=== PATIENT | male | born 1965 | race Caucasian/White ===

== ENCOUNTER 2021-02-20 13:55 | Emergency (ER) | payer BC ==
--- OUTSIDE RECORDS SUMMARY | 2021-02-20 13:58 | XMS REPORT | Continuity of Care Document ---
:1965 Author Organization [facility] t Address [address] [place] [address] Care Team Providers Name Role Phone Matt Pritchett Attending Clinician DR GAURAV Attending Clinician Unavailable DR GAURAV Admitting Clinician Unavailable Problems Condition Condition Condition Status Onset Resolution Last Treating Co mments Source Name Details Category Date Date Treatment Clinician Date Cervical Problem Active 2021-02-04 Mem oria radiculopa 00:51:45 l thy Cervical Alexandro n (disorder) radiculopa thy (disorder) Active Problem 02/04/2021 [facility] Finding of Problem Active 2021-02-04 M emoria neck 00:51:45 l region Finding [place] (finding) of neck region (finding) Active Problem 02/04/2021 [facility] Hereditary Problem Active 2021-02-04 M emoria motor and 00:51:45 l sensory [place] neuropathy 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) Active Problem 02/04/2021 [facility] Hyperlipid Problem Active 2021-02-04 M emoria emia 00:51:45 l (disorder) Alexandro n Hyperlipid emia (disorder) Active Problem 02/04/2021 [facility] Hypertensi Problem Active 2021-02-04 M emoria ve 00:51:45 l disorder, [place] systemic Hypertensi arterial ve (disorder) disorder, systemic arterial (disorder) Active Problem 02/04/2021 [facility] Lumbar Problem Active 2021-02-04 Memor ia radiculopa 00:51:45 l thy Lumbar Manas (disorder) radiculopa thy (disorder) Active Problem 02/04/2021 [facility] Morbid Problem Active 2021-02-04 Memor ia obesity 00:51:45 l (disorder) Morbid Herm margaret obesity (disorder) Active Problem 02/04/2021 [facility] Tremor Problem Active 2021-02-04 Memor ia (finding) 00:51:45 l Tremor Manas (finding) Active Problem 02/04/2021 [facility] Carpal Problem Active 2021-02-04 Memor ia tunnel 00:51:45 l syndrome Carpal Alexandro n (disorder) tunnel syndrome (disorder) Active Problem 02/04/2021 [facility] Liver Problem Active 2021-02-04 Memor ia function 00:51:45 l tests Liver [place] abnormal function (finding) tests abnormal (finding) Active Problem 02/04/2021 [facility] Allergies, Adverse Reactions, Alerts Allergy Allergy Status Severity Reaction(s) Onset Inactive Treating Comm ents Source Name Type Date Date Clinician sulfa sulfa Active Memoria drugs drugs l [facility] Social History Social Habit Start Date Stop Date Quantity Comments Source Social History 2021-01-01 2021-01-01 [facility] ermann 16:04:48 16:04:48 Medications Ordered Filled Start Stop Current Ordering Indication Dosage Frequency Signature Comments Components Source Medication Medication Date Date Medication? Clinician (SIG) Name Name primidone Yes 50 mg = 1 Mem oria 50 mg oral 4-22 tab, PO, l tablet 18:38: Bedtime, # Candice nn 00 30 tab, 3 Refill(s), Pharmacy: [facility][id number], 172.72, cm, 01/01/21 11:13:00 CDT, Height, 119.091, kg, 02/01/21 13:14:00 CDT, Weight gabapentin Yes 600 mg = 1 M emoria 600 MG Oral 3-22 tab, PO, l Tablet 16:48: TID, # 90 Alexandro n 00 tab, 3 Refill(s), Pharmacy: [facility] #[id number], 172.72, cm, 01/01/21 11:13:00 CDT, Height, 120.455, kg, 01/01/21 11:13:00 CDT, Weight Levetiracet Yes 250 mg = 1 Memoria am 250 MG 3-22 tab, PO, l Oral Tablet 16:48: BID, # 60 H ermann 00 tab, 3 Refill(s), Pharmacy: [facility] #[id number], 172.72, cm, 01/01/21 11:13:00 CDT, Height, 120.455, kg, 01/01/21 11:13:00 CDT, Weight Levetiracet No 250 mg = 1 Memoria am 250 MG 3-22 tab, PO, l Oral Tablet 16:22: BID, # 60 H ermann 00 tab, 2 Refill(s) Atenolol Yes 100 mg = 1 Mem oria 100 MG Oral 3-22 tab, PO, l Tablet 16:22: Daily, # Manas 00 30 tab, 0 Refill(s) atorvastati Yes 20 mg = 1 M emoria n 20 mg 3-22 tab, PO, l oral tablet 16:22: Bedtime, # [place] 00 30 tab, 0 Refill(s) amLODIPine Yes 10 mg = 1 Me moria 10 mg oral 3-22 tab, PO, l tablet 16:21: Daily, # [place] 00 90 tab, 1 Refill(s) clonazePAM Yes 0.5 mg = 1 M emoria 0.5 mg oral 3-22 tab, PO, l tablet 16:20: BID, # 30 Alexandro n 00 tab, 0 Refill(s) omeprazole Yes 40 mg = 1 Me moria 40 mg oral 3-22 cap, PO, l delayed 16:20: Daily, # Alexandro n release 00 30 cap, 0 capsule Refill(s) gabapentin No 600 mg = 1 M emoria 600 MG Oral 3-22 tab, PO, l Tablet 16:19: BID, # 270 Candice nn 00 tab, 0 Refill(s) Vital Signs Vital Name Observation Time Observation Value Comments Source Systolic (mm Hg) 2021-02-01 18:14:00 Juan A Malagon Diastolic (mm Hg) 2021-02-01 18:14:00 Mary Jo fultonal [place] Heart Rate 2021-02-01 18:14:00 [facility] [place] Respitory Rate 2021-02-01 18:14:00 Mary Joori al [address] Weight 2021-02-01 18:14:00 [facility] [place] Systolic (mm Hg) 2021-01-01 16:03:00 Juan Acameron Malagon Diastolic (mm Hg) 2021-01-01 16:03:00 Mem donaldobridget Mal[place] Heart Rate 2021-01-01 16:03:00 Sharon Malagon Respitory Rate 2021-01-01 16:03:00 Mary Jodonaldo Rose Height 2021-01-01 16:03:00 172.72 cm Sharon Malagon Weight 2021-01-01 16:03:00 Sharon Malagon BMI Calculated 2021-01-01 16:03:00 Ifeoma Rose Procedures Procedure Date / Time Performed Performing Clinician Sour e Right Foot SX Sharon Oliverann Cholecystectomy<sup>1</maurer Memdonaldo gill Manas p> Encounters Start End Encounter Admission Attending Care Care Encounter Source Date/Time Date/Time Type Type Clinicians Facility Department ID 2021-02-01 2021-02-01 Outpatient FRED PritchettMISCHER [facility] [id number] 13:00:00 23:59:59 Leonardo 01 Matt 2021-01-15 2021-01-15 Outpatient Sri NOLASCO [facility] [id number] [place] 08:32:00 10:43:00 [facility] [place] 2021-01-05 2021-01-06 Outpatient MHMISCHER MHMISCHER [id number] 09:02:45 23:59:59 00 2021-01-01 2021-01-01 Outpatient FRED PritchettMISCHER [facility] [id number] 10:45:00 23:59:59 Leonardo 00 Matt 2020-12-22 2020-12-22 Outpatient Sri NOLASCO [facility] [id number] [place] 08:57:00 12:00:00 [facility] [place] 2020-11-10 2020-11-10 Outpatient Sri NOLASCO [facility] [id number] [place] 09:15:00 11:18:00 [facility] [place] 2019-10-08 2019-10-08 Outpatient Sri NOLASCO [facility] [id number] [place] 08:34:00 10:10:00 [facility] [place] 2019-09-24 2019-09-24 Outpatient Sri NOLASCO [facility] [id number] [place] 08:45:00 10:36:00 [facility] Results This patient has no known results.
[2021-02-20] MEDS ORDERED: MORPHINE 4 MG/ML SYR ONE (15:22)
--- NOTE | 2021-02-20 15:56 | RAD REPORT ---
EXAM DESCRIPTION: RAD - Tib Fib Left - 02/20/2021 3:06 pm CLINICAL HISTORY: Fall, leg pain COMPARISON: Left ankle same day FINDINGS: Left ankle findings are separately detailed. Proximal to the ankle joint there is no acute fracture. Patient has patella [place] configuration. There is calcification of the proximal aspect medial collateral ligament. This can be associated with exhibit designer vlad knee pain but is not related to the acute event. There is no dislocation or periosteal reaction n oted. No acute or suspicious bony finding. No foreign body or other soft tissue abnormality. IMPRESSION: Exclusive of the left ankle joint, left tib-fib shows no acute or suspicious finding.
--- NOTE | 2021-02-20 15:58 | RAD REPORT ---
EXAM DESCRIPTION: RAD - Ankle Left 3 View - 02/20/2021 3:05 pm CLINICAL HISTORY: Pain;Deformity, fall, ankle pain COMPARISON: Tib Fib Left dated 02/20/2021 FINDINGS: Oblique fracture is present through the distal fibula proximal to the tibial plafond. Ther e is 1 full shaft width lateral displacement and 20 degree angulation deformity. There is near comple te dislocation of the dome of the talus from the ankle joint. Patient may have a minimal fracture def ormity at the posterior margin of the tibial plafond. Medial malleolus is intact. No fracture of the talus or calcaneus seen. Prominent soft tissue swelling is present around the ankl e joint. No foreign body seen. IMPRESSION: Left ankle fracture dislocation as detailed.
--- NOTE | 2021-02-20 16:26 | RAD REPORT ---
EXAM DESCRIPTION: RAD - Ankle Left 3 View - 02/20/2021 4:12 pm CLINICAL HISTORY: post reduction COMPARISON: Ankle Left 3 View dated 02/20/2021 FINDINGS: Following post reduction maneuvers and placement of cast material, the lateral dislocation has been partially reduced. There remains approximately 8 millimeter gap between the medial margin o f the talar dome and the medial malleolus. The fibula fracture fragment lateral dislocation has been reduced to near anatomic position. IMPRESSION: Near complete reduction of the left ankle fracture dislocation detailed previously.
--- NOTE | 2021-02-20 16:53 | ER ---
Nurse's Notes [facility] Name: Juan José Escobar Jr Age: 55 yrs Sex: Male : 1965 Arrival Date: 02/20/2021 Time: 13:56 Bed 15 Private MD: Diagnosis: Fracture of lower leg, including ankle Presentation: 02/20 14:08 Chief complaint: Patient states: about 2 am, he fell, the LEFT foot went backwards, my tw2 wrapped it with kristopher wrap and but a boot on so i could get it striaght. Chief complaint: Spouse and/or significant other states: Charcot foot and neuropathy. Coronavirus screen: At this time, the client does not indicate any symptoms associated with coronavirus-19. Ebola Screen: Patient denies travel to an Ebola-affected area in the 21 days before illness onset. Initial Sepsis Screen: Does the patient meet any 2 criteria? No. Patient's initial sepsis screen is negative. Does the patient have a suspected source of infection? No. Patient's initial sepsis screen is negative. Risk Assessment: Do you want to hurt yourself or someone else? Patient reports no desire to harm self or others. Onset of symptoms was February 20, 2021. 14:08 Method Of Arrival: Wheelchair tw2 14:08 Acuity: BUSHRA 3 tw2 Triage Assessment: 14:13 General: Appears in no apparent distress. obese, well groomed, Behavior is calm, tw2 cooperative, appropriate for age. Pain: Complains of pain in left foot. Historical: - Allergies: 14:12 Sulfa (Sulfonamide Antibiotics); tw2 - Home Meds: 14:12 levetiracetam 250 mg Oral tab 2 tabs 2 times per day [Active]; gabapentin 300 mg Oral tw2 cap 2 caps 3 times per day [Active]; atenolol 100 mg Oral tab 1 tab once daily [Active]; aspirin 81 mg Oral chew 1 tab once daily [Active]; amlodipine 10 mg tab 1 tab once daily [Active]; clonazepam 0.5 mg oral tab [Active]; omeprazole 40 mg Oral cpDR 1 cap once daily [Active]; atorvastatin 20 mg oral tab 1 tab once daily [Active]; - PMHx: 14:12 CMT; Hypertension; tw2 - PSHx: 14:12 Right foot; Cholecystectomy; tw2 - Immunization history:: Adult Immunizations. - Social history:: Smoking status: . Screenin:31 Abuse screen: Denies threats or abuse. Nutritional screening: No deficits noted. tw2 Tuberculosis screening: No symptoms or risk factors identified. Fall Risk Secondary diagnosis (15 points) impaired mobility. Assessment: 14:50 General: Appears in no apparent distress. Behavior is calm, cooperative, appropriate kg for age, quiet. Pain: Complains of pain in left lateral ankle, lateral aspect of left foot, left Achilles, left heel, left medial ankle, medial aspect of left foot, anterior aspect of left ankle and dorsum of left foot Pain radiates to left leg Pain currently is 8 out of 10 on a pain scale. at worst was 10 out of 10 on a pain scale. level that patient reports is acceptable is 5 out of 10 on a pain scale. Quality of pain is described as aching, throbbing. Neuro: No deficits noted. Level of Consciousness is awake, alert, obeys commands, Oriented to person, place, time, situation. Cardiovascular: No deficits noted. Respiratory: No deficits noted. GI: No deficits noted. : No deficits noted. EENT: No deficits noted. Derm: No deficits noted. Musculoskeletal: Bony deformity noted of left lateral ankle, left Achilles, left medial ankle and anterior aspect of left ankle Swelling present in left leg Reports pain in left leg. Vital Signs: 14:08 BP 93 / 61; Pulse 67; Resp 17; Temp 97.9(TE); Pulse Ox 95% ; Weight 114.76 kg (R); tw2 Height 5 ft. 10 in. (177.80 cm); 15:13 BP 94 / 66; Pulse 65; Resp 20; Pulse Ox 93% ; kg 16:58 BP 82 / 62; Pulse 68; Resp 19 S; Pulse Ox 92% on R/A; Pain 5/10; kg 17:26 BP 109 / 72; Pulse 68; Resp 20; Pulse Ox 94% on R/A; kg 14:08 Body Mass Index 36.30 (114.76 kg, 177.80 cm) tw2 ED Course: 13:56 Patient arrived in ED. ds1 14:10 Triage completed. tw2 14:13 Arm band placed on. tw2 14:36 Roberto Carlos Handley PA is PHCP. rhiannon 14:36 Linus Weston MD is Attending Physician. jmm 15:00 Juliet Baum is Primary Nurse. kg 15:06 XRAY Ankle LEFT 3 view In Process Unspecified. EDMS 15:06 Tib Fib Left XRAY In Process Unspecified. EDMS 15:12 Inserted saline lock: 20 gauge in right antecubital area, using aseptic technique. kg 15:45 Orthoglass splint: Posterior short lleg splint applied on left leg. Orthoglass splint: dh4 stirrup splint applied on left leg. 16:12 Ankle Left 3 View XRAY In Process Unspecified. EDMS 16:52 Ismael King DPM is Referral Physician. jmm 17:02 Patient has correct armband on for positive identification. Fall risk band placed. Bed kg in low position. Call light in reach. Side rails up X2. Adult w/ patient. 17:03 Assist provider with fracture care of left lateral ankle Fracture is closed. Obvious kg deformity is noted. Circulation, motor and sensation is intact. Set up for procedure. Performed by Ruben Magana Reduced with physical manipulation. Immobilized with preformed splint, Post immobilization, circulation, motor and sensation remain intact. Patient tolerated well. Patient did not have IV access during this emergency room visit. Administered Medications: 15:12 Drug: morphine 4 mg Route: IVP; Site: right antecubital; kg 17:00 Follow up: Response: No adverse reaction; Pain is decreased kg Outcome: 16:52 Discharge ordered by . [facility] 17:05 Discharged to home via wheelchair. kg 17:05 Condition: improved 17:05 Discharge instructions given to patient, family, Instructed on discharge instructions, follow up and referral plans. Demonstrated understanding of 17:27 Demonstrated understanding of instructions, follow-up care, medications, Prescriptions kg given X 2. 17:28 Patient left the ED. kg Signatures: Dispatcher [employer] EDMS Roberto Carlos Handley PA PA Lucia Stein ds1 Amber Khan RN RN tw2 Ruben Magana Kristen kg
--- NOTE | 2021-02-20 16:53 | EDPHYS ---
Physician Documentation [facility] Name: Juan José Escobar Jr Age: 55 yrs Sex: Male : 1965 Arrival Date: 02/20/2021 Time: 13:56 Bed 15 Private MD: ED Physician Linus Weston HPI: 02/20 14:52 This 55 yrs old Male presents to ER via Wheelchair with complaints of Fall jmm Injury. 14:52 Details of fall: The patient fell from an upright position. Onset: The symptoms/episode jmm began/occurred acutely, just prior to arrival. Associated injuries: The patient sustained ankle. This is a 55 year old male with a history of CMT, htn that presents ot the ED with deformity to the left ankle. Patient states he rolled his ankle and it was boot in a walking boot at 0200. . Historical: - Allergies: 14:12 Sulfa (Sulfonamide Antibiotics); tw2 - Home Meds: 14:12 levetiracetam 250 mg Oral tab 2 tabs 2 times per day [Active]; gabapentin 300 mg Oral tw2 cap 2 caps 3 times per day [Active]; atenolol 100 mg Oral tab 1 tab once daily [Active]; aspirin 81 mg Oral chew 1 tab once daily [Active]; amlodipine 10 mg tab 1 tab once daily [Active]; clonazepam 0.5 mg oral tab [Active]; omeprazole 40 mg Oral cpDR 1 cap once daily [Active]; atorvastatin 20 mg oral tab 1 tab once daily [Active]; - PMHx: 14:12 CMT; Hypertension; tw2 - PSHx: 14:12 Right foot; Cholecystectomy; tw2 - Immunization history:: Adult Immunizations. - Social history:: Smoking status: . ROS: 14:52 Constitutional: Negative for fever, chills, and weight loss, Cardiovascular: Negative jmm for chest pain, palpitations, and edema, Respiratory: Negative for shortness of breath, cough, wheezing, and pleuritic chest pain. 14:52 MS/extremity: Positive for injury or acute deformity. 14:52 All other systems are negative. Exam: 14:52 Constitutional: This is a well developed, well nourished patient who is awake, alert, jmm and in no acute distress. Head/Face: atraumatic. Eyes: EOMI, no conjunctival erythema appreciated ENT: Moist Mucus Membranes Neck: Trachea midline, Supple Chest/axilla: Normal chest wall appearance and motion. Cardiovascular: Regular rate and rhythm. No edema appreciated Respiratory: Normal respirations, no respiratory distress appreciated Abdomen/GI: Non distended, soft Back: Normal ROM Skin: General appearance color normal 14:52 Musculoskeletal/extremity: deformity noted to the left ankle, dorsalis pulse intact. 14:52 Skin: Appearance: Color: normal in color. 14:52 Neuro: Motor: is normal. 14:52 Psych: Behavior/mood is pleasant, cooperative. Vital Signs: 14:08 BP 93 / 61; Pulse 67; Resp 17; Temp 97.9(TE); Pulse Ox 95% ; Weight 114.76 kg (R); tw2 Height 5 ft. 10 in. (177.80 cm); 15:13 BP 94 / 66; Pulse 65; Resp 20; Pulse Ox 93% ; kg 16:58 BP 82 / 62; Pulse 68; Resp 19 S; Pulse Ox 92% on R/A; Pain 5/10; kg 17:26 BP 109 / 72; Pulse 68; Resp 20; Pulse Ox 94% on R/A; kg 14:08 Body Mass Index 36.30 (114.76 kg, 177.80 cm) tw2 Procedures: 16:50 Reduction: of the left ankle, using traction, manipulation, Immobilized with posterior, rhiannon stirrup. Patient tolerated well. Post reduction film - reveals improved alignment. MDM: 14:43 Patient medically screened. [facility] 16:51 Data reviewed: vital signs, nurses notes. Counseling: I had a detailed discussion with rhiannon the patient and/or guardian regarding: the historical points, exam findings, and any diagnostic results supporting the discharge/admit diagnosis, radiology results, the need for outpatient follow up, to return to the emergency department if symptoms worsen or persist or if there are any questions or concerns that arise at home. ED course: I discussed the patient with Dr. iKng whom will follow up with the patient tomorrow. . 02/20 14:20 Order name: XRAY Ankle LEFT 3 view; Complete Time: 16:08 rn 02/20 14:43 Order name: Tib Fib Left XRAY; Complete Time: 16:08 [facility] 02/20 14:43 Order name: Saline Lock [facility] 02/20 15:38 Order name: Ankle Left 3 View XRAY; Complete Time: 16:30 [facility] Administered Medications: 15:12 Drug: morphine 4 mg Route: IVP; Site: right antecubital; kg 17:00 Follow up: Response: No adverse reaction; Pain is decreased kg Disposition: 17:52 Co-signature as Attending Physician, Linus Weston MD. rn Disposition: 02/20/21 16:52 Discharged to Home. Impression: Fracture of lower leg, including ankle. - Condition is Stable. - Discharge Instructions: Ankle Fracture. - Prescriptions for Tylenol- Codeine #3 300-30 mg Oral Tablet - take 1 tablet by ORAL route every 4-6 hours As needed; 20 tablet. wheelchair - take 1 unit by MISCELLANEOUS route as directed; 1 unit. - Medication Reconciliation Form, Thank You Letter, Antibiotic Education, Prescription Opioid Use form. - Follow up: Ismael King DPM; When: Tomorrow; Reason: Recheck today's complaints, Continuance of care, Re-evaluation by your physician. Signatures: Dispatcher [employer] [facility] Roberto Carlos Handley PA PA [facility] Linus Weston MD MD rn Amber Khan RN RN 2 Juliet Baum Corrections: (The following items were deleted from the chart) 15:05 14:20 Foot Left 3 View+RAD.RAD.BRZ ordered. [facility] 17:28 16:52 02/20/2021 16:52 Discharged to Home. Impression: Fracture of lower leg, including kg ankle. Condition is Stable. Forms are Medication Reconciliation Form, Thank You Letter, Antibiotic Education, Prescription Opioid Use. Follow up: Dr. Ismael King; When: Tomorrow; Reason: Recheck today's complaints, Continuance of care, Re-evaluation by your physician. [facility]
[2021-02-20 17:34] VITALS: TEMP 97.9
[2021-02-20 17:38] VITALS: BP 109/72; O2SAT 94
== END 2021-02-20 17:28 | disposition home or self-care (01) ==
LOC: ER 13:55
PROC: 0QSKXZZ Reposition Left Fibula, External Approach (ICD-10-PCS; principal; 2021-02-20)
PROC: 0QSHXZZ Reposition Left Tibia, External Approach (ICD-10-PCS; 2021-02-20)
DX: S82.892A Other fracture of left lower leg, initial encounter for closed fracture (principal); W19.XXXA Unspecified fall, initial encounter; Y93.89 Activity, other specified; I10 Essential (primary) hypertension; Z88.2 Allergy status to sulfonamides; Z79.82 Long term (current) use of aspirin
CPT/HCPCS: 96374; 99284

== ENCOUNTER 2022-05-15 06:11 | Day surgery (SDC) | payer BC ==
[2022-05-15 06:52] LABS: Hematocrit 41.8 % (39.6-49.0); MCV 91.2 fL (80-100); MPV 7.5 fL (7.6-11.3); RBC Red Blood Cell Count 4.58 M/uL (4.33-5.43)
[2022-05-15 07:01] LABS: SARS-CoV-2 Antigen Rapid Res Negative (Negative)
[2022-05-15 07:02] LABS: Potassium 4.2 mmol/L (3.5-5.1)
[2022-05-15] MEDS ORDERED: ROCURONIUM 50 MG/5 ML VIAL IV ONE (07:15)
[2022-05-15] MEDS ORDERED: LIDOCAINE 2% MPF 5 ML VIAL ONE (07:15)
[2022-05-15] MEDS ORDERED: ONDANSETRON 4 MG/2 ML VIAL ONE (07:15)
[2022-05-15] MEDS ORDERED: MIDAZOLAM HCL 2 MG/2 ML INJ ONE (07:15)
[2022-05-15] MEDS ORDERED: dexAMETHasone 10 MG/ML VIAL ONE (07:15)
[2022-05-15] MEDS ORDERED: FENTANYL CITR 100 MCG/2 ML ONE (07:15)
[2022-05-15] MEDS ORDERED: propofoL 200 MG/20 ML VIAL IV ONE (07:15)
[2022-05-15] MEDS ORDERED: Ringers Lactate 1,000 ML IV ONE ×2 (07:35→09:30)
--- NOTE | 2022-05-15 07:41 | RAD REPORT ---
EXAM DESCRIPTION: Faisal Burton (2 Views)05/15/2022 6:57 am CLINICAL HISTORY: Preop COMPARISON: 2017 FINDINGS: An area of scarring or subsegmental atelectasis within the left lung base. The remainder of the lungs appear clear of acute infiltrate. The heart is normal size
[2022-05-15] MEDS ORDERED: CEFAZOLIN SODIUM 1 GM/VIAL ONE (08:58)
[2022-05-15] MEDS ORDERED: EPHEDRINE SULF 50 MG/ML VIAL ONE (09:09)
[2022-05-15] MEDS ORDERED: KETOROLAC 30 MG/ML INJ ONE (09:29)
[2022-05-15] MEDS ORDERED: NEOSTIGMINE 1 MG/ML -10 ML VIAL ONE (09:29)
[2022-05-15] MEDS ORDERED: GLYCOPYRROLATE 0.2 MG/ML SYR ONE (09:29)
[2022-05-15] MEDS: HYDROMORPHONE HCL 1 MG/ML INJ ONE ×2 (09:46→09:53)
--- NOTE | 2022-05-15 09:52 | P.BOP ---
Preoperative diagnosis: incarcerated tender supraumbilical ventral hernia Postoperative diagnosis: same Primary procedure: Laparoscopic repair incarcerated supraumbilical ventral hernia with mesh Estimated blood loss: <10cc Specimen: sac Findings: as above Anesthesia: General Complications: None Implants: large ventralex mesh Transferred to: Recovery Room Condition: Good
[2022-05-15] MEDS ORDERED: HYDROMORPHONE HCL 1 MG/ML INJ ONE (10:15)
[2022-05-15] MEDS ORDERED: CODEINE 30MG/APAP 300MG TAB ONE (10:48)
[2022-05-15] MEDS ORDERED: CODEINE 30MG/APAP 300MG TAB PO ONE (11:00)
[2022-05-15 12:04] VITALS: BP 125/72; TEMP 97.8; O2SAT 98
--- NOTE | 2022-05-15 12:57 | EKG ---
Test Date: 2022-05-15 Test Time: 07:16:25 Child Caregiver: IRINA MEASUREMENT RESULTS: Intervals: Rate: 68 ID: [id number] QRSD: 80 QT: 422 QTc: 448 [place]: P: 55 ID: [id number] QRS: 23 T: 67 INTERPRETIVE STATEMENTS: Normal sinus rhythm Normal ECG Compared to ECG 02/06/2017 21:33:18 No significant changes Electronically Signed On 05-15-22 12:56:28 CDT by Bairon Clement
--- NOTE | 2022-05-15 21:54 | OP ---
Date of Procedure: 05/15/2022 Surgeon: John Morelos MD Preoperative Diagnosis: Incarcerated tender supraumbilical ventral hernia. Postoperative Diagnosis: Incarcerated tender supraumbilical ventral hernia. Procedure: Laparoscopic repair of incarcerated supraumbilical ventral hernia with mesh. Estimated Blood Loss: Less than 10 mL. Specimen: Hernia sac. Anesthesia: General plus local. Implant: A large Ventralex mesh. Complications: None. Indication: This is the case of a 56-year-old patient, who comes to us with above hernia. He unders tands the benefits, alternatives, and risks of repair of laparoscopic possible open repair of incarce rated supraumbilical ventral hernia with possible mesh with benefits, alternatives, and risks includi ng, but not limited to infection, bleeding, damage to adjacent structures, anesthesia complication, r ecurrence, DE, and even . He also understands this may not relieve any symptoms. He might need more than one surgical intervention. He understood. He also understands we may use a mesh in that area. Pros and cons of mesh placement were discussed with the patient and all the questions were ans wered to his satisfaction. He signed a consent. He also understands he has also diastasis recti com ponent in the upper epigastric area that although might be hernia at this moment and may be developin g hernia in the future. He should help himself by trying to lose some weight and avoid heavy lifting . He understands. Procedure In Detail: The patient was brought to the operating room, placed in supine position. Anes thesia was done without complication. Abdominal area was prepped and draped in the usual sterile fas hion. Local anesthesia was applied followed by sharp incision of the skin in the supraumbilical fiorella on ventral area. The incision was carried down. We noticed the hernia sac to be present. Carefully , the hernia sac was dissected free from the rest of the subcutaneous tissue, opened. We noticed the incarcerated omentum, but after removing scar tissue from that area, we were able to reduce the omen kiersten and salvage that. The hernia sac was removed where the fascial edges looked friable and I believ e he will benefit from a mesh in that region to diminish the chance of recurrence since holding this with stitches is ripping through the fascia itself. At that moment, I proceeded to place Vicryl insi de of the fascia. Jesús trocar was carefully introduced and pneumoperitoneum was obtained. I place d 2 more trocars, 5 mm each one of them in the left and right side of the abdomen. This allowed me t o put a 5 mm camera and evaluate in the middle. We have to use a LigaSure to be able to remove adhes ions through the anterior abdominal wall and also mobilize partially the falciform ligament. This al lowed me no space, so we are going to put the mesh in that region. It will be nice and flat against the abdominal wall. We selected a large Ventralex mesh to be placed to cover the area defect of abou t 3-5 cm. The mesh was placed through the Jesús trocar. Jesús trocar was carefully removed and Vi cryl #1 placed inside the fascia to close approximately the fascial edges over the hernia defect. We then tied that yet and we proceeded to pull the strap of the Ventralex mesh, secured in place from b elow with the help of SorbaFix fixation device. The strap of this mesh was removed and then we appro ximated the fascial edges with #1 Vicryl obtaining a seal to water and also air. The mesh was furthe r secured circumferentially with SorbaFix fixation device to diminish any chance of intestines coming in between. At that moment, I proceeded once again to check the area. The omentum looks intact, so we deflated pneumoperitoneum and removed the trocars under direct visualization and then after that, closed the subcutaneous tissue with 3-0 chromic and the skin with lorena. Sponge count, instrument counts correct. The patient tolerated the procedure well. The patient was sent to recovery in stable condition. LUCIO/LEFTY Voice ID: [id number] Report ID: [id number]
--- NOTE | 2022-05-16 05:36 | DS ---
Date of Discharge: 05/15/2022 Diagnosis: Incarcerated tender supraumbilical ventral hernia. Procedure: Laparoscopic repair of incarcerated supraumbilical ventral hernia with mesh. Disposition: Home. Activity: As tolerated. No heavy lifting. Plan: Follow up in my office in 1 week. Call for appointment at [phone]. Keep area dry if possibl e until he sees us back in the clinic, but if he has to remove it, then not to remove until 48 hours from now. Use the abdominal binder while out of bed. LUCIO/LEFTY Voice ID: [id number] Report ID: [id number]
== END 2022-05-15 11:20 | disposition home or self-care (01) ==
LOC: OR 06:11
PROVIDERS: ATTEND Surgery
PROC: 0WUF4JZ Supplement Abdominal Wall with Synthetic Substitute, Percutaneous Endoscopic Approach (ICD-10-PCS; principal; 2022-05-15 08:30)
DX: K43.6 Other and unspecified ventral hernia with obstruction, without gangrene (principal); Z20.822 Contact with and (suspected) exposure to COVID-19
CPT/HCPCS: 93005; 85025; 80048; 36415; 88302; 71046; 87811; 49653; J2704; J2710; J2250; J3010; J1100; J1170 ×2; J7120 ×2; J2405; J0690

== ENCOUNTER 2022-12-10 14:04 | Inpatient (IN) | payer SELFPAY ==
--- OUTSIDE RECORDS SUMMARY | 2022-12-10 14:59 | XMS REPORT | Continuity of Care Document ---
:1965 Author Organization [facility] t Address [address] [place] [address] Care Team Providers Name Role Phone BARTLETT, TRINA Attending Clinician Unavailable Leonardo Pritchett Attending Clinician Sol Kincaid Attending Clinician Unavailable DR SHERICE NOLASCO Attending Clinician Unavailable Sol Kincaid Admitting Clinician Unavailable DR SHERICE NOLASCO Admitting Clinician Unavailable Payers Payer Name Policy Type Policy Number Effective Date Expiration Date S betty BCBSTX PPO AND [id number] 2022 00:00:00 OUT OF STATE Problems Condition Condition Condition Status Onset Resolution Last Treating Co mments Source Name Details Category Date Date Treatment Clinician Date Cervical Cervical Problem Active 2021-10-26 Memoria radiculopa radiculopa 23:23:25 l thy thy [place] (disorder) (disorder) Active Problem 10/26/2021 [facility] Finding of Finding Problem Active 2021-10-26 Memoria neck of neck 23:23:25 l region region [place] (finding) (finding) Active Problem 10/26/2021 [facility] 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) Active Problem 10/26/2021 [facility] Hyperlipid Hyperlipi Problem Active 2021-10-26 Memoria emia demia 23:23:25 l (disorder) (disorder) He rmann Active Problem 10/26/2021 [facility] Hypertensi Hypertens Problem Active 2021-10-26 Memoria ve amrita 23:23:25 l disorder, disorder, Herm margaret systemic systemic arterial arterial (disorder) (disorder) Active Problem 10/26/2021 [facility] Lumbar Lumbar Problem Active 2021-10-26 Juan A jose radiculopa radiculopa 23:23:25 l thy thy [place] (disorder) (disorder) Active Problem 10/26/2021 [facility] Morbid Morbid Problem Active 2021-10-26 Juan A jose obesity obesity 23:23:25 l (disorder) (disorder) He rmann Active Problem 10/26/2021 [facility] Tremor Tremor Problem Active 2021-10-26 Juan A jose (finding) (finding) 23:23:25 l Active [place] Problem 10/26/2021 [facility] Carpal Carpal Problem Active 2021-10-26 Juan A jose tunnel tunnel 23:23:25 l syndrome syndrome Alexandro n (disorder) (disorder) Active Problem 10/26/2021 [facility] Hand pain Hand pain Problem Active 2021-10-26 Memoria (finding) (finding) 23:23:25 l Active [place] Problem 10/26/2021 [facility] Liver Liver Problem Active 2021-10-26 Memor ia function function 23:23:25 l tests tests [place] abnormal abnormal (finding) (finding) Active Problem 10/26/2021 [facility] Allergies, Adverse Reactions, Alerts Allergy Allergy Status Severity Reaction(s) Onset Inactive Treating Comm ents Source Name Type Date Date Clinician Sulfa DA Active SV [facility] (Sulfona 5-12 [facility] 00:00: [facility] Antibiot 00 are ics) [facility] Sulfa DA Active SV ANAPHYLAXIS [facility] (Sulfona 5-12 [facility] 00:00: Health Antibiot 00 are ics) [facility] sulfa sulfa Active Memoria drugs drugs l [place] Sulfa DA Active Unknown [facility] (Sulfona [facility]) Shiner Social History Social Habit Start Date Stop Date Quantity Comments Source Social History 2021-01-01 2021-01-01 [facility] Reji smith 16:04:48 16:04:48 Medications Ordered Filled Start Stop Current Ordering Indication Dosage Frequency Signature Comments Components Source Medication Medication Date Date Medication? Clinician (SIG) Name Name primidone 2020-10 Yes 250 mg = 1 Me moria 250 mg oral 0-12 tab, PO, l tablet 14:21: Daily, # [place] 00 30 tab, 3 Refill(s), Pharmacy: [id number], 172.72, cm, 04/24/21 15:47:00 CDT, Height, 120, kg, 04/24/21 15:47:00 CDT, Weight primidone Yes 50 mg = 1 Mem oria 50 mg oral 8-18 tab, PO, l tablet 21:40: TID, # 90 Alexandro n 00 tab, 3 Refill(s), Pharmacy: [facility] #[id number], 172.72, cm, 04/24/21 15:47:00 CDT, Height, 120, kg, 04/24/21 15:47:00 CDT, Weight Flexeril 10 Yes 10 mg = 1 M emoria mg oral 7-12 tab, PO, l tablet 19:35: BID, 0 [place] 00 Refill(s) primidone Yes 50 mg = 1 Mem oria 50 mg oral 4-22 tab, PO, l tablet 18:38: Bedtime, # Candice nn 00 30 tab, 3 Refill(s), Pharmacy: [facility] [place] #[id number], 172.72, cm, 01/01/21 11:13:00 CDT, Height, 119.091, kg, 02/01/21 13:14:00 CDT, Weight gabapentin Yes 600 mg = 1 M emoria 600 MG Oral 3-22 tab, PO, l Tablet 16:48: TID, # 90 Alexandro n 00 tab, 3 Refill(s), [id number], 172.72, cm, 01/01/21 11:13:00 CDT, Height, 120.455, kg, 01/01/21 11:13:00 CDT, Weight Levetiracet Yes 250 mg = 1 Memoria am 250 MG 3-22 tab, PO, l Oral Tablet 16:48: BID, # 60 H ermann 00 tab, 3 Refill(s), Pharmacy: [id number], 172.72, cm, 01/01/21 11:13:00 CDT, Height, 120.455, [...] PO, l oral tablet 16:22: Bedtime, # [place] 00 30 tab, 0 Refill(s) amLODIPine Yes 10 mg = 1 Me moria 10 mg oral 3-22 tab, PO, l tablet 16:21: Daily, # [place] 00 90 tab, 1 Refill(s) clonazePAM Yes [...] Name Observation Time Observation Value Comments Source Height 2021-01-15 08:57:00 175.26 CM Weight 2021-01-15 08:57:00 119.83 KG Height 2020-12-22 10:35:00 175.26 CM Weight 2020-12-22 10:35:00 119.74 KG Height 2020-11-10 10:17:00 177.8 CM Weight 2020-11-10 10:17:00 122.46 KG Height 2019-10-08 09:10:00 177.8 CM Weight 2019-10-08 09:10:00 131.99 KG Systolic (mm Hg) 2021-07-24 14:02:00 Juan A rial [place] Diastolic (mm Hg) 2021-07-24 14:02:00 Mem orial [place] Heart Rate 2021-07-24 14:02:00 [facility] [place] Respitory Rate 2021-07-24 14:02:00 Memori al Amnas Systolic (mm Hg) 2021-05-30 20:54:00 Juan A rial [place] Diastolic (mm Hg) 2021-05-30 20:54:00 Mem orial [place] Heart Rate 2021-05-30 20:54:00 [facility] [place] Respitory Rate 2021-05-30 20:54:00 Memori al [place] Systolic (mm Hg) 2021-04-24 20:47:00 Juan A rial [place] Diastolic (mm Hg) 2021-04-24 20:47:00 Mem orial [place] Heart Rate 2021-04-24 20:47:00 [facility] [place] Respitory Rate 2021-04-24 20:47:00 Memori al [place] Height 2021-04-24 20:47:00 172.72 cm [facility] [place] Weight 2021-04-24 20:47:00 [facility] [place] BMI Calculated 2021-04-24 20:47:00 Memori al [place] Systolic (mm Hg) 2021-04-23 18:55:00 Juan A rial [place] Diastolic (mm Hg) 2021-04-23 18:55:00 Mem orial [place] Heart Rate 2021-04-23 18:55:00 [facility] [place] Respitory Rate 2021-04-23 18:55:00 Memori al [place] Systolic (mm Hg) 2021-02-01 18:14:00 Juan A rial [place] Diastolic (mm Hg) 2021-02-01 18:14:00 Mem orial [place] Heart Rate 2021-02-01 18:14:00 [facility] [place] Respitory Rate 2021-02-01 18:14:00 Memori al [place] Weight 2021-02-01 18:14:00 [facility] [place] Systolic (mm Hg) 2021-01-01 16:03:00 Juan A rial [place] Diastolic (mm Hg) 2021-01-01 16:03:00 Mem orial [place] Heart Rate 2021-01-01 16:03:00 [facility] [place] Respitory Rate 2021-01-01 16:03:00 Memori al [place] Height 2021-01-01 16:03:00 172.72 cm Sharon [place] Weight 2021-01-01 16:03:00 [facility] [place] BMI Calculated 2021-01-01 16:03:00 Ifeoma al [place] Procedures Procedure Date / Time Performed Performing Clinician Sour e [id number] 2021-03-09 00:00:00 SELBR [facility] [id number] 2021-02-21 00:00:00 STEKE.04 [facility] [id number] 2021-02-21 00:00:00 STEKE.04 [facility] INS NEURSTIM LEAD 2021-01-15 00:00:00 [facility] SPINAL CANAL PERQ INTRO ANEST AGENT 2020-12-22 00:00:00 [facility] SPINAL CANAL PERQ INTRO AIF SP CANAL 2020-12-22 00:00:00 [facility] PERQ APPROACH INTRO ANEST AGENT 2020-11-10 00:00:00 [facility] SPINAL CANAL PERQ INTRO AIF SP CANAL 2020-11-10 00:00:00 [facility] PERQ APPROACH INTRO AIF SP CANAL 2019-10-08 00:00:00 [facility] PERQ APPROACH INTRO ANEST AGENT 2019-10-08 00:00:00 [facility] SPINAL CANAL PERQ Right Foot SX [facility] Man[place] Cholecystectomy<sup>1 [facility] H ermann </sup> Encounters Start End Encounter Admission Attending Care Care Encounter Source Date/Time Date/Time Type Type Clinicians Facility Department ID 2022-05-07 Outpatient [facility] [id number] [place] 11:26:33 [id number] [facility] 2021-02-24 Inpatient HCANW HCANW [id number] [facility] 09:06:02 09 [facility] 2022-08-30 2022-08-30 Outpatient MHIE MHIE [id number] Memoria 15:15:00 15:15:00 13 l [place] 2022-07-09 2022-07-09 Outpatient SHEIKH [facility] [id number] [place] 08:00:00 08:00:00 [facility] 2022-05-10 2022-05-10 Outpatient MHIE MHIE [id number] Memoria 11:45:00 11:45:00 12 sam OliverManas 2022-04-05 2022-04-05 Outpatient MHIE MHIE [id number] Memoria 15:45:00 15:45:00 11 sam Malagon 2021-10-24 2021-10-24 Ambulatory nullFlavo MNA [id number] Memoria 20:30:00 20:30:00 Pre-Reg r Neurology 10 sam [place] 2021-10-24 2021-10-24 Outpatient MHIE MHIE [id number] Memoria 14:30:00 14:30:00 10 sam [place] 2021-10-24 2021-10-24 Outpatient YASMIN PritchettMISCHER [id number] 14:30:00 14:30:00 Leonardo 10 Matt 2021-07-24 2021-07-25 Outpatient nullFlavo MNA [id number] Memoria 14:00:00 04:59:59 r Neurology 09 sam Malagon 2021-07-24 2021-07-24 Outpatient YASMIN PritchettMISCHER [id number] 09:00:00 23:59:59 Leonardo 09 Matt 2021-07-24 2021-07-24 Outpatient MHIE MHIE [id number] Memoria 09:00:00 09:00:00 09 sam [place] 2021-07-11 2021-07-11 Ambulatory nullFlavo MNA [id number] Memoria 20:15:00 20:15:00 Pre-Reg r Neurology 08 sam [place] 2021-07-11 2021-07-11 Outpatient MHIE MHIE [id number] Memoria 15:15:00 15:15:00 08 sam [place] 2021-07-11 2021-07-11 Outpatient SABINE PritchettSCHER MHMISCHER [id number] 15:15:00 15:15:00 Leonardo 08 Matt 2021-06-06 2021-06-06 Ambulatory nullFlavo MNA [id number] Memoria 16:00:00 16:00:00 Pre-Reg r Neurology 05 sam Oliverann 2021-06-06 2021-06-06 Outpatient MHIE MHIE [id number] Memoria 11:00:00 11:00:00 05 sam [place] 2021-06-06 2021-06-06 Outpatient YASMIN Pritchtet CHARYSCHANTHONY [id number] 11:00:00 11:00:00 Leonardo 05 Matt 2021-05-30 2021-05-31 Outpatient nullFlavo MNA [id number] Memoria 20:45:00 04:59:59 r Neurology 07 sam [place] 2021-05-30 2021-05-30 Outpatient YASMIN PritchettSCHER [id number] 15:45:00 23:59:59 Leonardo 07 Matt 2021-05-30 2021-05-30 Outpatient MHIE MHIE [id number] Memoria 15:45:00 15:45:00 07 sam [place] 2021-04-24 2021-04-25 Outpatient nullFlavo MNA [id number] Memoria 20:30:00 04:59:59 r Neurology 06 sam [place] 2021-04-24 2021-04-24 Outpatient YASMIN PrtichettSCHER [id number] 15:30:00 23:59:59 Leonardo 06 Matt 2021-04-24 2021-04-24 Outpatient MHIE MHIE [id number] Memoria 15:30:00 15:30:00 06 sam [place] 2021-04-23 2021-04-24 Outpatient nullFlavo MNA [id number] Memoria 18:45:00 04:59:59 r Neurology 04 sam [place] 2021-04-23 2021-04-23 Outpatient SABINE PritchettSCHANTHONY CHARYSCHER [id number] 13:45:00 23:59:59 Leonardo 04 Matt 2021-04-23 2021-04-23 Outpatient MHIE MHIE [id number] Memoria 13:45:00 13:45:00 04 sam [place]agon 2021-04-12 2021-04-12 Ambulatory nullFlavo MNA [id number] Memoria 18:15:00 18:15:00 Pre-Reg r Neurology 03 l [place] 2021-04-12 2021-04-12 Outpatient MHIE MHIE [id number] Memoria 13:15:00 13:15:00 03 sam [place] 2021-04-12 2021-04-12 Outpatient SABINE PritchettSCHER MHMISCHER [id number] 13:15:00 13:15:00 Leonardo 03 Matt 2021-03-09 2021-03-14 Inpatient Sol Ocampo [facility] [id number] [facility] 13:24:00 16:31:00 12 [facility] 2021-02-26 2021-02-26 Ambulatory nullFlavo MNA [id number] Memoria 20:00:00 20:00:00 Pre-Reg r Neurology 02 l Mk Malagon 2021-02-26 2021-02-26 Outpatient MHIE MHIE [id number] Memoria 15:00:00 15:00:00 02 sam [place] 2021-02-26 2021-02-26 Outpatient SABINE PritchettSCHANTHONY MHMISCHER [id number] 15:00:00 15:00:00 Leonardo 02 Matt 2021-02-01 2021-02-02 Outpatient nullFlavo MNA [id number] Memoria 18:00:00 04:59:59 r Neurology 01 l Mk Malagon 2021-02-01 2021-02-01 Outpatient SABINE PritchettSCHER MHMISCHER [id number] 13:00:00 23:59:59 Leonardo Matt 2021-02-01 2021-02-01 Outpatient MHIE MHIE [id number] Memoria 13:00:00 13:00:00 01 sam [place]agon 2021-01-15 2021-01-15 Outpatient Sri NOLASCO [id number] [facility] 08:32:00 10:43:00 SHERICE [facility] 2021-01-05 2021-01-07 Outside nullFlavo MNA [id number] Memoria 14:02:45 04:59:59 Medical r Neurology 00 l Records Mk [place] 2021-01-05 2021-01-06 Outpatient MHMISCHER MHMISCHER [id number] 09:02:45 23:59:59 00 2021-01-01 2021-01-02 Outpatient nullFlavo MNA [id number] Memoria 15:45:00 04:59:59 r Neurology 00 l Mk Oliverann 2021-01-01 2021-01-01 [id number] 10:45:00 23:59:59 Leonardo 00 Matt 2021-01-01 2021-01-01 Out[facility] MHIE [facility] [id number] 10:45[facility] 10:45:00 00 l [place] 2020-12-22 2020-12-22 Outpatient Sri NOLASCO [id number] [facility] 08:57[facility]00 [facility] 2020-11-10 2020-11-10 Outpatient Sri NOLASCO [facility] [id number] [facility] 09:15:00 11:18:00 [facility] 2019-10-08 2019-10-08 Outpatient Sri NOLASCO [id number] [facility] 08:34:00 10:10[facility] 2019-09-24 2019-09-24 Outpatient Sri NOLASCO [id number] [facility] 08:45:00 10:36:00 [facility] Results Test Description Test Time Test Comments Results Result Comments Source CREATININE 2021-03-14 05:06:00 Test Item Value Reference Range Interpretation Comme nts CREATININE (test code = CREAT) 0.75 mg/dL 0.64-1.27 N BASIC METABOLIC [id number] 08:36:00 Test Item Value Reference Range Interpretation Comments SODIUM (test code 139 mmol/L 135-145 N = NA) POTASSIUM (test 4.1 mmol/L 3.6-5.0 N code = K) CHLORIDE (test 100 mmol/L 101-111 L code = CL) CARBON DIOXIDE 27 mmol/L 21-31 N (test code = CO2) GLUCOSE (test code 101 mg/dl 70-100 H = GLU) BLOOD UREA 8 mg/dl 6-20 N NITROGEN (test code = BUN) GLOMERULAR >=60 max >60 The estimated FILTRATION RATE estimate glomerular (test code = GFR) filtration rate is computed usingpatient ra ce, age (>18), sex, and serum creatinin e. If anyof the neede d data elements a re missing the Laboratory juan antonio ot compute an estimation of t he glomerular filtration rate . CREATININE (test 0.72 mg/dL 0.64-1.27 N code = CREAT) CALCIUM (test code 9.6 mg/dL 8.5-10.5 N = CA) VANCOMYCIN [id number] 08:31:00 Test Item Value Reference Range Interpretation Comments VANCOMYCIN TROUGH 15.6 ug/ml 10.0-20.0 N Please ref er to (test code = VANCT) Medicati on Administration Record (MAR) forlast d ose date and time. - XR ANKLE 3 + V [id number] 20:35:00 [facility] 1965 Sex: MPatient Name: MADDISON PAEZ Unit No: [id number] EXAMS: CPT: [id number] XR ANKLE 3 + V RT [id number] COMPARISON: February 22, 2021 CLINICAL HISTORY: post op RADIOGRAPHS: 4 views of left ankle. FINDINGS: There is a plate and screw fixation of the distal fibular fracture. The ankle mortise shows better alignment than on previous study. The hardware is intact. A overlying cast is present. Please see separate foot x-ray report. There is no radiopaque foreign body or soft tissue gas. There is no osseous erosion. IMPRESSION: 1. Images appear to be of the LEFT ankle. Postsurgical changes are noted. at 2034 Reported and signed by: Flor Nicole MD CC: Yariel Kincaid DO; No Primary Care Physician; Meagan Crawford DPM Technologist: Kp Rice Fluoro Time: DAP (Gy m2): Air Kerma (mGy): Trscr Dt/Tm: 03/12/2021 (2034) by:[email or web address] Orig Print D/T: S: 03/12/2021 (2037) BATCH NO: N/A Name: MADDISON PAEZ [facility] Phys: Meagan Thakkar DPM [address] [facility] : 1965 Age: 55 Sex: M [place], [place] [address] Loc: N.[id number] 1 Exam Date: 03/12/2021 Status: ADM IN PH: FAX: PAGE 1 Signed Report- XR FOOT 3 + V LT 2021-03-12 20:33:00 [facility] 1965 Sex: MPatient Name: MADDISON PAEZ Unit No: [id number] EXAMS: CPT: [id number] XR FOOT 3 + V LT [id number] COMPARISON:February 22, 2021 CLINICAL HISTORY: post op RADIOGRAPHS: 5 views of left foot FINDINGS: The external fixator has been removed. There is a fracture at the base of the 5th metatarsal. There is a lucency in the bone in this area. A overlying cast is present. A fracture of the calcaneus extending from the subta lar joint to the posterior calcaneus is now noted. There is a gap at the fracture site in this areaof 7 mm. A overlying cast is present. IMPRESSION: Hardware removal as above. Fractures of the calcaneus and the 5th metatarsal base are now visible. Electronically Signed by Flor Nicole MD on 02/12 at 2032 Reported and signed by: Flor Nicole MD CC: Sol Kincaid DO; No Primary Care Physician; Meagan Crawford DPM Technologist: Kp Diego Time: DAP (Gy m2): Air Kerma (mGy): Trscr Dt/Tm: 03/12/2021 (2032) by:[email or web address] Orig Print D/T: S: 03/12/2021 (2035) BATCH NO: N/A Name: MADDISON PAEZ [facility] Phys: STEKE.Meagan Nuñez DPM [address] [facility] : 1965 Age: 55 Sex: M [place] [address] Loc: N.0685 1 Exam Date: 03/12/2021 Status: ADM IN PH: FAX: PAGE 1 Signed ReportUA RFLX MICR CULT IF [id number] 13:01:00 Test Item Value Reference Range Interpretation Comments UA COLOR (test code = YELLOW YELLOW COLU) UA APPEARANCE (test Clear CLEAR code = APPU) UA GLUCOSE DIPSTICK NEGATIVE NEGATIVE (test code = DGLUU) UA BILIRUBIN DIPSTICK NEGATIVE NEGATIVE (test code = BILU) UA KETONE DIPSTICK NEGATIVE NEGATIVE (test code = KETU) UA SPECIFIC GRAVITY 1.006 1.001-1.030 (test code = SGU) UA BLOOD DIPSTICK (test NEGATIVE NEGATIVE code = MARY ALICE) UA PH DIPSTICK (test 7.0 5.0-9.0 code = CONNOR) UA PROTEIN DIPSTICK NEGATIVE NEGATIVE (test code = PROU) UA UROBILINOGEN NEGATIVE See_Comment [Automated message] DIPSTICK (test code = The sy stem which URO) generated this result transmitted ref erence range: <=1.0. T he reference range was not used to int erpret this result as normal/abnormal . UA NITRITE DIPSTICK NEGATIVE NEGATIVE (test code = MIKAEL) UA ASCORBIC ACID NEGATIVE DIPSTICK (test code = AAU) UA LEUKOCYTE ESTERASE NEGATIVE NEGATIVE DIPSTICK (test code = LEUU) UA WBC (test code = 0-5 /HPF 0-5 WBCUR) UA RBC (test code = 0-5 /HPF 0-5 RBCU) UA EPITHELIAL CELLS None /LPF NONE-FEW (test code = EPIU) UA BACTERIA (test code None /HPF NONE SEEN = BACU) UA MUCUS (test code = 1+ /LPF NONE SEEN MUCU) Indication for culture: Dysuria/FrequencySpecimen Description: CLEAN CATCHCBC W/AUTO [id number] 12:20:00 Test Item Value Reference Range Interpretation Comments WHITE BLOOD CELL (test code = 5.1 x10 3/uL 3.2-11.5 N WBC) RED BLOOD CELL (test code = 3.05 x10(6)/m 4.20-5.70 L RBC) HEMOGLOBIN (test code = HGB) 10.6 g/dL 12.9-17.3 L HEMATOCRIT (test code = HCT) 34.5 % 38.7-51.0 L MEAN CELL VOLUME (test code = 113 fL 80-100 H MCV) MEAN CELL HGB (test code = MCH) 34.8 pg 26.7-33.3 H MEAN CELL HGB CONCENTRATION 30.7 g/dL 30.0-34.0 N (test code = MCHC) RED CELL DISTRIBUTION WIDTH 13.2 % 11.3-14.5 N (test code = RDW) PLATELET COUNT (test code = 276 x10 3/uL 130-408 N PLT) MEAN PLATELET VOLUME (test code 9.5 fL 8.6-12.6 N = MPV) NEUTROPHIL % (test code = NT%) 62.2 % 40.0-70.0 N IMMATURE GRANULOCYTE % (test 1.8 % 0.0-2.0 N code = IG%) LYMPHOCYTE % (test code = LY%) 26.1 % 20-40 N MONOCYTE % (test code = MO%) 8.7 % 1-10 N EOSINOPHIL % (test code = EO%) 0.8 % 0.0-5.0 N BASOPHIL % (test code = BA%) 0.4 % 0.0-1.0 N NUCLEATED RBC % (test code = 0.0 % 0.0-0.9 N NRBC%) NEUTROPHIL # (test code = NT#) 3.1 x10 3/uL 1.6-7.2 N LYMPHOCYTE # (test code = LY#) 1.32 x10 3/uL 1.1-2.7 N MONOCYTE # (test code = MO#) 0.4 x10 3/uL 0.3-0.8 N EOSINOPHIL # (test code = EO#) 0.0 x10 3/uL 0.0-0.5 N BASOPHIL # (test code = BA#) 0.0 x10 3/uL 0.0-0.1 N DIFFERENTIAL [id number] 12:20:00 Test Item Value Reference Range Interpretation Comments MACROCYTOSIS (test code = MACR) 1+ NONE SEEN A PLATELET MORPHOLOGY (test code = NORMAL NORMAL PLTMORPH) BASIC METABOLIC [id number] 08:08:00 Test Item Value Reference Range Interpretation Comments SODIUM (test code 140 mmol/L 135-145 N = NA) POTASSIUM (test 3.4 mmol/L 3.6-5.0 L code = K) CHLORIDE (test 105 mmol/L 101-111 N code = CL) CARBON DIOXIDE 26 mmol/L 21-31 N (test code = CO2) GLUCOSE (test code 97 mg/dl 70-100 N = GLU) BLOOD UREA 11 mg/dl 6-20 N NITROGEN (test code = BUN) GLOMERULAR >=60 max >60 The estimated FILTRATION RATE estimate glomerular (test code = GFR) filtration rate is computed usingpatient ra ce, age (>18), sex, and serum creatinin e. If anyof the neede d data elements a re missing the Laboratory juan antonio ot compute an estimation of t he glomerular filtration rate . CREATININE (test 0.74 mg/dL 0.64-1.27 N code = CREAT) CALCIUM (test code 8.7 mg/dL 8.5-10.5 N = CA) CBC W/AUTO [id number] 07:56:00 Test Item Value Reference Range Interpretation Comments WHITE BLOOD CELL (test code = 5.1 x10 3/uL 3.2-11.5 N WBC) RED BLOOD CELL (test code = 3.05 x10(6)/m 4.20-5.70 L RBC) HEMOGLOBIN (test code = HGB) 10.6 g/dL 12.9-17.3 L HEMATOCRIT (test code = HCT) 34.5 % 38.7-51.0 L MEAN CELL VOLUME (test code = 113 fL 80-100 H MCV) MEAN CELL HGB (test code = MCH) 34.8 pg 26.7-33.3 H MEAN CELL HGB CONCENTRATION 30.7 g/dL 30.0-34.0 N (test code = MCHC) RED CELL DISTRIBUTION WIDTH 13.2 % 11.3-14.5 N (test code = RDW) PLATELET COUNT (test code = 276 x10 3/uL 130-408 N PLT) MEAN PLATELET VOLUME (test code 9.5 fL 8.6-12.6 N = MPV) NEUTROPHIL % (test code = NT%) 62.2 % 40.0-70.0 N IMMATURE GRANULOCYTE % (test 1.8 % 0.0-2.0 N code = IG%) LYMPHOCYTE % (test code = LY%) 26.1 % 20-40 N MONOCYTE % (test code = MO%) 8.7 % 1-10 N EOSINOPHIL % (test code = EO%) 0.8 % 0.0-5.0 N BASOPHIL % (test code = BA%) 0.4 % 0.0-1.0 N NUCLEATED RBC % (test code = 0.0 % 0.0-0.9 N NRBC%) NEUTROPHIL # (test code = NT#) 3.1 x10 3/uL 1.6-7.2 N LYMPHOCYTE # (test code = LY#) 1.32 x10 3/uL 1.1-2.7 N MONOCYTE # (test code = MO#) 0.4 x10 3/uL 0.3-0.8 N EOSINOPHIL # (test code = EO#) 0.0 x10 3/uL 0.0-0.5 N BASOPHIL # (test code = BA#) 0.0 x10 3/uL 0.0-0.1 N DIFFERENTIAL [id number] 07:56:00 Test Item Value Reference Range Interpretation Comments PLATELET MORPHOLOGY (test code = NORMAL PLTMORPH) CBC W/AUTO [id number] 07:56:00 Test Item Value Reference Range Interpretation Comments WHITE BLOOD CELL (test code = 5.1 x10 3/uL 3.2-11.5 N WBC) RED BLOOD CELL (test code = 3.05 x10(6)/m 4.20-5.70 L RBC) HEMOGLOBIN (test code = HGB) 10.6 g/dL 12.9-17.3 L HEMATOCRIT (test code = HCT) 34.5 % 38.7-51.0 L MEAN CELL VOLUME (test code = 113 fL 80-100 H MCV) MEAN CELL HGB (test code = MCH) 34.8 pg 26.7-33.3 H MEAN CELL HGB CONCENTRATION 30.7 g/dL 30.0-34.0 N (test code = MCHC) RED CELL DISTRIBUTION WIDTH 13.2 % 11.3-14.5 N (test code = RDW) PLATELET COUNT (test code = 276 x10 3/uL 130-408 N PLT) MEAN PLATELET VOLUME (test code 9.5 fL 8.6-12.6 N = MPV) NEUTROPHIL % (test code = NT%) 62.2 % 40.0-70.0 N IMMATURE GRANULOCYTE % (test 1.8 % 0.0-2.0 N code = IG%) LYMPHOCYTE % (test code = LY%) 26.1 % 20-40 N MONOCYTE % (test code = MO%) 8.7 % 1-10 N EOSINOPHIL % (test code = EO%) 0.8 % 0.0-5.0 N BASOPHIL % (test code = BA%) 0.4 % 0.0-1.0 N NUCLEATED RBC % (test code = 0.0 % 0.0-0.9 N NRBC%) NEUTROPHIL # (test code = NT#) 3.1 x10 3/uL 1.6-7.2 N LYMPHOCYTE # (test code = LY#) 1.32 x10 3/uL 1.1-2.7 N MONOCYTE # (test code = MO#) 0.4 x10 3/uL 0.3-0.8 N EOSINOPHIL # (test code = EO#) 0.0 x10 3/uL 0.0-0.5 N BASOPHIL # (test code = BA#) 0.0 x10 3/uL 0.0-0.1 N DIFFERENTIAL [id number] 07:56:00 Test Item Value Reference Range Interpretation Comments PLATELET MORPHOLOGY (test code = NORMAL PLTMORPH) CBC W/AUTO [id number] 07:53:00 Test Item Value Reference Range Interpretation Comments WHITE BLOOD CELL (test code = 5.1 x10 3/uL 3.2-11.5 N WBC) RED BLOOD CELL (test code = 3.05 x10(6)/m 4.20-5.70 L RBC) HEMOGLOBIN (test code = HGB) 10.6 g/dL 12.9-17.3 L HEMATOCRIT (test code = HCT) 34.5 % 38.7-51.0 L MEAN CELL VOLUME (test code = 113 fL 80-100 H MCV) MEAN CELL HGB (test code = MCH) 34.8 pg 26.7-33.3 H MEAN CELL HGB CONCENTRATION 30.7 g/dL 30.0-34.0 N (test code = MCHC) RED CELL DISTRIBUTION WIDTH % 11.3-14.5 (test code = RDW) PLATELET COUNT (test code = x10 3/uL 130-408 PLT) MEAN PLATELET VOLUME (test code 9.5 fL 8.6-12.6 N = MPV) NEUTROPHIL % (test code = NT%) % 40.0-70.0 LYMPHOCYTE % (test code = LY%) % 20-40 MONOCYTE % (test code = MO%) % 1-10 EOSINOPHIL % (test code = EO%) % 0.0-5.0 BASOPHIL % (test code = BA%) % 0.0-1.0 NUCLEATED RBC % (test code = % 0.0-0.9 NRBC%) NEUTROPHIL # (test code = NT#) x10 3/uL 1.6-7.2 LYMPHOCYTE # (test code = LY#) x10 3/uL 1.1-2.7 MONOCYTE # (test code = MO#) x10 3/uL 0.3-0.8 EOSINOPHIL # (test code = EO#) x10 3/uL 0.0-0.5 BASIC METABOLIC [id number] 07:52:00 Test Item Value Reference Range Interpretation Comments SODIUM (test code 141 mmol/L 135-145 N = NA) POTASSIUM (test 3.2 mmol/L 3.6-5.0 L code = K) CHLORIDE (test 104 mmol/L 101-111 N code = CL) CARBON DIOXIDE 26 mmol/L 21-31 N (test code = CO2) GLUCOSE (test code 97 mg/dl 70-100 N = GLU) BLOOD UREA 11 mg/dl 6-20 N NITROGEN (test code = BUN) GLOMERULAR >=60 max >60 The estimated FILTRATION RATE estimate glomerular (test code = GFR) filtration rate is computed usingpatient ra ce, age (>18), sex, and serum creatinin e. If anyof the neede d data elements a re missing the Laboratory juan antonio ot compute an estimation of t he glomerular filtration rate . CREATININE (test 0.72 mg/dL 0.64-1.27 N code = CREAT) CALCIUM (test code 8.9 mg/dL 8.5-10.5 N = CA) [id number] 07:52:00 Test Item Value Reference Range Interpretation Comments VANCOMYCIN (test 13.9 ug/mL Not estab. ~~~~~~~~~~~ ~~~~~~~~~~~~~ code = VANCO) ~~~~~~~~~~~~~~ ~~~~~THERA PEUTIC REFERENC E RANGE NOT ESTABLISHED WHEN NOT DRAWN PEAK O R TROUGH LEVEL.~~~~~~~~~ ~~~~~~~~~ ~~~~~~~~~~~~~~~ ~~~~~~~~~ ~Please refer t o Medication Administration Record (MAR) forlast d ose date and time. CBC W/AUTO [id number] 07:41:00 Test Item Value Reference Range Interpretation Comments WHITE BLOOD CELL (test code = 6.2 x10 3/uL 3.2-11.5 N WBC) RED BLOOD CELL (test code = 3.12 x10(6)/m 4.20-5.70 L RBC) HEMOGLOBIN (test code = HGB) 11.1 g/dL 12.9-17.3 L HEMATOCRIT (test code = HCT) 36.2 % 38.7-51.0 L MEAN CELL VOLUME (test code = 116 fL 80-100 H MCV) MEAN CELL HGB (test code = MCH) 35.6 pg 26.7-33.3 H MEAN CELL HGB CONCENTRATION 30.7 g/dL 30.0-34.0 N (test code = MCHC) RED CELL DISTRIBUTION WIDTH 13.3 % 11.3-14.5 N (test code = RDW) PLATELET COUNT (test code = 314 x10 3/uL 130-408 N PLT) MEAN PLATELET VOLUME (test code 9.4 fL 8.6-12.6 N = MPV) NEUTROPHIL % (test code = NT%) 69.1 % 40.0-70.0 N IMMATURE GRANULOCYTE % (test 1.1 % 0.0-2.0 N code = IG%) LYMPHOCYTE % (test code = LY%) 22.3 % 20-40 MONOCYTE % (test code = MO%) 7.2 % 1-10 N EOSINOPHIL % (test code = EO%) 0.0 % 0.0-5.0 N BASOPHIL % (test code = BA%) 0.3 % 0.0-1.0 N NUCLEATED RBC % (test code = 0.0 % 0.0-0.9 N NRBC%) NEUTROPHIL # (test code = NT#) 4.3 x10 3/uL 1.6-7.2 N LYMPHOCYTE # (test code = LY#) 1.39 x10 3/uL 1.1-2.7 N MONOCYTE # (test code = MO#) 0.5 x10 3/uL 0.3-0.8 N EOSINOPHIL # (test code = EO#) 0.0 x10 3/uL 0.0-0.5 N BASOPHIL # (test code = BA#) 0.0 x10 3/uL 0.0-0.1 N CBC W/AUTO [id number] 18:13:00 Test Item Value Reference Range Interpretation Comments WHITE BLOOD CELL (test code = 8.5 x10 3/uL 3.2-11.5 N WBC) RED BLOOD CELL (test code = 3.21 x10(6)/m 4.20-5.70 L RBC) HEMOGLOBIN (test code = HGB) 11.3 g/dL 12.9-17.3 L HEMATOCRIT (test code = HCT) 36.1 % 38.7-51.0 L MEAN CELL VOLUME (test code = 113 fL 80-100 H MCV) MEAN CELL HGB (test code = MCH) 35.2 pg 26.7-33.3 H MEAN CELL HGB CONCENTRATION 31.3 g/dL 30.0-34.0 N (test code = MCHC) RED CELL DISTRIBUTION WIDTH 13.2 % 11.3-14.5 N (test code = RDW) PLATELET COUNT (test code = 353 x10 3/uL 130-408 N PLT) MEAN PLATELET VOLUME (test code 9.5 fL 8.6-12.6 N = MPV) NEUTROPHIL % (test code = NT%) 77.2 % 40.0-70.0 H IMMATURE GRANULOCYTE % (test 0.9 % 0.0-2.0 N code = IG%) LYMPHOCYTE % (test code = LY%) 14.1 % 20-40 L MONOCYTE % (test code = MO%) 7.7 % 1-10 N EOSINOPHIL % (test code = EO%) 0.0 % 0.0-5.0 N BASOPHIL % (test code = BA%) 0.1 % 0.0-1.0 N NUCLEATED RBC % (test code = 0.0 % 0.0-0.9 N NRBC%) NEUTROPHIL # (test code = NT#) 6.6 x10 3/uL 1.6-7.2 N LYMPHOCYTE # (test code = LY#) 1.20 x10 3/uL 1.1-2.7 N MONOCYTE # (test code = MO#) 0.7 x10 3/uL 0.3-0.8 N EOSINOPHIL # (test code = EO#) 0.0 x10 3/uL 0.0-0.5 N BASOPHIL # (test code = BA#) 0.0 x10 3/uL 0.0-0.1 N DIFFERENTIAL [id number] 18:13:00 Test Item Value Reference Range Interpretation Comments MACROCYTOSIS (test code = MACR) 1+ NONE SEEN A PLATELET MORPHOLOGY (test code = NORMAL NORMAL PLTMORPH) CBC W/AUTO [id number] 18:12:00 Test Item Value Reference Range Interpretation Comments WHITE BLOOD CELL (test code = 8.5 x10 3/uL 3.2-11.5 N WBC) RED BLOOD CELL (test code = 3.21 x10(6)/m 4.20-5.70 L RBC) HEMOGLOBIN (test code = HGB) 11.3 g/dL 12.9-17.3 L HEMATOCRIT (test code = HCT) 36.1 % 38.7-51.0 L MEAN CELL VOLUME (test code = 113 fL 80-100 H MCV) MEAN CELL HGB (test code = MCH) 35.2 pg 26.7-33.3 H MEAN CELL HGB CONCENTRATION 31.3 g/dL 30.0-34.0 N (test code = MCHC) RED CELL DISTRIBUTION WIDTH 13.2 % 11.3-14.5 N (test code = RDW) PLATELET COUNT (test code = 353 x10 3/uL 130-408 N PLT) MEAN PLATELET VOLUME (test code 9.5 fL 8.6-12.6 N = MPV) NEUTROPHIL % (test code = NT%) 77.2 % 40.0-70.0 H IMMATURE GRANULOCYTE % (test 0.9 % 0.0-2.0 N code = IG%) LYMPHOCYTE % (test code = LY%) 14.1 % 20-40 L MONOCYTE % (test code = MO%) 7.7 % 1-10 N EOSINOPHIL % (test code = EO%) 0.0 % 0.0-5.0 N BASOPHIL % (test code = BA%) 0.1 % 0.0-1.0 N NUCLEATED RBC % (test code = 0.0 % 0.0-0.9 N NRBC%) NEUTROPHIL # (test code = NT#) 6.6 x10 3/uL 1.6-7.2 N LYMPHOCYTE # (test code = LY#) 1.20 x10 3/uL 1.1-2.7 N MONOCYTE # (test code = MO#) 0.7 x10 3/uL 0.3-0.8 N EOSINOPHIL # (test code = EO#) 0.0 x10 3/uL 0.0-0.5 N BASOPHIL # (test code = BA#) 0.0 x10 3/uL 0.0-0.1 N DIFFERENTIAL [id number] 18:12:00 Test Item Value Reference Range Interpretation Comments PLATELET MORPHOLOGY (test code = NORMAL PLTMORPH) CBC W/AUTO [id number] 18:12:00 Test Item Value Reference Range Interpretation Comments WHITE BLOOD CELL (test code = 8.5 x10 3/uL 3.2-11.5 N WBC) RED BLOOD CELL (test code = 3.21 x10(6)/m 4.20-5.70 L RBC) HEMOGLOBIN (test code = HGB) 11.3 g/dL 12.9-17.3 L HEMATOCRIT (test code = HCT) 36.1 % 38.7-51.0 L MEAN CELL VOLUME (test code = 113 fL 80-100 H MCV) MEAN CELL HGB (test code = MCH) 35.2 pg 26.7-33.3 H MEAN CELL HGB CONCENTRATION 31.3 g/dL 30.0-34.0 N (test code = MCHC) RED CELL DISTRIBUTION WIDTH 13.2 % 11.3-14.5 N (test code = RDW) PLATELET COUNT (test code = 353 x10 3/uL 130-408 N PLT) MEAN PLATELET VOLUME (test code 9.5 fL 8.6-12.6 N = MPV) NEUTROPHIL % (test code = NT%) 77.2 % 40.0-70.0 H IMMATURE GRANULOCYTE % (test 0.9 % 0.0-2.0 N code = IG%) LYMPHOCYTE % (test code = LY%) 14.1 % 20-40 L MONOCYTE % (test code = MO%) 7.7 % 1-10 N EOSINOPHIL % (test code = EO%) 0.0 % 0.0-5.0 N BASOPHIL % (test code = BA%) 0.1 % 0.0-1.0 N NUCLEATED RBC % (test code = 0.0 % 0.0-0.9 N NRBC%) NEUTROPHIL # (test code = NT#) 6.6 x10 3/uL 1.6-7.2 N LYMPHOCYTE # (test code = LY#) 1.20 x10 3/uL 1.1-2.7 N MONOCYTE # (test code = MO#) 0.7 x10 3/uL 0.3-0.8 N EOSINOPHIL # (test code = EO#) 0.0 x10 3/uL 0.0-0.5 N BASOPHIL # (test code = BA#) 0.0 x10 3/uL 0.0-0.1 N DIFFERENTIAL [id number] 18:12:00 Test Item Value Reference Range Interpretation Comments PLATELET MORPHOLOGY (test code = NORMAL PLTMORPH) BASIC METABOLIC [id number] 18:11:00 Test Item Value Reference Range Interpretation Comments SODIUM (test code 140 mmol/L 135-145 N = NA) POTASSIUM (test 3.7 mmol/L 3.6-5.0 N code = K) CHLORIDE (test 102 mmol/L 101-111 N code = CL) CARBON DIOXIDE 23 mmol/L 21-31 N (test code = CO2) GLUCOSE (test code 121 mg/dl 70-100 H = GLU) BLOOD UREA 11 mg/dl 6-20 N NITROGEN (test code = BUN) GLOMERULAR >=60 max >60 The estimated FILTRATION RATE estimate glomerular (test code = GFR) filtration rate is computed usingpatient ra ce, age (>18), sex, and serum creatinin e. If anyof the neede d data elements a re missing the Laboratory juan antonio ot compute an estimation of t he glomerular filtration rate . CREATININE (test 1.01 mg/dL 0.64-1.27 N code = CREAT) CALCIUM (test code 9.0 mg/dL 8.5-10.5 N = CA) CBC W/AUTO [id number] 18:09:00 Test Item Value Reference Range Interpretation Comments WHITE BLOOD CELL (test code = 8.5 x10 3/uL 3.2-11.5 N WBC) RED BLOOD CELL (test code = 3.21 x10(6)/m 4.20-5.70 L RBC) HEMOGLOBIN (test code = HGB) 11.3 g/dL 12.9-17.3 L HEMATOCRIT (test code = HCT) 36.1 % 38.7-51.0 L MEAN CELL VOLUME (test code = 113 fL 80-100 H MCV) MEAN CELL HGB (test code = MCH) 35.2 pg 26.7-33.3 H MEAN CELL HGB CONCENTRATION 31.3 g/dL 30.0-34.0 N (test code = MCHC) RED CELL DISTRIBUTION WIDTH % 11.3-14.5 (test code = RDW) PLATELET COUNT (test code = x10 3/uL 130-408 PLT) MEAN PLATELET VOLUME (test code 9.5 fL 8.6-12.6 N = MPV) NEUTROPHIL % (test code = NT%) % 40.0-70.0 LYMPHOCYTE % (test code = LY%) % 20-40 MONOCYTE % (test code = MO%) % 1-10 EOSINOPHIL % (test code = EO%) % 0.0-5.0 BASOPHIL % (test code = BA%) % 0.0-1.0 NUCLEATED RBC % (test code = % 0.0-0.9 NRBC%) NEUTROPHIL # (test code = NT#) x10 3/uL 1.6-7.2 LYMPHOCYTE # (test code = LY#) x10 3/uL 1.1-2.7 MONOCYTE # (test code = MO#) x10 3/uL 0.3-0.8 EOSINOPHIL # (test code = EO#) x10 3/uL 0.0-0.5 [id number] 11:42:00 Test Item Value Reference Range Interpretation Comments GLUBED (test code = GLUBED) 128 MG/DL 70-105 H [id number] 07:55:00 Test Item Value Reference Range Interpretation Comments CREATININE (test code = CREAT) 0.78 mg/dL 0.64-1.27 N VANCOMYCIN [id number] 07:20:00 Test Item Value Reference Range Interpretation Comments VANCOMYCIN TROUGH 14.4 ug/ml 10.0-20.0 N Please ref er to (test code = VANCT) Medicati on Administration Record (MAR) forlast d ose date and time. COVID 19 Asymptomatic IH [id number] 06:13:00 Test Item Value Reference Range Interpretation Comments COVID 19 Asymptomatic Negative Negative Negati ve results should IH AG (test code = be treate d as COVNONPUIAG) presumptive andconfirmed wi th a molecular assay , if necessary for patientmanageme nt. Negative result s do not rule out COVID- 19 andshould not b e used as the sole bas is for treatment orpat ient management deci sions, including infec tion controldecision s. Negative result s should be considered i n thecontext of a patient's recen t exposures, hist ory and thepresence of clnical signs and sympt oms consistent withCOVID-19.Sp ecimen Source: Nasopha ryngeal ([employer]) Swab BASIC METABOLIC [id number] 05:32:00 Test Item Value Reference Range Interpretation Comments SODIUM (test code 139 mmol/L 135-145 N = NA) POTASSIUM (test 3.0 mmol/L 3.6-5.0 L code = K) CHLORIDE (test 103 mmol/L 101-111 N code = CL) CARBON DIOXIDE 26 mmol/L 21-31 N (test code = CO2) GLUCOSE (test code 97 mg/dl 70-100 N = GLU) BLOOD UREA < 5 mg/dl 6-20 L NITROGEN (test code = BUN) GLOMERULAR >=60 max >60 The estimated FILTRATION RATE estimate glomerular (test code = GFR) filtration rate is computed usingpatient ra ce, age (>18), sex, and serum creatinin e. If anyof the neede d data elements a re missing the Laboratory juan antonio ot compute an estimation of t he glomerular filtration rate . CREATININE (test 0.69 mg/dL 0.64-1.27 N code = CREAT) CALCIUM (test code 7.8 mg/dL 8.5-10.5 L = CA) CBC W/AUTO [id number] 05:15:00 Test Item Value Reference Range Interpretation Comments WHITE BLOOD CELL (test code = 7.5 x10 3/uL 3.2-11.5 N WBC) RED BLOOD CELL (test code = 2.83 x10(6)/m 4.20-5.70 L RBC) HEMOGLOBIN (test code = HGB) 10.3 g/dL 12.9-17.3 L HEMATOCRIT (test code = HCT) 32.4 % 38.7-51.0 L MEAN CELL VOLUME (test code = 115 fL 80-100 H MCV) MEAN CELL HGB (test code = MCH) 36.4 pg 26.7-33.3 H MEAN CELL HGB CONCENTRATION 31.8 g/dL 30.0-34.0 N (test code = MCHC) RED CELL DISTRIBUTION WIDTH 13.8 % 11.3-14.5 N (test code = RDW) PLATELET COUNT (test code = 154 x10 3/uL 130-408 N PLT) MEAN PLATELET VOLUME (test code 9.6 fL 8.6-12.6 N = MPV) NEUTROPHIL % (test code = NT%) 64.5 % 40.0-70.0 N IMMATURE GRANULOCYTE % (test 0.8 % 0.0-2.0 N code = IG%) LYMPHOCYTE % (test code = LY%) 22.2 % 20-40 N MONOCYTE % (test code = MO%) 10.9 % 1-10 H EOSINOPHIL % (test code = EO%) 1.2 % 0.0-5.0 N BASOPHIL % (test code = BA%) 0.4 % 0.0-1.0 N NUCLEATED RBC % (test code = 0.0 % 0.0-0.9 N NRBC%) NEUTROPHIL # (test code = NT#) 4.8 x10 3/uL 1.6-7.2 N LYMPHOCYTE # (test code = LY#) 1.66 x10 3/uL 1.1-2.7 N MONOCYTE # (test code = MO#) 0.8 x10 3/uL 0.3-0.8 N EOSINOPHIL # (test code = EO#) 0.1 x10 3/uL 0.0-0.5 N BASOPHIL # (test code = BA#) 0.0 x10 3/uL 0.0-0.1 N CBC W/AUTO [id number] 05:12:00 Test Item Value Reference Range Interpretation Comments WHITE BLOOD CELL (test code = 7.5 x10 3/uL 3.2-11.5 N WBC) RED BLOOD CELL (test code = 2.83 x10(6)/m 4.20-5.70 L RBC) HEMOGLOBIN (test code = HGB) 10.3 g/dL 12.9-17.3 L HEMATOCRIT (test code = HCT) 32.4 % 38.7-51.0 L MEAN CELL VOLUME (test code = 115 fL 80-100 H MCV) MEAN CELL HGB (test code = MCH) 36.4 pg 26.7-33.3 H MEAN CELL HGB CONCENTRATION 31.8 g/dL 30.0-34.0 N (test code = MCHC) RED CELL DISTRIBUTION WIDTH % 11.3-14.5 (test code = RDW) PLATELET COUNT (test code = x10 3/uL 130-408 PLT) MEAN PLATELET VOLUME (test code 9.6 fL 8.6-12.6 N = MPV) NEUTROPHIL % (test code = NT%) % 40.0-70.0 LYMPHOCYTE % (test code = LY%) % 20-40 MONOCYTE % (test code = MO%) % 1-10 EOSINOPHIL % (test code = EO%) % 0.0-5.0 BASOPHIL % (test code = BA%) % 0.0-1.0 NUCLEATED RBC % (test code = % 0.0-0.9 NRBC%) NEUTROPHIL # (test code = NT#) x10 3/uL 1.6-7.2 LYMPHOCYTE # (test code = LY#) x10 3/uL 1.1-2.7 MONOCYTE # (test code = MO#) x10 3/uL 0.3-0.8 EOSINOPHIL # (test code = EO#) x10 3/uL 0.0-0.5 CBC W/AUTO [id number] 06:25:00 Test Item Value Reference Range Interpretation Comments WHITE BLOOD CELL (test code = 7.3 x10 3/uL 3.2-11.5 N WBC) RED BLOOD CELL (test code = 3.12 x10(6)/m 4.20-5.70 L RBC) HEMOGLOBIN (test code = HGB) 11.2 g/dL 12.9-17.3 L HEMATOCRIT (test code = HCT) 35.4 % 38.7-51.0 L MEAN CELL VOLUME (test code = 114 fL 80-100 H MCV) MEAN CELL HGB (test code = MCH) 35.9 pg 26.7-33.3 H MEAN CELL HGB CONCENTRATION 31.6 g/dL 30.0-34.0 N (test code = MCHC) RED CELL DISTRIBUTION WIDTH 14.3 % 11.3-14.5 N (test code = RDW) PLATELET COUNT (test code = 150 x10 3/uL 130-408 N PLT) MEAN PLATELET VOLUME (test code 9.9 fL 8.6-12.6 N = MPV) NEUTROPHIL % (test code = NT%) 67.0 % 40.0-70.0 N IMMATURE GRANULOCYTE % (test 0.4 % 0.0-2.0 N code = IG%) LYMPHOCYTE % (test code = LY%) 20.8 % 20-40 N MONOCYTE % (test code = MO%) 10.5 % 1-10 H EOSINOPHIL % (test code = EO%) 1.0 % 0.0-5.0 N BASOPHIL % (test code = BA%) 0.3 % 0.0-1.0 N NUCLEATED RBC % (test code = 0.0 % 0.0-0.9 N NRBC%) NEUTROPHIL # (test code = NT#) 4.9 x10 3/uL 1.6-7.2 N LYMPHOCYTE # (test code = LY#) 1.52 x10 3/uL 1.1-2.7 N MONOCYTE # (test code = MO#) 0.8 x10 3/uL 0.3-0.8 N EOSINOPHIL # (test code = EO#) 0.1 x10 3/uL 0.0-0.5 N BASOPHIL # (test code = BA#) 0.0 x10 3/uL 0.0-0.1 N DIFFERENTIAL [id number] 06:25:00 Test Item Value Reference Range Interpretation Comments MACROCYTOSIS (test code = MACR) 1+ NONE SEEN A PLATELET MORPHOLOGY (test code = NORMAL NORMAL PLTMORPH) BASIC METABOLIC [id number] 06:17:00 Test Item Value Reference Range Interpretation Comments SODIUM (test code 141 mmol/L 135-145 N = NA) POTASSIUM (test 3.4 mmol/L 3.6-5.0 L code = K) CHLORIDE (test 105 mmol/L 101-111 N code = CL) CARBON DIOXIDE 28 mmol/L 21-31 N (test code = CO2) GLUCOSE (test code 113 mg/dl 70-100 H = GLU) BLOOD UREA < 5 mg/dl 6-20 L NITROGEN (test code = BUN) GLOMERULAR >=60 max >60 The estimated FILTRATION RATE estimate glomerular (test code = GFR) filtration rate is computed usingpatient ra ce, age (>18), sex, and serum creatinin e. If anyof the neede d data elements a re missing the Laboratory juan antonio ot compute an estimation of t he glomerular filtration rate . CREATININE (test 0.70 mg/dL 0.64-1.27 N code = CREAT) CALCIUM (test code 8.3 mg/dL 8.5-10.5 L = CA) CBC W/AUTO [id number] 05:45:00 Test Item Value Reference Range Interpretation Comments WHITE BLOOD CELL (test code = 7.3 x10 3/uL 3.2-11.5 N WBC) RED BLOOD CELL (test code = 3.12 x10(6)/m 4.20-5.70 L RBC) HEMOGLOBIN (test code = HGB) 11.2 g/dL 12.9-17.3 L HEMATOCRIT (test code = HCT) 35.4 % 38.7-51.0 L MEAN CELL VOLUME (test code = 114 fL 80-100 H MCV) MEAN CELL HGB (test code = MCH) 35.9 pg 26.7-33.3 H MEAN CELL HGB CONCENTRATION 31.6 g/dL 30.0-34.0 N (test code = MCHC) RED CELL DISTRIBUTION WIDTH 14.3 % 11.3-14.5 N (test code = RDW) PLATELET COUNT (test code = 150 x10 3/uL 130-408 N PLT) MEAN PLATELET VOLUME (test code 9.9 fL 8.6-12.6 N = MPV) NEUTROPHIL % (test code = NT%) 67.0 % 40.0-70.0 N IMMATURE GRANULOCYTE % (test 0.4 % 0.0-2.0 N code = IG%) LYMPHOCYTE % (test code = LY%) 20.8 % 20-40 N MONOCYTE % (test code = MO%) 10.5 % 1-10 H EOSINOPHIL % (test code = EO%) 1.0 % 0.0-5.0 N BASOPHIL % (test code = BA%) 0.3 % 0.0-1.0 N NUCLEATED RBC % (test code = 0.0 % 0.0-0.9 N NRBC%) NEUTROPHIL # (test code = NT#) 4.9 x10 3/uL 1.6-7.2 N LYMPHOCYTE # (test code = LY#) 1.52 x10 3/uL 1.1-2.7 N MONOCYTE # (test code = MO#) 0.8 x10 3/uL 0.3-0.8 N EOSINOPHIL # (test code = EO#) 0.1 x10 3/uL 0.0-0.5 N BASOPHIL # (test code = BA#) 0.0 x10 3/uL 0.0-0.1 N DIFFERENTIAL [id number] 05:45:00 Test Item Value Reference Range Interpretation Comments PLATELET MORPHOLOGY (test code = NORMAL PLTMORPH) CBC W/AUTO [id number] 05:45:00 Test Item Value Reference Range Interpretation Comments WHITE BLOOD CELL (test code = 7.3 x10 3/uL 3.2-11.5 N WBC) RED BLOOD CELL (test code = 3.12 x10(6)/m 4.20-5.70 L RBC) HEMOGLOBIN (test code = HGB) 11.2 g/dL 12.9-17.3 L HEMATOCRIT (test code = HCT) 35.4 % 38.7-51.0 L MEAN CELL VOLUME (test code = 114 fL 80-100 H MCV) MEAN CELL HGB (test code = MCH) 35.9 pg 26.7-33.3 H MEAN CELL HGB CONCENTRATION 31.6 g/dL 30.0-34.0 N (test code = MCHC) RED CELL DISTRIBUTION WIDTH 14.3 % 11.3-14.5 N (test code = RDW) PLATELET COUNT (test code = 150 x10 3/uL 130-408 N PLT) MEAN PLATELET VOLUME (test code 9.9 fL 8.6-12.6 N = MPV) NEUTROPHIL % (test code = NT%) 67.0 % 40.0-70.0 N IMMATURE GRANULOCYTE % (test 0.4 % 0.0-2.0 N code = IG%) LYMPHOCYTE % (test code = LY%) 20.8 % 20-40 N MONOCYTE % (test code = MO%) 10.5 % 1-10 H EOSINOPHIL % (test code = EO%) 1.0 % 0.0-5.0 N BASOPHIL % (test code = BA%) 0.3 % 0.0-1.0 N NUCLEATED RBC % (test code = 0.0 % 0.0-0.9 N NRBC%) NEUTROPHIL # (test code = NT#) 4.9 x10 3/uL 1.6-7.2 N LYMPHOCYTE # (test code = LY#) 1.52 x10 3/uL 1.1-2.7 N MONOCYTE # (test code = MO#) 0.8 x10 3/uL 0.3-0.8 N EOSINOPHIL # (test code = EO#) 0.1 x10 3/uL 0.0-0.5 N BASOPHIL # (test code = BA#) 0.0 x10 3/uL 0.0-0.1 N DIFFERENTIAL [id number] 05:45:00 Test Item Value Reference Range Interpretation Comments PLATELET MORPHOLOGY (test code = NORMAL PLTMORPH) - XR FOOT 3 + V [id number] 20:27:00 [facility] : 1965 Sex: MPatient Name: MADDISON PAEZ Unit No: [id number] EXAMS: CPT: [id number] XR FOOT 3 + [place] [address] RADIOGRAPHS:Left ankle radiograph 3+ views. Left foot radiograph, 3+ views. COMPARISON: None available CLINICAL HISTORY: POST OP FINDINGS: External fixator device transfixing the acute fractures of the distal tibia and fibula. Lateral fixation hardware and screw transfixes the distal fibula. Hardware is intact wit hout fracture or loosening. The ankle mortise is congruent, improved from prior study. Expected postoperative soft tissue swelling and subcutaneous emphysema. IMPRESSION: External fixator device transfixing the acute ankle fracture dislocation, now in anatomic alignment. at 2026 Reported and signed by: Nicole Edwards MD CC: Tai Sloan DO; No Primary Care Physician; WAYLON ECHOLS DPM Technologist: Wilmar Diego Fluoro Time: DAP (Gy m2): Air Kerma (mGy): Trscr Dt/Tm: 02/22/2021 (2026) by:[email or web address] Orig Print D/T:S: 02/22/2021 (2029) BATCH NO: N/A Name: MADDISON PAEZ [facility] Phys: WAY[facility]EL[facility]QUEZ D[facility] [address] [facility] 1965 Age: 55 Sex: M [place], [place] [address] Loc: [id number] 1 Exam Date: 02/22/2021 Status: ADM IN PH: FAX: PAGE 1 Signed Report- XR ANKLE 3 + V [id number] 20:27:00 [facility] : 1965 Sex: MPatient Name: MADDISON PAEZ Unit No: [id number] EXAMS: CPT: [id number] XR ANKLE 3 + V LT [address]84 RADIOGRAPHS: Left ankle radiograph 3+ views. Left foot radiograph, 3+ views. COMPARISON: None available CLINICAL HISTORY: POST OP FINDINGS: External fixator device transfixing the acute fractures of the distal tibia and fibula. Lateral fixation hardware and screw transfixes the distal fibula. Hardware is intact w ithout fracture or loosening. The ankle mortise is congruent, improved from prior study. Expected postoperative soft tissue swelling and subcutaneous emphysema. IMPRESSION: External fixator device transfixing the acute ankle fracture dislocation, now in anatomic alignment. at 2026 Reported and signed by: Nicole Edwards MD CC: Tai Sloan DO; No Primary Care Physician; WAYLON ECHOLS DPM Technologist: Wilmar Diego Fluoro Time: DAP (Gy m2): Air Kerma (mGy): Trscr Dt/Tm: 02/22/2021 (2026) by:[email or web address] Orig Print D/T: S: 02/22/2021 (2029) BATCH NO: N/A Name: MADDISON PAEZ [facility] Phys: WAYLON VELASQUEZ DPM [address] : 1965 Age: 55 Sex: M [place], [place] [address] Loc: [id number] 1 Exam Date: 02/22/2021 Status: ADM IN PH: FAX: PAGE 1 Signed [id number] - GLYCOSYLATED [id number] 10:13:00 Test Item Value Reference Range Interpretation Comments GLYCOSYLATED HEMOGLOBIN 5.3 % 4.0-6.0 N Inte rpretive Data: (HA1C) (test code = Caution should be GLYHGB) exercised when interpreting th e HgbA1c in patients wit h hemolytic anemi a, iron deficiency and when the total hemoglobi n is < 9g/dL, due to a decrease in average age of red blood cells BASIC METABOLIC [id number] 04:20:00 Test Item Value Reference Range Interpretation Comments SODIUM (test code 140 mmol/L 135-145 N = NA) POTASSIUM (test 3.3 mmol/L 3.6-5.0 L code = K) CHLORIDE (test 104 mmol/L 101-111 N code = CL) CARBON DIOXIDE 23 mmol/L 21-31 N (test code = CO2) GLUCOSE (test code 98 mg/dl 70-100 N = GLU) BLOOD UREA 7 mg/dl 6-20 N NITROGEN (test code = BUN) GLOMERULAR >=60 max >60 The estimated FILTRATION RATE estimate glomerular (test code = GFR) filtration rate is computed usingpatient ra ce, age (>18), sex, and serum creatinin e. If anyof the neede d data elements a re missing the Laboratory juan antonio ot compute an estimation of t he glomerular filtration rate . CREATININE (test 0.59 mg/dL 0.64-1.27 L code = CREAT) CALCIUM (test code 8.6 mg/dL 8.5-10.5 N = CA) CBC W/AUTO [id number] 04:07:00 Test Item Value Reference Range Interpretation Comments WHITE BLOOD CELL (test code = 5.2 x10 3/uL 3.2-11.5 N WBC) RED BLOOD CELL (test code = 3.32 x10(6)/m 4.20-5.70 L RBC) HEMOGLOBIN (test code = HGB) 12.2 g/dL 12.9-17.3 L HEMATOCRIT (test code = HCT) 36.2 % 38.7-51.0 L MEAN CELL VOLUME (test code = 109 fL 80-100 H MCV) MEAN CELL HGB (test code = MCH) 36.7 pg 26.7-33.3 H MEAN CELL HGB CONCENTRATION 33.7 g/dL 30.0-34.0 N (test code = MCHC) RED CELL DISTRIBUTION WIDTH 13.2 % 11.3-14.5 N (test code = RDW) PLATELET COUNT (test code = 140 x10 3/uL 130-408 N PLT) MEAN PLATELET VOLUME (test code 9.5 fL 8.6-12.6 N = MPV) NEUTROPHIL % (test code = NT%) 65.1 % 40.0-70.0 N IMMATURE GRANULOCYTE % (test 0.4 % 0.0-2.0 N code = IG%) LYMPHOCYTE % (test code = LY%) 23.0 % 20-40 N MONOCYTE % (test code = MO%) 9.9 % 1-10 N EOSINOPHIL % (test code = EO%) 1.2 % 0.0-5.0 N BASOPHIL % (test code = BA%) 0.4 % 0.0-1.0 N NUCLEATED RBC % (test code = 0.0 % 0.0-0.9 N NRBC%) NEUTROPHIL # (test code = NT#) 3.4 x10 3/uL 1.6-7.2 N LYMPHOCYTE # (test code = LY#) 1.19 x10 3/uL 1.1-2.7 N MONOCYTE # (test code = MO#) 0.5 x10 3/uL 0.3-0.8 N EOSINOPHIL # (test code = EO#) 0.1 x10 3/uL 0.0-0.5 N BASOPHIL # (test code = BA#) 0.0 x10 3/uL 0.0-0.1 N - CT LOWER EXTRM W/O C [id number] 01:39:00 [facility] 1965 Sex: MPatient Name: MADDISON PAEZ Unit No: [id number] EXAMS: CPT: [id number] [place] L[place]TRM W/[place] [address] [place] left ankle without contrast, 02/22/2021. Clinical: Fracture dislocation. Comment: Noncontrast transaxialplus sagittal/coronal reformatted images were obtained. There is soft tissue swelling. The mortise is disrupted. The distal tibia is displaced medially in relation to the talar dome. There is an acute a vulsion type fracture involving the lateral aspect of the distal tibia. The fracture extends into the mortise. There is an acute comminuted distracted fracture involving the distal fibula/lateral malleolus. There are cystic and/or radiolucent lesions involving the talus, calcaneus and head of the 1st m etatarsal. There is a bunion-type deformity involving the head of the 1st metatarsal. All CT scans at this facility are performed using dose optimization techniques including the following: Automated exposure control. IMPRESSION: Acute fracture dislocation at the level of the mortise. at 0139 Reported and signed by: Solomon Aquino MD CC: Tai Sloan ; No Primary Care Physician; Akbar James MD Technologist: Nancy DuranCTDI: 4.98 DLP: 171.28 Trscr Dt/Tm: 02/22/2021 (0139) by:[email or web address] Orig Print D/T: S: 02/22/2021 (0142) BATCH NO: N/A Name: MADDISON PAEZ [facility] Phys: Akbar Vick MD [address] [facility] : 1965 Age: 55 Sex: M [place], [place] [address] [facility] Ex[facility] Date: 02/22/2021 Status: ADM IN PH: FAX: PAGE 1 Signed ReportCOVID 19 Asymptomatic IH [id number] 23:35:00 Test Item Value Reference Range Interpretation Comments COVID 19 Asymptomatic Negative Negative Negati ve results should IH AG (test code = be treate d as COVNONPUIAG) presumptive andconfirmed wi th a molecular assay , if necessary for patientmanageme nt. Negative result s do not rule out COVID- 19 andshould not b e used as the sole bas is for treatment orpat ient management deci sions, including infec tion controldecision s. Negative result s should be considered i n thecontext of a patient's recen t exposures, hist ory and thepresence of clnical signs and sympt oms consistent withCOVID-19.Sp ecimen Source: Nasopha ryngeal (NAVAL ENGINEER) Swab [id number] 23:28:00 Test Item Value Reference Range Interpretation Comments TROPONIN-I (test code = TROPI) <0.020 ng/mL 0.000-0.034 N CBC W/AUTO [id number] 23:27:00 Test Item Value Reference Range Interpretation Comments WHITE BLOOD CELL (test code = 5.7 x10 3/uL 3.2-11.5 N WBC) RED BLOOD CELL (test code = 3.65 x10(6)/m 4.20-5.70 L RBC) HEMOGLOBIN (test code = HGB) 13.4 g/dL 12.9-17.3 N HEMATOCRIT (test code = HCT) 40.4 % 38.7-51.0 N MEAN CELL VOLUME (test code = 111 fL 80-100 H MCV) MEAN CELL HGB (test code = MCH) 36.7 pg 26.7-33.3 H MEAN CELL HGB CONCENTRATION 33.2 g/dL 30.0-34.0 N (test code = MCHC) RED CELL DISTRIBUTION WIDTH 13.4 % 11.3-14.5 N (test code = RDW) PLATELET COUNT (test code = 144 x10 3/uL 130-408 N PLT) MEAN PLATELET VOLUME (test code 9.4 fL 8.6-12.6 N = MPV) NEUTROPHIL % (test code = NT%) 65.5 % 40.0-70.0 N IMMATURE GRANULOCYTE % (test 0.2 % 0.0-2.0 N code = IG%) LYMPHOCYTE % (test code = LY%) 24.7 % 20-40 N MONOCYTE % (test code = MO%) 8.5 % 1-10 N EOSINOPHIL % (test code = EO%) 0.7 % 0.0-5.0 N BASOPHIL % (test code = BA%) 0.4 % 0.0-1.0 N NUCLEATED RBC % (test code = 0.0 % 0.0-0.9 N NRBC%) NEUTROPHIL # (test code = NT#) 3.7 x10 3/uL 1.6-7.2 N LYMPHOCYTE # (test code = LY#) 1.40 x10 3/uL 1.1-2.7 N MONOCYTE # (test code = MO#) 0.5 x10 3/uL 0.3-0.8 N EOSINOPHIL # (test code = EO#) 0.0 x10 3/uL 0.0-0.5 N BASOPHIL # (test code = BA#) 0.0 x10 3/uL 0.0-0.1 N DIFFERENTIAL [id number] 23:27:00 Test Item Value Reference Range Interpretation Comments MACROCYTOSIS (test code = MACR) 2+ NONE SEEN A PLATELET MORPHOLOGY (test code = NORMAL NORMAL PLTMORPH) BASIC METABOLIC [id number] 23:21:00 Test Item Value Reference Range Interpretation Comments SODIUM (test code 139 mmol/L 135-145 N = NA) POTASSIUM (test 3.3 mmol/L 3.6-5.0 L code = K) CHLORIDE (test 102 mmol/L 101-111 N code = CL) CARBON DIOXIDE 20 mmol/L 21-31 L (test code = CO2) GLUCOSE (test code 99 mg/dl 70-100 N = GLU) BLOOD UREA 8 mg/dl 6-20 N NITROGEN (test code = BUN) GLOMERULAR >=60 max >60 The estimated FILTRATION RATE estimate glomerular (test code = GFR) filtration rate is computed usingpatient ra ce, age (>18), sex, and serum creatinin e. If anyof the neede d data elements a re missing the Laboratory juan antonio ot compute an estimation of t he glomerular filtration rate . CREATININE (test 0.58 mg/dL 0.64-1.27 L code = CREAT) CALCIUM (test code 8.7 mg/dL 8.5-10.5 N = CA) PROTHROMBIN [id number] 23:18:00 Test Item Value Reference Range Interpretation Comments PROTHROMBIN TIME 13.3 SECONDS 11.2-13.6 N PATIENT (test code = PTP) INTERNATIONAL NORMAL 1.1 The INR is to be RATIO (test code = used only for INR) monitoring oral anticoagulantth erap y. INDICATION I NR VALUE ---- ---- ---- --------1. Prophylaxis, de ep venous thrombos is, 2.0 - 2.5 inclu ding high-risk surgery.2. Prophylaxis, de ep venous thrombos is, 2.0 - 3.0 hip surgery, treatm ent for deep venous thrombosis or pulmonary prevention of systemic emboli sm in patients wit h valvular heart disease, atrial fibrillation, tissue heart va lve, or acute myocar dial infarction.3. Mechanical prosthesis hear t valves, 3.0 - 4 .5 recurrent syste vivien embolism. THROMBOPLASTIN TIME [id number] 23:18:00 Test Item Value Reference Range Interpretation Comments THROMBOPLASTIN TIME PARTIAL (test 30 SECONDS 25-38 N code = PTT) CBC W/AUTO [id number] 23:12:00 Test Item Value Reference Range Interpretation Comments WHITE BLOOD CELL (test code = 5.7 x10 3/uL 3.2-11.5 N WBC) RED BLOOD CELL (test code = 3.65 x10(6)/m 4.20-5.70 L RBC) HEMOGLOBIN (test code = HGB) 13.4 g/dL 12.9-17.3 N HEMATOCRIT (test code = HCT) 40.4 % 38.7-51.0 N MEAN CELL VOLUME (test code = 111 fL 80-100 H MCV) MEAN CELL HGB (test code = MCH) 36.7 pg 26.7-33.3 H MEAN CELL HGB CONCENTRATION 33.2 g/dL 30.0-34.0 N (test code = MCHC) RED CELL DISTRIBUTION WIDTH 13.4 % 11.3-14.5 N (test code = RDW) PLATELET COUNT (test code = 144 x10 3/uL 130-408 N PLT) MEAN PLATELET VOLUME (test code 9.4 fL 8.6-12.6 N = MPV) NEUTROPHIL % (test code = NT%) 65.5 % 40.0-70.0 N IMMATURE GRANULOCYTE % (test 0.2 % 0.0-2.0 N code = IG%) LYMPHOCYTE % (test code = LY%) 24.7 % 20-40 N MONOCYTE % (test code = MO%) 8.5 % 1-10 N EOSINOPHIL % (test code = EO%) 0.7 % 0.0-5.0 N BASOPHIL % (test code = BA%) 0.4 % 0.0-1.0 N NUCLEATED RBC % (test code = 0.0 % 0.0-0.9 N NRBC%) NEUTROPHIL # (test code = NT#) 3.7 x10 3/uL 1.6-7.2 N LYMPHOCYTE # (test code = LY#) 1.40 x10 3/uL 1.1-2.7 N MONOCYTE # (test code = MO#) 0.5 x10 3/uL 0.3-0.8 N EOSINOPHIL # (test code = EO#) 0.0 x10 3/uL 0.0-0.5 N BASOPHIL # (test code = BA#) 0.0 x10 3/uL 0.0-0.1 N DIFFERENTIAL [id number] 23:12:00 Test Item Value Reference Range Interpretation Comments PLATELET MORPHOLOGY (test code = NORMAL PLTMORPH) CBC W/AUTO [id number] 23:12:00 Test Item Value Reference Range Interpretation Comments WHITE BLOOD CELL (test code = 5.7 x10 3/uL 3.2-11.5 N WBC) RED BLOOD CELL (test code = 3.65 x10(6)/m 4.20-5.70 L RBC) HEMOGLOBIN (test code = HGB) 13.4 g/dL 12.9-17.3 N HEMATOCRIT (test code = HCT) 40.4 % 38.7-51.0 N MEAN CELL VOLUME (test code = 111 fL 80-100 H MCV) MEAN CELL HGB (test code = MCH) 36.7 pg 26.7-33.3 H MEAN CELL HGB CONCENTRATION 33.2 g/dL 30.0-34.0 N (test code = MCHC) RED CELL DISTRIBUTION WIDTH 13.4 % 11.3-14.5 N (test code = RDW) PLATELET COUNT (test code = 144 x10 3/uL 130-408 N PLT) MEAN PLATELET VOLUME (test code 9.4 fL 8.6-12.6 N = MPV) NEUTROPHIL % (test code = NT%) 65.5 % 40.0-70.0 N IMMATURE GRANULOCYTE % (test 0.2 % 0.0-2.0 N code = IG%) LYMPHOCYTE % (test code = LY%) 24.7 % 20-40 N MONOCYTE % (test code = MO%) 8.5 % 1-10 N EOSINOPHIL % (test code = EO%) 0.7 % 0.0-5.0 N BASOPHIL % (test code = BA%) 0.4 % 0.0-1.0 N NUCLEATED RBC % (test code = 0.0 % 0.0-0.9 N NRBC%) NEUTROPHIL # (test code = NT#) 3.7 x10 3/uL 1.6-7.2 N LYMPHOCYTE # (test code = LY#) 1.40 x10 3/uL 1.1-2.7 N MONOCYTE # (test code = MO#) 0.5 x10 3/uL 0.3-0.8 N EOSINOPHIL # (test code = EO#) 0.0 x10 3/uL 0.0-0.5 N BASOPHIL # (test code = BA#) 0.0 x10 3/uL 0.0-0.1 N DIFFERENTIAL [id number] 23:12:00 Test Item Value Reference Range Interpretation Comments PLATELET MORPHOLOGY (test code = NORMAL PLTMORPH) CBC W/AUTO [id number] 23:05:00 Test Item Value Reference Range Interpretation Comments WHITE BLOOD CELL (test code = 5.7 x10 3/uL 3.2-11.5 N WBC) RED BLOOD CELL (test code = 3.65 x10(6)/m 4.20-5.70 L RBC) HEMOGLOBIN (test code = HGB) 13.4 g/dL 12.9-17.3 N HEMATOCRIT (test code = HCT) 40.4 % 38.7-51.0 N MEAN CELL VOLUME (test code = 111 fL 80-100 H MCV) MEAN CELL HGB (test code = MCH) 36.7 pg 26.7-33.3 H MEAN CELL HGB CONCENTRATION 33.2 g/dL 30.0-34.0 N (test code = MCHC) RED CELL DISTRIBUTION WIDTH % 11.3-14.5 (test code = RDW) PLATELET COUNT (test code = x10 3/uL 130-408 PLT) MEAN PLATELET VOLUME (test code 9.4 fL 8.6-12.6 N = MPV) NEUTROPHIL % (test code = NT%) % 40.0-70.0 LYMPHOCYTE % (test code = LY%) % 20-40 MONOCYTE % (test code = MO%) % 1-10 EOSINOPHIL % (test code = EO%) % 0.0-5.0 BASOPHIL % (test code = BA%) % 0.0-1.0 NUCLEATED RBC % (test code = % 0.0-0.9 NRBC%) NEUTROPHIL # (test code = NT#) x10 3/uL 1.6-7.2 LYMPHOCYTE # (test code = LY#) x10 3/uL 1.1-2.7 MONOCYTE # (test code = MO#) x10 3/uL 0.3-0.8 EOSINOPHIL # (test code = EO#) x10 3/uL 0.0-0.5 - XR ANKLE 3 + V [id number] 22:46:00 [facility] : 1965 Sex: MPatient Name: MADDISON PAEZ Unit No: [id number] EXAMS: CPT: [id number] XR ANKLE 3 + [place] [id number] Left ankle, 4 views, 02/21/2021. Clinical: Trauma. Comment: The cast compromises visualization. Soft tissue swelling is present. The mortise is disrupted. The tibia is displaced medially in relation to the talar dome. There is an acute comminuted fracture involving the distal fibula. IMPRESSION: Acute fracture d islocation as described above. at 2246 Reported and signed by: Solomon Aquino MD CC: Akbar James MD Technologist: Sendy Magallon Fluoro Time: DAP (Gy m2): Air Kerma (mGy): Trscr Dt/Tm: 02/21/2021 (002) by:[email or web address] Orig Print D/T: S: 02/21/2021 (2243) BATCH NO: N/A Name: MADDISON PAEZ [facility] Phys: Akbar Vick MD [address] [facility] : 1965 Age: 55 Sex: [place] [address] : N.ERS Exam Date: 02/21/2021 Status: PRE ER PH: FAX: PAGE 1 Signed Report
[2022-12-10] MEDS ORDERED: MORPHINE 4 MG/ML SYR ONE (15:04)
[2022-12-10] MEDS ORDERED: PIPERACIL/TAZO 3.375 GM VIAL IV ONE (15:05)
[2022-12-10] MEDS ORDERED: NA CHLORIDE 0.9% 100 ML ONE (15:05)
--- NOTE | 2022-12-10 15:35 | RAD REPORT ---
EXAM DESCRIPTION: RAD - Foot Right 3 View - 12/10/2022 3:14 pm CLINICAL HISTORY: PAIN COMPARISON: Foot Right 3 View dated 02/06/2017 FINDINGS/IMPRESSION: No acute fracture. No radiographic evidence of osteomyelitis. Surgical changes of partial hindfoot fusion. Hardware alignment is similar. No complications identified. Plantar aspec t wound at the level of the midfoot.
[2022-12-10 16:02] LABS: Lymphocytes % 13.4 % (15.3-44.8); MCV 100.5 fL (80-100); MPV 7.7 fL (7.6-11.3); RBC Red Blood Cell Count 3.38 M/uL (4.33-5.43)
[2022-12-10 16:15] LABS: Potassium 4.4 mmol/L (3.5-5.1)
--- NOTE | 2022-12-10 16:23 | ER ---
Nurse's Notes [facility] Name: Juan José Escobar Jr Age: 57 yrs Sex: Male : 1965 Arrival Date: 12/10/2022 Time: 14:06 Bed 8 Private MD: Diagnosis: Diabetic foot ulcer;Foot cellulitis;Anemia, unspecified Presentation: 12/10 14:29 Chief complaint: Patient states: Here to have wound to R foot evaluated. Pt states, ss "there is a hole in it that started 6-8 weeks ago that is getting bigger.". Coronavirus screen: Client denies travel out of the [place] in the last 14 days. Ebola Screen: Patient denies exposure to infectious person. Patient denies travel to an Ebola-affected area in the 21 days before illness onset. Initial Sepsis Screen: Does the patient meet any 2 criteria? No. Patient's initial sepsis screen is negative. Does the patient have a suspected source of infection? Yes: Skin breakdown/wound. Risk Assessment: Do you want to hurt yourself or someone else? Patient reports no desire to harm self or others. 14:29 Method Of Arrival: Ambulatory ss 14:29 Acuity: BUSHRA 3 ss 14:30 Onset of symptoms is unknown. ss Historical: - Allergies: 14:30 Sulfa (Sulfonamide Antibiotics); ss - Home Meds: 14:41 omeprazole 40 mg Oral cpDR 1 cap once daily [Active]; levetiracetam 250 mg Oral tab 2 ss tabs 2 times per day [Active]; clonazepam 0.5 mg Oral tab [Active]; gabapentin 300 mg Oral cap 2 caps 3 times per day [Active]; atorvastatin 20 mg Oral tab 1 tab once daily [Active]; atenolol 100 mg Oral tab 1 tab once daily [Active]; primidone 250 mg Oral tab 1 tab 3 times per day [Active]; - PMHx: 14:30 CMT; Hypertension; ss - PSHx: 14:41 R foot x 3; ss - Social history:: Smoking status: Patient reports use of chewing tobacco. Screenin:41 [facility] ED Fall Risk Assessment (Adult) History of falling in the last 3 months, ss including since admission No falls in past 3 months (0 pts). Abuse screen: Denies threats or abuse. Denies injuries from another. Nutritional screening: No deficits noted. Tuberculosis screening: Never had TB. Assessment: 14:46 General: Appears in no apparent distress. comfortable, Behavior is calm, cooperative, kc6 appropriate for age. Pain: Complains of pain in right foot Pain does not radiate. Pain currently is 8 out of 10 on a pain scale. Quality of pain is described as sharp, shooting, tingling, Pain began 6-8 weeks ago Is continuous, Alleviated by rest, Aggravated by weight bearing, Also complains of no other associated symptoms. Neuro: Fong Agitation-Sedation Scale (RASS): 0 - Alert and Calm Level of Consciousness is awake, alert, obeys commands, Oriented to person, place, time, situation, Appropriate for age. Cardiovascular: Capillary refill < 3 seconds Rhythm is sinus rhythm. Respiratory: Airway is patent Trachea midline Respiratory effort is even, unlabored, Respiratory pattern is regular, symmetrical. GI: No signs and/or symptoms were reported involving the gastrointestinal system. : No signs and/or symptoms were reported regarding the genitourinary system. EENT: No signs and/or symptoms were reported regarding the EENT system. Derm: Skin is dry, Skin is pink, warm \\T\\ dry. Skin temperature is warm Wound noted ball of right foot and arch of right foot. Musculoskeletal: No signs and/or symptoms reported regarding the musculoskeletal system. Circulation, motion, and sensation intact. Capillary refill < 3 seconds, Range of motion: intact in all extremities. 15:46 Reassessment: Patient appears in no apparent distress at this time. No changes from kc6 previously documented assessment. Patient and/or family updated on plan of care and expected duration. Pain level reassessed. Patient is alert, oriented x 3, equal unlabored respirations, skin warm/dry/pink. 16:20 Reassessment: Dr. Suarez at bedside speaking with patient. kc6 Vital Signs: 14:31 BP 110 / 76; Pulse 74; Resp 17; Temp 98.1; Pulse Ox 99% on R/A; Pain 8/10; ss 16:20 BP 109 / 70; Pulse 68; Resp 12 S; Pulse Ox 100% on R/A; kc6 16:30 Weight 101.6 kg (R); Height 5 ft. 9 in. (175.26 cm) (R); kc6 16:30 Body Mass Index 33.08 (101.60 kg, 175.26 cm) kc6 ED Course: 14:06 Patient arrived in ED. rg4 14:08 Brandt Torres DO is Attending Physician. ms3 14:30 Triage completed. ss 14:30 Arm band placed on right wrist. ss 14:37 Sara Ramírez, MARI is Primary Nurse. kc6 14:41 Patient has correct armband on for positive identification. Bed in low position. ss 15:16 Foot Right 3 View XRAY In Process Unspecified. EDMS 15:25 BMP Sent. kc6 15:25 CBC with Diff Sent. kc6 15:25 Missed attempt(s): 20 gauge in right forearm. kc6 15:25 Missed attempt(s): 20 gauge in left antecubital area. kc6 15:35 Inserted saline lock: 22 gauge in right antecubital area, using aseptic technique. ll1 Blood collected. 15:47 Blood Culture Adult (2) Sent. kc6 16:21 Edilberto Weston MD is Hospitalizing Provider. ms3 Administered Medications: 15:39 Drug: morphine 4 mg Route: IVP; Infused Over: 4 mins; Site: right antecubital; ll1 16:30 Follow up: Response: No adverse reaction; Pain is decreased; RASS: Alert and Calm (0) kc6 15:47 Drug: Zosyn (piperacillin-tazobactam) 3.375 grams Route: IVPB; Infused Over: 60 mins; kc6 Site: right antecubital; 16:30 Follow up: Response: No adverse reaction; IV Status: Completed infusion kc6 Medication: 14:41 VIS not applicable for this client. ss Outcome: 16:22 Decision to Hospitalize by Provider. ms3 03/ 02:15 Patient left the ED. kd3 Signatures: Dispatcher [employer] EDMS Vikki Lee RN RN ss Carmen Ruiz rg4 Herb Cortez RN RN ll1 Brandt Torres DO DO ms3 Leona Nash RN RN kd3 Sara Ramírez, RN RN kc6 Corrections: (The following items were deleted from the chart) 12/10 14:31 14:29 Chief complaint: Patient states: Here to have wound to R foot evaluated ss ss
--- NOTE | 2022-12-10 16:23 | EDPHYS ---
Physician Documentation [facility] Name: Juan José Escobar Jr Age: 57 yrs Sex: Male : 1965 Arrival Date: 12/10/2022 Time: 14:06 Bed 8 Private MD: ED Physician Brandt Torres HPI: 12/10 14:54 This 57 yrs old Male presents to ER via Ambulatory with complaints of Wound Infection. ms3 14:54 57-year-old male with past medical history of CMT, hypertension presents for right foot ms3 ulceration that has been ongoing for 6 to 8 weeks. Patient states the ulcer is progressively getting larger. Patient states pain is an 8/10 described as shooting. Patient denies alleviating or inciting factors. Patient states his temperature yesterday was between 101 and 102. Historical: - Allergies: 14:30 Sulfa (Sulfonamide Antibiotics); ss - Home Meds: 14:41 omeprazole 40 mg Oral cpDR 1 cap once daily [Active]; levetiracetam 250 mg Oral tab 2 ss tabs 2 times per day [Active]; clonazepam 0.5 mg Oral tab [Active]; gabapentin 300 mg Oral cap 2 caps 3 times per day [Active]; atorvastatin 20 mg Oral tab 1 tab once daily [Active]; atenolol 100 mg Oral tab 1 tab once daily [Active]; primidone 250 mg Oral tab 1 tab 3 times per day [Active]; - PMHx: 14:30 CMT; Hypertension; ss - PSHx: 14:41 R foot x 3; ss - Social history:: Smoking status: Patient reports use of chewing tobacco. ROS: 14:54 Constitutional: Negative for fever, and chills. Cardiovascular: Negative for chest ms3 pain, and palpitations. Respiratory: Negative for shortness of breath, cough, wheezing, and pleuritic chest pain, Abdomen/GI: Negative for abdominal pain, nausea, vomiting, diarrhea, and constipation. 14:54 Skin: Positive for ulceration, of the ball of right foot. 14:54 All other systems are negative. Exam: 14:54 Constitutional: This is a well developed, well nourished patient who is awake, alert, ms3 and in no acute distress. Head/Face: Normocephalic, atraumatic. Neck: Trachea midline, no cervical lymphadenopathy. Supple, full range of motion without nuchal rigidity, or vertebral point tenderness. No Meningismus. Chest/axilla: Normal chest wall appearance and motion. Nontender with no deformity. Cardiovascular: Regular rate and rhythm with a normal S1 and S2. No gallops, murmurs, or rubs. Normal PMI, no JVD. No pulse deficits. Respiratory: Lungs have equal breath sounds bilaterally, clear to auscultation and percussion. No rales, rhonchi or wheezes noted. No increased work of breathing, no retractions or nasal flaring. Abdomen/GI: Soft, non-tender, with normal bowel sounds. No distension or tympany. No guarding or rebound. No evidence of tenderness throughout. 14:54 Musculoskeletal/extremity: Right plantar surface of foot with ulceration, purulent discharge, foul smell. Dorsum of foot with erythema.. Vital Signs: 14:31 BP 110 / 76; Pulse 74; Resp 17; Temp 98.1; Pulse Ox 99% on R/A; Pain 8/10; ss 16:20 BP 109 / 70; Pulse 68; Resp 12 S; Pulse Ox 100% on R/A; [facility] 16:30 Weight 101.6 kg (R); Height 5 ft. 9 in. (175.26 cm) (R); [facility] 16:30 Body Mass Index 33.08 (101.60 kg, 175.26 cm) [facility] MDM: 14:54 Differential diagnosis: Diabetic foot ulcer vs cellulitis vs osteomyelitis. ms3 15:11 Patient medically screened. ms3 16:29 Data reviewed: vital signs, nurses notes, lab test result(s), radiologic studies, plain ms3 films, and as a result, I will admit patient. Consideration of Admission/Observation Patient was admitted/placed on observation. Management of patient was discussed with the following: Hospitalist: Dr Ordonez. Fire Extinguisher Sprinkler Inspector: Dr Suarez. I considered the following discharge prescriptions or medication management in the emergency department Medications were administered in the Emergency Department. See MAR. Independent interpretation of the following test(s) in the Emergency Department X-Ray: My interpretation is Right foot x-ray: negative for fx. Counseling: I had a detailed discussion with the patient and/or guardian regarding: the historical points, exam findings, and any diagnostic results supporting the discharge/admit diagnosis, lab results, radiology results, the need for further work-up and treatment in the hospital. ED course: Discussed necessity for admission with patient and his and they understand and agree with plan. Discussed case with Dr. Suarez of he will take patient to the operating room for debridement tomorrow. Discussed case with Dr. Ordonez and he accepts patient.. 12/10 14:54 Order name: CBC with Diff; Complete Time: 16:13 ms3 12/10 14:54 Order name: BMP; Complete Time: 16:22 ms3 12/10 14:54 Order name: Foot Right 3 View XRAY; Complete Time: 16:13 ms3 12/10 14:54 Order name: Blood Culture Adult (2) ms3 12/10 15:35 Order name: Labs - recollect needed: recollect lavender and green top; Complete Time: bd 15:47 12/10 16:26 Order name: SARS RAPID; Complete Time: 19:48 [facility] 12/10 18:10 Order name: Lipid Profile; Complete Time: 19:48 EDMS 12/10 18:26 Order name: Hemoglobin A1c; Complete Time: 19:48 EDMS 12/10 21:22 Order name: Phosphorus EDMS 12/10 21:22 Order name: Troponin High Sensitivity EDMS 12/10 21:22 Order name: Magnesium EDMS Administered Medications: 15:39 Drug: morphine 4 mg Route: IVP; Infused Over: 4 mins; Site: right antecubital; ll1 16:30 Follow up: Response: No adverse reaction; Pain is decreased; RASS: Alert and Calm (0) kc6 15:47 Drug: Zosyn (piperacillin-tazobactam) 3.375 grams Route: IVPB; Infused Over: 60 mins; kc6 Site: right antecubital; 16:30 Follow up: Response: No adverse reaction; IV Status: Completed infusion kc6 Disposition Summary: 12/10/22 16:22 Hospitalization Ordered Hospitalization Status: Inpatient Admission ms3 Provider: Edilberto Weston ms3 Location: Telemetry/MedSurg (Inpatient) ms3 Condition: Stable ms3 Problem: new ms3 Symptoms: are unchanged ms3 Bed/Room Type: Standard ms3 Room Assignment: 218(12/11/22 01:07) cg Diagnosis - Diabetic foot ulcer ms3 - Foot cellulitis ms3 - Anemia, unspecified ms3 Forms: - Medication Reconciliation Form ms3 - SBAR form ms3 Signatures: Dispatcher [employer] EDBan Brewer Shelby, RN RN ss Garcia, Cindy, RN RN cg Lewis, Lynsay, RN RN ll1 Brandt Torres, DO LIMON ms3 Sara Ramírez RN RN kc6 Shaun Dumont MD MD rt Corrections: (The following items were deleted from the chart) 12/11 01:07 12/10 16:22 ms3 cg
[2022-12-10 16:51] LABS: SARS-CoV-2 Antigen Rapid Res Negative (Negative)
[2022-12-10] MEDS ORDERED: ACETAMINOPHEN 325 MG TABLET PO PRN (17:45)
[2022-12-10] MEDS ORDERED: ONDANSETRON 4 MG/2 ML VIAL IV PRN (17:49)
[2022-12-10] MEDS ORDERED: HYDRALAZINE HCL 20 MG/ML VIAL IV PRN (17:55)
--- NOTE | 2022-12-10 17:56 | P.HP ---
Certification for Inpatient Patient admitted to: Inpatient With expected LOS: >2 Midnights Patient will require the following post-hospital care: None Practitioner: I am a practitioner with admitting privileges, knowledge of patient current condition, hospital course, and medical plan of care. Services: Services provided to patient in accordance with Admission requirements found in Title 42 Section 412.3 of the Code of Federal Regulations Patient History Date of Service: 12/10/22 Reason for admission: Right foot wound\cellulitis History of Present Illness: Patient is a 57-year-old male with a past medical history significant for CMT, hypertension, GERD, HLD, peripheral neuropathy who presents with complaint of right foot wound ulcer\infection. Patient reported that he noticed 2 bumps under his right foot 4 weeks ago which later turned into wounds. Patient now reports wound drainage. Patient explained that chest pain is shooting pain from the right groin to his right foot. Patient rated pain as 10/10 in severity and described pain as sharp in quality. Patient reports associated signs and symptoms of right swelling\redness\pain and fever. Patient denies any other signs and symptoms. Symptoms are aggravated or relieved by nothing. Patient said to present to the hospital due to worsening symptoms. Allergies sulfamethoxazole [From Bactrim] Allergy (Verified 05/15/22 06:33) Unknown trimethoprim [From Bactrim] Allergy (Verified 05/15/22 06:33) Unknown Sulfa (Sulfonamide An Allergy (Uncoded 02/06/17 23:57) Unknown Home Medications: Amlodipine [Norvasc] 10 mg PO DAILY 05/15/22 Atorvastatin Calcium 20 mg PO DAILY 05/15/22 Cetirizine HCl [All Day Allergy Relief] 10 mg PO DAILY 05/15/22 Codeine/APAP [Tylenol W/Codeine #3 tab] 1 tab PO Q4HP PRN #1 tab 05/15/22 Diclofenac Sodium [Voltaren] 75 mg PO BID 05/15/22 Famotidine 40 mg PO PRN 05/15/22 Gabapentin [Neurontin] 600 mg PO TID 05/15/22 Levetiracetam [Keppra Xr] 500 mg PO DAILY 05/15/22 Omeprazole [Prilosec] 40 mg PO DAILY 05/15/22 Phentermine HCl 37.5 mg PO DAILY 05/15/22 Primidone 250 mg PO DAILY 05/15/22 Topiramate [Trokendi Xr] 25 mg PO BID 05/15/22 clonazePAM [Clonazepam] 0.5 mg PO BID 05/15/22 - Past Medical/Surgical History -: CMT -: HTN -: GERD -: HLD -: Foot surgery - Family History Family History: Reviewed- Non-Contributory - Social History Smoking Status: Never smoker Alcohol use: Yes CD- Drugs: No Caffeine use: Yes Place of Residence: Home Review of Systems General: Fever Eyes: Unremarkable ENT: Unremarkable Respiratory: Unremarkable Cardiovascular: Unremarkable Gastrointestinal: Unremarkable Genitourinary: Unremarkable Musculoskeletal: Other (right foot swelling) Integumentary: Other (Right foot wound\ulcer\redness) Neurological: Unremarkable Lymphatics: Unremarkable Physical Examination - Physical Exam General: Alert, In no apparent distress, Oriented x3, Cooperative HEENT: Atraumatic, PERRLA, Mucous membr. moist/pink, EOMI, Sclerae nonicteric Neck: Supple, 2+ carotid pulse no bruit, No LAD, Without JVD or thyroid abnormality Respiratory: Clear to auscultation bilaterally, Normal air movement Cardiovascular: Regular rate/rhythm, Normal S1 S2, Edema Capillary refill: <2 Seconds Gastrointestinal: Normal bowel sounds, Soft and benign, No tenderness Musculoskeletal: Swelling, Erythema, Tenderness Integumentary: No rashes, Skin breakdown, Tenderness/swelling, Erythema Neurological: Normal speech, Normal tone, Normal affect Lymphatics: No axilla or inguinal lymphadenopathy - Studies Laboratory Data (last 24 hrs) 12/10/22 15:52: Sodium 134 L, Potassium 4.4, BUN 13, Creatinine 0.82, Glucose 128 H 12/10/22 15:52: WBC 7.50, Hgb 11.6 L, Hct 34.0 L, Plt Count 275 Assessment and Plan - Plan -- Right foot wound\cellulitis. Surgeon consulted. Blood cultures pending. Patient placed on antibiotics. Wound care consult initiated. Surgeon plans to do incision and debridement in a.m. We will await further recommendation. --Radicular pain. We will manage pain with current pain medication regimen. Continue gabapentin for his neuropathy. --Hypertension. Stable. Continue home medication. --GERD. Continue home medication. --HLD. Continue statin. -- Anemia of chronic disease. H&H stable. We will continue to monitor hemoglobin and transfuse if less than 7.0. --DVT prophylaxis with SCDs. Discharge Plan: Home Plan to discharge in: Greater than 2 days - Advance Directives Does patient have a Living Will: No Does patient have a Durable POA for Healthcare: No - Code Status/Comfort Care Code Status Assessed: Yes Physician Review: Patient Assessed, Agree with Above Assessment and Plan Critical Care: No
[2022-12-10 18:54] VITALS: BMI 32.9
[2022-12-10] MEDS ORDERED: HYDROCODONE/APAP 10/325 TAB ONE (20:20)
[2022-12-10] MEDS: HYDROCODONE/APAP 10/325 TAB PO PRN (20:28)
[2022-12-10 21:22] LABS: Magnesium 2.2 mg/dL (1.6-2.4); Phosphorus 2.9 mg/dL (2.5-4.9); Troponin High Sensitivity 3.2 pg/mL (<58.9)
[2022-12-11] MEDS ORDERED: ACETAMINOPHEN 325 MG TABLET ONE (00:17)
[2022-12-11] MEDS ORDERED: VANCOMYCIN 2 GM in NA CHLORIDE 0.9% 500 ML IVPB SCH (01:00)
[2022-12-11] MEDS ORDERED: VANCOMYCIN 1 GM in NA CHLORIDE 0.9% 250 ML IVPB SCH (01:00)
[2022-12-11] MEDS: CEFEPIME 1 GM in NA CHLORIDE 0.9% 100 ML IV SCH ×3 (02:46→20:59)
[2022-12-11] MEDS: MORPHINE 2 MG/ML SYR IV PRN ×3 (03:30→19:58)
[2022-12-11] MEDS ORDERED: VANCOMYCIN 1 GM/VIAL ONE (03:39)
[2022-12-11] MEDS ORDERED: NA CHLORIDE 0.9% 500 ML ONE (03:39)
[2022-12-11 03:44] LABS: Absolute Lymphocytes (CBC) 1.4 K/uL (0.7-4.9); Hematocrit 32.6 % (39.6-49.0); Lymphocytes % 17.2 % (15.3-44.8); MCV 101.2 fL (80-100); RBC Red Blood Cell Count 3.22 M/uL (4.33-5.43)
--- NOTE | 2022-12-11 07:40 | P.PN ---
Date of Service: 12/11/22 Subjective: pain tolerable with medication awaiting surgery upset with delay in antibiotics and being NPO ROS: 10 point ROS as noted above, otherwise negative Physical Exam GEN: Alert, oriented, NAD HEENT: Normal conjunctiva, sclera anicteric CV: Regular rate and rhythm, trace RLE edema Pulm: Nonlabored respirations on room air ABD: Soft, nontender, nondistended Integumentary: RLE: dressing c/d/i, edema of RLE, warmth, slight erythema Neuro: Normal speech, normal affect Problem List Right foot wound\cellulitis h/o [place] Susan Tooth Radicular pain Hypertension GERD HLD Anemia of chronic disease h/o seizures surgeon consulted cultures pending continue antibiotics' planned for I&D today Continue gabapentin for his neuropathy Continue statin Monitor hemoglobin and transfuse if less than 7.0 restart seizure medications / CMT meds once taking PO Dispo: home, ~2 days, pending surgery
[2022-12-11] MEDS ORDERED: NA CHLORIDE 0.9% 100 ML ONE (07:52)
[2022-12-11] MEDS ORDERED: CEFEPIME 1 GM/VIAL ONE (07:52)
[2022-12-11 09:57] LABS: Specific Gravity 1.013 (1.005-1.030); Urine Bilirubin NEGATIVE (Negative); Urine Blood Negative (Negative); Urine Clarity Clear (Clear); Urine Color Light-Yellow (Yellow); Urine Glucose NEGATIVE (Negative); Urine Protein NEGATIVE (Negative); Urine Urobilinogen Normal (Normal)
[2022-12-11] MEDS ORDERED: BUPIVACAINE 0.25% PF 10 ML VIAL ONE (11:24)
[2022-12-11] MEDS ORDERED: Ringers Lactate 1,000 ML IV ONE (11:41)
[2022-12-11] MEDS ORDERED: SUCCINYLCHOLINE 20 MG/ML (10 ML) IV ONE (12:13)
[2022-12-11] MEDS ORDERED: FENTANYL CITR 100 MCG/2 ML ONE (12:23)
[2022-12-11] MEDS ORDERED: MIDAZOLAM HCL 2 MG/2 ML INJ ONE (12:24)
[2022-12-11] MEDS ORDERED: propofoL 200 MG/20 ML VIAL IV ONE (12:24)
[2022-12-11] MEDS ORDERED: LIDOCAINE 1% W/EPI 1:100,000 30 ML VIAL ONE (12:48)
--- NOTE | 2022-12-11 12:58 | P.OP ---
Preoperative diagnosis: RIGHT foot infected diabetic wound Postoperative diagnosis: RIGHT foot infected diabetic wound Primary procedure: Debridement of RIGHT foot infected diabetic wound Secondary procedure: pulse lavage of foot Anesthesia: GETA + Local Estimated blood loss: <10cc Specimen: debridement tissue Findings: Infected necrotic tissue ~ 4cm x 7cm to tendons Complications: None Transferred to: Recovery Room Condition: Good
[2022-12-11] MEDS: HYDROCODONE/APAP 10/325 TAB PO PRN (14:54)
[2022-12-11] MEDS: VANCOMYCIN 2 GM in NA CHLORIDE 0.9% 500 ML IVPB SCH (15:27)
[2022-12-11] MEDS: PRIMIDONE 250 MG TAB PO SCH (20:59)
[2022-12-11] MEDS: GABAPENTIN 300 MG CAP PO SCH (20:59)
[2022-12-11] MEDS ORDERED: HOME MED 1 EA UNK (Levetiracetam [Keppra Xr] 500 MG Tab.Er.24h) PO SCH (21:00)
[2022-12-11] MEDS ORDERED: HOME MED 1 EA UNK (Gabapentin [Neurontin] 600 MG Tablet) PO SCH (21:00)
[2022-12-11] MEDS: clonazePAM 0.5 MG TAB PO SCH (21:00)
[2022-12-11] MEDS: levETIRAcetam 500 MG TAB PO SCH (21:00)
[2022-12-12] MEDS: HYDROCODONE/APAP 10/325 TAB PO PRN ×3 (00:20→17:41)
[2022-12-12] MEDS: MORPHINE 2 MG/ML SYR IV PRN ×3 (03:12→23:46)
[2022-12-12] MEDS: VANCOMYCIN 2 GM in NA CHLORIDE 0.9% 500 ML IVPB SCH (03:16)
[2022-12-12 03:30] LABS: Absolute Lymphocytes (CBC) 1.3 K/uL (0.7-4.9); Lymphocytes % 18.9 % (15.3-44.8); MCV 101.1 fL (80-100); MPV 7.5 fL (7.6-11.3); RBC Red Blood Cell Count 3.07 M/uL (4.33-5.43)
[2022-12-12 03:39] LABS: Magnesium 2.1 mg/dL (1.6-2.4); Potassium 3.9 mmol/L (3.5-5.1)
[2022-12-12] MEDS ORDERED: CEFEPIME 1 GM/VIAL ONE (08:00)
[2022-12-12] MEDS ORDERED: NA CHLORIDE 0.9% 100 ML ONE (08:01)
[2022-12-12] MEDS ORDERED: HOME MED 1 EA UNK (Omeprazole [Prilosec] 40 MG Capsule.Dr) PO SCH (09:00)
[2022-12-12] MEDS ORDERED: POTASSIUM CL SA 10 MEQ TAB PO ONE (09:00)
[2022-12-12 09:20] VITALS: O2SAT 99
[2022-12-12] MEDS: ATORVASTATIN 20 MG TAB PO SCH (09:35)
[2022-12-12] MEDS: PANTOPRAZOLE 40MG TABLET PO SCH (09:35)
[2022-12-12] MEDS: levETIRAcetam 500 MG TAB PO SCH ×2 (09:35→20:54)
[2022-12-12] MEDS: GABAPENTIN 300 MG CAP PO SCH ×3 (09:35→20:55)
[2022-12-12] MEDS: PRIMIDONE 250 MG TAB PO SCH ×3 (09:36→20:54)
[2022-12-12] MEDS: CEFEPIME 1 GM in NA CHLORIDE 0.9% 100 ML IV SCH ×2 (09:38→20:55)
[2022-12-12] MEDS: clonazePAM 0.5 MG TAB PO SCH ×2 (09:40→20:54)
--- NOTE | 2022-12-12 11:49 | P.PN ---
Date of Service: 12/12/22 Subjective: pain tolerable with medication; has significant neuropathy Feels better after surgery Swelling has gone down otherwise no new/worsening symptoms ROS: 10 point ROS as noted above, otherwise negative Physical Exam GEN: Alert, oriented, NAD HEENT: Normal conjunctiva, sclera anicteric CV: Regular rate and rhythm, trace RLE edema Pulm: Nonlabored respirations on room air ABD: Soft, nontender, nondistended Integumentary: RLE: edema of RLE, warmth, slight erythema; wound with packing in place Neuro: Normal speech, normal affect Problem List Right foot wound\cellulitis h/o [place] Susan Tooth Radicular pain Hypertension GERD HLD Anemia of chronic disease h/o seizures Dr. Suarez consulted Recovering from Surgery - Debridement of RIGHT foot infected diabetic wound & pulse lavage of foot Infected necrotic tissue ~ 4cm x 7cm to tendon Clean and pack wound tight daily Continue gabapentin and chronic home meds for neuropathy Continue statin Monitor hemoglobin and transfuse if less than 7.0 minimal sensation / pain of foot, dc [place]imbola continue home seizure medications / CMT meds Dispo: home, ~24 hours
[2022-12-12] MEDS ORDERED: VANCOMYCIN 1.5 GM in NA CHLORIDE 0.9% 500 ML IVPB SCH (16:00)
[2022-12-12] MEDS: VANCOMYCIN 1.75 GM in NA CHLORIDE 0.9% 500 ML IVPB SCH (17:33)
[2022-12-13] MEDS ORDERED: HYDROCODONE/APAP 5/325 MG TAB PO ONE (04:12)
[2022-12-13] MEDS: VANCOMYCIN 1.75 GM in NA CHLORIDE 0.9% 500 ML IVPB SCH (06:20)
[2022-12-13] MEDS ORDERED: HYDROCODONE/APAP 5/325 MG TAB PO PRN (08:16)
[2022-12-13] MEDS ORDERED: NA CHLORIDE 0.9% 100 ML ONE (08:32)
[2022-12-13] MEDS ORDERED: HOME MED 1 EA UNK (Atenolol [Tenormin] 100 MG Tablet) PO SCH (09:00)
[2022-12-13] MEDS ORDERED: atenoloL 50 MG TAB PO SCH (09:00)
[2022-12-13] MEDS: levETIRAcetam 500 MG TAB PO SCH ×2 (09:27→09:29)
[2022-12-13] MEDS: GABAPENTIN 300 MG CAP PO SCH ×2 (09:27→14:35)
[2022-12-13] MEDS: ATORVASTATIN 20 MG TAB PO SCH (09:27)
[2022-12-13] MEDS: clonazePAM 0.5 MG TAB PO SCH (09:28)
[2022-12-13] MEDS: CEFEPIME 1 GM in NA CHLORIDE 0.9% 100 ML IV SCH (09:28)
[2022-12-13] MEDS: PANTOPRAZOLE 40MG TABLET PO SCH (09:28)
[2022-12-13] MEDS: PRIMIDONE 250 MG TAB PO SCH ×2 (09:30→14:00)
--- NOTE | 2022-12-13 12:24 | P.DS ---
Admission Date: 12/10/22 Discharge Date: 12/14/22 Disposition: ROUTINE DISCHARGE Reason for Admission: Right foot wound\cellulitis Consultations: Surgical - Dr. Suarez Brief History of Present Illness: Patient is a 57-year-old male with a past medical history significant for CMT, hypertension, GERD, HLD, peripheral neuropathy who presents with complaint of right foot wound ulcer\infection. Patient reported that he noticed 2 bumps under his right foot 4 weeks ago which later turned into wounds. Patient now reports wound drainage. Patient explained that chest pain is shooting pain from the right groin to his right foot. Patient rated pain as 10/10 in severity and described pain as sharp in quality. Patient reports associated signs and symptoms of right swelling\redness\pain and fever. Patient denies any other signs and symptoms. Symptoms are aggravated or relieved by nothing. Patient said to present to the hospital due to worsening symptoms. Hospital Course: Problem List: Right foot wound\cellulitis h/o [place] Susan Tooth Radicular pain Hypertension GERD HLD Anemia of chronic disease h/o seizures Patient presented with right foot wound /infection. General surgery was consulted, patient underwent incision and debridement by Dr. Suarez on 12/11. Noted to have a component of abscess and tracking. This was irrigated and wet-to-dry dressing was placed. Patient's symptoms improved, remained afebrile, and was deemed stable for discharge home. Blood cultures remain negative at time of discharge, wound cultures were obtained in the OR, preliminary Gram stain's were negative. Dr. Suarez will follow up on culture results. Recommended discharge home with clindamycin + Doxycycline. Continue daily wet-to-dry dressing changes. Vital Signs/Physical Exam: Temp Pulse Resp BP Pulse Ox 98.0 F 61 17 150/90 H 96 12/13/22 08:00 12/13/22 09:28 12/13/22 09:28 12/13/22 09:28 12/13/22 09:28 Physical Exam GEN: Alert, oriented, NAD HEENT: Normal conjunctiva, sclera anicteric CV: Regular rate and rhythm, trace RLE edema Pulm: Nonlabored respirations on room air ABD: Soft, nontender, nondistended Integumentary: RLE: edema of RLE, warmth, slight erythema; wound with packing in place Neuro: Normal speech, normal affect Laboratory Data at Discharge: WBC 6.90 K/uL (4.3-10.9) 12/12/22 02:57 Hgb 10.6 g/dL (13.6-17.9) L 12/12/22 02:57 Hct 31.0 % (39.6-49.0) L 12/12/22 02:57 Plt Count 305 K/uL (152-406) 12/12/22 02:57 Sodium 138 mmol/L (136-145) 12/13/22 03:00 Potassium 4.0 mmol/L (3.5-5.1) 12/13/22 03:00 BUN 11 mg/dL (7-18) 12/13/22 03:00 Creatinine 0.77 mg/dL (0.70-1.30) 12/13/22 03:00 Glucose 107 mg/dL (74-106) H 12/13/22 03:00 Phosphorus 2.9 mg/dL (2.5-4.9) 12/10/22 20:46 Magnesium 2.1 mg/dL (1.6-2.4) 12/12/22 02:57 Triglycerides 69 mg/dL (<150) 12/10/22 15:52 Cholesterol 94 mg/dL (<200) 12/10/22 15:52 HDL Cholesterol 46 mg/dL (40-60) 12/10/22 15:52 Cholesterol/HDL Ratio 2.04 12/10/22 15:52 Home Medications: Atorvastatin Calcium 20 mg PO DAILY 05/15/22 Gabapentin [Neurontin] 600 mg PO TID 05/15/22 Omeprazole [Prilosec] 40 mg PO DAILY 05/15/22 Primidone 250 mg PO TID 05/15/22 clonazePAM [Clonazepam] 0.5 mg PO BID 05/15/22 Atenolol [Tenormin] 100 mg PO BID 12/11/22 Levetiracetam [Keppra] 250 mg PO BID 12/11/22 Doxycycline Hyclate 100 mg PO BID 12 Days #24 tab 12/13/22 Hydrocodone 5/APAP 325 [[place] 5/325*] 1 tab PO Q8H PRN #15 tab 12/13/22 clindamycin HCL [Clindamycin HCl] 300 mg PO QID 12 Days #48 cap 12/13/22 New Medications: clindamycin HCL [Clindamycin HCl] 300 mg PO QID 12 Days #48 cap Doxycycline Hyclate 100 mg PO BID 12 Days #24 tab Hydrocodone 5/APAP 325 [[place] 5/325*] 1 tab PO Q8H PRN #15 tab PRN Reason: Pain Scale 5-7 (Moderate) Physician Discharge Instructions: Patient presented with right foot wound /infection. General surgery was consulted, patient underwent incision and debridement by Dr. Suarez on 12/11. Noted to have a component of abscess and tracking. This was irrigated and wet-to-dry dressing was placed. Patient's symptoms improved, remained afebrile, and was deemed stable for discharge home. Blood cultures remain negative at time of discharge, wound cultures were obtained in the OR, preliminary Gram stain's were negative. Dr. Suarez will follow up on culture results. Recommended discharge home with clindamycin + Doxycycline. Continue daily wet-to-dry dressing changes. Follow up: Dr. Suarez next week PCP within 3-5 days Continue home medications as previously prescribed. Diet: ADA Activity: Non-weight bearing Followup: Momo Suarez MD [ACTIVE - CAN ADMIT] - 1 Week NONE,NONE [Primary Care Provider] - 2-3 Days Time spent managing pt's care (in minutes): 45
[2022-12-13 13:06] VITALS: BP 147/60; TEMP 98.1
== END 2022-12-13 16:00 | disposition home or self-care (01) | DRG 982 ==
LOC: ER 14:04 → ERHOLD 17:44 → 2ND 12-11 01:15
PROVIDERS: ADMIT Hospitalist; ATTEND Hospitalist
PROC: 0JDQ0ZZ Extraction of Right Foot Subcutaneous Tissue and Fascia, Open Approach (ICD-10-PCS; principal; 2022-12-11 14:30)
DX: E11.621 Type 2 diabetes mellitus with foot ulcer (principal); L03.115 Cellulitis of right lower limb; L97.519 Non-pressure chronic ulcer of other part of right foot with unspecified severity; E11.42 Type 2 diabetes mellitus with diabetic polyneuropathy; I10 Essential (primary) hypertension; D63.8 Anemia in other chronic diseases classified elsewhere; K21.9 Gastro-esophageal reflux disease without esophagitis; M54.10 Radiculopathy, site unspecified; E78.5 Hyperlipidemia, unspecified; F17.220 Nicotine dependence, chewing tobacco, uncomplicated; Z88.1 Allergy status to other antibiotic agents; Z79.899 Other long term (current) drug therapy; Z20.822 Contact with and (suspected) exposure to COVID-19
CPT/HCPCS: 36415; 80048; 80061; 80202; 81003; 83036; 83735; 84100; 84484; 85025; 87040; 87070; 87075; 87077; 87186; 87205; 87811; 88304; 96365; 96375; 99284; J0330; J0692; J2250; J2270; J2543; J2704; J3010; J3370; J7040; J7120

== ENCOUNTER 2023-07-21 13:27 | Inpatient (IN) | payer OTHER, SELFPAY ==
--- OUTSIDE RECORDS SUMMARY | 2023-07-21 13:32 | XMS REPORT | Continuity of Care Document ---
:1965 Author Organization [facility] t Address [address] [place] [address] Care Team Providers Name Role Phone KATERIN HUNT Primary Care Physician Unavailable TRINA BARTLETT Attending Clinician Unavailable Leonardo Pritchett Attending Clinician Sol Kincaid Attending Clinician Unavailable DR SHERICE NOLASCO Attending Clinician Unavailable MARCELA GRAY Attending Clinician Unavailable Sol Kincaid Admitting Clinician Unavailable DR SHERICE NOLASCO Admitting Clinician Unavailable Payers Payer Name Policy Type Policy Number Effective Date Expiration Date S betty [id number] PPO AND [id number] 2022 00:00:00 OUT OF STATE Problems Condition Condition Condition Status Onset Resolution Last Treating Co mments Source Name Details Category Date Date Treatment Clinician Date Cervical Cervical Problem Active 2021-10-26 Memoria radiculopa radiculopa 23:23:25 l thy thy [place] (disorder) (disorder) Active Problem 10/26/2021 [facility] Finding of Finding Problem Active 2021-10-26 Memoria neck of neck 23:23:25 l region region [place] (finding) (finding) Active Problem 10/26/2021 [facility] 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:23:25 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 (disorder) Active Problem 10/26/2021 [facility] Hyperlipid Problem Active 2021-10-26 M emoria emia Hyperlipid 23:23:25 l (disorder) emia Alexandro n (disorder) Active Problem 10/26/2021 [facility] Hypertensi Hypertens Problem Active 2021-10-26 Memoria ve amrita 23:23:25 l disorder, disorder, Herm margaret systemic systemic arterial arterial (disorder) (disorder) Active Problem 10/26/2021 [facility] Lumbar Lumbar Problem Active 2021-10-26 Juan A jose radiculopa radiculopa 23:23:25 l thy thy [place] (disorder) (disorder) Active Problem 10/26/2021 [facility] Morbid Morbid Problem Active 2021-10-26 Juan A jose obesity obesity 23:23:25 l (disorder) (disorder) He rmann Active Problem 10/26/2021 [facility] Tremor Tremor Problem Active 2021-10-26 Juan A jose (finding) (finding) 23:23:25 l Active [place] Problem 10/26/2021 [facility] Carpal Carpal Problem Active 2021-10-26 Juan A jose tunnel tunnel 23:23:25 l syndrome syndrome Alexandro n (disorder) (disorder) Active Problem 10/26/2021 [facility] Hand pain Hand pain Problem Active 2021-10-26 Memoria (finding) (finding) 23:23:25 l Active [place] Problem 10/26/2021 [facility] Liver Liver Problem Active 2021-10-26 Juan A jose function function 23:23:25 l tests tests [place] abnormal abnormal (finding) (finding) Active Problem 10/26/2021 [facility] Allergies, Adverse Reactions, Alerts Allergy Allergy Status Severity Reaction(s) Onset Inactive Treating Comm ents Source Name Type Date Date Clinician Sulfa DA Active SV [facility] ([facility] 5[facility]12 [facility] 00:00: [facility] Antibiot 00 are ics) [facility] Sulfa DA Active SV ANAPHYLAXIS [facility] ([facility] 5[facility]12 [facility] 00:00: [facility] Antibiot 00 are ics) [facility] Sulfa DA Active Unknown [place] ([facility] sulfa sulfa Active Memoria drugs drugs l [place] Social History Social Habit Start Date Stop Date Quantity Comments Source Social History 2021-01-01 2021-01-01 Sharon smith 16:04:48 16:04:48 Medications Ordered Filled Start Stop Current Ordering Indication Dosage Frequency Signature Comments Components Source Medication Medication Date Date Medication? Clinician (SIG) Name Name primidone 2020-10 Yes 250 mg = 1 Me moria 250 mg oral 0-12 tab, PO, l tablet 14:21: Daily, # [place] 00 30 tab, 3 Refill(s), Pharmacy: [facility] #[id number], 172.72, cm, 04/24/21 15:47:00 CDT, Height, 120, kg, 04/24/21 15:47:00 CDT, Weight primidone Yes 50 mg = 1 Mem oria 50 mg oral 8-18 tab, PO, l tablet 21:40: TID, # 90 Alexandro n 00 tab, 3 Refill(s), [id number], 172.72, cm, 04/24/21 15:47:00 CDT, Height, 120, kg, 04/24/21 15:47:00 CDT, Weight Flexeril 10 Yes 10 mg = 1 M emoria mg oral 7-12 tab, PO, l tablet 19:35: BID, 0 [place] 00 Refill(s) primidone Yes 50 mg = 1 Mem oria 50 mg oral 4-22 tab, PO, l tablet 18:38: Bedtime, # Candice nn 00 30 tab, 3 Refill(s), [id number], 172.72, cm, 01/01/21 11:13:00 CDT, Height, 119.091, kg, 02/01/21 13:14:00 CDT, Weight gabapentin Yes 600 mg = 1 M emoria 600 MG Oral 3-22 tab, PO, l Tablet 16:48: TID, # 90 Alexandro n 00 tab, 3 Refill(s), [id number], 172.72, cm, 01/01/21 11:13:00 CDT, Height, 120.455, kg, 01/01/21 11:13:00 CDT, Weight Levetiracet Yes 250 mg = 1 Memoria am 250 MG 3-22 tab, PO, l Oral Tablet 16:48: BID, # 60 H ermann 00 tab, 3 Refill(s), Pharmacy: [facility] #[id number], 172.72, cm, 01/01/21 11:13:00 CDT, Height, 120.455, [...] (mm Hg) 2021-07-24 14:02:00 Juan A rial [place] Diastolic (mm Hg) 2021-07-24 14:02:00 Mem orial [place] Heart Rate 2021-07-24 14:02:00 [facility] [place] Respitory Rate 2021-07-24 14:02:00 Memori al [place] Systolic (mm Hg) 2021-05-30 20:54:00 Juan A rial [place] Diastolic (mm Hg) 2021-05-30 20:54:00 Mem orial [place] Heart Rate 2021-05-30 20:54:00 [facility] [place] Respitory Rate 2021-05-30 20:54:00 Memori al [place] Systolic (mm Hg) 2021-04-24 20:47:00 Juan A rial [place] Diastolic (mm Hg) 2021-04-24 20:47:00 Mem orial [place] Heart Rate 2021-04-24 20:47:00 [facility] [place] Respitory Rate 2021-04-24 20:47:00 Memori al [place] Height 2021-04-24 20:47:00 172.72 cm [facility] [place] Weight 2021-04-24 20:47:00 [facility] [place] BMI Calculated 2021-04-24 20:47:00 Memori al [place] Systolic (mm Hg) 2021-04-23 18:55:00 Juan A rial [place] Diastolic (mm Hg) 2021-04-23 18:55:00 Mem orial [place] Heart Rate 2021-04-23 18:55:00 [facility] [place] Respitory Rate 2021-04-23 18:55:00 Memori al [place] Systolic (mm Hg) 2021-02-01 18:14:00 Juan A rial [place] Diastolic (mm Hg) 2021-02-01 18:14:00 Mem orial [place] Heart Rate 2021-02-01 18:14:00 [facility] [place] Respitory Rate 2021-02-01 18:14:00 Memori al [place] Weight 2021-02-01 18:14:00 [facility] [place] Systolic (mm Hg) 2021-01-01 16:03:00 Juan A lazaro [place] Diastolic (mm Hg) 2021-01-01 16:03:00 Mem orial [place] Heart Rate 2021-01-01 16:03:00 [facility] [place] Respitory Rate 2021-01-01 16:03:00 Ifeoma gill [place] Height 2021-01-01 16:03:00 172.72 cm Sharon [place] Weight 2021-01-01 16:03:00 [facility] [place] BMI Calculated 2021-01-01 16:03:00 Ifeoma al [place] Procedures Procedure Date / Time Performed Performing Clinician Sourc e [id number] 2021-03-09 00:00:00 SELBR [facility] [id number] 2021-02-21 00:00:00 STEKE.04 [facility] [id number] 2021-02-21 00:00:00 STEKE.04 [facility] INS NEURSTIM LEAD 2021-01-15 00:00:00 [facility] SPINAL CANAL PERQ INTRO ANEST AGENT 2020-12-22 00:00:00 [facility] SPINAL CANAL PERQ INTRO AIF SP CANAL 2020-12-22 00:00:00 [facility] PERQ APPROACH INTRO ANEST AGENT 2020-11-10 00:00:00 [facility] SPINAL CANAL PERQ INTRO AIF SP CANAL 2020-11-10 00:00:00 [facility] PERQ APPROACH INTRO AIF SP CANAL 2019-10-08 00:00:00 [facility] PERQ APPROACH INTRO ANEST AGENT 2019-10-08 00:00:00 [facility] SPINAL CANAL PERQ Right Foot SX [facility] Cholecystectomy<sup>1 [facility] ermann </sup> Encounters Start End Encounter Admission Attending Care Care Encounter Source Date/Time Date/Time Type Type Clinicians Facility Department ID 2023-01-08 Outpatient [facility] [id number] [place] 06:46:08 [id number] [facility] 2022-05-07 Outpatient [facility] [id number] [place] 11:26:33 [id number] [facility] 2021-02-24 Inpatient HCANW HCANW [id number] [facility] 09:06:02 09 [facility] 2022-08-30 2022-08-30 Outpatient MHIE MHIE [id number] Memoria 15:15:00 15:15:00 13 sam [place] 2022-07-09 2022-07-09 Outpatient SHEIKH [facility] [id number] [place] 08:00:00 08:00:00 [facility] 2022-05-10 2022-05-10 Outpatient MHIE MHIE [id number] Memoria 11:45:00 11:45:00 12 sam OliverManas 2022-04-05 2022-04-05 Outpatient MHIE MHIE [id number] Memoria 15:45:00 15:45:00 11 sam [place] 2021-10-24 2021-10-24 Ambulatory nullFlavo MNA [id number] Memoria 20:30:00 20:30:00 Pre-Reg r Neurology 10 l Mk Malagon 2021-10-24 2021-10-24 Outpatient MHIE MHIE [id number] Memoria 14:30:00 14:30:00 10 sam [place] 2021-10-24 2021-10-24 Outpatient FRED PritchettMISCHER MHMISCHER [id number] 14:30:00 14:30:00 Leonardo 10 Matt 2021-07-24 2021-07-25 Outpatient nullFlavo MNA [id number] Memoria 14:00:00 04:59:59 r Neurology 09 sam Mk Malagon 2021-07-24 2021-07-24 Outpatient FRED PritchettMISCHER MHMISCHER [id number] 09:00:00 23:59:59 Leonardo 09 Matt 2021-07-24 2021-07-24 Outpatient MHIE MHIE [id number] Memoria 09:00:00 09:00:00 09 sam Man[place] 2021-07-11 2021-07-11 Ambulatory nullFlavo MNA [id number] Memoria 20:15:00 20:15:00 Pre-Reg r Neurology 08 l Mk [place] 2021-07-11 2021-07-11 Outpatient MHIE MHIE [id number] Memoria 15:15:00 15:15:00 08 sam [place] 2021-07-11 2021-07-11 Outpatient SABINE PritchettSCHER MHMISCHER [id number] 15:15:00 15:15:00 Leonardo 08 Matt 2021-06-06 2021-06-06 Ambulatory nullFlavo MNA [id number] Memoria 16:00:00 16:00:00 Pre-Reg r Neurology 05 l Mk Malagon 2021-06-06 2021-06-06 Outpatient MHIE MHIE [id number] Memoria 11:00:00 11:00:00 05 sam Mal[place] 2021-06-06 2021-06-06 Outpatient SABINE PritchettSCHER MHMISCHER [id number] 11:00:00 11:00:00 Leonardo 05 Matt 2021-05-30 2021-05-31 Outpatient nullFlavo MNA [id number] Memoria 20:45:00 04:59:59 r Neurology 07 l Rabun [place] 2021-05-30 2021-05-30 Outpatient SABINE PritchettSCHER MHMISCHER [id number] 15:45:00 23:59:59 Leonardo 07 Matt 2021-05-30 2021-05-30 Outpatient MHIE MHIE [id number] Memoria 15:45:00 15:45:00 07 sam [place] 2021-04-24 2021-04-25 Outpatient nullFlavo MNA [id number] [facility] 20:30:00 04:59:59 r Neurology 06 l Rabun [place] 2021-04-24 2021-04-24 Outpatient SABINE PritchettSCHER MHMISCHER [id number] 15:30:00 23:59:59 Leonardo 06 Matt 2021-04-24 2021-04-24 Outpatient MHIE MHIE [id number] Memoria 15:30:00 15:30:00 06 sam [place] 2021-04-23 2021-04-24 Outpatient nullFlavo MNA [id number] Memoria 18:45:00 04:59:59 r Neurology 04 l Rabun [place] 2021-04-23 2021-04-23 Outpatient SABINE PritchettSCHER MHMISCHER [id number] 13:45:00 23:59:59 Leonardo 04 Matt 2021-04-23 2021-04-23 Outpatient MHIE MHIE [id number] Memoria 13:45:00 13:45:00 04 sam [place] 2021-04-12 2021-04-12 Ambulatory nullFlavo MNA [id number] Memoria 18:15:00 18:15:00 Pre-Reg r Neurology 03 l Mk [place] 2021-04-12 2021-04-12 Outpatient MHIE MHIE [id number] Memoria 13:15:00 13:15:00 03 sam [place] 2021-04-12 2021-04-12 Outpatient FRED PritchettMISCHER MHMISCHER [id number] 13:15:00 13:15:00 Leonardo 03 Matt 2021-03-09 2021-03-14 Inpatient Sol Ocampo [facility] [id number] [facility] 13:24:00 16:31:00 12 [facility] 2021-02-26 2021-02-26 Ambulatory nullFlavo MNA [id number] Memoria 20:00:00 20:00:00 Pre-Reg r Neurology 02 l Mk [place] 2021-02-26 2021-02-26 Outpatient MHIE MHIE [id number] Memoria 15:00:00 15:00:00 02 sam [place] 2021-02-26 2021-02-26 Outpatient FRED PritchettMISCHER MHMISCHER [id number] 15:00:00 15:00:00 Leonardo 02 Matt 2021-02-01 2021-02-02 Outpatient nullFlavo MNA [id number] Memoria 18:00:00 04:59:59 r Neurology 01 l Mk [place] 2021-02-01 2021-02-01 Outpatient FRED PritchettMISCHER MHMISCHER [id number] 13:00:00 23:59:59 Leonardo Matt 2021-02-01 2021-02-01 Outpatient MHIE MHIE [id number] Memoria 13:00:00 13:00:00 01 sam [place] 2021-01-15 2021-01-15 Outpatient Sri NOLASCO [id number] [facility] 08:32:00 10:43:00 [facility] [place] 2021-01-05 2021-01-07 Outside nullFlavo MNA [id number] Memoria 14:02:45 04:59:59 Medical r Neurology 00 l Records Mk Oliverann 2021-01-05 2021-01-06 Outpatient MHMISCHER MHMISCHER [id number] 09:02:45 23:59:59 00 2021-01-01 2021-01-02 Outpatient nullFlavo MNA [id number] [facility] 15:45:00 04:59:59 r Neurology 00 l Mk [place] 2021-01-01 2021-01-01 Outpatient YASMIN Pritchett MISCHER [id number] 10:45:00 23:59:59 Leonardo 00 Matt 2021-01-01 2021-01-01 Outpatient MHIE FREDIE [id number] Memoria 10:45:00 10:45:00 00 sam [place] 2020-12-22 2020-12-22 Outpatient Sri NOLASCO [facility] [id number] [facility] 08:57:00 12:00:00 [facility]ICE [facility] [place] 2020-11-10 2020-11-10 Outpatient Sri NOLASCO [facility] [id number] [facility] 09:15:00 11:18:00 [facility]ICE [facility] [place] 2019-10-08 2019-10-08 Outpatient Sri NOLASCO [facility] [id number] [facility] 08:34:00 10:10:00 SHERICE [facility] [place] 2019-09-24 2019-09-24 Outpatient Sri NOLASCO [facility] [id number] [facility] 08:45:00 10:36:00 SHERICE [facility] [place] 2004-04-08 2004-04-08 Emergency ER MARINA [facility] [id number] [place] 00:40:00 03:00:00 MARCELA [id number] [facility] Results Test Description Test Time Test Comments Results Result Comments Source CREATININE 2021-03-14 05:06:00 Test Item Value Reference Range Interpretation Comme nts CREATININE (test code = CREAT) 0.75 mg/dL 0.64-1.27 N BASIC METABOLIC [id number] 08:36:00 Test Item Value Reference Range Interpretation [...] 9.6 mg/dL 8.5-10.5 N = CA) VANCOMYCIN [id number] 08:31:00 Test Item Value Reference Range Interpretation Comments VANCOMYCIN TROUGH 15.6 ug/ml 10.0-20.0 N Please ref er to (test code = VANCT) Medicati on Administration Record (MAR) forlast d ose date and time. - XR ANKLE 3 + V [id number] 20:35:00 [facility] 1965 Sex: MPatient Name: MADDISON PAEZ Unit No: [id number] EXAMS: CPT: [id number] XR ANKLE 3 + V RT [id number] COMPARISON: February 22, 2021 CLINICAL HISTORY: post [...] (2037) BATCH NO: N/A Name: MADDISON PAEZ [facility] Phys: STEKE.Meagan Nuñez DPM [address] [facility] : 1965 Age: 55 Sex: M [place], [place] [address] Loc: N.[id number] 1 Exam D ate: 03/12/2021 Status: ADM IN PH: FAX: PAGE 1 Signed Report- XR FOOT 3 + V LT 2021-03-12 20:33:00 [facility] : 1965 Sex: MPatient Name: MADDISON PAEZ Unit No: [id number] EXAMS: CPT: [id number] XR FOOT 3 + V [place] [id number] COMPARISON:February 22, 2021 CLINICAL HISTORY: post op [...] gap at the fracture site in this area of 7 mm. A overlying cast is present. [...] (2035) BATCH NO: N/A Name: MADDISON PAEZ [facility] Phys: HERBERT.Meagan Nuñez DPM [address] [facility] : 1965 Age: 55 Sex: M [place], [place] [address] Loc: [id number] 1 Exam Date: 03/12/2021 Status: ADM IN PH: FAX: PAGE 1 Signed ReportUA RFLX MICR CULT IF [id number] 13:01:00 Test Item Value Reference Range Interpretation [...] for culture: Dysuria/FrequencySpecimen Description: CLEAN CATCHCBC W/AUTO [id number] 12:20:00 Test Item Value Reference Range Interpretation [...] BA#) 0.0 x10 3/uL 0.0-0.1 N DIFFERENTIAL [id number] 12:20:00 Test Item Value Reference Range Interpretation Comments MACROCYTOSIS (test code = MACR) 1+ NONE SEEN A PLATELET MORPHOLOGY (test code = NORMAL NORMAL PLTMORPH) BASIC METABOLIC [id number] 08:08:00 Test Item Value Reference Range Interpretation [...] mg/dL 8.5-10.5 N = CA) CBC W/AUTO [id number] 07:56:00 Test Item Value Reference Range Interpretation [...] BA#) 0.0 x10 3/uL 0.0-0.1 N DIFFERENTIAL [id number] 07:56:00 Test Item Value Reference Range Interpretation Comments PLATELET MORPHOLOGY (test code = NORMAL PLTMORPH) CBC W/AUTO [id number] 07:56:00 Test Item Value Reference Range Interpretation [...] BA#) 0.0 x10 3/uL 0.0-0.1 N DIFFERENTIAL [id number] 07:56:00 Test Item Value Reference Range Interpretation Comments PLATELET MORPHOLOGY (test code = NORMAL PLTMORPH) CBC W/AUTO [id number] 07:53:00 Test Item Value Reference Range Interpretation [...] = EO#) x10 3/uL 0.0-0.5 BASIC METABOLIC [id number] 07:52:00 Test Item Value Reference Range Interpretation [...] code 8.9 mg/dL 8.5-10.5 N = CA) [id number] 07:52:00 Test Item Value Reference Range Interpretation Comments VANCOMYCIN (test 13.9 ug/mL Not estab. ~~~~~~~~~~~ ~~~~~~~~~~~~~ code = VANCO) ~~~~~~~~~~~~~~ ~~~~~THERA PEUTIC REFERENC E RANGE NOT ESTABLISHED WHEN NOT DRAWN PEAK O R TROUGH LEVEL.~~~~~~~~~ ~~~~~~~~~ ~~~~~~~~~~~~~~~ ~~~~~~~~~ ~Please refer t o Medication Administration Record (MAR) forlast d ose date and time. CBC W/AUTO [id number] 07:41:00 Test Item Value Reference Range Interpretation [...] 0.0 x10 3/uL 0.0-0.1 N CBC W/AUTO [id number] 18:13:00 Test Item Value Reference Range Interpretation [...] BA#) 0.0 x10 3/uL 0.0-0.1 N DIFFERENTIAL [id number] 18:13:00 Test Item Value Reference Range Interpretation Comments MACROCYTOSIS (test code = MACR) 1+ NONE SEEN A PLATELET MORPHOLOGY (test code = NORMAL NORMAL PLTMORPH) CBC W/AUTO [id number] 18:12:00 Test Item Value Reference Range Interpretation [...] BA#) 0.0 x10 3/uL 0.0-0.1 N DIFFERENTIAL [id number] 18:12:00 Test Item Value Reference Range Interpretation Comments PLATELET MORPHOLOGY (test code = NORMAL PLTMORPH) CBC W/AUTO [id number] 18:12:00 Test Item Value Reference Range Interpretation [...] BA#) 0.0 x10 3/uL 0.0-0.1 N DIFFERENTIAL [id number] 18:12:00 Test Item Value Reference Range Interpretation Comments PLATELET MORPHOLOGY (test code = NORMAL PLTMORPH) BASIC METABOLIC [id number] 18:11:00 Test Item Value Reference Range Interpretation [...] mg/dL 8.5-10.5 N = CA) CBC W/AUTO [id number] 18:09:00 Test Item Value Reference Range Interpretation [...] (test code = EO#) x10 3/uL 0.0-0.5 [id number] 11:42:00 Test Item Value Reference Range Interpretation Comments GLUBED (test code = GLUBED) 128 MG/DL 70-105 H [id number] 07:55:00 Test Item Value Reference Range Interpretation Comments CREATININE (test code = CREAT) 0.78 mg/dL 0.64-1.27 N VANCOMYCIN [id number] 07:20:00 Test Item Value Reference Range Interpretation Comments VANCOMYCIN TROUGH 14.4 ug/ml 10.0-20.0 N Please ref er to (test code = VANCT) Medicati on Administration Record (MAR) forlast d ose date and time. COVID 19 Asymptomatic IH [id number] 06:13:00 Test Item Value Reference Range Interpretation [...] oms consistent withCOVID-19.Sp ecimen Source: Nasopha ryngeal (PATIENT NAVIGATOR) Swab BASIC METABOLIC [id number] 05:32:00 Test Item Value Reference Range Interpretation [...] mg/dL 8.5-10.5 L = CA) CBC W/AUTO [id number] 05:15:00 Test Item Value Reference Range Interpretation [...] 0.0 x10 3/uL 0.0-0.1 N CBC W/AUTO [id number] 05:12:00 Test Item Value Reference Range Interpretation [...] = EO#) x10 3/uL 0.0-0.5 CBC W/AUTO [id number] 06:25:00 Test Item Value Reference Range Interpretation [...] BA#) 0.0 x10 3/uL 0.0-0.1 N DIFFERENTIAL [id number] 06:25:00 Test Item Value Reference Range Interpretation Comments MACROCYTOSIS (test code = MACR) 1+ NONE SEEN A PLATELET MORPHOLOGY (test code = NORMAL NORMAL PLTMORPH) BASIC METABOLIC [id number] 06:17:00 Test Item Value Reference Range Interpretation [...] mg/dL 8.5-10.5 L = CA) CBC W/AUTO [id number] 05:45:00 Test Item Value Reference Range Interpretation [...] BA#) 0.0 x10 3/uL 0.0-0.1 N DIFFERENTIAL [id number] 05:45:00 Test Item Value Reference Range Interpretation Comments PLATELET MORPHOLOGY (test code = NORMAL PLTMORPH) CBC W/AUTO [id number] 05:45:00 Test Item Value Reference Range Interpretation [...] BA#) 0.0 x10 3/uL 0.0-0.1 N DIFFERENTIAL [id number] 05:45:00 Test Item Value Reference Range Interpretation Comments PLATELET MORPHOLOGY (test code = NORMAL PLTMORPH) - XR FOOT 3 + V [id number] 20:27:00 [facility] : 1965 Sex: MPatient Name: MADDISON PAEZ Unit No: [id number] EXAMS: CPT: [id number] XR FOOT 3 + [place] [id number] RADIOGRAPHS: Left ankle radiograph 3+ views. Left foot radiograph, 3+ views. COMPARISON: None available CLINICALHISTORY: POST OP FINDINGS: External fixator device transfixing [...] DO; No Primary Care Physician; WAYLON ECHOLS DPVinod Technologist: Wilmar Diego Fluoro Time: DAP (Gy m2): Air Kerma (mGy): Trscr Dt/Tm: 02/22/2021 (2026) by:[email or web address] Orig Print D/T: S: 02/22/2021 (2029) BATCH NO: N/A Name: MADDISON PAEZ [facility] Phys: HORACIO VELASQUEZ DPM [address] : 1965 Age: 55 Sex: M [place], [place] [address] Loc: [id number] 1 Exam Date: 02/22/2021 Status: ADM IN PH: FAX: PAGE 1 Signed Report- XR ANKLE 3 + V [id number] 20:27:00 [facility] 1965 Sex: MPatient Name: MADDISON PAEZ Unit No: [id number] EXAMS: CPT: [id number] XR ANKLE 3 + V [place] [id number] RADIOGRAPHS: Left ankle radiograph 3+ views. Left foot radiograph, 3+ views. COMPARISON: None available CLINICAL HISTORY: POST OP FINDINGS: External fixator device transfixing the acute fractures of the distal tibia and fibula. Lateral fixation hardware and screw transfixes the distal fibula. Hardware is intact without fracture or loosening. The ankle mortise is [...] (2029) BATCH NO: N/A Name: MADDISON PAEZ [facility] Phys: SELHUNTER - WAYLON ECHOLS DPM [address] : 1965 Age: 55 Sex: M [place], [place] [address] Loc: [id number] 1 Exam Date: 02/22/2021 Status: ADM IN PH: FAX: PAGE 1 Signed [id number] - GLYCOSYLATED [id number] 10:13:00 Test Item Value Reference Range Interpretation Comments GLYCOSYLATED HEMOGLOBIN 5.3 % 4.0-6.0 N Inte rpretive Data: (HA1C) (test code = Caution should be GLYHGB) exercised when interpreting th e HgbA1c in patients wit h hemolytic anemi a, iron deficiency and when the total hemoglobi n is < 9g/dL, due to a decrease in average age of red blood cells BASIC METABOLIC [id number] 04:20:00 Test Item Value Reference Range Interpretation [...] mg/dL 8.5-10.5 N = CA) CBC W/AUTO [id number] 04:07:00 Test Item Value Reference Range Interpretation [...] N - CT LOWER EXTRM W/O C [id number] 01:39:00 [facility] : 1965 Sex: MPatient Name: MADDISON PAEZ Unit No: [id number] EXAMS: CPT: [id number] [place] LOWER EXTRM W/[place] [id number] [place] left ankle without contrast, 02/22/2021. Clinical: Fracture dislocation. Comment: Noncontrast transaxial plus sagittal/coronal reformatted images were obtained. There is soft tissue swelling. The mortise is disrupted. The distal tibia is displaced medially in relation to the talar dome. There is an acuteavulsion type fracture involving the lateral aspect of the distal tibia. The fracture extends into the mortise. There is an acute comminuted distracted fracture involving the distal fibula/lateral malleolus. There are cystic and/or radiolucent lesions involving the talus, calcaneus and head of the 1st metatarsal. There is a bunion-type deformity involving the head of the 1st metatarsal. All CT scans at this facility are performed using dose optimization techniques including the following: Automated exposure control. IMPRESSION: Acute fracture dislocation at the level of the mortise. at 0139 Reported and signed by: Solomon Aquino MD CC: Tai Sloan DO; No Primary Care Physician; Akbar James MD Technologist: Nancy Duran CTDI: 4.98 DLP: 171.28 Trs Dt/Tm: 02/22/2021 (0139) by:[email or web address] Orig Print D/T: S: 02/22/2021 (0142) BATCH NO: N/A Name: MADDISON PAEZ [facility] Phys: Akbar Vick MD [address] : 1965 Age: 55 Sex: M [place], [place] [address] Loc: [facility] ExamDate: 02/22/2021 Status: ADM IN PH: FAX: PAGE 1 Signed ReportCOVID 19 Asymptomatic IH [id number] 23:35:00 Test Item Value Reference Range Interpretation [...] oms consistent withCOVID-19.Sp ecimen Source: Nasopha ryngeal (PATIENT NAVIGATOR) Swab [id number] 23:28:00 Test Item Value Reference Range Interpretation Comments TROPONIN-I (test code = TROPI) <0.020 ng/mL 0.000-0.034 N CBC W/AUTO [id number] 23:27:00 Test Item Value Reference Range Interpretation [...] BA#) 0.0 x10 3/uL 0.0-0.1 N DIFFERENTIAL [id number] 23:27:00 Test Item Value Reference Range Interpretation Comments MACROCYTOSIS (test code = MACR) 2+ NONE SEEN A PLATELET MORPHOLOGY (test code = NORMAL NORMAL PLTMORPH) BASIC METABOLIC [id number] 23:21:00 Test Item Value Reference Range Interpretation [...] 8.7 mg/dL 8.5-10.5 N = CA) PROTHROMBIN [id number] 23:18:00 Test Item Value Reference Range Interpretation [...] .5 recurrent syste vivien embolism. THROMBOPLASTIN TIME [id number] 23:18:00 Test Item Value Reference Range Interpretation Comments THROMBOPLASTIN TIME PARTIAL (test 30 SECONDS 25-38 N code = PTT) CBC W/AUTO [id number] 23:12:00 Test Item Value Reference Range Interpretation [...] BA#) 0.0 x10 3/uL 0.0-0.1 N DIFFERENTIAL [id number] 23:12:00 Test Item Value Reference Range Interpretation Comments PLATELET MORPHOLOGY (test code = NORMAL PLTMORPH) CBC W/AUTO [id number] 23:12:00 Test Item Value Reference Range Interpretation [...] BA#) 0.0 x10 3/uL 0.0-0.1 N DIFFERENTIAL [id number] 23:12:00 Test Item Value Reference Range Interpretation Comments PLATELET MORPHOLOGY (test code = NORMAL PLTMORPH) CBC W/AUTO [id number] 23:05:00 Test Item Value Reference Range Interpretation [...] 0.0-0.5 - XR ANKLE 3 + V [id number] 22:46:00 [facility] 1965 Sex: MPatient Name: MADDISON PAEZ Unit No: [id number] EXAMS: CPT: [id number] XR ANKLE 3 + [place] [id number] Left ankle,4 views, 02/21/2021. Clinical: Trauma. Comment: The cast compromises visualization. Soft tissue swelling is present. The mortise is disrupted. The tibia is displaced medially in relation to the talar dome. There is an acute comminuted fracture involving the distal fibula. IMPRESSION: Acute fracture dis location as described above. at 2246 Reported and signed by: Solomon Aquino MD CC: Akbar James MD Technologist: Sendy Diego Time: DAP (Gy m2): Air Kerma (mGy): Trscr Dt/Tm: 02/21/2021 (224) by:[email or web address] Orig Print D/T: S: 02/21/2021 (2249) BATCH NO: N/A Name: MADDISON PAEZ [facility] Phys: Akbar Vick MD [address] [facility] : 1965 Age: 55 Sex: [place] [id number] Loc: N.ERS Exam Date: 02/21/2021 Status: PRE ER PH: FAX: PAGE 1 Signed Report
[2023-07-21 14:20] LABS: Absolute Lymphocytes (CBC) 0.6 K/uL (0.7-4.9); Hematocrit 35.3 % (39.6-49.0); MCV 98.6 fL (80-100); MPV 7.5 fL (7.6-11.3); Platelets 234 thou/uL (152-406); RBC Red Blood Cell Count 3.58 M/uL (4.33-5.43)
[2023-07-21] MEDS ORDERED: CEFEPIME 2 GM VIAL ONE (14:25)
[2023-07-21] MEDS ORDERED: NA CHLORIDE 0.9% 0 ML ONE (14:25)
[2023-07-21] MEDS ORDERED: NA CHLORIDE 0.9% 1,000 ML ONE ×2 (14:25→15:49)
[2023-07-21] MEDS ORDERED: NA CHLORIDE 0.9% 100 ML ONE (14:25)
[2023-07-21] MEDS ORDERED: VANCOMYCIN 1 GM/VIAL ONE ×3 (14:25→22:28)
[2023-07-21 14:26] LABS: Protime INR 1.08
[2023-07-21 14:35] LABS: Albumin 3.3 g/dL (3.4-5.0); Bilirubin Total 0.3 mg/dL (0.2-1.0); Protein, Total 7.8 g/dL (6.4-8.2)
[2023-07-21] MEDS ORDERED: MORPHINE 4 MG/ML SYR ONE (15:01)
[2023-07-21] MEDS ORDERED: ONDANSETRON 4 MG/2 ML VIAL ONE (15:01)
[2023-07-21] MEDS ORDERED: NA CHLORIDE 0.9% 250 ML ONE (15:25)
[2023-07-21] MEDS ORDERED: KETOROLAC 30 MG/ML INJ ONE (15:49)
[2023-07-21] MEDS ORDERED: FENTANYL CITR 100 MCG/2 ML ONE (15:49)
--- NOTE | 2023-07-21 15:57 | RAD REPORT ---
EXAM DESCRIPTION: RADChest Single View07/21/2023 2:15 pm CLINICAL HISTORY: FEVER COMPARISON: Chest Pa And Lat (2 Views) dated 05/15/2022; Chest Single View dated 02/06/2017 TECHNIQUE: Portable AP view of the chest. FINDINGS: The lungs are clear. No pneumothorax or effusion. The cardiomediastinal contours are unre markable. IMPRESSION: No acute cardiopulmonary process.
[2023-07-21 16:09] LABS: Specific Gravity 1.019 (1.005-1.030); Urine Bilirubin NEGATIVE (Negative); Urine Blood Negative (Negative); Urine Clarity Clear (Clear); Urine Color Light-Yellow (Yellow); Urine Glucose NEGATIVE (Negative); Urine Protein NEGATIVE (Negative); Urine Urobilinogen Normal (Normal); Urine pH 5.5 (5.0-7.0)
--- NOTE | 2023-07-21 16:32 | RAD REPORT ---
EXAM DESCRIPTION: US - Extremity Venous Uni Ltd - 07/21/2023 2:41 pm CLINICAL HISTORY: Swelling COMPARISON: None. TECHNIQUE: Real-time sonographic evaluation of the right lower extremity deep venous system was perf ormed. FINDINGS: Normal compressibility, flow augmentation, phasic flow and spontaneous flow is identified in the l right eft lower extremity deep venous system. No intraluminal filling defects seen. Promine nt lymph node with thickened cortex seen in the right groin. IMPRESSION: No DVT in the right lower extremity. Nonspecific prominent right groin lymph node, could be reactive.
--- NOTE | 2023-07-21 17:03 | ER ---
Nurse's Notes [facility] Name: Juan José Escobar Jr Age: 57 yrs Sex: Male : 1965 Arrival Date: 07/21/2023 Time: 13:27 Bed 5 Private MD: Diagnosis: Right lower extremity cellulitis;Sepsis, unspecified organism Presentation: 07/21 13:39 Chief complaint: Patient states: "I woke up with a fever of 103.8 today and BP 225 mb9 systolic. I was release 1 month ago from ICU for cellulitis of my right leg. It's gotten worse now and is traveling up my right leg/groin area." Pt denies SOB/CP. Pt states he took Tylenol at 1230 for fever.". Coronavirus screen: Vaccine status: Patient reports receiving the 2nd dose of the covid vaccine. Ebola Screen: No symptoms or risks identified at this time. Initial Sepsis Screen: Does the patient meet any 2 criteria? RR > 20 per min. HR > 90 bpm. Yes Does the patient have a suspected source of infection? Yes: Skin breakdown/wound. Risk Assessment: Do you want to hurt yourself or someone else? Patient reports no desire to harm self or others. Onset of symptoms was July 21, 2023. 13:39 Method Of Arrival: Wheelchair mb9 13:39 Acuity: BUSHRA 3 mb9 Triage Assessment: 13:41 General: Appears uncomfortable, Behavior is calm, cooperative. Pain: Denies pain. EENT: mb9 No signs and/or symptoms were reported regarding the EENT system. Neuro: Fong Agitation-Sedation Scale (RASS): 0 - Alert and Calm Level of Consciousness is awake, alert, obeys commands, Oriented to person, place, time, situation, Appropriate for age. Cardiovascular: Patient's skin is warm and dry. Respiratory: Airway is patent. GI: Abdomen is round. : No signs and/or symptoms were reported regarding the genitourinary system. Derm: erythema noted to right lower extremity. Musculoskeletal: Range of motion: intact in all extremities. Historical: - Allergies: 13:38 Sulfa (Sulfonamide Antibiotics); mb9 - Home Meds: 13:42 omeprazole 40 mg Oral cpDR 1 cap once daily [Active]; amlodipine 10 mg tab 1 tab once mb9 daily [Active]; aspirin 81 mg Oral chew 1 tab once daily [Active]; atenolol 100 mg Oral tab 1 tab once daily [Active]; clonazepam 0.5 mg Oral tab [Active]; atorvastatin 20 mg Oral tab 1 tab once daily [Active]; gabapentin 300 mg Oral cap 2 caps 3 times per day [Active]; levetiracetam 250 mg Oral tab 2 tabs 2 times per day [Active]; primidone 250 mg Oral tab 1 tab 3 times per day [Active]; amoxicillin-pot clavulanate 875-125 mg oral tablet [Active]; - PMHx: 13:38 CMT; Hypertension; Cellulitis; mb9 13:42 Seizure; mb9 - PSHx: 13:38 R foot x 3; mb9 - Immunization history:: Adult Immunizations up to date. - Social history:: Smoking status: Patient denies any tobacco usage or history of. Screenin:51 [facility] ED Fall Risk Assessment (Adult) History of falling in the last 3 months, kc6 including since admission No falls in past 3 months (0 pts) Confusion or Disorientation No (0 pts) Intoxicated or Sedated No (0 pts) Impaired Gait No (0 pts) Mobility Assist Device Used No (0 pt) Altered Elimination No (0 pt) Score/Fall Risk Level. Abuse screen: Denies threats or abuse. Denies injuries from another. Nutritional screening: No deficits noted. Tuberculosis screening: No symptoms or risk factors identified. Assessment: 13:45 General: Appears in no apparent distress. comfortable, Behavior is calm, cooperative, kc6 appropriate for age. Pain: Complains of pain in right foot and right leg. Neuro: Level of Consciousness is awake, alert, obeys commands, Oriented to person, place, time, situation, Appropriate for age. Cardiovascular: Denies chest pain, Heart tones S1 S2 present Capillary refill < 3 seconds Rhythm is sinus rhythm. Respiratory: Airway is patent Trachea midline Respiratory effort is even, unlabored, Respiratory pattern is regular, symmetrical, Denies shortness of breath. GI: No signs and/or symptoms were reported involving the gastrointestinal system. : No signs and/or symptoms were reported regarding the genitourinary system. EENT: No signs and/or symptoms were reported regarding the EENT system. Derm: No signs and/or symptoms reported regarding the dermatologic system. Skin is intact, is healthy with good turgor, Skin is clammy, Skin is pink, warm \\T\\ dry. Wound noted right foot Rash noted that is red, on right leg. Musculoskeletal: No signs and/or symptoms reported regarding the musculoskeletal system. Circulation, motion, and sensation intact. Capillary refill < 3 seconds, Range of motion: intact in all extremities. 14:45 Reassessment: Patient appears in no apparent distress at this time. No changes from kc6 previously documented assessment. Patient and/or family updated on plan of care and expected duration. Pain level reassessed. Patient is alert, oriented x 3, equal unlabored respirations, skin warm/dry/pink. 15:45 Reassessment: Patient appears in no apparent distress at this time. No changes from kc6 previously documented assessment. Patient and/or family updated on plan of care and expected duration. Pain level reassessed. Patient is alert, oriented x 3, equal unlabored respirations, skin warm/dry/pink. 16:45 Reassessment: Patient appears in no apparent distress at this time. No changes from kc6 previously documented assessment. Patient and/or family updated on plan of care and expected duration. Pain level reassessed. Patient is alert, oriented x 3, equal unlabored respirations, skin warm/dry/pink. 17:20 Reassessment: Patient appears in no apparent distress at this time. No changes from kc6 previously documented assessment. Patient and/or family updated on plan of care and expected duration. Pain level reassessed. Patient is alert, oriented x 3, equal unlabored respirations, skin warm/dry/pink. Vital Signs: 13:39 BP 142 / 93; Pulse 105; Resp 22; Temp 100(O); Pulse Ox 94% on R/A; Weight 99.79 kg; mb9 Height 5 ft. 9 in. ; Pain 0/10; 14:52 BP 135 / 93; Pulse 95; Resp 18 S; Temp 98.5(O); Pulse Ox 100% on R/A; kc6 16:11 Temp 99.5(O); cm10 16:37 BP 118 / 68; Pulse 116; Resp 17 S; Pulse Ox 95% on R/A; kc6 17:21 BP 111 / 67; Pulse 103; Resp 20 S; Pulse Ox 100% on R/A; kc6 18:32 BP 156 / 93; Pulse 113; Resp 16; Pulse Ox 97% ; ko1 20:45 BP 162 / 99; Pulse 117; Resp 16; Temp 101.5(O); Pulse Ox 99% on R/A; jb4 13:39 Body Mass Index 32.49 (99.79 kg, 175.26 cm) mb9 13:39 Pain Scale: Adult 9 ED Course: 13:28 Patient arrived in ED. im 13:28 Shaun Dumont MD is Attending Physician. rt 13:33 Sara Ramírez, MARI is Primary Nurse. kc6 13:38 Arm band placed on. mb9 13:41 Triage completed. mb9 13:51 Patient has correct armband on for positive identification. Bed in low position. Call kc6 light in reach. Side rails up X2. Adult w/ patient. Client placed on continuous cardiac and pulse oximetry monitoring. NIBP monitoring applied. supply technician on. 13:51 Inserted saline lock: 18 gauge in right forearm, using aseptic technique. Blood kc6 collected. Patient maintains SpO2 saturation greater than 95% on room air. 14:15 Chest Single View XRAY In Process Unspecified. EDMS 14:43 Extremity Venous Uni Ltd US In Process Unspecified. EDMS 17:01 Dandre Tapia is Hospitalizing Provider. rt 19:13 Lower Extremity W/ Cont In Process Unspecified. EDMS 20:50 No provider procedures requiring assistance completed. Patient admitted, IV remains in kl place. Administered Medications: 14:22 Drug: NS 0.9% IV 1000 ml IV at 1 bolus Per protocol; 1000 mL bolus Route: IV; Rate: 1 kc6 bolus; Site: right antecubital; 15:50 Follow up: Response: No adverse reaction; IV Status: Completed infusion; IV Intake: cm10 1000ml 14:23 Drug: Cefepime IVPB 2 grams IVPB at 200 ml/hr once over 30 mins; (mix in NS 100 mL) kc6 Route: IVPB; Rate: 200 ml/hr; Infused Over: 30 mins; Site: right antecubital; 15:09 Follow up: Response: No adverse reaction; IV Status: Completed infusion; IV Intake: cm10 100ml 14:52 Drug: morphine IVP or IV 4 mg IVP once over 4 mins Route: IVP; Infused Over: 4 mins; kc6 Site: right antecubital; 15:09 Follow up: Response: No adverse reaction cm10 14:52 Drug: Ondansetron IVP 4 mg IVP once; over 2 minutes Route: IVP; Site: right antecubital;kc6 15:09 Follow up: Response: No adverse reaction cm10 15:18 Drug: vancoMYCIN IVPB 1 grams IVPB once over 2 hrs Route: IVPB; Infused Over: 2 hrs; cm10 Site: right antecubital; 17:11 Follow up: Response: No adverse reaction; IV Status: Completed infusion; IV Intake: kc6 250ml 16:04 Drug: NS 0.9% IV 1000 ml IV at 1 bolus Per protocol; 1000 mL bolus Route: IV; Rate: 1 cm10 bolus; Site: right antecubital; 17:20 Follow up: Response: No adverse reaction; IV Status: Completed infusion; IV Intake: kc6 1000ml 16:04 Drug: fentaNYL (PF) IVP 100 mcg IVP once Route: IVP; Site: right antecubital; cm10 16:38 Follow up: Response: No adverse reaction; Pain is decreased kc6 16:05 Drug: Ketorolac IVP 15 mg IVP once Route: IVP; Site: right antecubital; cm10 16:38 Follow up: Response: No adverse reaction kc6 Medication: 20:50 VIS not applicable for this client. kl Intake: 15:09 IV: 100ml; Total: 100ml. cm10 15:50 IV: 1000ml; Total: 1100ml. cm10 17:11 IV: 250ml; Total: 1350ml. kc6 17:20 IV: 1000ml; Total: 2350ml. kc6 Outcome: 17:02 Decision to Hospitalize by Provider. rt 20:49 Admitted to Tele accompanied by megan, via stretcher, room 405, Report called to Rashad baker 20:49 Condition: stable 20:49 Discharge instructions given to patient, Instructed on discharge instructions, the need for admit, Demonstrated understanding of instructions, 21:03 Patient left the ED. bp Signatures: Dispatcher [employer] EDMS Mallory Cortez RN RN kl Bryson, James, RN RN [id number] Peltier, Brian, RN RN bp Campbell, Kaitlyn, RN RN [id number] Shirley Ybarra RN RN koIqra Mercer RN RN mb9 Shaun Dumont MD MD rt Yisel Ramirez Clarissa, RN RN cm10 Corrections: (The following items were deleted from the chart) 13:42 13:39 BP 142 / 93; Pulse 105bpm; Resp 22bpm; Pulse Ox 94% RA; Temp 100F Oral; Pain mb9 0/10, Adult; mb9
--- NOTE | 2023-07-21 17:03 | EDPHYS ---
Physician Documentation [facility] Name: Juan José Escobar Jr Age: 57 yrs Sex: Male : 1965 Arrival Date: 07/21/2023 Time: 13:27 Bed 5 Private MD: ED Physician Shaun Dumont HPI: 07/21 14:14 This 57 yrs old Male presents to ER via Wheelchair with complaints of Fever, High Blood rt Pressure. 14:14 Patient presents to the ED with fever, chills. This started acutely this morning. Of rt note, patient had a recent admission for septic shock to the ICU at [facility] in [place], he left the hospital about 1 month ago. The stated that the patient initially had significant improvement of the swelling and redness to the right lower extremity, but, it does seem to have worsened since yesterday evening. He reports having high blood pressure to 220s over 120s, no chest pain or shortness of breath. The blood pressure is improved without treatment. He did take Tylenol which did improve his chills. Denies other acute complaints at this time, symptoms are moderate severity, no other aggravating or alleviating factors.. Historical: - Allergies: 13:38 Sulfa (Sulfonamide Antibiotics); mb9 - Home Meds: 13:42 omeprazole 40 mg Oral cpDR 1 cap once daily [Active]; amlodipine 10 mg tab 1 tab once mb9 daily [Active]; aspirin 81 mg Oral chew 1 tab once daily [Active]; atenolol 100 mg Oral tab 1 tab once daily [Active]; clonazepam 0.5 mg Oral tab [Active]; atorvastatin 20 mg Oral tab 1 tab once daily [Active]; gabapentin 300 mg Oral cap 2 caps 3 times per day [Active]; levetiracetam 250 mg Oral tab 2 tabs 2 times per day [Active]; primidone 250 mg Oral tab 1 tab 3 times per day [Active]; amoxicillin-pot clavulanate 875-125 mg oral tablet [Active]; - PMHx: 13:38 CMT; Hypertension; Cellulitis; mb9 13:42 Seizure; mb9 - PSHx: 13:38 R foot x 3; mb9 - Immunization history:: Adult Immunizations up to date. - Social history:: Smoking status: Patient denies any tobacco usage or history of. ROS: 14:19 Cardiovascular: Negative for chest pain, palpitations, and edema, Respiratory: Negative rt for shortness of breath, cough, wheezing, and pleuritic chest pain, Abdomen/GI: Negative for abdominal pain, nausea, vomiting, diarrhea, and constipation, Neuro: Negative for headache, weakness, numbness, tingling, and seizure, Psych: Negative for depression, anxiety, suicide ideation, homicidal ideation, and hallucinations, 14:19 Constitutional: Positive for chills, fever, 14:19 MS/extremity: Positive for erythema, swelling, 14:19 Skin: Positive for erythema, Negative for laceration(s), Exam: 14:19 ECG was reviewed by the Attending Physician. rt 14:19 Musculoskeletal/extremity: Swelling to the right lower extremity. Chronic appearing erythema noted from about the mid calf distally, more acute appearing erythema noted more proximal. Pulses, motor, sensation intact.. 14:19 Skin: As per MSK exam. Vital Signs: 13:39 BP 142 / 93; Pulse 105; Resp 22; Temp 100(O); Pulse Ox 94% on R/A; Weight 99.79 kg; mb9 Height 5 ft. 9 in. ; Pain 0/10; 14:52 BP 135 / 93; Pulse 95; Resp 18 S; Temp 98.5(O); Pulse Ox 100% on R/A; kc6 16:11 Temp 99.5(O); cm10 16:37 BP 118 / 68; Pulse 116; Resp 17 S; Pulse Ox 95% on R/A; kc6 17:21 BP 111 / 67; Pulse 103; Resp 20 S; Pulse Ox 100% on R/A; kc6 18:32 BP 156 / 93; Pulse 113; Resp 16; Pulse Ox 97% ; ko1 20:45 BP 162 / 99; Pulse 117; Resp 16; Temp 101.5(O); Pulse Ox 99% on R/A; jb4 13:39 Body Mass Index 32.49 (99.79 kg, 175.26 cm) mb9 13:39 Pain Scale: Adult mb9 MDM: 13:38 Patient medically screened. rt 16:50 Differential diagnosis: Cellulitis, DVT, pneumonia, UTI, sepsis. rt 17:02 Data reviewed: vital signs, nurses notes, lab test result(s), EKG, radiologic studies. rt Consideration of Admission/Observation Patient was admitted/placed on observation. Management of patient was discussed with the following: Hospitalist: Agrees to admit. I considered the following discharge prescriptions or medication management in the emergency department Medications were administered in the Emergency Department. See MAR. Independent interpretation of the following test(s) in the Emergency Department X-Ray: My interpretation is No consolidation seen on interpretation of x-ray images. Care significantly affected by the following chronic conditions: Hypertension. Counseling: I had a detailed discussion with the patient and/or guardian regarding the historical points, exam findings, and any diagnostic results supporting the discharge/admit diagnosis, lab results, radiology results, the need for further work-up and treatment in the hospital. Response to treatment: the patient's symptoms have mildly improved after treatment. 07/21 13:56 Order name: Blood Culture Adult (2) rt 07/21 13:56 Order name: CBC with Diff; Complete Time: 17:38 rt 07/21 13:56 Order name: CMP; Complete Time: 16:23 rt 07/21 13:56 Order name: Lactate w/ 2H reflex if indic.; Complete Time: 16:23 rt 07/21 13:56 Order name: Protime (+inr); Complete Time: 16:23 rt 07/21 13:56 Order name: Ptt, Activated; Complete Time: 16:23 rt 07/21 13:56 Order name: Urinalysis w/ reflexes; Complete Time: 16:23 rt 07/21 13:58 Order name: Flu; Complete Time: 16:23 kc6 07/21 13:58 Order name: SARS-COV-2 RT PCR; Complete Time: 16:23 kc6 07/21 14:25 Order name: CBC Smear Scan; Complete Time: 17:38 EDMS 07/21 13:56 Order name: Chest Single View XRAY; Complete Time: 16:23 rt 07/21 13:56 Order name: Extremity Venous Uni Ltd US; Complete Time: 16:39 rt 07/21 18:27 Order name: Lower Extremity W/ Cont EDMS 07/21 13:56 Order name: EKG; Complete Time: 13:57 rt 07/21 13:56 Order name: Accucheck; Complete Time: 13:57 rt 07/21 13:56 Order name: Cardiac monitoring; Complete Time: 13:57 rt 07/21 13:56 Order name: EKG - Nurse/Tech; Complete Time: 13:57 rt 07/21 13:56 Order name: IV Saline Lock - Large Bore; Complete Time: 13:57 rt 07/21 13:56 Order name: Labs collected and sent; Complete Time: 13:57 rt 07/21 13:56 Order name: O2 Per Protocol; Complete Time: 13:57 rt 07/21 13:56 Order name: O2 Sat Monitoring; Complete Time: 13:57 rt 07/21 13:56 Order name: Vital Signs; Complete Time: 13:57 rt EC:19 Rate is 88 beats/min. Rhythm is regular, Normal Sinus Rhythm with No ectopy. QRS [place] rt is Normal. AR interval is normal. QRS interval is normal. QT interval is normal. No Q waves. Clinical impression: NSR w/ Non-specific ST/T Changes. Administered Medications: 14:22 Drug: NS 0.9% IV 1000 ml IV at 1 bolus Per protocol; 1000 mL bolus Route: IV; Rate: 1 kc6 bolus; Site: right antecubital; 15:50 Follow up: Response: No adverse reaction; IV Status: Completed infusion; IV Intake: cm10 1000ml 14:23 Drug: Cefepime IVPB 2 grams IVPB at 200 ml/hr once over 30 mins; (mix in NS 100 mL) kc6 Route: IVPB; Rate: 200 ml/hr; Infused Over: 30 mins; Site: right antecubital; 15:09 Follow up: Response: No adverse reaction; IV Status: Completed infusion; IV Intake: cm10 100ml 14:52 Drug: morphine IVP or IV 4 mg IVP once over 4 mins Route: IVP; Infused Over: 4 mins; kc6 Site: right antecubital; 15:09 Follow up: Response: No adverse reaction cm10 14:52 Drug: Ondansetron IVP 4 mg IVP once; over 2 minutes Route: IVP; Site: right antecubital;kc6 15:09 Follow up: Response: No adverse reaction cm10 15:18 Drug: vancoMYCIN IVPB 1 grams IVPB once over 2 hrs Route: IVPB; Infused Over: 2 hrs; cm10 Site: right antecubital; 17:11 Follow up: Response: No adverse reaction; IV Status: Completed infusion; IV Intake: kc6 250ml 16:04 Drug: NS 0.9% IV 1000 ml IV at 1 bolus Per protocol; 1000 mL bolus Route: IV; Rate: 1 cm10 bolus; Site: right antecubital; 17:20 Follow up: Response: No adverse reaction; IV Status: Completed infusion; IV Intake: kc6 1000ml 16:04 Drug: fentaNYL (PF) IVP 100 mcg IVP once Route: IVP; Site: right antecubital; cm10 16:38 Follow up: Response: No adverse reaction; Pain is decreased kc6 16:05 Drug: Ketorolac IVP 15 mg IVP once Route: IVP; Site: right antecubital; cm10 16:38 Follow up: Response: No adverse reaction kc6 Disposition: 17:39 Chart complete. rt Disposition Summary: 07/21/23 17:02 Hospitalization Ordered Notes: Hospitalization Status: Inpatient Admission rt Provider: Dandre Tapia [facility] rt Condition: Stable rt Problem: new rt Symptoms: have improved rt Bed/Room Type: Standard rt Room Assignment: 405(07/21/23 19:30) mw Diagnosis - Right lower extremity cellulitis rt - Sepsis, unspecified organism rt Forms: - Medication Reconciliation Form rt - SBAR form rt - Leadership Thank You Letter rt Critical care time excluding procedures: 17:39 Critical care time: Bedside Care: 30 minutes, Consultation: 5 minutes. Total time: 35 rt minutes Signatures: Dispatcher [employer] EDMS Obdulia Huang RN RN mw Campbell, Kaitlyn, RN RN kc6 Iqra White RN RN mb9 Shaun Dumont MD MD rt Annette Morelos RN RN cm10 Corrections: (The following items were deleted from the chart) 19:30 17:02 rt mw
[2023-07-21 17:33] LABS: Blood Morphology Comment NOT SEEN (NOT SEEN); Platelet Estimate ADEQ; White Blood Cell Scan OK (OK)
--- NOTE | 2023-07-21 18:11 | P.HP ---
Certification for Inpatient Patient admitted to: Inpatient With expected LOS: >2 Midnights Practitioner: I am a practitioner with admitting privileges, knowledge of patient current condition, hospital course, and medical plan of care. Services: Services provided to patient in accordance with Admission requirements found in Title 42 Section 412.3 of the Code of Federal Regulations Patient History Date of Service: 07/21/23 Reason for admission: Fever History of Present Illness: 57-year-old with a chronic nonhealing wound on the sole of the right foot presented to the emergency department due to fever of onset early this morning. Patient reported associated high blood pressure with systolic up to the 200. Symptoms associated with chills. No nausea or vomiting. Systolic blood pressure in the ED was 143. Blood work showed moderate leukocytosis, temperature of 100 recorded in the ED. Venous Doppler of lower extremity showed no DVT. No other imaging was done on the leg. Patient is hospitalized for further management. Allergies sulfamethoxazole [From Bactrim] Allergy (Verified 05/15/22 06:33) Unknown trimethoprim [From Bactrim] Allergy (Verified 05/15/22 06:33) Unknown Sulfa (Sulfonamide An Allergy (Uncoded 02/06/17 23:57) Unknown Home Medications: Atorvastatin Calcium 20 mg PO DAILY 05/15/22 Gabapentin [Neurontin] 600 mg PO TID 05/15/22 Omeprazole [Prilosec] 40 mg PO DAILY 05/15/22 Primidone 250 mg PO TID 05/15/22 clonazePAM [Clonazepam] 0.5 mg PO BID 05/15/22 Atenolol [Tenormin] 100 mg PO BID 12/11/22 Levetiracetam [Keppra] 250 mg PO BID 12/11/22 Doxycycline Hyclate 100 mg PO BID 12 Days #24 tab 12/13/22 Hydrocodone 5/APAP 325 [[place] 5/325*] 1 tab PO Q8H PRN #15 tab 12/13/22 clindamycin HCL [Clindamycin HCl] 300 mg PO QID 12 Days #48 cap 12/13/22 - Past Medical/Surgical History -: CMT -: HTN -: GERD -: HLD -: Foot surgery - Family History Father -: Heart disease - Social History Alcohol use: Yes CD- Drugs: No Caffeine use: Yes Review of Systems Other: Except as documented, all other systems reviewed and negative. Physical Examination - Physical Exam General: Alert, In no apparent distress, Oriented x3, Obese HEENT: PERRLA, Mucous membr. moist/pink, Sclerae nonicteric Neck: Supple, JVD not distended Respiratory: Clear to auscultation bilaterally, Normal air movement Cardiovascular: No edema, Regular rate/rhythm, Normal S1 S2 Capillary refill: <2 Seconds Gastrointestinal: Normal bowel sounds, Soft and benign, Non-distended, No tenderness Musculoskeletal: Swelling (Right leg and foot) Integumentary: Erythema (Right leg), Other (4 cm coin shaped ulcer at the sole of the right foot. Wound looks clean.) Neurological: Normal speech, Normal strength at 5/5 x4 extr, Cranial nerves 3-12 intact Lymphatics: No axilla or inguinal lymphadenopathy - Studies Laboratory Data (last 24 hrs) 07/21/23 07/21/23 07/21/23 14:06 14:06 14:06 WBC 12.50 H Hgb 12.1 L Hct 35.3 L Plt Count 234 PT 11.9 INR 1.08 APTT 31.6 Sodium 138 Potassium 4.0 BUN 12 Creatinine 0.91 Glucose 127 H Total Bilirubin 0.3 AST 167 H ALT 106 H Alkaline Phosphatase 137 H Microbiology Data (last 24 hrs): 07/21/23 14:06 Nasopharnyx Influenza Type A Antigen Screen - Final 07/21/23 14:06 Nasopharnyx Influenza Type B Antigen Screen - Final Assessment and Plan - Problems (Diagnosis) (1) Sepsis Current Visit: Yes Status: Acute (2) Cellulitis of right lower extremity Current Visit: Yes Status: Acute (3) Wound of right foot Current Visit: Yes Status: Acute (4) Hypertension Current Visit: Yes Status: Acute (5) History of seizure disorder Current Visit: Yes Status: Acute - Plan Admit patient to the medical floor. Check lactic per sepsis protocol Blood cultures obtained in the ED Start aggressive IV antibiotics-cefepime and vancomycin Obtain CT of the right lower extremity with IV contrast given history of charcot foot to rule out abscess or gas gangrene Consult to wound care Patient is refusing surgical or podiatry consult. He stated he will leave by tomorrow if not discharged. I explained to him we will need about 48 hours to know what infection is causing him to have fever. Patient was still insistent that he would only be admitted overnight. Analgesics as needed, antipyretics as needed. Patient blood pressure has improved and currently soft readings. Hold home antihypertensives Resume other medications including antiseizures. - Advance Directives Does patient have a Living Will: No Does patient have a Durable POA for Healthcare: No
[2023-07-21] MEDS ORDERED: ONDANSETRON 4 MG/2 ML VIAL IV PRN (20:51)
[2023-07-21] MEDS: ACETAMINOPHEN 325 MG TABLET PO PRN (20:54)
[2023-07-21] MEDS ORDERED: VANCOMYCIN 1.25 GM in NA CHLORIDE 0.9% 250 ML IVPB SCH (21:00)
--- NOTE | 2023-07-21 21:15 | RAD REPORT ---
EXAM DESCRIPTION: CT - Lower Extremity W/ Cont - 07/21/2023 8:19 pm CLINICAL HISTORY: Right leg wound with sepsis COMPARISON: Extremity Venous [facility] dated 07/21/2023 TECHNIQUE: Thin axial CT images of the right lower extremity, obtained following administration of a pproximately 100mL Isovue 370 IV contrast. Sagittal and coronal reconstructions were generated and re viewed. All CT scans are performed using dose optimization technique as appropriate and may include automated exposure control or mA/KV adjustment according to patient size. FINDINGS: Soft tissue defect along the plantar mid to hindfoot, with underlying focal swelling and t hickening, with adjacent fat stranding, covering approximately 5.0 x 4.7 cm in greatest AP and transv erse dimensions, and 2.5 cm in thickness, suggestive of phlegmon or early abscess formation. No osseous lucencies or destructive changes. Fusion hardware along the first a second metatarsals and midfoot bones, with other fixation screw tract. Likely degenerative mild collapse of the talar dome. Other areas of fat stranding and skin thickening along the medial lower leg with nonspecific mild fat stranding tracking along the medial thigh. Prominent lymph nodes seen in the right groin and right external iliac chain, largest measuring 2.3 c m in short axis with adjacent fat stranding. IMPRESSION: Soft tissues thickening/swelling underlying skin defect/ulcer on the plantar mid to hind foot, suggestive of or early abscess formation. Reactive right groin and external iliac chain lymph nodes.
[2023-07-21] MEDS ORDERED: VANCOMYCIN 1.5 GM in NA CHLORIDE 0.9% 500 ML IVPB ONE (22:00)
[2023-07-21] MEDS: CEFEPIME 2 GM in NA CHLORIDE 0.9% 100 ML IV SCH (22:02)
[2023-07-21] MEDS: NA CHLORIDE 0.9% 1,000 ML IV SCH (22:02)
[2023-07-21] MEDS: ALPRAZOLAM 0.5 MG TABLET PO PRN (22:03)
[2023-07-21] MEDS: GABAPENTIN 300 MG CAP PO SCH (22:03)
[2023-07-21] MEDS ORDERED: NA CHLORIDE 0.9% 1,000 ML IV ONE (22:12)
[2023-07-21] MEDS: MORPHINE 2 MG/ML SYR IV PRN (22:24)
[2023-07-21] MEDS ORDERED: NA CHLORIDE 0.9% 500 ML ONE (22:28)
[2023-07-21] MEDS ORDERED: VANCOMYCIN 500 MG/VIAL ONE (22:29)
[2023-07-22] MEDS: ACETAMINOPHEN 325 MG TABLET PO PRN ×5 (00:25→19:34)
[2023-07-22] MEDS ORDERED: IBUPROFEN 400 MG TAB PO ONE (01:09)
[2023-07-22] MEDS: MORPHINE 2 MG/ML SYR IV PRN ×2 (02:23→09:36)
[2023-07-22] MEDS ORDERED: VANCOMYCIN 1.75 GM in NA CHLORIDE 0.9% 500 ML IVPB SCH ×2 (03:30→10:00)
[2023-07-22] MEDS: NA CHLORIDE 0.9% 1,000 ML IV SCH ×4 (04:51→20:51)
[2023-07-22 06:19] LABS: Hematocrit 31.7 % (39.6-49.0); Lymphocytes % 11.8 % (15.3-44.8); MCV 100.1 fL (80-100); MPV 7.1 fL (7.6-11.3); Platelets 179 thou/uL (152-406); RBC Red Blood Cell Count 3.17 M/uL (4.33-5.43)
[2023-07-22 06:46] LABS: Albumin 2.7 g/dL (3.4-5.0); Bilirubin Total 0.6 mg/dL (0.2-1.0); Phosphorus 2.9 mg/dL (2.5-4.9); Potassium 3.6 mEq/L (3.5-5.1); Protein, Total 6.8 g/dL (6.4-8.2)
[2023-07-22 06:47] LABS: Magnesium 1.5 mg/dL (1.6-2.4)
--- NOTE | 2023-07-22 08:42 | P.CNS ---
Date of Consult: 07/22/23 Reason for Consult: right leg cellulitis Chief Complaint: Fever History of Present Illness: Patient is a 57-year-old male with past medical history of hypertension, GERD, hyperlipidemia, and chronic nonhealing wound on right foot who presented to the ED due increasing erythema/edema of right lower extremity and fever. Patient was admitted for cellulitis of his right lower extremity. Infectious disease was consulted. Allergies sulfamethoxazole [From Bactrim] Allergy (Verified 05/15/22 06:33) Unknown trimethoprim [From Bactrim] Allergy (Verified 05/15/22 06:33) Unknown Sulfa (Sulfonamide An Allergy (Uncoded 02/06/17 23:57) Unknown Home Medications: Atorvastatin Calcium 20 mg PO DAILY 05/15/22 Gabapentin [Neurontin] 300 mg PO SEECOM 05/15/22 Omeprazole [Prilosec] 40 mg PO DAILY 05/15/22 Primidone 250 mg PO TID 05/15/22 Atenolol [Tenormin] 50 mg PO BID 12/11/22 Levetiracetam [Keppra] 250 mg PO TID 12/11/22 ALPRAZolam [Xanax*] 0.5 mg PO TID PRN 07/21/23 Aspirin [Aspirin EC 81 MG] 81 mg PO DAILY 07/21/23 - Past Medical/Surgical History Diabetic: No -: CMT -: HTN -: GERD -: HLD -: Foot surgery - Family History Father Medical History: Heart disease - Social History Alcohol use: Yes CD- Drugs: No Caffeine use: Yes Place of Residence: Home Review of Systems 10-point ROS is otherwise unremarkable General: Fever, Chills Integumentary: As per HPI Physical Examination Temp Pulse Resp BP Pulse Ox 97.9 F 91 H 20 128/68 97 07/22/23 04:00 07/22/23 04:00 07/22/23 04:00 07/22/23 04:00 07/22/23 04:00 General: Alert, In no apparent distress, Oriented x3 HEENT: Atraumatic, Normocephalic, PERRLA Neck: Supple, JVD not distended Respiratory: Clear to auscultation bilaterally, Normal air movement (on room air) Cardiovascular: Normal pulses, Normal S1 S2 Gastrointestinal: Normal bowel sounds, No tenderness Integumentary: Erythema (RLE), Warmth (RLE), Other (chronic right plantar foot wound. Lesions x2 on posterior right leg) Neurological: Normal speech, Normal tone, Normal affect Laboratory Data - Reviewed Microbiology data - Reviewed Imagings Data: -Reviewed Conclusions/Impression: Problem list Cellulitis of RLE Chronic right foot wound Hypertension Hyperlipidemia Ugiuiqa-Fkfif-Paynn Disease (CMT) Cellulitis of Right Lower Extremity Chronic right foot wound -Venous Doppler: No DVT in the right lower extremity - CT right lower extremity 07/21: ": Soft tissues thickening/swelling underlying skin defect/ulcer on the plantar mid to hindfoot, suggestive of or early abscess formation. Reactive right groin and external iliac chain lymph nodes. " - Leukocytosis improving (WBC 12.5 -> 8.2) - 24 hour Tmax = 101.5 F - blood cultures 07/21: pending - On Cefepime and Vancomycin (started 07/21) Recommendations - Continue Cefepime and Vancomycin for now - Continue with local wound care. Keep leg elevated to help minimize swelling. - Monitor WBC and fever trends. PRN tylenol. - Follow up with blood culture results - Wound culture of right plantar foot wound 07/22 pending Case discussed with Sherita Nye
[2023-07-22] MEDS ORDERED: POTASSIUM CL SA 10 MEQ TAB PO ONE (09:00)
[2023-07-22] MEDS ORDERED: MAGNESIUM SULFATE 1 gm IVPB 1 GM/100 ML BAG IV ONE (09:00)
[2023-07-22] MEDS: PRIMIDONE 250 MG TAB PO SCH ×3 (09:31→20:43)
[2023-07-22] MEDS: PANTOPRAZOLE 40MG TABLET PO SCH (09:32)
[2023-07-22] MEDS: atenoloL 50 MG TAB PO SCH ×2 (09:32→20:44)
[2023-07-22] MEDS: ATORVASTATIN 20 MG TAB PO SCH (09:33)
[2023-07-22] MEDS: ENOXAPARIN 40 MG/0.4 ML SQ SCH (09:33)
[2023-07-22] MEDS: GABAPENTIN 300 MG CAP PO SCH ×3 (09:33→20:44)
[2023-07-22] MEDS: ASPIRIN EC 81 MG TAB PO SCH (09:33)
[2023-07-22] MEDS: levETIRAcetam 500 MG TAB PO SCH ×3 (09:33→20:43)
[2023-07-22] MEDS: CEFEPIME 2 GM in NA CHLORIDE 0.9% 100 ML IV SCH ×2 (09:34→20:43)
[2023-07-22] MEDS: VANCOMYCIN 1.75 GM in NA CHLORIDE 0.9% 500 ML IVPB SCH (09:36)
--- NOTE | 2023-07-22 11:42 | EKG ---
Test Date: 2023-07-21 Test Time: 14:03:26 [employer]: BRYAN MEASUREMENT RESULTS: Intervals: Rate: 88 IL: 140 QRSD: 80 QT: 330 QTc: 399 [place]: P: 49 IL: 140 QRS: 54 T: 29 INTERPRETIVE STATEMENTS: Normal sinus rhythm Nonspecific T wave abnormality Abnormal ECG Compared to ECG 05/15/2022 07:16:25 T-wave abnormality now present Electronically Signed On 07-22-23 11:40:17 CDT by Edinson Diaz
[2023-07-22] MEDS ORDERED: INFLUENZA VACCINE (for 6+ mo) 0.5 ML DOSE IMVAC ONE (12:00)
[2023-07-22] MEDS ORDERED: PNEUMOCOCCAL VACCINE 0.5 ML IMVAC ONE (12:00)
--- NOTE | 2023-07-22 14:01 | P.PN ---
Date of Service: 07/22/23 Subjective: feels ~same as yesterday 101.5 temp overnight; 100.4 today no acute events overnight +right foot pain ROS: 10 point ROS as noted above, otherwise negative Physical Exam: GEN: Alert, oriented, NAD HEENT: Normal conjunctiva, sclera anicteric CV: Regular rate and rhythm, no edema Pulm: Nonlabored respirations on room air ABD: Soft, nontender, nondistended Integumentary: chronic right plantar foot wound, +Erythema/Warmth RLE Neuro: Normal speech, normal affect vitals reviewed Problem List: Sepsis secondary to right lower extremity cellulitis Chronic right foot wound, h/o Charcot foot h/o MRSA Hypertension Hyperlipidemia GERD h/o seizure disorder Sepsis likely secondary to right lower extremity cellulitis Chronic right foot wound, h/o Charcot foot h/o MRSA CT lower extremity (07/22): Soft tissues thickening/swelling underlying skin defect/ulcer on the plantar mid to hindfoot, suggestive of or early abscess formation General surgery - Dr. Suarez consulted ID consulted continue empiric cefepime / vanc (07/22-) given h/o of MRSA and sepsis. recent hospitalization in [place] with what sounds like septic shock 2/2 RLE cellulitis ~5 weeks ago 101.5 temp overnight; 100.4 today; leukocytosis improving local wound care: cleansed wound with Vashe solution, cover with gauze, kerlix, medipore. Apply Silvadene cream to right leg Hypertension Hyperlipidemia GERD h/o seizure disorder confirm home medications, restart as appropriate VTE: Lovenox Code: Full Dispo: Home, ~2-3 days may need I&D, currently patient is adamant on avoiding surgical intervention
[2023-07-22] MEDS: SILVER SULFADIAZINE 1% 50 GM TOP SCH ×2 (14:38→20:45)
[2023-07-22] MEDS: ALPRAZOLAM 0.5 MG TABLET PO PRN (20:47)
--- NOTE | 2023-07-22 21:32 | CON ---
Date of Consultation: 07/22/2023 Brief History Of Present Illness: Patient is a 57-year-old male known to me from previous debridemen t of his foot, who presents to the hospital with complaints of cellulitis, which has been ongoing for some period of time according to his recollection. He states that the right sole of his foot has be en aquatic wound, he has been treating for some period of time. He was noncompliant with followup wi th my postoperative care and never followed up in my clinic he states due to financial issues. 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 He presents after scraping h is leg while working up in [place]. He states cellulitis was seen by a surgeon in that area, wh o recommended debridement of an open foot wound on the right foot as well as IV antibiotics. He init iated antibiotic treatment and refused any surgical intervention at that point. He now is back here in [facility] and now returned to our ER with cellulitis of the lower extremity, swelling and dr jade from his foot. Past Medical History: Significant for hypertension, hyperlipidemia, diabetes, neuropathy. Past Surgical History: Includes debridement of his right foot. Allergies: TO SULFA AND BACTRIM. Home Medications: Include atorvastatin, Neurontin, Prilosec, , clonazepam, Tenormin, Keppr a, doxycycline, Happy, clindamycin. Social History: He drinks alcohol recreationally. Has a positive tobacco history. Denies recreatio nal drug use. Review of Systems: Ten-point review of systems other than HPI, denies. Physical Examination: General: At time of my examination, he is awake, alert, and oriented. Psychiatric: Appropriate, conversive. HEENT: He is normocephalic. Sclerae anicteric. Mucous membranes moist. Oropharynx clear. Neck: Supple without JVD. Chest: Normal expansion and excursion. Cardiovascular: Regular rate and rhythm. Extremities: On focused examination of the right lower extremity, he has cellulitis extending from b elow the knee to the calf area. He has an open wound on the plantar aspect of his foot, which is umer roximately 5 cm in size with granulation tissue there. There is no obvious abscess at this point. T he foot appears swollen generally, as the entire right lower extremity. Left lower extremity has a l ymphedema concomitantly. Laboratory Data: He had a laboratory exam, which reveals a white blood cell count of 8.2 down from 1 2.5, hemoglobin 10.6, hematocrit 31.7, platelet count is 179. His neutrophils are 83%. His sodium 1 39, potassium 3.6, chloride 110, carbon dioxide is 25, BUN 9, creatinine 0.5, glucose is 90. Lactic acid is 1.3 down from 3.4 on admission. Phosphorus is 2.9. Magnesium 1.5. AST 105, ALT 99, alkalin e phosphatase 109. His UA was essentially negative. He had imaging performed, which included an ult rasound of lower extremities that showed no DVT in the right lower extremity, nonspecific prominent r ight groin lymph node, which could be reactive. In addition, he had a CT of the right lower extremit y, which officially read as soft tissue thickening/swelling, underlying skin defect/ulcer on the plan tar midfoot to hindfoot suggesting of early abscess formation, reactive right groin and external calderon c chain lymph nodes. Assessment And Plan: This is a 57-year-old male who comes in with cellulitis and signs of early infe ction, possible developing abscess in the right lower extremity/right foot. 1.IV fluid hydration. 2.Antibiotic coverage. 3.I have explained the risks, benefits, and alternatives of surgical versus nonsurgical management. I have recommended surgical debridement of the area as possible to achieve source control; however, patient states he refuses all surgical intervention at this time, as the last time he had surgery it required a significant recovery, which he is not prepared to undergo at this point. I have explained that he could have limb loss, further ongoing problems, ongoing infection, which can lead to sepsis and . The patient understands the above stated plan; however, he refused any surgical intervent ion at this time. He will consider later. I will revisit conversation with him again. We will cont inue antibiotics in the interim until a decision was finally made regarding surgical intervention. I f we are able to treat this nonoperatively, he has agreed to follow up with me as an outpatient to co noraue ongoing care for his current wound he has at the point. 4.I have recommended Silvadene topical to the area and Vashe packing into the plantar foot wound wit h dressing changes, wraps, and elevation. Patient agrees to proceed with that plan as well. GRACIA/LEFTY Voice ID: [id number] Report ID: [id number]
[2023-07-23 02:00] LABS: Absolute Lymphocytes (CBC) 1.7 K/uL (0.7-4.9); Hematocrit 31.5 % (39.6-49.0); Lymphocytes % 20.6 % (15.3-44.8); MCV 100.3 fL (80-100); MPV 7.6 fL (7.6-11.3); Platelets 185 thou/uL (152-406); RBC Red Blood Cell Count 3.14 M/uL (4.33-5.43)
[2023-07-23 02:16] LABS: Albumin 2.7 g/dL (3.4-5.0); Bilirubin Total 0.3 mg/dL (0.2-1.0); Magnesium 1.8 mg/dL (1.6-2.4); Potassium 3.8 mEq/L (3.5-5.1)
[2023-07-23] MEDS: ACETAMINOPHEN 325 MG TABLET PO PRN ×5 (04:25→23:14)
[2023-07-23] MEDS: VANCOMYCIN 1.75 GM in NA CHLORIDE 0.9% 500 ML IVPB SCH (04:47)
[2023-07-23] MEDS: POTASS/SODIUM PHOSPHATE 1 PKT POWD.PACK PO SCH ×3 (06:57→09:43)
[2023-07-23] MEDS ORDERED: MAGNESIUM SULFATE 1 gm IVPB 1 GM/100 ML BAG IV ONE (08:00)
--- NOTE | 2023-07-23 08:01 | P.PN ---
Date of Service: 07/23/23 Subjective: Feeling better today 100.2 temp this morning able to ambulate and apply weight-bearing on r foot otherwise no new / worsening problems ROS: 10 point ROS as noted above, otherwise negative Physical Exam: GEN: Alert, oriented, NAD HEENT: Normal conjunctiva, sclera anicteric CV: Regular rate and rhythm, no edema Pulm: Nonlabored respirations on room air ABD: Soft, nontender, nondistended Integumentary:right plantar foot wound with dressing in place, +Erythema/Warmth RLE up to thigh Neuro: Normal speech, normal affect vitals reviewed Problem List: Sepsis secondary to right lower extremity cellulitis possible abscess forming in R foot Chronic right foot wound, h/o Charcot foot h/o MRSA Hypertension Hyperlipidemia GERD h/o seizure disorder Sepsis likely secondary to right lower extremity cellulitis possible abscess forming in R foot Chronic right foot wound, h/o Charcot foot h/o MRSA Patient reports recent hospitalization in [place] with what sounds like septic shock 2/2 RLE cellulitis ~[address] lower extremity (07/22): Soft tissues thickening/swelling underlying skin defect/ulcer on the plantar mid to hindfoot, suggestive of or early abscess formation Venous u/s(07/21): No DVT in the right lower extremity General surgery - Dr. Suarez consulted patient refusing any surgical intervention at this time; continue medical management for now Continue local wound care: cleansed wound with Vashe solution, cover with gauze, kerlix, medipore. Apply Silvadene cream to right leg NPO after midnight for possible I&D if continues to be febrile / no improvement ID consulted continue empiric cefepime / vanc (07/22-) given h/o of MRSA and sepsis. 100.2 temp this morning; leukocytosis improved Blood cx (07/21): NGTD wound cx (07/21): pending Hypertension Hyperlipidemia GERD h/o seizure disorder confirm home medications, restart as appropriate VTE: Lovenox Code: Full Dispo: Home, ~2 days may need I&D
[2023-07-23] MEDS: CEFEPIME 2 GM in NA CHLORIDE 0.9% 100 ML IV SCH ×2 (08:37→20:39)
[2023-07-23] MEDS: ASPIRIN EC 81 MG TAB PO SCH (08:38)
[2023-07-23] MEDS: atenoloL 50 MG TAB PO SCH ×2 (08:38→20:41)
[2023-07-23] MEDS: PANTOPRAZOLE 40MG TABLET PO SCH (08:38)
[2023-07-23] MEDS: ATORVASTATIN 20 MG TAB PO SCH (08:38)
[2023-07-23] MEDS: ENOXAPARIN 40 MG/0.4 ML SQ SCH (08:39)
[2023-07-23] MEDS: GABAPENTIN 300 MG CAP PO SCH ×3 (08:39→20:41)
[2023-07-23] MEDS: PRIMIDONE 250 MG TAB PO SCH ×3 (08:39→20:40)
[2023-07-23] MEDS: levETIRAcetam 500 MG TAB PO SCH ×3 (08:40→20:41)
[2023-07-23] MEDS: SILVER SULFADIAZINE 1% 50 GM TOP SCH ×2 (08:42→20:41)
--- NOTE | 2023-07-23 08:55 | P.PN ---
Date of Service: 07/23/23 Chief Complaint: Fever; erythema and edema of right lower extremity Subjective: Patient seen and examined at bedside. No acute events reported overnight. He denies any new or worsening complaints at this time. Physical Examination Temp Pulse Resp BP Pulse Ox 97.9 F 67 16 150/88 H 91 07/23/23 08:00 07/23/23 08:38 07/23/23 08:00 07/23/23 08:38 07/23/23 08:00 General: Alert, In no apparent distress, Oriented x3 HEENT: Atraumatic, Normocephalic, PERRLA Neck: Supple, JVD not distended Respiratory: Clear to auscultation bilaterally, Normal air movement. On room air. Cardiovascular: Normal pulses, Normal S1 S2 Gastrointestinal: Normal bowel sounds, No tenderness Integumentary: Erythema, edema and warmth of RLE. Chronic right plantar foot wound. Lesions x2 on posterior right leg Neurological: Normal speech, Normal tone, Normal affect Laboratory Data - Reviewed Microbiology data - Reviewed Imagings Data: -Reviewed Medications list: Reviewed Assessment and plan Problem list Cellulitis of RLE Chronic right foot wound Hypertension Hyperlipidemia Uuztkrc-Htutm-Gjnvb Disease (CMT) History of osteomyelitis History of MRSA Cellulitis of Right Lower Extremity Chronic right foot wound -Venous Doppler: No DVT in the right lower extremity - CT right lower extremity 07/21: ": Soft tissues thickening/swelling underlying skin defect/ulcer on the plantar mid to hindfoot, suggestive of or early abscess formation. Reactive right groin and external iliac chain lymph nodes. " - Leukocytosis improving (WBC 12.5 -> 8.2) - 24 hour Tmax = 100.2 F - blood cultures 07/21: no growth to date - Wound culture 07/22: pending - On Cefepime and Vancomycin (started 07/21) Recommendations Recommend surgical debridement of right foot wound along with continued IV antibiotics at this time. Due to history of osteomyelitis reportedly treated with IV antibiotics for >6 weeks, recent hospitalization for septic shock and recent antibiotic use, recommend continuing with IV antibiotics cefepime and vancomycin for at least 2 weeks. Patient states that he does not want any surgical intervention/debridement to his foot wound at this time, and that he has seen other doctors who have also recommended debridement that the patient has refused. - Continue with local wound care. Keep leg elevated to help minimize swelling. - Follow up with final wound culture results - Monitor WBC and fever trends. PRN tylenol. Case discussed with Sherita Nye
[2023-07-23] MEDS ORDERED: POTASSIUM CL SA 10 MEQ TAB PO ONE (09:00)
[2023-07-23] MEDS: MORPHINE 2 MG/ML SYR IV PRN (12:37)
[2023-07-23] MEDS: COLLAGENASE 30 GM OINTMENT TOP SCH (17:14)
[2023-07-23] MEDS: VANCOMYCIN 2 GM in NA CHLORIDE 0.9% 500 ML IVPB SCH (20:39)
[2023-07-23] MEDS: ALPRAZOLAM 0.5 MG TABLET PO PRN (20:41)
[2023-07-23] MEDS ORDERED: IBUPROFEN 600 MG TAB PO ONE (20:55)
[2023-07-24] MEDS: ACETAMINOPHEN 325 MG TABLET PO PRN ×5 (03:53→20:08)
[2023-07-24 06:32] LABS: Absolute Lymphocytes (CBC) 1.3 K/uL (0.7-4.9); Hematocrit 29.3 % (39.6-49.0); Lymphocytes % 18.4 % (15.3-44.8); MCV 99.1 fL (80-100); MPV 7.7 fL (7.6-11.3); Platelets 177 thou/uL (152-406); RBC Red Blood Cell Count 2.96 M/uL (4.33-5.43)
[2023-07-24 06:43] LABS: Magnesium 1.6 mg/dL (1.6-2.4); Phosphorus 2.7 mg/dL (2.5-4.9); Potassium 3.4 mEq/L (3.5-5.1)
--- NOTE | 2023-07-24 07:21 | P.PN ---
Date of Service: 07/24/23 Subjective: 101.8 temp last night headache / congestion ROS: 10 point ROS as noted above, otherwise negative Physical Exam: GEN: Alert, oriented, NAD HEENT: Normal conjunctiva, sclera anicteric CV: Regular rate and rhythm, no edema Pulm: Nonlabored respirations on room air ABD: Soft, nontender, nondistended Integumentary:right plantar foot wound with dressing in place, +Erythema/Warmth RLE up to thigh Neuro: Normal speech, normal affect vitals reviewed Problem List: Sepsis secondary to right lower extremity cellulitis possible abscess forming in R foot Chronic right foot wound, h/o Charcot foot h/o MRSA Hypertension Hyperlipidemia GERD h/o seizure disorder Sepsis likely secondary to right lower extremity cellulitis possible abscess forming in R foot Chronic right foot wound, h/o Charcot foot h/o MRSA Patient reports recent hospitalization in [place] with what sounds like septic shock 2/2 RLE cellulitis ~[address] lower extremity (07/22): Soft tissues thickening/swelling underlying skin defect/ulcer on the plantar mid to hindfoot, suggestive of or early abscess formation Venous u/s(07/21): No DVT in the right lower extremity General surgery - Dr. Suarez consulted patient refusing any surgical intervention at this time; continue medical management for now Continue local wound care: cleansed wound with Vashe solution, cover with gauze, kerlix, medipore. Apply Silvadene cream to right leg NPO after midnight for possible I&D if continues to be febrile / no improvement ID consulted continue empiric cefepime / vanc (07/22-) given h/o of MRSA and sepsis. Blood cx (07/21): NGTD wound cx (07/21): pending 07/24 - 101.8 temp last night; repeat CT ordered to reeval foot. Hypertension Hyperlipidemia GERD h/o seizure disorder confirm home medications, restart as appropriate VTE: Lovenox Code: Full Dispo: Home, ~2 days not afebrile > 24 hours yet
[2023-07-24] MEDS ORDERED: MAGNESIUM SULFATE 1 gm IVPB 1 GM/100 ML BAG IV ONE (07:31)
--- NOTE | 2023-07-24 08:36 | P.PN ---
Date of Service: 07/24/23 Chief Complaint: Fever; erythema and edema of right lower extremity Subjective: Patient seen and examined at bedside. Overnight, patient spiked fever of 101.8 F overnight. He denies any new or worsening complaints at this time. Currently resting comfortably in bed, in no apparent distress. Physical Examination Temp Pulse Resp BP Pulse Ox 97.2 F 82 18 163/94 H 95 07/24/23 08:00 07/24/23 08:00 07/24/23 08:00 07/24/23 08:00 07/24/23 08:00 General: Alert, In no apparent distress, Oriented x3 HEENT: Atraumatic, Normocephalic, PERRLA Neck: Supple, JVD not distended Respiratory: Clear to auscultation bilaterally, Normal air movement. On room air. Cardiovascular: Normal pulses, Normal S1 S2 Gastrointestinal: Normal bowel sounds, No tenderness MSK: full ROM neck Integumentary: Erythema, edema and warmth of RLE. Chronic right plantar foot wound. Lesions x2 on posterior right leg Neurological: Normal speech, Normal tone, Normal affect Laboratory Data - Reviewed Microbiology data - Reviewed Imagings Data: -Reviewed Medications list: Acetaminophen (Acetaminophen 325 Mg Tablet) 650 mg PO Q4HP PRN PRN Reason: TEMP > 100' F Last Admin: 07/24/23 03:53 Dose: 650 mg Alprazolam (Alprazolam 0.5 Mg Tablet) 0.5 mg PO TID PRN PRN Reason: ANXIETY Last Admin: 07/23/23 20:41 Dose: 0.5 mg Aspirin (Aspirin Ec 81 Mg Tab) 81 mg PO DAILY [facility] Last Admin: 07/23/23 08:38 Dose: 81 mg Atenolol (Atenolol 50 Mg Tab) 50 mg PO BID [facility] Last Admin: 07/23/23 20:41 Dose: 50 mg Atorvastatin Calcium (Atorvastatin 20 Mg Tab) 20 mg PO DAILY [facility] Last Admin: 07/23/23 08:38 Dose: 20 mg Collagenase (Collagenase 30 Gm Ointment) 1 appl TOP DAILY [facility] Last Admin: 07/23/23 17:14 Dose: 1 appl Enoxaparin Sodium (Enoxaparin 40 Mg/0.4 Ml) 40 mg SQ DAILY [facility] Last Admin: 07/23/23 08:39 Dose: 40 mg Gabapentin (Gabapentin 300 Mg Cap) 600 mg PO BEDTIME [facility] Last Admin: 07/23/23 20:41 Dose: 600 mg Gabapentin (Gabapentin 300 Mg Cap) 300 mg PO BID* [facility] Last Admin: 07/23/23 14:28 Dose: 300 mg Cefepime HCl 2 gm/ Sodium (Chloride) 100 mls @ 200 mls/hr IV Q12HR [facility]; Protocol Last Admin: 07/23/23 20:39 Dose: 100 mls Vancomycin HCl 2 gm/ Sodium (Chloride) 500 mls @ 250 mls/hr IVPB Q18H [facility] Last Admin: 07/23/23 20:39 Dose: 500 mls Levetiracetam (Levetiracetam 500 Mg Tab) 250 mg PO TID [facility] Last Admin: 07/23/23 20:41 Dose: 250 mg Morphine Sulfate (Morphine 2 Mg/Ml Syr) 2 mg IV Q4H PRN PRN Reason: Pain scale 8-10 (Severe) Last Admin: 07/23/23 12:37 Dose: 2 mg Ondansetron HCl (Ondansetron 4 Mg/2 Ml Vial) 4 mg IV Q6HP PRN PRN Reason: NAUSEA / VOMITING Pantoprazole Sodium (Pantoprazole 40mg Tablet) 40 mg PO DAILY [facility] Last Admin: 07/23/23 08:38 Dose: 40 mg Primidone (Primidone 250 Mg Tab) 250 mg PO TID [facility] Last Admin: 07/23/23 20:40 Dose: 250 mg Silver Sulfadiazine (Silver Sulfadiazine 1% 50 Gm) 1 appl TOP BID [facility] Last Admin: 07/23/23 20:41 Dose: 1 appl Sodium Chloride (Flush Normal Saline 10 Ml) 10 ml IV BID [facility] Last Admin: 07/23/23 20:41 Dose: 10 ml Assessment and plan Problem list Cellulitis of RLE Chronic right foot wound Hypertension Hyperlipidemia Npkzpqk-Brsff-Ubvgo Disease (CMT) History of osteomyelitis History of MRSA Cellulitis of Right Lower Extremity Chronic right foot wound -Venous Doppler: No DVT in the right lower extremity - CT right lower extremity 07/21: ": Soft tissues thickening/swelling underlying skin defect/ulcer on the plantar mid to hindfoot, suggestive of or early abscess formation. Reactive right groin and external iliac chain lymph nodes. " - Leukocytosis resolved - 24 hour Tmax = 101.8 F - blood cultures 10/9: no growth to date - Wound culture 07/22: Pending - On Cefepime and Vancomycin (started 07/21) - CT lower extremity 07/24: " Stable soft tissue thickening along the plantar aspect of the right midfoot, underlying skin ulceration/ defect, without significant interval change. No appreciable fluid collections or evidence of developing osteomyelitis on CT, within limits of noncontrast evaluation." Recommendations Due to history of osteomyelitis reportedly treated with IV antibiotics for >6 weeks, recent hospitalization for septic shock and recent antibiotic use- recommend continuing with IV antibiotics cefepime and vancomycin for at least 2 weeks. - Continue with local wound care per Dr. Suarez. - Follow up with final wound culture results - Monitor WBC and fever trends. PRN tylenol. Case discussed with Sherita Nye
--- NOTE | 2023-07-24 08:42 | RAD REPORT ---
EXAM DESCRIPTION: CT - Lower Extremity W/ Cont - 07/24/2023 7:50 am CLINICAL HISTORY: eval abscess, persistent fever COMPARISON: Lower Extremity W/ Cont dated 07/21/2023 TECHNIQUE: Dynamically enhanced 3 mm thick images of the lower extremities were obtained during admi nistration of approximately 100mL Isovue 370 IV contrast. Sagittal and coronal reconstructions as wel l as maximal intensity projection reconstruction were generated and reviewed per an aortic angiograph y protocol. All CT scans are performed using dose optimization technique as appropriate and may include automated exposure control or mA/KV adjustment according to patient size. FINDINGS: Soft tissue thickening along the plantar aspect of the mid foot, underlying skin ulceratio n/defect as noted previously. Again, no appreciable fluid collections are perceived within limits of noncontrast evaluation. No underlying osseous destructive changes to suggest ongoing osteomyelitis. Stable fusion hardware along the plantar aspect of the first metatarsal and mid to hindfoot bones. Degenerative changes of the ankle joint, up to moderate on the right, and severe on the left organize d distal tibial/fibular callus formation and left fibular plate and screw fixation. No soft tissue abnormalities are noted on the left. IMPRESSION: Stable soft tissue thickening along the plantar aspect of the right midfoot, underlying skin ulceration/ defect, without significant interval change. No appreciable fluid collections or edgar dence of developing osteomyelitis on CT, within limits of noncontrast evaluation. No other significant findings on chest, abdomen and upper pelvis examination.
[2023-07-24] MEDS: atenoloL 50 MG TAB PO SCH ×2 (08:56→20:09)
[2023-07-24] MEDS: levETIRAcetam 500 MG TAB PO SCH ×3 (08:56→20:09)
[2023-07-24] MEDS: PANTOPRAZOLE 40MG TABLET PO SCH (08:56)
[2023-07-24] MEDS: GABAPENTIN 300 MG CAP PO SCH ×3 (08:56→20:09)
[2023-07-24] MEDS: PRIMIDONE 250 MG TAB PO SCH ×3 (08:56→21:00)
[2023-07-24] MEDS: ASPIRIN EC 81 MG TAB PO SCH (08:56)
[2023-07-24] MEDS: ATORVASTATIN 20 MG TAB PO SCH (08:59)
[2023-07-24] MEDS: ENOXAPARIN 40 MG/0.4 ML SQ SCH (09:00)
[2023-07-24] MEDS: CEFEPIME 2 GM in NA CHLORIDE 0.9% 100 ML IV SCH ×2 (09:03→20:08)
[2023-07-24] MEDS: SILVER SULFADIAZINE 1% 50 GM TOP SCH ×2 (09:05→20:11)
[2023-07-24] MEDS: COLLAGENASE 30 GM OINTMENT TOP SCH (09:06)
[2023-07-24] MEDS ORDERED: POTASSIUM CL SA 10 MEQ TAB PO ONE (12:00)
[2023-07-24] MEDS: VANCOMYCIN 2 GM in NA CHLORIDE 0.9% 500 ML IVPB SCH (15:18)
[2023-07-24] MEDS: MORPHINE 2 MG/ML SYR IV PRN (15:26)
[2023-07-24] MEDS ORDERED: IBUPROFEN 600 MG TAB PO ONE ×2 (18:45→21:48)
[2023-07-24] MEDS: ALPRAZOLAM 0.5 MG TABLET PO PRN (20:11)
[2023-07-25 02:27] VITALS: BMI 32.3
[2023-07-25] MEDS: ACETAMINOPHEN 325 MG TABLET PO PRN ×2 (02:33→07:20)
[2023-07-25 06:29] LABS: Magnesium 1.9 mg/dL (1.6-2.4); Phosphorus 3.5 mg/dL (2.5-4.9); Potassium 3.7 mEq/L (3.5-5.1)
[2023-07-25] MEDS ORDERED: ACETAMINOPHEN 325 MG TABLET PO PRN (07:36)
[2023-07-25] MEDS: VANCOMYCIN 2 GM in NA CHLORIDE 0.9% 500 ML IVPB SCH (09:00)
[2023-07-25] MEDS ORDERED: POTASSIUM CL SA 10 MEQ TAB PO ONE (09:00)
[2023-07-25] MEDS: ENOXAPARIN 40 MG/0.4 ML SQ SCH (09:04)
[2023-07-25] MEDS: ASPIRIN EC 81 MG TAB PO SCH (09:04)
[2023-07-25] MEDS: levETIRAcetam 500 MG TAB PO SCH ×3 (09:04→20:58)
[2023-07-25] MEDS: GABAPENTIN 300 MG CAP PO SCH ×3 (09:05→20:55)
[2023-07-25] MEDS: ATORVASTATIN 20 MG TAB PO SCH (09:05)
[2023-07-25] MEDS: PANTOPRAZOLE 40MG TABLET PO SCH (09:05)
[2023-07-25] MEDS: atenoloL 50 MG TAB PO SCH ×2 (09:05→20:54)
[2023-07-25] MEDS: CEFEPIME 2 GM in NA CHLORIDE 0.9% 100 ML IV SCH ×2 (09:05→20:42)
[2023-07-25] MEDS: PRIMIDONE 250 MG TAB PO SCH ×3 (09:05→20:54)
[2023-07-25] MEDS: COLLAGENASE 30 GM OINTMENT TOP SCH (09:06)
[2023-07-25] MEDS: SILVER SULFADIAZINE 1% 50 GM TOP SCH ×2 (09:14→21:00)
--- NOTE | 2023-07-25 10:11 | P.PN ---
Date of Service: 07/25/23 Subjective: 100.0 temp last night ~3900 mg tylenol in last 24 hours redness / warmth of right lower extremity slowly improving wanting to go home +headache ROS: 10 point ROS as noted above, otherwise negative Physical Exam: GEN: Alert, oriented, NAD HEENT: Normal conjunctiva, sclera anicteric CV: Regular rate and rhythm, no edema Pulm: Nonlabored respirations on room air ABD: Soft, nontender, nondistended Integumentary:right plantar foot wound with dressing in place, +Erythema/Warmth RLE up to thigh Neuro: Normal speech, normal affect vitals reviewed Problem List: Sepsis secondary to right lower extremity cellulitis possible abscess forming in R foot Chronic right foot wound, h/o Charcot foot h/o MRSA Hypertension Hyperlipidemia GERD h/o seizure disorder Sepsis likely secondary to right lower extremity cellulitis possible abscess forming in R foot Chronic right foot wound, h/o Charcot foot h/o MRSA Patient reports recent hospitalization in [place] with what sounds like septic shock 2/2 RLE cellulitis ~[address] lower extremity (07/22): Soft tissues thickening/swelling underlying skin defect/ulcer on the plantar mid to hindfoot, suggestive of or early abscess formation CT lower extremity (07/24): Stable soft tissue thickening along the plantar aspect of the right midfoot, underlying skin ulceration/ defect, without significant interval change. No appreciable fluid collections or evidence of developing osteomyelitis on CT Venous u/s(07/21): No DVT in the right lower extremity General surgery - Dr. Suarez consulted patient refusing any surgical intervention at this time; continue medical management for now Continue local wound care: cleansed wound with Vashe solution, cover with gauze, kerlix, medipore. Apply Silvadene cream to right leg ID consulted continue empiric cefepime / vanc (07/22-) given h/o of MRSA and sepsis. Blood cx (07/21): NGTD wound cx (07/21): pending Intermittent fever/low grade temps continue has received ~3900 mg tylenol in last 24 hours; wean as tolerated Hypertension Hyperlipidemia GERD h/o seizure disorder confirm home medications, restart as appropriate VTE: Lovenox Code: Full Dispo: Home, ~1-2 days pending afebrile > 24 hours
[2023-07-25] MEDS: VANCOMYCIN 1.75 GM in NA CHLORIDE 0.9% 500 ML IVPB SCH ×2 (11:13→21:00)
--- NOTE | 2023-07-25 14:04 | P.PN ---
Date of Service: 07/25/23 Chief Complaint: Fever; erythema and edema of right lower extremity Subjective: improving Patient seen and examined at bedside. + fever Patient states he will leave the hospital today whether it is against medical advice or not, and that he is tired of being in the hospital and he has business to do in [place] and therefore wishes to be switched to oral antibiotics and states he has an appointment scheduled with Dr. Suarez as outpatient. Physical Examination Temp Pulse Resp BP Pulse Ox 97.2 F 58 16 145/92 H 96 07/25/23 12:00 07/25/23 12:00 07/25/23 12:00 07/25/23 12:00 07/25/23 12:00 General: Alert, In no apparent distress, Oriented x3 HEENT: Atraumatic, Normocephalic, PERRLA Neck: Supple, JVD not distended Respiratory: Clear to auscultation bilaterally, Normal air movement. On room air. Cardiovascular: Normal pulses, Normal S1 S2 Gastrointestinal: Normal bowel sounds, No tenderness MSK: full ROM neck Integumentary: Erythema, edema and warmth of RLE. Chronic right plantar foot wound. Lesions x2 on posterior right leg Neurological: Normal speech, Normal tone, Normal affect Laboratory Data - Reviewed Microbiology data - Reviewed Imagings Data: -Reviewed Medications list: - Reviewed Assessment and plan Problem list Cellulitis of RLE Chronic right foot wound Hypertension Hyperlipidemia Aalgpil-Woxgv-Olfuc Disease (CMT) History of osteomyelitis History of MRSA Cellulitis of Right Lower Extremity Chronic right foot wound -Venous Doppler: No DVT in the right lower extremity - CT right lower extremity 07/21: ": Soft tissues thickening/swelling underlying skin defect/ulcer on the plantar mid to hindfoot, suggestive of or early abscess formation. Reactive right groin and external iliac chain lymph nodes. " - Leukocytosis resolved - 24 hour Tmax = 101.8 F - blood cultures 07/21: no growth to date - Wound culture 07/22: Pending - On Cefepime and Vancomycin (started 07/21) - CT lower extremity 07/24: " Stable soft tissue thickening along the plantar aspect of the right midfoot, underlying skin ulceration/ defect, without significant interval change. No appreciable fluid collections or evidence of developing osteomyelitis on CT, within limits of noncontrast evaluation." Recommendations Due to continued fevers, multiple infections of right lower extremity, history of osteomyelitis, recent hospitalization for septic shock, recent antibiotic use; we recommend continuing with IV antibiotics cefepime and vancomycin for a minimum of 2 weeks. - Continue with local wound care per Dr. Suarez. - Follow up with Dr. Suarez as outpatient. - Monitor WBC and fever trends. PRN tylenol. Discussed with patient the plan of care and treatment options. He stated that he understands his situation, the risks and benefits of treatment plan options, that he has "been dealing with this for a very long time" and does not wish to continue with IV antibiotics and wishes to be discharged home with oral antibiotics. Oral antibiotic regimen to consider: Ciprofloxacin 750mg PO BID and Linezolid 600mg PO BID Case discussed with Sherita Nye
[2023-07-25 20:20] VITALS: O2SAT 97
[2023-07-26 04:05] VITALS: TEMP 97.1
[2023-07-26 04:42] LABS: Absolute Lymphocytes (CBC) 1.5 K/uL (0.7-4.9); Hematocrit 30.2 % (39.6-49.0); Lymphocytes % 33.4 % (15.3-44.8); MCV 99.7 fL (80-100); MPV 8.3 fL (7.6-11.3); Platelets 225 thou/uL (152-406); RBC Red Blood Cell Count 3.03 M/uL (4.33-5.43)
[2023-07-26 04:59] LABS: Albumin 2.6 g/dL (3.4-5.0); Bilirubin Total 0.3 mg/dL (0.2-1.0); Magnesium 1.8 mg/dL (1.6-2.4); Phosphorus 3.8 mg/dL (2.5-4.9); Potassium 3.9 mEq/L (3.5-5.1)
--- NOTE | 2023-07-26 07:29 | P.DS ---
Admission Date: 07/21/23 Discharge Date: 07/26/23 Disposition: ROUTINE DISCHARGE Discharge Condition: FAIR Reason for Admission: Fever Consultations: General Surgery - Dr. Suarez Infectious Disease - Dr. Bernardo Brief History of Present Illness: 57yo M, PMH: Patient with a chronic nonhealing wound on the sole of the right foot presented to the emergency department due to fever of onset early this morning. Patient reported associated high blood pressure with systolic up to the 200. Symptoms associated with chills. No nausea or vomiting. Systolic blood pressure in the ED was 143. Blood work showed moderate leukocytosis, temperature of 100 recorded in the ED. Venous Doppler of lower extremity showed no DVT. No other imaging was done on the leg. Patient is hospitalized for further management. Hospital Course: Problem List: Sepsis secondary to right lower extremity cellulitis possible abscess forming in R foot Chronic right foot wound, h/o Charcot foot with previous fusion hardware in place h/o MRSA Hypertension Hyperlipidemia GERD h/o seizure disorder Patient presented with fever, chronic right foot wound. CT 07/22 noted Soft tissues thickening/swelling underlying skin defect/ulcer on the plantar mid to hindfoot, suggestive of or early abscess formation. General surgery was consulted. Dr Suarez initially recommended consideration for surgical debridement of the area as possible to achieve source control; however, patient adamant about no surgical intervention and wanted to pursue medical management. Discussed at length that he could have limb loss, further ongoing problems, ongoing infection, which can lead to sepsis and . The patient understood and would consider later if necessary. ID was consulted. He received empiric cefepime and vanc during hospitalization given h/o of MRSA and sepsis. He continued to have intermittent fever/low grade temps throughout the week. Repeat CT on 07/24 to reeval foot noted stable soft tissue thickening along the plantar aspect of the right midfoot without significant interval change. No appreciable fluid collections or evidence of developing osteomyelitis on CT. Blood culture without growth since 07/21. Wound cultures without growth as well. Dr. Suarez probed the wound at bedside and did not note any purulent drainage or discernible abscess Right leg/foot continued to have gradual improvement of swelling and erythema. ID recommended continue IV antibiotics. Patient had some personal matters to deal with that required him to go out of state and requested discharge. Discussed recommendations for ongoing IV antibiotics, with significant history, negative /less ideal cultures, recent hospitalization for similar, and risk of this infection worsening with possibility of increased risk of limb loss, sepsis, and even . Patient expressed understanding and stated he has been dealing with similar for awhile and he and his will keep a close eye and go to an ER at first sign of worsening. Discussed with ID, and given patient's informed decision on discharge, recommended to cover with cipro and zyvox on discharge. Local wound care during hospitalization: cleansed wound with Vashe solution, covered with gauze, kerlix, medipore. Silvadene cream applied to right leg Medications: Cipro and Zyvox x 10 more days for 14 day total course Recommend repeat labs, particularly CBC in 1 week to monitor platelets while taking zyvox. Platelets were in normal range from 180-220 during this hospitalization. Follow up: PCP 3-[address] Suarez in 1 week, as scheduled Physical Exam: GEN: Alert, oriented, NAD HEENT: Normal conjunctiva, sclera anicteric CV: Regular rate and rhythm, no edema Pulm: Nonlabored respirations on room air ABD: Soft, nontender, nondistended Integumentary:right plantar foot wound with dressing in place, +Erythema/Warmth RLE up to thigh Neuro: Normal speech, normal affect Vital Signs/Physical Exam: Temp Pulse Resp BP Pulse Ox 97.1 F 61 18 168/92 H 97 07/26/23 04:00 07/26/23 04:00 07/26/23 04:00 07/26/23 04:00 07/26/23 04:00 Laboratory Data at Discharge: WBC 4.40 thou/uL (4.3-10.9) 07/26/23 03:54 Hgb 10.5 g/dL (13.6-17.9) L 07/26/23 03:54 Hct 30.2 % (39.6-49.0) L 07/26/23 03:54 Plt Count 225 thou/uL (152-406) 07/26/23 03:54 PT 11.9 SECONDS (9.5-12.5) 07/21/23 14:06 INR 1.08 07/21/23 14:06 APTT 31.6 SECONDS (24.3-36.9) 07/21/23 14:06 Sodium 140 mEq/L (136-145) 07/26/23 03:54 Potassium 3.9 mEq/L (3.5-5.1) 07/26/23 03:54 BUN 11 mg/dL (7-18) 07/26/23 03:54 Creatinine 0.65 mg/dL (0.70-1.30) L 07/26/23 03:54 Glucose 90 mg/dL (74-106) 07/26/23 03:54 Phosphorus 3.8 mg/dL (2.5-4.9) 07/26/23 03:54 Magnesium 1.8 mg/dL (1.6-2.4) 07/26/23 03:54 Total Bilirubin 0.3 mg/dL (0.2-1.0) 07/26/23 03:54 AST 41 U/L (15-37) H 07/26/23 03:54 ALT 71 U/L (16-61) H 07/26/23 03:54 Alkaline Phosphatase 145 U/L (45-117) H 07/26/23 03:54 Home Medications: Atorvastatin Calcium 20 mg PO DAILY 05/15/22 Gabapentin [Neurontin] 300 mg PO SEECOM 05/15/22 Omeprazole [Prilosec] 40 mg PO DAILY 05/15/22 Primidone 250 mg PO TID 05/15/22 Atenolol [Tenormin] 50 mg PO BID 12/11/22 ALPRAZolam [Xanax*] 0.5 mg PO TID PRN 07/21/23 Aspirin [Aspirin EC 81 MG] 81 mg PO DAILY 07/21/23 levETIRAcetam [Keppra] 1 tab PO BID 07/22/23 Ciprofloxacin HCl 750 mg PO BID 10 Days #20 tab 07/26/23 Linezolid [Zyvox] 600 mg PO BID 10 Days #20 tab 07/26/23 Silver Sulfadiazine Crm [Silvadene*] 1 appl TOP BID 30 Days #1 tube 07/26/23 New Medications: Ciprofloxacin HCl 750 mg PO BID 10 Days #20 tab Silver Sulfadiazine Crm [Silvadene*] 1 appl TOP BID 30 Days #1 tube Linezolid [Zyvox] 600 mg PO BID 10 Days #20 tab Physician Discharge Instructions: Patient presented with fever, chronic right foot wound. CT 07/22 noted Soft tissues thickening/swelling underlying skin defect/ulcer on the plantar mid to hindfoot, suggestive of or early abscess formation. General surgery was consulted. Dr Suarez initially recommended consideration for surgical debridement of the area as possible to achieve source control; however, patient adamant about no surgical intervention and wanted to pursue medical management. Discussed at length that he could have limb loss, further ongoing problems, ongoing infection, which can lead to sepsis and . The patient understood and would consider later if necessary. ID was consulted. He received empiric cefepime and vanc during hospitalization given h/o of MRSA and sepsis. He continued to have intermittent fever/low grade temps throughout the week. Repeat CT on 07/24 to reeval foot noted stable soft tissue thickening along the plantar aspect of the right midfoot without significant interval change. No appreciable fluid collections or evidence of developing osteomyelitis on CT. Blood culture without growth since 07/21. Wound cultures without growth as well. Dr. Suarez probed the wound at bedside and did not note any purulent drainage or discernible abscess Right leg/foot continued to have gradual improvement of swelling and erythema. ID recommended continue IV antibiotics. Patient had some personal matters to deal with that required him to go out of state and requested discharge. Discussed recommendations for ongoing IV antibiotics, with significant history, negative /less ideal cultures, recent hospitalization for similar, and risk of this infection worsening with possibility of increased risk of limb loss, sepsis , and even . Patient expressed understanding and stated he has been dealing with similar for awhile and he and his will keep a close eye and go to an ER at first sign of worsening. Discussed with ID, and given patient's informed decision on discharge, recommended to cover with cipro and zyvox on discharge. Local wound care during hospitalization: cleansed wound with Vashe solution, covered with gauze, kerlix, medipore. Silvadene cream applied to right leg Medications: Cipro and Zyvox x 10 more days for 14 day total course Recommend repeat labs, particularly CBC in 1 week to monitor platelets while taking zyvox. Platelets were in normal range from 180-220 during this hospitalization. Follow up: PCP 3-[address] Suarez in 1 week, as scheduled Followup: Momo Suarez MD [ACTIVE - CAN ADMIT] - 1 Week Marshall Peguero MD [Primary Care Provider] - Time spent managing pt's care (in minutes): 45
[2023-07-26] MEDS ORDERED: levoFLOXacin 750 MG TAB PO ONE (07:30)
[2023-07-26] MEDS ORDERED: CIPROFLOXACIN HCL 250 MG TAB PO ONE (07:31)
[2023-07-26 08:08] VITALS: BP 149/92
[2023-07-26] MEDS: atenoloL 50 MG TAB PO SCH (08:20)
[2023-07-26] MEDS: ASPIRIN EC 81 MG TAB PO SCH (08:21)
[2023-07-26] MEDS: GABAPENTIN 300 MG CAP PO SCH (08:22)
[2023-07-26] MEDS: ATORVASTATIN 20 MG TAB PO SCH (08:22)
[2023-07-26] MEDS: levETIRAcetam 500 MG TAB PO SCH (08:22)
[2023-07-26] MEDS: ENOXAPARIN 40 MG/0.4 ML SQ SCH (08:23)
[2023-07-26] MEDS: PRIMIDONE 250 MG TAB PO SCH (08:23)
[2023-07-26] MEDS: SILVER SULFADIAZINE 1% 50 GM TOP SCH (08:23)
[2023-07-26] MEDS: COLLAGENASE 30 GM OINTMENT TOP SCH (08:23)
[2023-07-26] MEDS: CEFEPIME 2 GM in NA CHLORIDE 0.9% 100 ML IV SCH (08:23)
[2023-07-26] MEDS: PANTOPRAZOLE 40MG TABLET PO SCH (08:23)
[2023-07-26] MEDS: VANCOMYCIN 1.75 GM in NA CHLORIDE 0.9% 500 ML IVPB SCH (08:24)
[2023-07-26] MEDS ORDERED: MAGNESIUM SULFATE 1 gm IVPB 1 GM/100 ML BAG IV ONE (09:00)
[2023-07-26] MEDS ORDERED: POTASSIUM CL SA 10 MEQ TAB PO ONE (09:00)
== END 2023-07-26 09:40 | disposition home or self-care (01) | DRG 872 ==
LOC: ER 13:27 → ERHOLD 17:55 → 4TH 20:38
PROVIDERS: ADMIT Internal Medicine; ATTEND Hospitalist
DX: A41.9 Sepsis, unspecified organism (principal); L03.115 Cellulitis of right lower limb; L02.611 Cutaneous abscess of right foot; I10 Essential (primary) hypertension; E78.5 Hyperlipidemia, unspecified; E11.40 Type 2 diabetes mellitus with diabetic neuropathy, unspecified; E11.621 Type 2 diabetes mellitus with foot ulcer; L97.519 Non-pressure chronic ulcer of other part of right foot with unspecified severity; K21.9 Gastro-esophageal reflux disease without esophagitis; K08.89 Other specified disorders of teeth and supporting structures; Z88.1 Allergy status to other antibiotic agents; Z88.2 Allergy status to sulfonamides; Z79.82 Long term (current) use of aspirin; Z86.14 Personal history of Methicillin resistant Staphylococcus aureus infection; Z79.899 Other long term (current) drug therapy; Z91.190 Patient's noncompliance with other medical treatment and regimen due to financial hardship; Z20.822 Contact with and (suspected) exposure to COVID-19
CPT/HCPCS: 36415; 71045; 73701; 80048; 80053; 80202; 81003; 83605; 83735; 84100; 84132; 85025; 85610; 85730; 87040; 87075; 87205; 87635; 87804; 93005; 93971; 94760; 96365; 96366; 96367; 96375; 99285; J0692; J1650; J2270; J2405; J3010; J3475; J3590; J7030; J7040; J7050; Q9967

== ENCOUNTER 2023-08-16 03:36 | Inpatient (IN) | payer SELFPAY ==
--- OUTSIDE RECORDS SUMMARY | 2023-08-16 03:43 | XMS REPORT | Continuity of Care Document ---
:1965 Author Organization [facility] t Address [address]. [address] [place] [address] Care Team Providers Name Role Phone KATERIN [...] Expiration Date S betty [id number] PPO AND [id number] 2022 00:00:00 OUT OF STATE Problems Condition Condition Condition Status Onset Resolution Last Treating Co mments Source Name Details Category Date Date Treatment Clinician Date Cervical Cervical Problem Active 2021-10-26 Memoria radiculopa radiculopa 23:23:25 l thy thy [place] (disorder) (disorder) Active Problem 10/26/2021 [facility] Finding of Finding Problem Active 2021-10-26 Memoria neck of neck 23:23:25 l region region [place] (finding) (finding) Active Problem 10/26/2021 [facility] 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:23:25 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 (disorder) Active Problem 10/26/2021 [facility] Hyperlipid Problem Active 2021-10-26 M emoria emia Hyperlipid 23:23:25 l (disorder) emia Alexandro n (disorder) Active Problem 10/26/2021 [facility] Hypertensi Hypertens Problem Active 2021-10-26 Memoria ve armita 23:23:25 l disorder, disorder, Herm margaret systemic [...] A jose (finding) (finding) 23:23:25 l Active [place] Problem 10/26/2021 [facility] Carpal Carpal Problem Active 2021-10-26 Juan A jose tunnel tunnel 23:23:25 l syndrome syndrome Alexandro n (disorder) (disorder) Active Problem 10/26/2021 [facility] Hand pain Hand pain Problem Active 2021-10-26 Memoria (finding) (finding) 23:23:25 l Active [place] Problem 10/26/2021 [facility] Liver Liver Problem Active 2021-10-26 Juan A jose function function 23:23:25 l tests tests [place] abnormal abnormal (finding) (finding) Active Problem 10/26/2021 [facility] Allergies, Adverse Reactions, Alerts Allergy Allergy Status Severity Reaction(s) Onset Inactive Treating Comm ents Source Name Type Date Date Clinician Sulfa DA Active SV [facility] (Sulfona 5-12 [facility] 00:00: [facility] Antibiot 00 are ics) [facility] Sulfa DA Active SV ANAPHYLAXIS [facility] (Sulfona 5-12 [facility] 00:00: [facility] Antibiot 00 are ics) [facility] Sulfa DA Active Unknown [facility] ([facility] Center sulfa sulfa Active Memoria drugs drugs [...] tab, PO, l tablet 14:21: Daily, # [place] 00 30 tab, 3 Refill(s), Pharmacy: [facility] #[id number], 172.72, cm, 04/24/21 15:47:00 CDT, Height, 120, kg, 04/24/21 15:47:00 CDT, Weight primidone 2020-10 Yes 250 mg = 1 Me moria 250 mg oral 0-12 tab, PO, l tablet 14:21: Daily, # [place] 00 30 tab, 3 Refill(s), Pharmacy: [facility] #[id number], 172.72, cm, 04/24/21 15:47:00 CDT, Height, 120, kg, 04/24/21 15:47:00 CDT, Weight primidone 2020-10 Yes 250 mg = 1 Me moria 250 mg oral 0-12 tab, PO, l tablet 14:21: Daily, # [place] 00 30 tab, 3 Refill(s), Pharmacy: [facility] #[id number], 172.72, cm, 04/24/21 15:47:00 CDT, Height, 120, kg, 04/24/21 15:47:00 CDT, Weight primidone 2020-10 Yes 250 mg = 1 Me moria 250 mg oral 0-12 tab, PO, l tablet 14:21: Daily, # [place] 00 30 tab, 3 Refill(s), Pharmacy: [facility] #[id number], 172.72, cm, 04/24/21 15:47:00 CDT, Height, 120, kg, 04/24/21 15:47:00 CDT, Weight primidone 0 Yes 50 mg = 1 Mem oria 50 mg oral 8-18 tab, PO, l tablet 21:40: TID, # 90 Alexandro n 00 tab, 3 Refill(s), Pharmacy: [facility] #[id number], 172.72, cm, 04/24/21 15:47:00 CDT, Height, 120, kg, 04/24/21 15:47:00 CDT, Weight primidone 2020-0 Yes 50 mg = 1 Mem oria 50 mg oral 8-18 tab, PO, l tablet 21:40: TID, # 90 Alexandro n 00 tab, 3 Refill(s), Pharmacy: [facility] #[id number], 172.72, cm, 04/24/21 15:47:00 CDT, Height, 120, kg, 04/24/21 15:47:00 CDT, Weight primidone 2020-0 Yes 50 mg = 1 Mem oria 50 mg oral 8-18 tab, PO, l tablet 21:40: TID, # 90 Alexandro n 00 tab, 3 Refill(s), Pharmacy: [facility] #[id number], 172.72, cm, 04/24/21 15:47:00 CDT, Height, 120, kg, 04/24/21 15:47:00 CDT, Weight primidone 2020-0 Yes 50 mg = 1 Mem oria 50 mg oral 8-18 tab, PO, l tablet 21:40: TID, # 90 Alexandro n 00 tab, 3 Refill(s), Pharmacy: [facility] #[id number], 172.72, cm, 04/24/21 15:47:00 CDT, Height, 120, kg, 04/24/21 15:47:00 CDT, Weight Flexeril 10 2020-0 Yes 10 mg = 1 M emoria mg oral 7-12 tab, PO, l tablet 19:35: BID, 0 [place] 00 Refill(s) Flexeril 10 2020-0 Yes 10 mg = 1 M emoria mg oral 7-12 tab, PO, l tablet 19:35: BID, 0 [place] 00 Refill(s) Flexeril 10 2020-0 Yes 10 mg = 1 M emoria mg oral 7-12 tab, PO, l tablet 19:35: BID, 0 [place] 00 Refill(s) Flexeril 10 2020-0 Yes 10 mg = 1 M emoria mg oral 7-12 tab, PO, l tablet 19:35: BID, 0 [place] 00 Refill(s) primidone 2020-0 Yes 50 mg = 1 Mem oria 50 mg oral 4-22 tab, PO, l tablet 18:38: Bedtime, # Candice nn 00 30 tab, 3 Refill(s), Pharmacy: [facility] #[id number], 172.72, cm, 01/01/21 11:13:00 CDT, Height, 119.091, kg, 02/01/21 13:14:00 CDT, Weight primidone 2020-0 Yes 50 mg = 1 Mem oria 50 mg oral 4-22 tab, PO, l tablet 18:38: Bedtime, # Candice nn 00 30 tab, 3 Refill(s), Pharmacy: [facility] #[id number], 172.72, cm, 01/01/21 11:13:00 CDT, Height, 119.091, kg, 02/01/21 13:14:00 CDT, Weight primidone 2020-0 Yes 50 mg = 1 Mem oria 50 mg oral 4-22 tab, PO, l tablet 18:38: Bedtime, # Candice nn 00 30 tab, 3 Refill(s), Pharmacy: [facility] #[id number], 172.72, cm, 01/01/21 11:13:00 CDT, Height, 119.091, kg, 02/01/21 13:14:00 CDT, Weight primidone 2020-0 Yes 50 mg = 1 Mem oria 50 mg oral 4-22 tab, PO, l tablet 18:38: Bedtime, # Candice nn 00 30 tab, 3 Refill(s), Pharmacy: [facility] #[id number], 172.72, cm, 01/01/21 11:13:00 CDT, Height, 119.091, kg, 02/01/21 13:14:00 CDT, Weight gabapentin 2020-0 Yes 600 mg = 1 M emoria 600 MG Oral 3-22 tab, PO, l Tablet 16:48: TID, # 90 Alexandro n 00 tab, 3 Refill(s), Pharmacy: [facility] #[id number], 172.72, cm, 01/01/21 11:13:00 CDT, Height, 120.455, kg, 01/01/21 11:13:00 CDT, Weight Levetiracet 2021-0 Yes 250 mg = 1 Memoria am 250 MG 3-22 tab, PO, l Oral Tablet 16:48: BID, # 60 H ermann 00 tab, 3 Refill(s), Pharmacy: [facility] #[id number], 172.72, cm, 01/01/21 11:13:00 CDT, Height, 120.455, kg, 01/01/21 11:13:00 CDT, Weight gabapentin 1-0 Yes 600 mg = 1 M emoria 600 MG Oral 3-22 tab, PO, l Tablet 16:48: TID, # 90 Alexandro n 00 tab, 3 Refill(s), Pharmacy: [facility] #[id number], 172.72, cm, 01/01/21 11:13:00 CDT, Height, 120.455, kg, 01/01/21 11:13:00 CDT, Weight Levetiracet 1-0 Yes 250 mg = 1 Memoria am 250 MG 3-22 tab, PO, l Oral Tablet 16:48: BID, # 60 H ermann 00 tab, 3 Refill(s), Pharmacy: [facility] #[id number], 172.72, cm, 01/01/21 11:13:00 CDT, Height, 120.455, kg, 01/01/21 11:13:00 CDT, Weight gabapentin 2020-0 Yes 600 mg = 1 M emoria 600 MG Oral 3-22 tab, PO, l Tablet 16:48: TID, # 90 Alexandro n 00 tab, 3 Refill(s), Pharmacy: [facility] #[id number], 172.72, cm, 01/01/21 11:13:00 CDT, Height, 120.455, kg, 01/01/21 11:13:00 CDT, Weight Levetiracet 1-0 Yes 250 mg = 1 Memoria am 250 MG 3-22 tab, PO, l Oral Tablet 16:48: BID, # 60 H ermann 00 tab, 3 Refill(s), [facility][id number], 172.72, cm, 01/01/21 11:13:00 CDT, Height, 120.455, kg, 01/01/21 11:13:00 CDT, Weight gabapentin 2021-0 Yes 600 mg = 1 M emoria 600 MG Oral 3-22 tab, PO, l Tablet 16:48: TID, # 90 Alexandro n 00 tab, 3 Refill(s), Pharmacy: [facility] #[id number], 172.72, cm, 01/01/21 11:13:00 CDT, Height, 120.455, kg, 01/01/21 11:13:00 CDT, Weight Levetiracet Yes 250 mg = 1 Memoria am 250 MG 3-22 tab, PO, l Oral Tablet 16:48: BID, # 60 H ermann 00 tab, 3 Refill(s), Pharmacy: [facility] #[id number], 172.72, cm, 01/01/21 11:13:00 CDT, Height, 120.455, kg, 01/01/21 11:13:00 CDT, Weight Levetiracet No 250 mg = 1 Memoria am 250 MG 3-22 tab, PO, l Oral Tablet 16:22: BID, # 60 H ermann 00 tab, 2 Refill(s) Atenolol Yes 100 mg = 1 Mem oria 100 MG Oral 3-22 tab, PO, l Tablet 16:22: Daily, # [place] 00 30 tab, 0 Refill(s) atorvastati 0 Yes 20 mg = 1 M emoria n 20 mg 3-22 tab, PO, l oral tablet 16:22: Bedtime, # [place] 00 30 tab, 0 Refill(s) Levetiracet 0 No 250 mg = 1 Memoria am 250 MG 3-22 tab, PO, l Oral Tablet 16:22: BID, # 60 H ermann 00 tab, 2 Refill(s) Atenolol 0 Yes 100 mg = 1 Mem oria 100 MG Oral 3-22 tab, PO, l Tablet 16:22: Daily, # [place] 00 30 tab, 0 Refill(s) atorvastati 0 Yes 20 mg = 1 M emoria n 20 mg 3-22 tab, PO, l oral tablet 16:22: Bedtime, # [place] 00 30 tab, 0 Refill(s) Levetiracet No 250 mg = 1 Memoria am 250 MG 3-22 tab, PO, l Oral Tablet 16:22: BID, # 60 H ermann 00 tab, 2 Refill(s) Atenolol 0 Yes 100 mg = 1 Mem oria 100 MG Oral 3-22 tab, PO, l Tablet 16:22: Daily, # [place] 00 30 tab, 0 Refill(s) atorvastati 0 Yes 20 mg = 1 M emoria n 20 mg 3-22 tab, PO, l oral tablet 16:22: Bedtime, # [place] 00 30 tab, 0 Refill(s) Levetiracet No 250 mg = 1 Memoria am 250 MG 3-22 tab, PO, l Oral Tablet 16:22: BID, # 60 H ermann 00 tab, 2 Refill(s) Atenolol Yes 100 mg = 1 Mem oria 100 MG Oral 3-22 tab, PO, l Tablet 16:22: Daily, # [place] 00 30 tab, 0 Refill(s) atorvastati 0 Yes 20 mg = 1 M emoria n 20 mg 3-22 tab, PO, l oral tablet 16:22: Bedtime, # [place] 00 30 tab, 0 Refill(s) amLODIPine 0 Yes 10 mg = 1 Me moria 10 mg oral 3-22 tab, PO, l tablet 16:21: Daily, # [place] 00 90 tab, 1 Refill(s) amLODIPine 2020-0 Yes 10 mg = 1 Me moria 10 mg oral 3-22 tab, PO, l tablet 16:21: Daily, # [place] 00 90 tab, 1 Refill(s) amLODIPine 2020-0 Yes 10 mg = 1 Me moria 10 mg oral 3-22 tab, PO, l tablet 16:21: Daily, # [place] 00 90 tab, 1 Refill(s) amLODIPine 2020-0 Yes 10 mg = 1 Me moria 10 mg oral 3-22 tab, PO, l tablet 16:21: Daily, # [place] 00 90 tab, 1 Refill(s) clonazePAM 2020-0 Yes 0.5 mg = 1 M emoria 0.5 mg oral 3-22 tab, PO, l tablet 16:20: BID, # 30 Alexandro n 00 tab, 0 Refill(s) omeprazole 1-0 Yes 40 mg = 1 Me moria 40 mg oral 3-22 cap, PO, l delayed 16:20: Daily, # Alexandro n release 00 30 cap, 0 capsule Refill(s) omeprazole 2021-0 Yes 40 mg = 1 Me moria 40 mg oral 3-22 cap, PO, l delayed 16:20: Daily, # Alexandro n release 00 30 cap, 0 capsule Refill(s) clonazePAM 1-0 Yes 0.5 mg = 1 M emoria 0.5 mg oral 3-22 tab, PO, l tablet 16:20: BID, # 30 Alexandro n 00 tab, 0 Refill(s) omeprazole 1-0 Yes 40 mg = 1 Me moria 40 mg oral 3-22 cap, PO, l delayed 16:20: Daily, # Alexandro n release 00 30 cap, 0 capsule Refill(s) clonazePAM 2021-0 Yes 0.5 mg = 1 M emoria 0.5 mg oral 3-22 tab, PO, l tablet 16:20: BID, # 30 Alexandro n 00 tab, 0 Refill(s) omeprazole 1-0 Yes 40 mg = 1 Me moria 40 mg oral 3-22 cap, PO, l delayed 16:20: Daily, # Alexandro n release 00 30 cap, 0 capsule Refill(s) clonazePAM 1-0 Yes 0.5 mg = 1 M emoria 0.5 mg oral 3-22 tab, PO, l tablet 16:20: BID, # 30 Alexandro n 00 tab, 0 Refill(s) gabapentin 2020-0 No 600 mg = 1 M emoria 600 MG Oral 3-22 tab, PO, l Tablet 16:19: BID, # 270 Candice nn 00 tab, 0 Refill(s) gabapentin 2020-0 No 600 mg = 1 M emoria 600 MG Oral 3-22 tab, PO, l Tablet 16:19: BID, # 270 Candice nn 00 tab, 0 Refill(s) gabapentin 2020-0 No 600 mg = 1 M emoria 600 MG Oral 3-22 tab, PO, l Tablet 16:19: BID, # 270 Candice nn 00 tab, 0 Refill(s) gabapentin No 600 mg = 1 [...] orial [place] Heart Rate 2021-07-24 14:02:00 [facility] [place] Respitory Rate 2021-07-24 14:02:00 Memori al [place] Systolic (mm Hg) 2021-05-30 20:54:00 Juan A rial [place] Diastolic (mm Hg) 2021-05-30 20:54:00 Mem orial [place] Heart Rate 2021-05-30 20:54:00 [facility] [place] Respitory Rate 2021-05-30 20:54:00 Memori al [place] Systolic (mm Hg) 2021-04-24 20:47:00 Juan A rial [place] Diastolic (mm Hg) 2021-04-24 20:47:00 Mem orial [place] Heart Rate 2021-04-24 20:47:00 [facility] [place] Respitory Rate 2021-04-24 20:47:00 Memori al [place] Height 2021-04-24 20:47:00 172.72 cm [facility] [place] Weight 2021-04-24 20:47:00 [facility] [place] BMI Calculated 2021-04-24 20:47:00 Memori al [place] Systolic (mm Hg) 2021-04-23 18:55:00 Juan A rial [place] Diastolic (mm Hg) 2021-04-23 18:55:00 Mem orial [place] Heart Rate 2021-04-23 18:55:00 [facility] [place] Respitory Rate 2021-04-23 18:55:00 Memori al [place] Systolic (mm Hg) 2021-02-01 18:14:00 Juan A rial [place] Diastolic (mm Hg) 2021-02-01 18:14:00 Mem orial [place] Heart Rate 2021-02-01 18:14:00 [facility] [place] Respitory Rate 2021-02-01 18:14:00 Memori al [place] Weight 2021-02-01 18:14:00 [facility] [place] Systolic (mm Hg) 2021-01-01 16:03:00 Juan A rial [place] Diastolic (mm Hg) 2021-01-01 16:03:00 Mem orial [place] Heart Rate 2021-01-01 16:03:00 [facility] [place] Respitory Rate 2021-01-01 16:03:00 Memori al [place] Height 2021-01-01 16:03:00 172.72 cm [facility] [place] Weight 2021-01-01 16:03:00 [facility] [place] BMI Calculated 2021-01-01 16:03:00 Memori al [place] Procedures Procedure Date / Time Performed Performing Clinician Kendall arnett [id number] 2021-03-09 00:00:00 SELBR [facility] [id number] 2021-02-21 00:00:00 STEKE.04 [facility] [id number] 2021-02-21 00:00:00 STEKE.04 [facility] INS NEURSTIM LEAD 2021-01-15 00:00:00 [facility] SPINAL CANAL PERQ INTRO ANEST AGENT 2020-12-22 00:00:00 [facility] SPINAL CANAL PERQ INTRO AIF SP CANAL 2020-12-22 00:00:00 [facility] PERQ APPROACH INTRO ANEST AGENT 2020-11-10 00:00:00 [facility] SPINAL CANAL PERQ INTRO AIF SP CANAL 2020-11-10 00:00:00 [facility] PERQ APPROACH INTRO AIF SP CANAL 2019-10-08 00:00:00 [facility] PERQ APPROACH INTRO ANEST AGENT 2019-10-08 00:00:00 [facility] SPINAL CANAL PERQ Right Foot SX [facility] [place] Cholecystectomy<sup>1 [facility] Reji saeedmargaret </sup> Encounters Start End Encounter Admission Attending Care Care Encounter Source Date/Time Date/Time Type Type Clinicians Facility Department ID 2023-01-08 Outpatient [facility] [id number] [place] 06:46:08 [id number] 2022-05-07 Outpatient [facility] [id number] [place] 11:26:33 [id number] [facility] 2021-02-24 Inpatient [facility] [id number] [facility] 09:06:02 09 [facility] 2022-08-30 2022-08-30 Outpatient MHIE MHIE [id number] Memoria 15:15:00 15:15:00 13 [facility] 2022-08-30 2022-08-30 Outpatient MHIE MHIE [id number] Memoria 15:15:00 15:15:00 13 [facility] 2022-07-09 2022-07-09 Outpatient [facility] [id number] [place] 08:00:00 08:00:00 [facility] 2022-05-10 2022-05-10 Outpatient MHIE MHIE [id number] Memoria 11:45:00 11:45:00 12 [facility] 2022-05-10 2022-05-10 Outpatient MHIE MHIE [id number] Memoria 11:45:00 11:45:00 12 l [place] 2022-04-05 2022-04-05 Outpatient MHIE MHIE [id number] Memoria 15:45:00 15:45:00 11 l [place] 2022-04-05 2022-04-05 Outpatient MHIE MHIE [id number] Memoria 15:45:00 15:45:00 11 l [place] 2021-10-24 2021-10-24 Ambulatory nullFlavo MNA [id number] Memoria 20:30:00 20:30:00 Pre-Reg r Neurology 10 l [place] 2021-10-24 2021-10-24 Ambulatory nullFlavo MNA [id number] Memoria 20:30:00 20:30:00 Pre-Reg r Neurology 10 l Mk Malagon 2021-10-24 2021-10-24 Outpatient MHIE [id number] Memoria 14:30:00 14:30:00 10 sam [place] 2021-10-24 2021-10-[address] [id number] 14:30:00 14:30:00 Leonardo 10 Matt 2021-07-24 2021-07-25 Outpatient nullFlavo MNA [id number] Memoria 14:00:00 04:59:59 r Neurology 09 sam Malagon 2021-07-24 2021-07-25 Outpatient nullFlavo MNA [id number] Memoria 14:00:00 04:59:59 r Neurology 09 sam Malagon 2021-07-24 2021-07-24 [facility] [id number] 09:00:00 23:59:59 Leonardo 09 Matt 2021-07-24 2021-07-24 Outpatient MHIE MHIE [id number] Memoria 09:00:00 09:00:00 09 sam [place] 2021-07-11 2021-07-11 Ambulatory nullFlavo MNA [id number] Memoria 20:15:00 20:15:00 Pre-Reg r Neurology 08 l Mk [place]agon 2021-07-11 2021-07-11 Ambulatory nullFlavo MNA [id number] Memoria 20:15:00 20:15:00 Pre-Reg r Neurology 08 sam Malagon 2021-07-11 2021-07-11 Outpatient MHIE IE [id number] Memoria 15:15:00 15:15:00 08 sam [place]agon 2021-07-11 2021-07-11 [facility] [id number] 15:15:00 15:15:00 Leonardo Geovani Gutierrez 2021-06-06 2021-06-06 Ambulatory nullFlavo MNA [id number] Memoria 16:00:00 16:00:00 Pre-Reg r Neurology 05 sam [place] 2021-06-06 2021-06-06 Ambulatory nullFlavo MNA [id number] Memoria 16:00:00 16:00:00 Pre-Reg r Neurology 05 l Mk Malagon 2021-06-06 2021-06-06 Outpatient MHIE MHIE [id number] Memoria 11:00:00 11:00:00 05 sam Malagon 2021-06-06 2021-06-06 [id number] 11:00:00 11:00:00 Leonardo 05 Matt 2021-05-30 2021-05-31 Outpatient nullFlavo MNA [id number] Memoria 20:45:00 04:59:59 r Neurology 07 l Mk Malagon 2021-05-30 2021-05-31 Outpatient nullFlavo MNA [id number] Memoria 20:45:00 04:59:59 r Neurology 07 l Mk Malagon 2021-05-30 2021-05-30 [facility] [id number] 15:45:00 23:59:59 Leonardo Lilia Matt 2021-05-30 2021-05-30 Outpatient MHIE MHIE [id number] Memoria 15:45:00 15:45:00 07 sam Malagon 2021-04-24 2021-04-25 Outpatient nullFlavo MNA [id number] Memoria 20:30:00 04:59:59 r Neurology 06 l Mk Oliverann 2021-04-24 2021-04-25 Outpatient nullFlavo MNA [id number] Memoria 20:30:00 04:59:59 r Neurology 06 l Mk Malagon 2021-04-24 2021-04-24 [facility] [id number] 15:30:00 23:59:59 Leonardo Hamilton Matt 2021-04-24 2021-04-24 Outpatient MHIE MHIE [id number] Memoria 15:30:00 15:30:00 06 sam Malagon 2021-04-23 2021-04-24 Outpatient nullFlavo MNA [id number] Memoria 18:45:00 04:59:59 r Neurology 04 l Mk Oliverann 2021-04-23 2021-04-24 Outpatient nullFlavo MNA [id number] Memoria 18:45:00 04:59:59 r Neurology 04 sam Malagon 2021-04-23 2021-04-23 Outpatient [facility] [id number] 13:45:00 23:59:59 Leonardo 04 Matt 2021-04-23 2021-04-23 Outpatient MHIE MHIE [id number] Memoria 13:45:00 13:45:00 04 sam Malagon 2021-04-12 2021-04-12 Ambulatory nullFlavo MNA [id number] Memoria 18:15:00 18:15:00 Pre-Reg r Neurology 03 l Mk Oliverann 2021-04-12 2021-04-12 Ambulatory nullFlavo MNA [id number] Memoria 18:15:00 18:15:00 Pre-Reg r Neurology 03 l [place] 2021-04-12 2021-04-12 Outpatient MHIE MHIE [id number] Memoria 13:15:00 13:15:00 03 sam Malagon 2021-04-12 2021-04-12 Out[facility] [id number] 13:15:00 13:15:00 Leonardo 03 Matt 2021-03-09 2021-03-14 [id number] [facility] 13:24:00 16:31:00 12 [facility] 2021-02-26 2021-02-26 Ambulatory nullFlavo MNA [id number] Memoria 20:00:00 20:00:00 Pre-Reg r Neurology 02 l Mk Oliverann 2021-02-26 2021-02-26 Ambulatory nullFlavo MNA [id number] Memoria 20:00:00 20:00:00 Pre-Reg r Neurology 02 l Mk [place] 2021-02-26 2021-02-26 Outpatient MHIE MHIE [id number] Memoria 15:00:00 15:00:00 02 sam [place] 2021-02-26 2021-02-26 Outpatient YASMIN Pritchett [facility] [id number] 15:00:00 15:00:00 Leonardo 02 Matt 2021-02-01 2021-02-02 Outpatient nullFlavo MNA [id number] Memoria 18:00:00 04:59:59 r Neurology 01 l Mk Oliverann 2021-02-01 2021-02-02 Outpatient nullFlavo MNA [id number] Memoria 18:00:00 04:59:59 r Neurology 01 l [place] 2021-02-01 2021-02-01 Outpatient [facility] [id number] 13:00:00 23:59:59 Leonardo 01 Matt 2021-02-01 2021-02-01 Outpatient MHIE MHIE [id number] Memoria 13:00:00 13:00:00 01 l [place] 2021-01-15 2021-01-15 Outpatient Sri [facility] [id number] [facility] 08:32:00 10:43:00 SHERICE [facility] 2021-01-05 2021-01-07 Outside nullFlavo MNA [id number] Memoria 14:02:45 04:59:59 Medical r Neurology 00 l Records Mk [place] 2021-01-05 2021-01-07 Outside nullFlavo MNA [id number] Memoria 14:02:45 04:59:59 Medical r Neurology 00 l Records Mk [place] 2021-01-05 2021-01-06 [id number] 09:02:45 23:59:59 00 2021-01-01 2021-01-02 Outpatient nullFlavo MNA [id number] Memoria 15:45:00 04:59:59 r Neurology 00 l Mk [place] 2021-01-01 2021-01-02 Outpatient nullFlavo MNA [id number] Memoria 15:45:00 04:59:59 r Neurology 00 l Mk [place] 2021-01-01 2021-01-01 Outpatient YASMIN Pritchett [facility] [id number] 10:45:00 23:59:59 Leonardo 00 Matt 2021-01-01 2021-01-01 Outpatient MHIE MHIE [id number] Memoria 10:45:00 10:45:00 00 sam Malagon 2020-12-22 2020-12-22 Outpatient Sri NOLASCO [facility] [id number] [facility] 08:57:00 12:00:00 [facility] 2020-11-10 2020-11-10 Outpatient Sri NOLASCO [facility] [id number] [facility] 09:15:00 11:18:00 [facility] 2019-10-08 2019-10-08 Outpatient Sri NOLASCO [facility] [id number] [facility] 08:34:00 10:10:[facility] 2019-09-24 2019-09-24 Outpatient Sri NOLASCO [facility] [id number] [facility] 08:45:00 10:36:00 [facility] 2004-04-08 2004-04-08 Emergency ER [facility] [id number] [place] 00:40:00 03:00:00 MARCELA [id number] [facility] Results Test Description Test Time Test Comments Results Result Comments Source CREATININE 2021-03-14 05:06:00 Test Item Value Reference Range Interpretation Comme nts CREATININE (test code = CREAT) 0.75 mg/dL 0.64-1.27 N BASIC METABOLIC [id number] 08:36:00 Test Item Value Reference Range Interpretation [...] 9.6 mg/dL 8.5-10.5 N = [place]) VANCOMYCIN [id number] 08:31:00 Test Item Value Reference Range Interpretation Comments VANCOMYCIN TROUGH 15.6 ug/ml 10.0-20.0 N Please ref er to (test code = VANCT) Medicati on Administration Record (MAR) forlast d ose date and time. - XR ANKLE 3 + V [id number] 20:35:00 [facility] : 1965 Sex: MPatient Name: MADDISON PAEZ Unit No: [id number] EXAMS: CPT: [id number] XR ANKLE 3 + V RT [id number] COMPARISON:February 22, 2021 CLINICAL HISTORY: post op [...] (2037) BATCH NO: N/A Name: MADDISON PAEZ [facility] Phys: HERBERT.Meagan Nuñez DPM [address] : 1965 Age: 55 Sex: M [place], [place] [address] Loc: N.[id number] 1 Exam Da te: 03/12/2021 Status: ADM IN PH: FAX: PAGE 1 Signed Report- XR FOOT 3 + V LT 2021-03-12 20:33:00 [facility] 1965 Sex: MPatient Name: MADDISON PAEZ Unit No: [id number] EXAMS: CPT: [id number] XR FOOT 3 + [place] [id number] COMPARISON:February 22, 2021 CLINICAL HISTORY: post op [...] (2035) BATCH NO: N/A Name: MADDISON PAEZ [facility] Phys: HERBERT.Goldy - Meagan Crawford DPM [address] [facility] : 1965 Age: 55 Sex: M [place], [place] [address] Loc: N.[id number] 1 Exam Date: 03/12/2021 Status: ADM IN PH: FAX: PAGE 1 Signed ReportUA RFLX MICR CULT IF [id number] 13:01:00 Test Item Value Reference Range Interpretation [...] for culture: Dysuria/FrequencySpecimen Description: CLEAN CATCHCBC W/AUTO [id number] 12:20:00 Test Item Value Reference Range Interpretation [...] BA#) 0.0 x10 3/uL 0.0-0.1 N DIFFERENTIAL [id number] 12:20:00 Test Item Value Reference Range Interpretation Comments MACROCYTOSIS (test code = MACR) 1+ NONE SEEN A PLATELET MORPHOLOGY (test code = NORMAL NORMAL PLTMORPH) BASIC METABOLIC [id number] 08:08:00 Test Item Value Reference Range Interpretation [...] mg/dL 8.5-10.5 N = CA) CBC W/AUTO [id number] 07:56:00 Test Item Value Reference Range Interpretation [...] BA#) 0.0 x10 3/uL 0.0-0.1 N DIFFERENTIAL [id number] 07:56:00 Test Item Value Reference Range Interpretation Comments PLATELET MORPHOLOGY (test code = NORMAL PLTMORPH) CBC W/AUTO [id number] 07:56:00 Test Item Value Reference Range Interpretation [...] BA#) 0.0 x10 3/uL 0.0-0.1 N DIFFERENTIAL [id number] 07:56:00 Test Item Value Reference Range Interpretation Comments PLATELET MORPHOLOGY (test code = NORMAL PLTMORPH) CBC W/AUTO [id number] 07:53:00 Test Item Value Reference Range Interpretation [...] = EO#) x10 3/uL 0.0-0.5 BASIC METABOLIC [id number] 07:52:00 Test Item Value Reference Range Interpretation [...] code 8.9 mg/dL 8.5-10.5 N = CA) [id number] 07:52:00 Test Item Value Reference Range Interpretation Comments VANCOMYCIN (test 13.9 ug/mL Not estab. ~~~~~~~~~~~ ~~~~~~~~~~~~~ code = VANCO) ~~~~~~~~~~~~~~ ~~~~~THERA PEUTIC REFERENC E RANGE NOT ESTABLISHED WHEN NOT DRAWN PEAK O R TROUGH LEVEL.~~~~~~~~~ ~~~~~~~~~ ~~~~~~~~~~~~~~~ ~~~~~~~~~ ~Please refer t o Medication Administration Record (MAR) forlast d ose date and time. CBC W/AUTO [id number] 07:41:00 Test Item Value Reference Range Interpretation [...] 0.0 x10 3/uL 0.0-0.1 N CBC W/AUTO [id number] 18:13:00 Test Item Value Reference Range Interpretation [...] BA#) 0.0 x10 3/uL 0.0-0.1 N DIFFERENTIAL [id number] 18:13:00 Test Item Value Reference Range Interpretation Comments MACROCYTOSIS (test code = MACR) 1+ NONE SEEN A PLATELET MORPHOLOGY (test code = NORMAL NORMAL PLTMORPH) CBC W/AUTO [id number] 18:12:00 Test Item Value Reference Range Interpretation [...] BA#) 0.0 x10 3/uL 0.0-0.1 N DIFFERENTIAL [id number] 18:12:00 Test Item Value Reference Range Interpretation Comments PLATELET MORPHOLOGY (test code = NORMAL PLTMORPH) CBC W/AUTO [id number] 18:12:00 Test Item Value Reference Range Interpretation [...] BA#) 0.0 x10 3/uL 0.0-0.1 N DIFFERENTIAL [id number] 18:12:00 Test Item Value Reference Range Interpretation Comments PLATELET MORPHOLOGY (test code = NORMAL PLTMORPH) BASIC METABOLIC [id number] 18:11:00 Test Item Value Reference Range Interpretation [...] mg/dL 8.5-10.5 N = CA) CBC W/AUTO [id number] 18:09:00 Test Item Value Reference Range Interpretation [...] (test code = EO#) x10 3/uL 0.0-0.5 [id number] 11:42:00 Test Item Value Reference Range Interpretation Comments GLUBED (test code = GLUBED) 128 MG/DL 70-105 H [id number] 07:55:00 Test Item Value Reference Range Interpretation Comments CREATININE (test code = CREAT) 0.78 mg/dL 0.64-1.27 N VANCOMYCIN [id number] 07:20:00 Test Item Value Reference Range Interpretation Comments VANCOMYCIN TROUGH 14.4 ug/ml 10.0-20.0 N Please ref er to (test code = VANCT) Medicati on Administration Record (MAR) forlast d ose date and time. COVID 19 Asymptomatic IH [id number] 06:13:00 Test Item Value Reference Range Interpretation [...] oms consistent withCOVID-19.Sp ecimen Source: Nasopha ryngeal ([employer]) Swab BASIC METABOLIC [id number] 05:32:00 Test Item Value Reference Range Interpretation [...] mg/dL 8.5-10.5 L = CA) CBC W/AUTO [id number] 05:15:00 Test Item Value Reference Range Interpretation [...] 0.0 x10 3/uL 0.0-0.1 N CBC W/AUTO [id number] 05:12:00 Test Item Value Reference Range Interpretation [...] = EO#) x10 3/uL 0.0-0.5 CBC W/AUTO [id number] 06:25:00 Test Item Value Reference Range Interpretation [...] BA#) 0.0 x10 3/uL 0.0-0.1 N DIFFERENTIAL [id number] 06:25:00 Test Item Value Reference Range Interpretation Comments MACROCYTOSIS (test code = MACR) 1+ NONE SEEN A PLATELET MORPHOLOGY (test code = NORMAL NORMAL PLTMORPH) BASIC METABOLIC [id number] 06:17:00 Test Item Value Reference Range Interpretation [...] mg/dL 8.5-10.5 L = CA) CBC W/AUTO [id number] 05:45:00 Test Item Value Reference Range Interpretation [...] BA#) 0.0 x10 3/uL 0.0-0.1 N DIFFERENTIAL [id number] 05:45:00 Test Item Value Reference Range Interpretation Comments PLATELET MORPHOLOGY (test code = NORMAL PLTMORPH) CBC W/AUTO [id number] 05:45:00 Test Item Value Reference Range Interpretation [...] BA#) 0.0 x10 3/uL 0.0-0.1 N DIFFERENTIAL [id number] 05:45:00 Test Item Value Reference Range Interpretation Comments PLATELET MORPHOLOGY (test code = NORMAL PLTMORPH) - XR FOOT 3 + V [id number] 20:27:00 [facility] : 1965 Sex: MPatient Name: MADDISON PAEZ Unit No: [id number] EXAMS: CPT: [id number] XR FOOT 3 + V [place] [address] RADIOGRAPHS: Left ankle radiograph 3+ views. Left foot radiograph, 3+ views. COMPARISON: None available CLINICALHISTORY: POST OP FINDINGS: External fixator device transfixing the acute fractures of the distal tibia and fibula. Lateral fixation hardware and screw transfixes the distal fibula. Hardware is intact wi thout fracture or loosening. The ankle mortise is [...] (2029) BATCH NO: N/A Name: MADDISON PAEZ [facility] Phys: HORACIO VELASQUEZ DPM [address] [facility] : 1965 Age: 55 Sex: M [place], [place] [address] [id number] Loc: N.[id number] 1 Exam Date: 02/22/2021 Status: ADM IN PH: FAX: PAGE 1 Signed Report- XR ANKLE 3 + V [id number] 20:27:00 [facility] : 1965 Sex: MPatient Name: MADDISON PAEZ Unit No: [id number] EXAMS: CPT: [id number] XR ANKLE 3 + V LT [address] RADIOGRAPHS: Left ankle radiograph 3+ views. Left [...] (2029) BATCH NO: N/A Name: MADDISON PAEZ [facility] Phys: WAYLON VELASQUEZ DPM [address] [facility] : 1965 Age: 55 Sex: M [place], [place] [address] Loc: N.5027 1 Exam Date: 02/22/2021 Status: ADM IN PH: FAX: PAGE 1 Signed [id number] - GLYCOSYLATED [id number] 10:13:00 Test Item Value Reference Range Interpretation Comments GLYCOSYLATED HEMOGLOBIN 5.3 % 4.0-6.0 N Inte rpretive Data: (HA1C) (test code = Caution should be GLYHGB) exercised when interpreting th e HgbA1c in patients wit h hemolytic anemi a, iron deficiency and when the total hemoglobi n is < 9g/dL, due to a decrease in average age of red blood cells BASIC METABOLIC [id number] 04:20:00 Test Item Value Reference Range Interpretation [...] mg/dL 8.5-10.5 N = CA) CBC W/AUTO [id number] 04:07:00 Test Item Value Reference Range Interpretation [...] N - CT LOWER EXTRM W/O C [id number] 01:39:00 [facility] : 1965 Sex: MPatient Name: MADDISON PAEZ Unit No: [id number] EXAMS: CPT: [id number] [place] LOWER EXTRM W/[place] [address] [place] left ankle without contrast, 02/22/2021. Clinical: [...] Technologist: Nancy Duran CTDI: 4.98 DLP: 171.28 Trscr Dt/Tm: 02/22/2021 (0139) by:[email or web address] Orig Print D/T: S: 02/22/2021(0142) BATCH NO: N/A Name: MADDISON PAEZ [facility] Phys: Akbar Vick MD [address] [facility] : 1965 Age: 55 Sex: M [place], [place] [address] [facility] Exam Date: 02/22/2021 Status: ADM IN PH: FAX: PAGE 1 Signed ReportCOVID 19 Asymptomatic IH [id number] 23:35:00 Test Item Value Reference Range Interpretation [...] oms consistent withCOVID-19.Sp ecimen Source: Nasopha ryngeal ([employer]) Swab [id number] 23:28:00 Test Item Value Reference Range Interpretation Comments TROPONIN-I (test code = TROPI) <0.020 ng/mL 0.000-0.034 N CBC W/AUTO [id number] 23:27:00 Test Item Value Reference Range Interpretation [...] BA#) 0.0 x10 3/uL 0.0-0.1 N DIFFERENTIAL [id number] 23:27:00 Test Item Value Reference Range Interpretation Comments MACROCYTOSIS (test code = MACR) 2+ NONE SEEN A PLATELET MORPHOLOGY (test code = NORMAL NORMAL PLTMORPH) BASIC METABOLIC [id number] 23:21:00 Test Item Value Reference Range Interpretation [...] 8.7 mg/dL 8.5-10.5 N = CA) PROTHROMBIN [id number] 23:18:00 Test Item Value Reference Range Interpretation [...] .5 recurrent syste vivien embolism. THROMBOPLASTIN TIME [id number] 23:18:00 Test Item Value Reference Range Interpretation Comments THROMBOPLASTIN TIME PARTIAL (test 30 SECONDS 25-38 N code = PTT) CBC W/AUTO [id number] 23:12:00 Test Item Value Reference Range Interpretation [...] BA#) 0.0 x10 3/uL 0.0-0.1 N DIFFERENTIAL [id number] 23:12:00 Test Item Value Reference Range Interpretation Comments PLATELET MORPHOLOGY (test code = NORMAL PLTMORPH) CBC W/AUTO [id number] 23:12:00 Test Item Value Reference Range Interpretation [...] BA#) 0.0 x10 3/uL 0.0-0.1 N DIFFERENTIAL [id number] 23:12:00 Test Item Value Reference Range Interpretation Comments PLATELET MORPHOLOGY (test code = NORMAL PLTMORPH) CBC W/AUTO [id number] 23:05:00 Test Item Value Reference Range Interpretation [...] 0.0-0.5 - XR ANKLE 3 + V [id number] 22:46:00 [facility] : 1965 Sex: MPatient Name: MADDISON PAEZ Unit No: [id number] EXAMS: CPT: [id number] XR ANKLE 3 + [place] [address] Left ankle, 4 views, 02/21/2021. Clinical: Trauma. Comment: The cast compromises visualization. Soft tissue swelling is present. The mortise is disrupted. The tibia is displaced medially in relation to the talar dome. There is an acute comminuted fracture involving the distal fibula. IMPRESSION: Acute fracture dislocation as described above. at 2246 Reported and signed by: Solomon Aquino MD CC: Akbar James MD Technologist: Sendy Magallon Fluoro Time: DAP (Gy m2): Air Kerma (mGy): Trscr Dt/Tm: 02/21/2021 (2246) by:[email or web address] Orig Print D/T:S: 02/21/2021 (2249) BATCH NO: N/A Name: MADDISON PAEZ [facility] Phys: Akbar Vick MD [address] [facility] : 1965 Age: 55 Sex: [place] [address] Loc: N.ERS Exam Date: 02/21/2021 Status: PRE ER PH: FAX: PAGE 1 Signed Report
[2023-08-16 04:00] LABS: Absolute Lymphocytes (CBC) 0.5 K/uL (0.7-4.9); Hematocrit 33.6 % (39.6-49.0); MCV 97.9 fL (80-100); Platelets 205 thou/uL (152-406); RBC Red Blood Cell Count 3.43 M/uL (4.33-5.43)
[2023-08-16 04:07] LABS: Protime INR 1.04
[2023-08-16] MEDS ORDERED: NA CHLORIDE 0.9% 100 ML ONE (04:10)
[2023-08-16] MEDS ORDERED: CEFEPIME 2 GM VIAL ONE (04:10)
[2023-08-16] MEDS ORDERED: NA CHLORIDE 0.9% 1,000 ML ONE ×2 (04:10→05:03)
[2023-08-16] MEDS ORDERED: ACETAMINOPHEN 500 MG TAB ONE (04:16)
[2023-08-16 04:19] LABS: Albumin 3.2 g/dL (3.4-5.0); Bilirubin Total 0.3 mg/dL (0.2-1.0); Potassium 3.9 mEq/L (3.5-5.1); Protein, Total 7.6 g/dL (6.4-8.2)
--- NOTE | 2023-08-16 04:51 | EDPHYS ---
Physician Documentation [facility] Name: Juan José Escobar Jr Age: 58 yrs Sex: Male : 1965 Arrival Date: 08/16/2023 Time: 03:36 Bed 6 Private MD: ED Physician Shaun Dumont HPI: 08/16 04:09 This 58 yrs old Male presents to ER via Unassigned with complaints of Cellulitis to rt right lower extremity. 04:09 Patient presents to the ED with recurrence of cellulitis to the right lower extremity. rt This occurred over the past 24 hours and is rapidly worsened. He had a recent admission to the hospital for a cellulitis and is completed his antibiotics with improvement of the redness. The patient also reports a difficulty breathing, sats were noted to be in the 80s by EMS, correcting with supplemental O2. Denies other acute complaints at this time, symptoms are moderate severity, no other aggravating alleviating factors.. Historical: - Allergies: 03:46 Sulfa (Sulfonamide Antibiotics); la4 - Home Meds: 03:46 amlodipine 10 mg tab 1 tab once daily [Active]; aspirin 81 mg Oral chew 1 tab once la4 daily [Active]; amoxicillin-pot clavulanate 875-125 mg Oral tablet [Active]; atenolol 100 mg Oral tab 1 tab once daily [Active]; atorvastatin 20 mg Oral tab 1 tab once daily [Active]; clonazepam 0.5 mg Oral tab [Active]; gabapentin 300 mg Oral cap 2 caps 3 times per day [Active]; levetiracetam 250 mg Oral tab 2 tabs 2 times per day [Active]; omeprazole 40 mg Oral cpDR 1 cap once daily [Active]; primidone 250 mg Oral tab 1 tab 3 times per day [Active]; - PMHx: 03:46 Cellulitis; CMT; Hypertension; Seizure; la4 - PSHx: 03:46 R foot x 3; la4 - Immunization history:: Adult Immunizations up to date, Client reports receiving the 2nd dose of the Covid vaccine. - Social history:: Smoking status: Patient denies any tobacco usage or history of. Patient/guardian denies using alcohol, street drugs. - Family history:: not pertinent. - Code Status:: Full code. ROS: 04:09 Constitutional: Negative for fever, chills, and weight loss, Cardiovascular: Negative rt for chest pain, palpitations, and edema, Abdomen/GI: Negative for abdominal pain, nausea, vomiting, diarrhea, and constipation, Neuro: Negative for headache, weakness, numbness, tingling, and seizure, Psych: Negative for depression, anxiety, suicide ideation, homicidal ideation, and hallucinations, 04:09 Respiratory: Positive for shortness of breath, Negative for cough, 04:09 MS/extremity: Positive for pain, swelling, 04:09 Skin: Positive for cellulitis, rash, 04:09 Neuro: Positive for Exam: 04:09 Constitutional: This is a well developed, well nourished patient who is awake, alert, rt and in no acute distress. Head/Face: Normocephalic, atraumatic. Chest/axilla: Normal chest wall appearance and motion. Nontender with no deformity. No lesions are appreciated. Cardiovascular: Regular rate and rhythm with a normal S1 and S2. No gallops, murmurs, or rubs. Normal PMI, no JVD. No pulse deficits. Respiratory: Lungs have equal breath sounds bilaterally, clear to auscultation and percussion. No rales, rhonchi or wheezes noted. No increased work of breathing, no retractions or nasal flaring. Abdomen/GI: Soft, non-tender, with normal bowel sounds. No distension or tympany. No guarding or rebound. No evidence of tenderness throughout. Neuro: Awake and alert, GCS 15, oriented to person, place, time, and situation. Cranial nerves II-XII grossly intact. Motor strength 5/5 in all extremities. Sensory grossly intact. Cerebellar exam normal. Normal gait. Psych: Awake, alert, with orientation to person, place and time. Behavior, mood, and affect are within normal limits. 04:09 Musculoskeletal/extremity: Warmth and erythema to the distal right lower extremity tracking proximally to just above the knee. Pulses, motor, sensation intact, there is an ulcerative wound at the bottom of the right foot, appears to be well-healing.. 04:14 ECG was reviewed by the Attending Physician. rt Vital Signs: 03:46 BP 140 / 84 LA; Pulse 118 MON; Resp 24 S; Temp 102.3(O); Pulse Ox 96% on 3 lpm NC; la4 Weight 117.93 kg; Height 5 ft. 9 in. ; Pain 7/10; 04:15 BP 170 / 89; Pulse 116; Resp 22; Pulse Ox 100% ; Weight 117.93 kg; la4 05:37 BP 155 / 77; Pulse 122; Resp 24; Temp 102.4; Pulse Ox 97% on 2 lpm NC; la4 03:46 Body Mass Index 38.39 (117.93 kg, 175.26 cm) la4 03:46 Pain Scale: Adult la4 03:46 right leg pain la4 [place] Coma Score: 04:15 Eye Response: spontaneous(4). Motor Response: obeys commands(6). Verbal Response: la4 oriented(5). Total: 15. MDM: 03:46 Patient medically screened. rt 04:38 ED course: Patient is obese, ideal body weight is 71 kg, fluid resuscitation was based rt off of ideal body weight. 04:52 Differential diagnosis: Sepsis, cellulitis. Data reviewed: vital signs, nurses notes, rt lab test result(s), EKG, radiologic studies. Consideration of Admission/Observation Patient was admitted/placed on observation. Management of patient was discussed with the following: Hospitalist: Agrees to admit. I considered the following discharge prescriptions or medication management in the emergency department Medications were administered in the Emergency Department. See MAR. Independent interpretation of the following test(s) in the Emergency Department X-Ray: My interpretation is No consolidation seen on interpretation of x-ray images. Test considered but Not performed: Ultrasound Symptoms most consistent with a cellulitis, ultrasound not indicated. Care significantly affected by the following chronic conditions: Hypertension. Counseling: I had a detailed discussion with the patient and/or guardian regarding the historical points, exam findings, and any diagnostic results supporting the discharge/admit diagnosis, lab results, radiology results, the need for further work-up and treatment in the hospital. 08/16 03:48 Order name: Blood Culture Adult (2) rt 08/16 03:48 Order name: CBC with Diff; Complete Time: 04:35 rt 08/16 03:48 Order name: CMP; Complete Time: 04:35 rt 08/16 03:48 Order name: Lactate w/ 2H reflex if indic.; Complete Time: 04:35 rt 08/16 03:48 Order name: Protime (+inr); Complete Time: 04:35 rt 08/16 03:48 Order name: Ptt, Activated; Complete Time: 04:35 rt 08/16 05:00 Order name: CBC with Automated Diff EDMS 08/16 05:00 Order name: CBC with Automated Diff EDMS 08/16 05:00 Order name: Comprehensive Metabolic Panel EDMS 08/16 05:00 Order name: Comprehensive Metabolic Panel EDMS 08/16 05:03 Order name: Vancomycin Level Trough EDMS 08/16 05:03 Order name: Vancomycin Peak EDMS 08/16 05:18 Order name: Glucose, Ancillary Testing EDMS 08/16 03:48 Order name: Chest Single View XRAY rt 08/16 03:48 Order name: EKG; Complete Time: 03:48 rt 08/16 03:48 Order name: Accucheck; Complete Time: 04:49 rt 08/16 03:48 Order name: Cardiac monitoring; Complete Time: 04:43 rt 08/16 03:48 Order name: EKG - Nurse/Tech; Complete Time: 04:43 rt 08/16 03:48 Order name: IV Saline Lock - Large Bore; Complete Time: 04:43 rt 08/16 03:48 Order name: Labs collected and sent; Complete Time: 04:44 rt 08/16 03:48 Order name: O2 Per Protocol; Complete Time: 04:49 rt 08/16 03:48 Order name: O2 Sat Monitoring; Complete Time: 04:44 rt 08/16 03:48 Order name: Vital Signs; Complete Time: 04:44 rt EC:14 Rate is 114 beats/min. Rhythm is regular, Sinus tachycardia with No ectopy. QRS Ferriday is rt Normal. SD interval is normal. QRS interval is normal. QT interval is prolonged at 642 msec. No Q waves. Administered Medications: 04:00 Drug: Cefepime IVPB 2 grams IVPB at 200 ml/hr once over 30 mins; (mix in NS 100 mL) la4 Route: IVPB; Rate: 200 ml/hr; Infused Over: 30 mins; Site: right antecubital; 06:38 Follow up: IV Status: Completed infusion; IV Intake: 100ml rv 04:00 Drug: NS 0.9% IV 1000 ml IV at 1 bolus Per protocol; 1000 mL bolus Route: IV; Rate: 1 la4 bolus; Site: right antecubital; 06:37 Follow up: IV Status: Completed infusion; IV Intake: 1000ml rv 05:15 Drug: NS 0.9% IV 1000 ml IV at 1 bolus Per protocol; 1000 mL bolus Route: IV; Rate: 1 la4 bolus; Site: right antecubital; 06:37 Follow up: IV Status: Completed infusion; IV Intake: 1000ml rv 05:15 Drug: vancoMYCIN IVPB 1 grams IVPB once over 2 hrs Route: IVPB; Infused Over: 2 hrs; la4 Site: right antecubital; 06:37 Follow up: IV Status: Infusion continued upon admission rv 05:15 Drug: Labetalol IV 10 mg IV at calculated rate once Route: IV; Rate: calculated rate; rv Site: right antecubital; 06:37 Follow up: Response: Blood pressure is lowered; IV Status: Completed infusion rv Disposition Summary: 08/16/23 04:51 Hospitalization Ordered Notes: Hospitalization Status: Inpatient Admission rt Provider: Thaddeus Rausch rt Location: Telemetry/[facility] (Inpatient) rt Condition: Fair rt Problem: new rt Symptoms: are unchanged rt Bed/Room Type: Standard rt Room Assignment: 230(08/16/23 05:02) mw Diagnosis - Severe sepsis with septic shock rt - Cellulitis to right lower extremity rt Forms: - Medication Reconciliation Form rt - SBAR form rt - Leadership Thank You Letter rt Critical care time excluding procedures: 06:04 Critical care time: Bedside Care: 30 minutes, Consultation: 5 minutes. Total time: 35 rt minutes Signatures: Dispatcher [employer] Obdulia Jackson RN RN mw Bello Valle RN RN rv [place], Ryan, MD MD rt Bette Mena RN RN la4 Corrections: (The following items were deleted from the chart) 05:02 04:51 rt mw
--- NOTE | 2023-08-16 04:51 | ER ---
Nurse's Notes [facility] Name: Juan José Escobar Jr Age: 58 yrs Sex: Male : 1965 Arrival Date: 08/16/2023 Time: 03:36 Bed 6 Private MD: Diagnosis: Severe sepsis with septic shock;Cellulitis to right lower extremity Presentation: 08/16 03:46 Chief complaint: Patient states: cellulitis of the right leg EMS states: Pt preiously la4 treated for cellulitis of the right leg 3 weeks ago. Completed antibiotic therapy but leg remains red, swollen and painful. Pt began having fever and chills today w/ SOB. Initial SPO2 88% on room air. Pt placed on 3LNC and SPO2 improved to 96%. 03:46 Coronavirus screen: Vaccine status: Patient reports receiving the 2nd dose of the covid la4 vaccine. Client denies travel out of the [place] in the last 14 days. Ebola Screen: No symptoms or risks identified at this time. Initial Sepsis Screen: Does the patient meet any 2 criteria? RR > 20 per min. Temp <36.0*C (96.8*F)) or > 38.3*C (100.9*F). HR > 90 bpm. Yes Does the patient have a suspected source of infection? Yes: Skin breakdown/wound Other: left leg cellulitis If YES to both, name of provider notified: Shaun Dumont MD. Risk Assessment: Do you want to hurt yourself or someone else? Patient reports no desire to harm self or others. Onset of symptoms was August 16, 2023. Care prior to arrival: Oxygen administered. via nasal cannula. Activity prior to arrival: None. Transition of care: patient was not received from another setting of care. 03:46 Method Of Arrival: EMS: [facility] la4 03:46 Acuity: BUSHRA 2 la4 Triage Assessment: 03:46 General: Appears distressed, ill, Behavior is appropriate for age, anxious. Pain: la4 Complains of pain in right foot Pain radiates to lateral aspect of right calf and right ankle. Neuro: No deficits noted. Fong Agitation-Sedation Scale (RASS): 0 - Alert and Calm Level of Consciousness is awake, alert, obeys commands, Oriented to person, place, time, situation, none Bow Maker [employer] are equal bilaterally Moves all extremities. Gait is unsteady, wound to the left plantar surface of foot. Cardiovascular: Heart tones S1 S2 Capillary refill < 3 seconds Pulses are all present. Edema is 2+ to right ankle and right foot Rhythm is sinus tachycardia Chest pain is denied. Respiratory: Airway is patent Respiratory effort is even, unlabored, Respiratory pattern is regular, symmetrical, tachypnea Breath sounds are coarse bilaterally. Breath sounds with wheezes. GI: No deficits noted. : No deficits noted. Derm: Reports wound to the plantar surface of foot that is wrapped w/ kerlix. Musculoskeletal: No deficits noted. Historical: - Allergies: 03:46 Sulfa (Sulfonamide Antibiotics); la4 - Home Meds: 03:46 amlodipine 10 mg tab 1 tab once daily [Active]; aspirin 81 mg Oral chew 1 tab once la4 daily [Active]; amoxicillin-pot clavulanate 875-125 mg Oral tablet [Active]; atenolol 100 mg Oral tab 1 tab once daily [Active]; atorvastatin 20 mg Oral tab 1 tab once daily [Active]; clonazepam 0.5 mg Oral tab [Active]; gabapentin 300 mg Oral cap 2 caps 3 times per day [Active]; levetiracetam 250 mg Oral tab 2 tabs 2 times per day [Active]; omeprazole 40 mg Oral cpDR 1 cap once daily [Active]; primidone 250 mg Oral tab 1 tab 3 times per day [Active]; - PMHx: 03:46 Cellulitis; CMT; Hypertension; Seizure; la4 - PSHx: 03:46 R foot x 3; la4 - Immunization history:: Adult Immunizations up to date, Client reports receiving the 2nd dose of the Covid vaccine. - Social history:: Smoking status: Patient denies any tobacco usage or history of. Patient/guardian denies using alcohol, street drugs. - Family history:: not pertinent. - Code Status:: Full code. Screenin:41 [facility] ED Fall Risk Assessment (Adult) History of falling in the last 3 months, la4 including since admission No falls in past 3 months (0 pts) Confusion or Disorientation No (0 pts) Intoxicated or Sedated No (0 pts) Impaired Gait Yes (1 pt) Mobility Assist Device Used Yes (1 pt) Altered Elimination No (0 pt) Score/Fall Risk Level 3 or more points = High Risk Oriented to surroundings, Maintained a safe environment, Educated pt \T\ family on fall prevention, incl call for assistance when getting out of bed, Assessed \T\ reinforced patient's understanding of fall precautions, Provided non-skid footwear, Hourly rounding (assess needs \T\ fall precautionary measures) done, Used ambulatory aids as needed (educated on \T\ assisted with). Abuse screen: Denies threats or abuse. Denies injuries from another. Nutritional screening: No deficits noted. Tuberculosis screening: No symptoms or risk factors identified. 04:42 Sepsis Screening: . Infection: Patient has suspected or documented infection. Patient la4 is not currently on antibiotics or on antibiotics were prescribed as prophylaxis. SIRS - Systemic Inflammatory Response Syndrome: 2 or more indicates positive screen: [temperature greater than or equal to 100.9F or less than or equal to 96.8F] [heart rate greater than 90 beats per minute] [respiratory rate is greater than 20 breaths per minute]. Assessment: 04:32 Reassessment: No changes from previously documented assessment. Patient and/or family la4 updated on plan of care and expected duration. Pain level reassessed. Pt skin remains moist to touch, family to bedside. General: Appears uncomfortable, ill, Behavior is calm, cooperative, appropriate for age, Reports chills for fever for feeling ill for 1-2 days, fatigue for. Neuro: Denies paresthesias numbness. Vital Signs: 03:46 BP 140 / 84 LA; Pulse 118 MON; Resp 24 S; Temp 102.3(O); Pulse Ox 96% on 3 lpm NC; la4 Weight 117.93 kg; Height 5 ft. 9 in. ; Pain 7/10; 04:15 BP 170 / 89; Pulse 116; Resp 22; Pulse Ox 100% ; Weight 117.93 kg; la4 05:37 BP 155 / 77; Pulse 122; Resp 24; Temp 102.4; Pulse Ox 97% on 2 lpm NC; la4 03:46 Body Mass Index 38.39 (117.93 kg, 175.26 cm) la4 03:46 Pain Scale: Adult la4 03:46 right leg pain la4 Vitals: 04:15 Cardiac Rhythm Assessment Regular Sinus tach. la4 [place] Coma Score: 04:15 Eye Response: spontaneous(4). Motor Response: obeys commands(6). Verbal Response: la4 oriented(5). Total: 15. ED Course: 03:46 Patient arrived in ED. vc1 03:46 Shaun Dumont MD is Attending Physician. rt 03:46 Arm band placed on. la4 03:46 Patient has correct armband on for positive identification. Fall risk band placed. la4 Placed in gown. Bed in low position. Side rails up X2. Adult w/ patient. 03:50 No provider procedures requiring assistance completed. Inserted saline lock: 20 gauge la4 in left antecubital area, using aseptic technique. Blood collected. Maintain EMS IV. Dressing intact. Good blood return noted. Site clean \T\ dry. Gauge \T\ site: 20G right AC. IV Changed dressing on Flushed. 03:50 Oxygen administration via nasal cannula \T\ 3L/min Response to oxygen therapy: symptoms la4 improved. Dressings: Tl 4X4s X 1; right foot. 04:24 Triage completed. la4 04:30 Chest Single View XRAY In Process Unspecified. EDMS 04:49 Thaddeus Rausch MD is Hospitalizing Provider. rt 05:04 Bello Valle, MARI is Primary Nurse. rv 05:27 Patient admitted, IV remains in place. la4 05:28 Provided Education on: plan of care. la4 05:29 Awaiting: transport to floor via stretcher, awaiting BP medications to work. la4 Administered Medications: 04:00 Drug: Cefepime IVPB 2 grams IVPB at 200 ml/hr once over 30 mins; (mix in NS 100 mL) la4 Route: IVPB; Rate: 200 ml/hr; Infused Over: 30 mins; Site: right antecubital; 06:38 Follow up: IV Status: Completed infusion; IV Intake: 100ml rv 04:00 Drug: NS 0.9% IV 1000 ml IV at 1 bolus Per protocol; 1000 mL bolus Route: IV; Rate: 1 la4 bolus; Site: right antecubital; 06:37 Follow up: IV Status: Completed infusion; IV Intake: 1000ml rv 05:15 Drug: NS 0.9% IV 1000 ml IV at 1 bolus Per protocol; 1000 mL bolus Route: IV; Rate: 1 la4 bolus; Site: right antecubital; 06:37 Follow up: IV Status: Completed infusion; IV Intake: 1000ml rv 05:15 Drug: vancoMYCIN IVPB 1 grams IVPB once over 2 hrs Route: IVPB; Infused Over: 2 hrs; la4 Site: right antecubital; 06:37 Follow up: IV Status: Infusion continued upon admission rv 05:15 Drug: Labetalol IV 10 mg IV at calculated rate once Route: IV; Rate: calculated rate; rv Site: right antecubital; 06:37 Follow up: Response: Blood pressure is lowered; IV Status: Completed infusion rv Medication: 05:29 VIS not applicable for this client. la4 Intake: 06:37 IV: 1000ml; Total: 1000ml. rv 06:37 IV: 1000ml; Total: 2000ml. rv 06:38 IV: 100ml; Total: 2100ml. rv Outcome: 04:51 Decision to Hospitalize by Provider. rt 05:40 Admitted to Med/surg accompanied by nurse, via stretcher, room 230, with oxygen, on la4 monitor, with chart, Other all pt personal belongings 05:40 Condition: unchanged 05:40 Instructed on the need for admit, 06:38 Patient left the ED. rv Signatures: Dispatcher [employer] EDMS Bello Valle RN RN rv Leena Cole RN RN vc1 Shaun Dumont MD MD rt Bette Mena RN RN la4
[2023-08-16] MEDS ORDERED: ACETAMINOPHEN 500 MG TAB PO PRN (04:54)
[2023-08-16] MEDS ORDERED: ONDANSETRON 4 MG/2 ML VIAL IV PRN (04:54)
[2023-08-16] MEDS: NA CHLORIDE 0.9% 1,000 ML IV SCH ×2 (05:00→15:58)
[2023-08-16] MEDS ORDERED: NA CHLORIDE 0.9% 250 ML ONE (05:03)
[2023-08-16] MEDS ORDERED: VANCOMYCIN 1 GM/VIAL ONE (05:03)
[2023-08-16] MEDS ORDERED: LABETALOL 20 MG/4ML SYRINGE IV ONE (05:23)
[2023-08-16] MEDS ORDERED: IBUPROFEN 200 MG TAB PO ONE (05:28)
[2023-08-16] MEDS ORDERED: IBUPROFEN 400 MG TAB ONE (05:28)
--- NOTE | 2023-08-16 05:43 | P.HP ---
Certification for Inpatient Patient admitted to: Inpatient With expected LOS: >2 Midnights Patient will require the following post-hospital care: None Practitioner: I am a practitioner with admitting privileges, knowledge of patient current condition, hospital course, and medical plan of care. Services: Services provided to patient in accordance with Admission requirements found in Title 42 Section 412.3 of the Code of Federal Regulations Patient History Date of Service: 08/16/23 Reason for admission: Right lower extremity cellulitis History of Present Illness: 58 yrs old Male with past medical history of hypertension, seizure disorder, CMT, neuropathy, who was recently been admitted to the hospital with right lower extremity cellulitis and was completed antibiotics with improvement of redness , has been doing wound care at home with wound packing , brought to ER with shortness of breath and fever and chills and redness and swelling of right lower extremity. Denies any chest pain. The symptoms progressed over the last 24 hours and has been rapidly been worsening. No nausea vomiting or diarrhea. No sick contacts. Patient was assessed in the ER and was found to have sepsis with right lower extremity cellulitis and hypoxic respiratory failure and accelerated hypertension and was admitted for further management. Allergies sulfamethoxazole [From Bactrim] Allergy (Verified 05/15/22 06:33) Unknown trimethoprim [From Bactrim] Allergy (Verified 05/15/22 06:33) Unknown Sulfa (Sulfonamide An Allergy (Uncoded 02/06/17 23:57) Unknown Home medications list reviewed: Yes Home Medications: Atorvastatin Calcium 20 mg PO DAILY 05/15/22 Gabapentin [Neurontin] 300 mg PO SEECOM 05/15/22 Omeprazole [Prilosec] 40 mg PO DAILY 05/15/22 Primidone 250 mg PO TID 05/15/22 Atenolol [Tenormin] 50 mg PO BID 12/11/22 ALPRAZolam [Xanax*] 0.5 mg PO TID PRN 07/21/23 Aspirin [Aspirin EC 81 MG] 81 mg PO DAILY 07/21/23 levETIRAcetam [Keppra] 1 tab PO BID 07/22/23 Ciprofloxacin HCl 750 mg PO BID 10 Days #20 tab 07/26/23 Linezolid [Zyvox] 600 mg PO BID 10 Days #20 tab 07/26/23 Silver Sulfadiazine Crm [Silvadene*] 1 appl TOP BID 30 Days #1 tube 10/14/23 - Past Medical/Surgical History Diabetic: No Past Medical History: Reviewed- Non-Contributory -: CMT -: HTN -: GERD -: HLD Past Surgical History: Reviewed- Non-Contributory -: Foot surgery - Family History Family History: Reviewed- Non-Contributory - Family History Father -: Heart disease - Social History Smoking Status: Never smoker Alcohol use: Yes CD- Drugs: No Caffeine use: Yes Review of Systems General: Fever, Chills, Weakness, Malaise Eyes: Unremarkable ENT: Unremarkable Respiratory: Shortness of Breath, SOB with Excertion, Unremarkable Cardiovascular: Orthopnea, Edema, Unremarkable Gastrointestinal: Unremarkable Genitourinary: Unremarkable Musculoskeletal: Leg Pain, Pedal edema Integumentary: Other (Right lower extremity cellulitis ) Physical Examination - Vital Signs Temperature: 102.1 F Blood Pressure: 220/108 Pulse: 98 Respirations: 20 Pulse Ox (%): 97 - Physical Exam General: Alert, Oriented x3, Moderate distress, Obese HEENT: Atraumatic, Normocephalic Neck: Supple, No Thyromegaly Respiratory: Diminished, Crackles/rales, Expiratory wheezes Cardiovascular: Normal S1 S2, Other (Tachycardic ) Capillary refill: <2 Seconds Gastrointestinal: Soft and benign, W/out hepatosplenomegaly Musculoskeletal: Swelling, Erythema, Tenderness, Warmth Integumentary: Tenderness/swelling, Erythema, Other (Right Lower extremity Cellulitis , Foot Ulcer with packing noted ) Neurological: Normal speech, Normal strength at 5/5 x4 extr, Cranial nerves 3-12 intact Lymphatics: No axilla or inguinal lymphadenopathy - Studies Laboratory Data (last 24 hrs) 08/16/23 08/16/23 08/16/23 03:45 03:45 03:45 WBC 10.50 Hgb 11.6 L Hct 33.6 L Plt Count 205 PT 11.4 INR 1.04 APTT 25.3 Sodium 138 Potassium 3.9 BUN 7 Creatinine 0.89 Glucose 110 H Total Bilirubin 0.3 AST 97 H ALT 128 H Alkaline Phosphatase 148 H Assessment and Plan - Problems (Diagnosis) (1) Sepsis Current Visit: No Status: Acute Plan: On sepsis protocol Started on IV hydration We will obtain cultures Started on IV antibiotic Broad-spectrum IV antibiotic with vancomycin and cefepime We will streamline antibiotic as per the sensitivity Elevated lactic acid found We will obtain serial lactic acid levels (2) Acute hypoxic respiratory failure Current Visit: Yes Status: Acute Plan: No previous history of CAD/COPD We will obtain ABG On oxygen supplementation Saturating well with supplementation X-ray findings noted We will obtain a CT chest PE protocol to rule out PE We will also order echocardiogram (3) Cellulitis of right lower extremity Current Visit: No Status: Acute Plan: Patient has been having right lower extremity cellulitis and has been treated with IV antibiotic initially followed by Rubia Epididymitis Pain control Has a foot ulcer as well Needs wound packing We will consult wound care Monitor closely (4) History of seizure disorder Current Visit: No Status: Acute Plan: Continue home medications including Keppra and primidone Seizure precautions (5) Hypertension Current Visit: No Status: Chronic Plan: Noted to have accelerated hypertension Continue home medications including atenolol We will titrate as needed We will add her home hydralazine as needed (6) Wound of right foot Current Visit: No Status: Acute Plan: Wound care consult We will obtain a Doppler of the right lower extremity (7) CMT (Gizrjgn-Mdbda-Qnxja disease) Current Visit: Yes Status: Chronic Plan: Continue supportive management Continue gabapentin For neuropathy Discharge Plan: Home Plan to discharge in: Greater than 2 days - Advance Directives Does patient have a Living Will: No Does patient have a Durable POA for Healthcare: No - Code Status/Comfort Care Code Status: Full Code Physician Review: Patient Assessed, Agree with Above Assessment and Plan Time Spent Managing Pts Care (In Minutes): 48
--- NOTE | 2023-08-16 07:39 | RAD REPORT ---
EXAM DESCRIPTION: US - Extremity Venous Uni Ltd - 08/16/2023 6:39 am CLINICAL HISTORY: DVT COMPARISON: None. TECHNIQUE: Real-time sonographic evaluation of the right lower extremity deep venous system was perf ormed. FINDINGS: Normal compressibility, flow augmentation, phasic flow and spontaneous flow is identified in the right lower extremity deep venous system. No intraluminal filling defects seen. Enlarged right inguinal lymph node measuring 1.5 cm in short axis. IMPRESSION: No DVT in the right lower extremity. Pathologically enlarged right inguinal lymph node which is presumably reactive. Suggest clinical follow-up.
--- NOTE | 2023-08-16 07:43 | RAD REPORT ---
EXAM DESCRIPTION: CT - Chest Angio - 08/16/2023 6:08 am CLINICAL HISTORY: PE protocol COMPARISON: No comparisons TECHNIQUE: Dynamically enhanced axial 3 mm thick images of the chest were obtained during administra tion of <100> mL Isovue 370 IV contrast. Coronal and oblique reconstruction images were generated and reviewed. Exam utilizes a protocol for optimal evaluation of pulmonary arterial tree. Maximum intensity projections 3D imaging was utilized All CT scans are performed using dose optimization technique as appropriate and may include automated exposure control or mA/KV adjustment according to patient size. FINDINGS: Chest Wall: No suspicious thyroid nodules or pathologic lymphadenopathy. Lungs: No acute abnormality. Pleura: No significant effusions or pneumothorax. Mediastinum/darrell: No pathologic lymphadenopathy. Pulmonary arteries/Aorta: Suboptimal opacification of the pulmonary arteries. No filling defect ident ified. No aortic aneurysm. Heart: No significant pericardial effusion. Normal heart size. Coronary artery calcifications. Upper abdomen: No acute abnormality.Cholecystectomy. Mildly nodular liver configuration. Bones: No acute abnormality. IMPRESSION: Negative for pulmonary embolism. No other acute process within the chest.
[2023-08-16] MEDS: VANCOMYCIN 2 GM in NA CHLORIDE 0.9% 500 ML IVPB SCH ×2 (08:29→20:22)
[2023-08-16] MEDS: MORPHINE 2 MG/ML SYR IV PRN ×3 (08:29→22:52)
[2023-08-16] MEDS: levETIRAcetam 500 MG TAB PO SCH ×2 (08:30→20:29)
[2023-08-16] MEDS: ATORVASTATIN 20 MG TAB PO SCH (08:30)
[2023-08-16] MEDS: ASPIRIN EC 81 MG TAB PO SCH (08:30)
[2023-08-16] MEDS: atenoloL 50 MG TAB PO SCH ×2 (08:30→20:29)
[2023-08-16] MEDS: GABAPENTIN 300 MG CAP PO SCH ×3 (08:30→20:29)
[2023-08-16] MEDS: PRIMIDONE 250 MG TAB PO SCH ×3 (08:31→20:29)
[2023-08-16] MEDS: ENOXAPARIN 40 MG/0.4 ML SQ SCH (08:31)
[2023-08-16] MEDS: CEFEPIME 1 GM in NA CHLORIDE 0.9% 100 ML IV SCH ×2 (08:32→20:39)
[2023-08-16 10:08] VITALS: BMI 38.4
--- NOTE | 2023-08-16 10:33 | P.PN ---
Subjective Date of Service: 08/16/23 Chief Complaint: Right lower extremity cellulitis HPI 08/16: Juan José Escobar is 58 yrs old Male with past medical history of hypertension, seizure disorder, CMT, neuropathy, who was recently been admitted to the hospital with right lower extremity cellulitis and was completed antibiot ics with improvement of redness , has been doing wound care at home with wound packing , brought to ER with shortness of breath and fever and chills and redness and swelling of right lower extremity. Denies any chest pain. The symptoms progressed over the last 24 hours and has been rapidly been worsening. No nausea vomiting or diarrhea. No sick contacts. Patient was assessed in the ER and was found to have sepsis with right lower extremity cellulitis and hypoxic respiratory failure and accelerated hypertension and was admitted for further management. 08/16: Juan José is awake this AM, antibiotics infusing. He reports have chronic wounds to his right foot. 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 He was able to complete his job and returned home not feeling well. His manages his wound care. Juan José missed his appointment with Dr. Erick Montgomery d/t not feeling well. On examination he is on RA, and denies fever, chills, CP, and abdominal pain. <Tyra Barclay - Last Filed: 08/16/23 11:08> Date of Service: 08/16/23 <merna oliver - Last Filed: 08/16/23 13:18> Review of Systems Musculoskeletal: Leg Pain (right), Foot Pain (right ) <Tyra Barclay - Last Filed: 08/16/23 11:08> Physical Examination - Vital Signs Temperature: 100.6 F Blood Pressure: 104/54 Pulse: 99 Respirations: 16 Pulse Ox (%): 96 - Studies Laboratory Data (last 24 hrs) 08/16/23 08/16/23 08/16/23 03:45 03:45 03:45 WBC 10.50 Hgb 11.6 L Hct 33.6 L Plt Count 205 PT 11.4 INR 1.04 APTT 25.3 Sodium 138 Potassium 3.9 BUN 7 Creatinine 0.89 Glucose 110 H Total Bilirubin 0.3 AST 97 H ALT 128 H Alkaline Phosphatase 148 H <Tyra Barclay - Last Filed: 08/16/23 11:08> - Studies Laboratory Data (last 24 hrs) 08/16/23 08/16/23 08/16/23 03:45 03:45 03:45 WBC 10.50 Hgb 11.6 L Hct 33.6 L Plt Count 205 PT 11.4 INR 1.04 APTT 25.3 Sodium 138 Potassium 3.9 BUN 7 Creatinine 0.89 Glucose 110 H Total Bilirubin 0.3 AST 97 H ALT 128 H Alkaline Phosphatase 148 H <merna oliver - Last Filed: 08/16/23 13:18> Assessment And Plan - Plan Physical Exam General: Alert, Oriented x3, Moderate distress, Obese HEENT: Atraumatic, Normocephalic Neck: Supple, No Thyromegaly Respiratory: Diminished, Crackles/rales, Expiratory wheezes Cardiovascular: Normal S1 S2, Other (Tachycardic ) Capillary refill: <2 Seconds Gastrointestinal: Soft and benign, W/out hepatosplenomegaly Musculoskeletal: RLE and foot with Swelling, Erythema, Tenderness, Warmth dressing C/D/I, LLE with edema Integumentary: Tenderness/swelling, Erythema, Other (Right Lower extremity Cellulitis , Foot Ulcer with packing noted ) Neurological: Normal speech, Normal strength at 5/5 x4 extr, Cranial nerves 3-12 intact Lymphatics: No axilla or inguinal lymphadenopathy Assessment and Plan Sepsis Lactic Acidosis On sepsis protocol Started on IV hydration We will obtain cultures Started on IV antibiotic Broad-spectrum IV antibiotic with vancomycin and cefepime We will streamline antibiotic as per the sensitivity Elevated lactic acid 4.0, repeat pending Acute hypoxic respiratory failure No previous history of CAD/COPD We will obtain ABG On oxygen supplementation Saturating well with supplementation X-ray findings noted We will obtain a CT chest PE protocol to rule out PE We will also order echocardiogram prolonged QT 642 on EKG in ED Cellulitis of right lower extremity Patient has been having right lower extremity cellulitis and has been treated with IV antibiotic initially followed by Zshaeox Epididymitis Pain control Has a foot ulcer as well Needs wound packing We will consult wound care Monitor closely Incidental finding on US venous extremity "Enlarged right inguinal lymph node measuring 1.5 cm in short axis" History of seizure disorder Continue home medications including Keppra and primidone Seizure precautions Hypertension Noted to have accelerated hypertension Continue home medications including atenolol We will titrate as needed We will add home hydralazine as needed Wound of right foot Wound care consult We will obtain a Doppler of the right lower extremity CMT (Qvrkssv-Sidnb-Knylk disease) Continue supportive management Continue gabapentin For neuropathy Discharge Plan: Home Plan to discharge in: Greater than 2 days Discharge Plan: Home Plan to discharge in: 72 Hours Physician Review: Patient Assessed, Agree with Above Assessment and Plan Time Spent Managing PTS Care (In Minutes): 35 (second note for the day, no charge) <Tyra Barclay - Last Filed: 08/16/23 11:08> - Plan History of medical noncompliance. He refused surgical debridement during hospitalization 1 month ago for sepsis, cellulitis and infected Charcot foot wound. He agrees to evaluation by Dr. Suarez for possible debridement. He is on aggressive IV antibiotics Need deep tissue wound culture to tailor antibiotics. <merna oliver - Last Filed: 08/16/23 13:18>
--- NOTE | 2023-08-16 11:49 | RAD REPORT ---
EXAM DESCRIPTION: RAD - Chest Single View - 08/16/2023 4:29 am CLINICAL HISTORY: 58 years Male DYSPNEA COMPARISON: None FINDINGS: Lung volumes adequate. Cardiac silhouette is normal in size. No pneumothorax. No large pleural effusion. No focal consolidation. No acute bony finding. IMPRESSION: No acute cardiopulmonary findings. Electronically signed by: Krishan Reed MD 08/16/2023 4:44 AM CDT Due to temporary technical issues with the PACS/Fluency reporting system, reports are being signed by the in house radiologists without review as a courtesy to insure prompt reporting. The interpreting radiologist is fully responsible for the content of the report.
[2023-08-16] MEDS: ACETAMINOPHEN 500 MG TAB PO PRN ×3 (13:31→23:40)
[2023-08-16] MEDS: IBUPROFEN 400 MG TAB PO PRN ×2 (15:53→21:10)
[2023-08-16] MEDS: ALPRAZOLAM 0.5 MG TABLET PO PRN (20:34)
[2023-08-16] MEDS ORDERED: NA CHLORIDE 0.9% 1,000 ML IV ONE (21:28)
[2023-08-16] MEDS: METOPROLOL TAR 50 MG TAB PO SCH (21:55)
[2023-08-16] MEDS: SILVER SULFADIAZINE 1% 50 GM TOP SCH (21:57)
[2023-08-17] MEDS: NA CHLORIDE 0.9% 1,000 ML IV SCH ×3 (02:00→21:00)
[2023-08-17 03:16] LABS: Absolute Lymphocytes (CBC) 0.7 K/uL (0.7-4.9); Hematocrit 27.7 % (39.6-49.0); Lymphocytes % 9.2 % (15.3-44.8); MCV 98.3 fL (80-100); MPV 8.2 fL (7.6-11.3); Platelets 137 thou/uL (152-406); RBC Red Blood Cell Count 2.81 M/uL (4.33-5.43)
[2023-08-17] MEDS: MORPHINE 2 MG/ML SYR IV PRN ×4 (03:21→21:45)
[2023-08-17] MEDS: IBUPROFEN 400 MG TAB PO PRN ×4 (03:27→23:53)
[2023-08-17 03:37] LABS: Albumin 2.5 g/dL (3.4-5.0); Bilirubin Total 0.9 mg/dL (0.2-1.0); Potassium 3.7 mEq/L (3.5-5.1); Protein, Total 6.2 g/dL (6.4-8.2)
[2023-08-17] MEDS: VANCOMYCIN 2 GM in NA CHLORIDE 0.9% 500 ML IVPB SCH ×3 (08:51→22:55)
[2023-08-17] MEDS: ASPIRIN EC 81 MG TAB PO SCH (08:51)
[2023-08-17] MEDS: ATORVASTATIN 20 MG TAB PO SCH (08:51)
[2023-08-17] MEDS: METOPROLOL TAR 50 MG TAB PO SCH ×2 (08:51→20:31)
[2023-08-17] MEDS: levETIRAcetam 500 MG TAB PO SCH ×2 (08:51→20:31)
[2023-08-17] MEDS: PRIMIDONE 250 MG TAB PO SCH ×3 (08:52→20:30)
[2023-08-17] MEDS: SILVER SULFADIAZINE 1% 50 GM TOP SCH ×2 (08:52→20:34)
[2023-08-17] MEDS: ACETAMINOPHEN 500 MG TAB PO PRN ×3 (08:52→20:30)
[2023-08-17] MEDS: atenoloL 50 MG TAB PO SCH ×2 (08:52→20:31)
[2023-08-17] MEDS: CEFEPIME 1 GM in NA CHLORIDE 0.9% 100 ML IV SCH ×2 (08:52→19:26)
[2023-08-17] MEDS: ENOXAPARIN 40 MG/0.4 ML SQ SCH (08:52)
[2023-08-17] MEDS: GABAPENTIN 300 MG CAP PO SCH ×3 (08:52→20:30)
--- NOTE | 2023-08-17 13:39 | P.PN ---
Subjective Date of Service: 08/17/23 Chief Complaint: Right lower extremity cellulitis Patient had cortisone fever yesterday. No recorded fever today. Right leg remains erythematous and swollen. He is tolerating diet. Physical Examination - Vital Signs Temperature: 99.6 F Blood Pressure: 173/94 Pulse: 94 Respirations: 18 Pulse Ox (%): 96 Assessment And Plan - Plan Physical Exam General: Alert, Oriented x3, NAD, Obese Respiratory: Diminished, no crackles/rales, no wheezes Cardiovascular: Normal S1 S2, Tachycardic, 1+ bilateral lower extremity edema. Gastrointestinal: Soft and benign, obese, W/out hepatosplenomegaly Musculoskeletal: RLE and foot with Swelling, Integumentary: Erythema, Tenderness, Warmth. Chronic ulcer on the sole of right foot. Neurological: Normal speech, no focal motor deficit. Diagnosis Sepsis Cellulitis of right lower extremity Chronic right foot ulcer Charcot foot History of seizures Morbid obesity Sepsis Lactic Acidosis Cellulitis of right lower extremity Chronic right foot wound Status post sepsis protocol. No fever today Aggressive IV antibiotics with vancomycin and cefepime Blood cultures: No growth to date. Patient seen by surgery Dr. Suarez. No indication for short-lived debridement by Dr. Suarez for now. Acute hypoxic respiratory failure No previous history of CAD/COPD Chest x-ray and CT chest shows no infiltrate or edema Hypoxia probably secondary to hypoventilation ABG to assess for CO2 retention. Wean oxygen History of seizure disorder Continue home medications including Keppra and primidone Seizure precautions Hypertension Noted to have accelerated hypertension Continue home medications including atenolol We will titrate as needed Hydralazine as needed for BP spikes. CMT (Edjploy-Vsuef-Afwzu disease) Continue supportive management Continue gabapentin For neuropathy Patient seen and evaluated by general surgery. DVT prophylaxis: Lovenox.
[2023-08-17] MEDS ORDERED: HYDRALAZINE HCL 20 MG/ML VIAL IV PRN (14:04)
[2023-08-17 17:18] LABS: Arterial Blood Carboxyhemoglob 1.6 % (0-1.5); Blood O2 Saturation 95.5 % (92-98.5)
[2023-08-17] MEDS: ALPRAZOLAM 0.5 MG TABLET PO PRN (20:30)
[2023-08-18] MEDS: MORPHINE 2 MG/ML SYR IV PRN ×3 (02:16→15:56)
[2023-08-18] MEDS: ACETAMINOPHEN 500 MG TAB PO PRN ×4 (02:25→21:25)
[2023-08-18 05:21] LABS: Absolute Lymphocytes (CBC) 0.8 K/uL (0.7-4.9); Hematocrit 25.2 % (39.6-49.0); Lymphocytes % 11.5 % (15.3-44.8); MCV 98.8 fL (80-100); Platelets 130 thou/uL (152-406); RBC Red Blood Cell Count 2.55 M/uL (4.33-5.43)
[2023-08-18 05:30] LABS: Potassium 3.4 mEq/L (3.5-5.1)
[2023-08-18] MEDS: NA CHLORIDE 0.9% 1,000 ML IV SCH ×2 (06:03→17:00)
--- NOTE | 2023-08-18 08:42 | P.CNS ---
Date of Consult: 08/18/23 Reason for Consult: sepsis, cellulitis Chief Complaint: Right lower extremity cellulitis History of Present Illness: Patient is a 58 year old male with a past medical history of hypertension, CMT disease, neuropathy and seizure disorder who presented to the ED with complaints of recurrent right lower extremity cellulitis. Patient was admitted for sepsis secondary to right lower extremity cellulitis and hypoxic respiratory failure. Infectious disease was consulted. Of note, patient has been hospitalized multiple times for RLE cellulitis due to infection of chronic foot ulcer. Most recently hospitalized on 07/21 during which he was on Cefepime and Vancomyin IV; he refused to have debridement and refused to continue IV antibiotic as outpatient. He was then discharged home on 07/26 with oral antibiotics. Patient was to have a follow up appoint with Dr. Suarez last week, however he missed the appointment due to not feeling well. Allergies sulfamethoxazole [From Bactrim] Allergy (Verified 05/15/22 06:33) Unknown trimethoprim [From Bactrim] Allergy (Verified 05/15/22 06:33) Unknown Sulfa (Sulfonamide An Allergy (Uncoded 02/06/17 23:57) Unknown Home medications list reviewed: Yes Home Medications: Atorvastatin Calcium 20 mg PO DAILY 05/15/22 Gabapentin [Neurontin] 300 mg PO SEECOM 05/15/22 Omeprazole [Prilosec] 40 mg PO DAILY 05/15/22 Primidone 250 mg PO TID 05/15/22 Atenolol [Tenormin] 50 mg PO BID 12/11/22 ALPRAZolam [Xanax*] 0.5 mg PO TID PRN 07/21/23 Aspirin [Aspirin EC 81 MG] 81 mg PO DAILY 07/21/23 levETIRAcetam [Keppra] 1 tab PO BID 07/22/23 Losartan Potassium 25 mg PO BID 08/16/23 - Past Medical/Surgical History Diabetic: No -: CMT -: HTN -: GERD -: HLD -: Foot surgery - Family History Father Medical History: Heart disease - Social History Alcohol use: Yes CD- Drugs: No Caffeine use: Yes Place of Residence: Home Review of Systems General: Fever, Chills, Weakness Integumentary: As per HPI Physical Examination Temp Pulse Resp BP Pulse Ox 97.2 F 88 16 155/87 H 96 08/18/23 04:00 11/06/23 04:00 08/18/23 06:07 08/18/23 04:00 08/18/23 06:07 General: Alert, Oriented x3, Mild distress HEENT: Atraumatic, Normocephalic Neck: Supple, JVD not distended Respiratory: Normal air movement (on room air), Diminished Cardiovascular: Other (tachycardic) Gastrointestinal: Normal bowel sounds, Soft and benign Integumentary: Tenderness/swelling (RLE), Erythema (RLE), Warmth (RLE) Neurological: Normal speech Laboratory Data - Reviewed Microbiology Data - Reviewed Imagings Data: - Reviewed Conclusions/Impression: Problem List Sepsis secondary to right lower extremity cellulitis Gsbkoqp-Mgqhn-Fisoo Disorder (CMT) with Neuropathy Chronic Foot Wound right foot Hypertension Seizure Disorder Sepsis secondary to Right Lower Extremity Cellulitis Chronic Foot Wound of right foot - Patient has been hospitalized multiple times for RLE cellulitis due to infection of chronic foot ulcer. Most recently hospitalized on 07/21 during [facility] he was on Cefepime and Vancomyin IV; he refused to have debridement and refused to continue IV antibiotic as outpatient. He was then discharged home on 07/26 with oral antibiotics. Patient was to have a follow up appoint with Dr. Suarez last week, however he missed the appointment due to not feeling well. - Wound cultures ordered, pending - Blood cultures 08/16: No growth to date - 24 hour tmax = 100.9 F - Currently on Cefepime and Vancomycin (started 08/16) - MRI Right Lower Extremity: pending - Gen surgery Dr. Suarez consulted Recommendations - Continue Cefepime and Vancomycin for now - Pending MRI of right lower extremity/right foot. - Follow up with results - Wound culture right foot wound ordered, pending - Wound care per wound care team or Dr. Suarez - Seizure precautions - Monitor WBC and fever trends Case discussed with Sherita Nye
[2023-08-18] MEDS: METOPROLOL TAR 50 MG TAB PO SCH ×2 (08:52→20:36)
[2023-08-18] MEDS: levETIRAcetam 500 MG TAB PO SCH ×2 (08:52→20:29)
[2023-08-18] MEDS: ENOXAPARIN 40 MG/0.4 ML SQ SCH (08:52)
[2023-08-18] MEDS: GABAPENTIN 300 MG CAP PO SCH ×3 (08:52→20:29)
[2023-08-18] MEDS: PRIMIDONE 250 MG TAB PO SCH ×3 (08:52→20:30)
[2023-08-18] MEDS: ASPIRIN EC 81 MG TAB PO SCH (08:52)
[2023-08-18] MEDS: ATORVASTATIN 20 MG TAB PO SCH (08:52)
[2023-08-18] MEDS: SILVER SULFADIAZINE 1% 50 GM TOP SCH ×2 (08:53→20:53)
[2023-08-18] MEDS: atenoloL 50 MG TAB PO SCH ×2 (08:53→20:29)
--- NOTE | 2023-08-18 09:43 | P.PN ---
Subjective Date of Service: 08/18/23 Chief Complaint: Right lower extremity cellulitis Subjective: Doing well HPI 08/16: Juan José Escobar is 58 yrs old Male with past medical history of hypertension, seizure disorder, CMT, neuropathy, who was recently been admitted to the hospital with right lower extremity cellulitis and was completed antibiotics with improvement of redness , has been doing wound care at home with wound packing , brought to ER with shortness of breath and fever and chills and redness and swelling of right lower extremity. Denies any chest pain. The symptoms progressed over the last 24 hours and has been rapidly been worsening. No nausea vomiting or diarrhea. No sick contacts. Patient was assessed in the ER and was found to have sepsis with right lower extremity cellulitis and hypoxic respiratory failure and accelerated hypertension and was admitted for further management. 08/16: Juan José is awake this AM, antibiotics infusing. He reports have chronic wounds to his right foot. 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 He was able to complete his job and returned home not feeling well. His manages his wound care. Juan José missed his appointment with Dr. Erick Montgomery d/t not feeling well. On examination he is on RA, and denies fever, chills, CP, and abdominal pain. 08/17: Patient had cortisone fever yesterday. No recorded fever today. Right leg remains erythematous and swollen. He is tolerating diet 08/18: Juan José is awake in bed, still febrile, will get CT of RLE to further tailor the antibiotics. Currently on cefepime and vancomycin. Infectious disease has been consulted. Will follow recommendations. <Tyra Barclay - Last Filed: 08/18/23 09:55> Date of Service: 08/18/23 <merna oliver - Last Filed: 08/18/23 15:13> Physical Examination - Vital Signs Temperature: 98.3 F Blood Pressure: 170/99 Pulse: 99 Respirations: 17 Pulse Ox (%): 98 <Tyra Barclay - Last Filed: 08/18/23 09:55> Assessment And Plan - Plan Physical Exam General: Alert, Oriented x3, Moderate distress, Obese HEENT: Atraumatic, Normocephalic Neck: Supple, No Thyromegaly Respiratory: Diminished, Crackles/rales, Expiratory wheezes Cardiovascular: Normal S1 S2, Other (Tachycardic ) Capillary refill: <2 Seconds Gastrointestinal: Soft and benign, W/out hepatosplenomegaly Musculoskeletal: RLE and foot with Swelling, Erythema, Tenderness, Warmth dressing C/D/I, LLE with edema Integumentary: Tenderness/swelling, Erythema, Other (Right Lower extremity Cellulitis , Foot Ulcer with packing noted ) Neurological: Normal speech, Normal strength at 5/5 x4 extr, Cranial nerves 3-12 intact Lymphatics: No axilla or inguinal lymphadenopathy Assessment and Plan Sepsis Lactic Acidosis Cellulitis of right lower extremity Chronic right foot wound Status post sepsis protocol. Febrile 100.5-100.9 OVN Aggressive IV antibiotics with vancomycin and cefepime Blood cultures: No growth to date. Patient seen by surgery Dr. Suarez. No indication for short-lived debridement by Dr. Suarez for now. Infectious disease consulted Bonilla bandage C/D/I, leg marked permanent marker Acute hypoxic respiratory failure No previous history of CAD/COPD Chest x-ray and CT chest shows no infiltrate or edema Hypoxia probably secondary to hypoventilation ABG to assess for CO2 retention. Wean oxygen History of seizure disorder Continue home medications including Keppra and primidone Seizure precautions Hypertension Noted to have accelerated hypertension Continue home medications including atenolol We will titrate as needed Hydralazine as needed for BP spikes. CMT (Bavtzds-Tbuhb-Bthad disease) Continue supportive management Continue gabapentin For neuropathy Patient seen and evaluated by general surgery. Discharge Plan: Home Plan to discharge in: Greater than 2 days Discharge Plan: Home Physician Review: Patient Assessed, Agree with Above Assessment and Plan Time Spent Managing PTS Care (In Minutes): 35 <Tyra Barclay - Last Filed: 08/18/23 09:55> - Plan Patient seen and examined. Plan of care discussed with Ms. Barclay. Patient experiencing intermittent fever despite aggressive antibiotic therapy. Obtain MRI of the foot to evaluate for deeper soft tissues and skeletal tissue. Infectious disease consulted. Supportive measures-antipyretics, cooling blanket as needed. Keep lower extremity elevated. <merna oliver - Last Filed: 08/18/23 15:13>
[2023-08-18] MEDS: VANCOMYCIN 2 GM in NA CHLORIDE 0.9% 500 ML IVPB SCH ×2 (10:06→20:27)
[2023-08-18] MEDS: ALPRAZOLAM 0.5 MG TABLET PO PRN ×2 (10:46→20:36)
[2023-08-18] MEDS: IBUPROFEN 400 MG TAB PO PRN ×2 (12:12→20:28)
[2023-08-18] MEDS: CEFEPIME 1 GM in NA CHLORIDE 0.9% 100 ML IV SCH ×2 (13:17→20:48)
--- NOTE | 2023-08-18 18:21 | RAD REPORT ---
EXAM DESCRIPTION: US - Lower Extremity Artery Uni Ltd - 08/18/2023 2:44 pm CLINICAL HISTORY: rule out peripheral arterial disease COMPARISON: Lower Extremity W/ Cont dated 07/24/2023 TECHNIQUE: Right lower extremity arterial Doppler examination was performed with waveform tracing. FINDINGS: Triphasic waveforms are seen throughout right lower extremity arterial system to the level of the pos terior tibial artery. Biphasic waveforms seen along the right dorsalis pedis artery IMPRESSION: Mild peripheral vascular disease along the distal right lower extremity.
--- NOTE | 2023-08-18 19:06 | RAD REPORT ---
EXAM DESCRIPTION: MRI - Foot Right Wo Cont - 08/18/2023 3:24 pm CLINICAL HISTORY: Cellulitis, chronic right wound COMPARISON: CT leg 07/21/2023 TECHNIQUE: Multiplanar multisequence MRI of the right foot, obtained without IV contrast. FINDINGS: Soft tissue irregularity, swelling, and abnormal signal throughout the subcutaneous soft t issues at the sole of the midfoot, opposite the cuboid are stable compared to the prior CT. Focus of subchondral T2 hyperintensity along the inferior aspect of the cuboid seen on series 8, image 12, jus t adjacent to the soft tissue findings, corresponds to a small osseous subchondral cyst on CT, and th erefore may represent sequelae of chronic osteomyelitis. Small region of plantar subcutaneous soft tissue obliteration and underlying signal abnormality along the plantar aspect of the first digit, just at the level of the medial sesamoid. This is also stable compared to the prior CT No other abnormal marrow signal to suggest osteomyelitis throughout the foot. Subchondral cystic changes throughout the midfoot and hindfoot articulations, as well as marrow signa l abnormalities along the distal fibula, are likely chronic, suggesting sequelae of degenerative rivas ges mild bilateral findings may represent sequelae of bone infarcts. Medial fusion hardware of the mid to hindfoot, without obvious complications, results in susceptibili ty signal abnormalities somewhat limiting evaluation. Fatty replacement of the deep muscles of the foot. Abnormal signal extends from the plantar soft tiss ue abnormality along the lateral aspect of the muscles. IMPRESSION: Focus of subchondral T2 hyperintensity along the plantar aspect of the cuboid bone, nata esponding to a small subchondral cyst on the recent CT. This is nonspecific, but may represent sequel ae of chronic osteomyelitis. No other marrow signal abnormality to suggest acute osteomyelitis. Stable extent of plantar midfoot skin irregularity and subcutaneous signal abnormalities extending in to the lateral aspect of the deep muscles of the foot, suggestive of cellulitis. No appreciable abnor mal fluid collections within limits of noncontrast imaging. Similar findings at the plantar aspect of the forefoot at the level of the medial first digit sesamoid, may also represent sequelae of celluli tis. Other chronic findings as above.
[2023-08-19] MEDS: ACETAMINOPHEN 500 MG TAB PO PRN ×3 (01:35→21:12)
[2023-08-19] MEDS: MORPHINE 2 MG/ML SYR IV PRN ×3 (01:41→21:13)
[2023-08-19] MEDS: NA CHLORIDE 0.9% 1,000 ML IV SCH ×2 (02:40→13:00)
[2023-08-19] MEDS: IBUPROFEN 400 MG TAB PO PRN (04:20)
[2023-08-19 04:23] LABS: Absolute Lymphocytes (CBC) 0.9 K/uL (0.7-4.9); Hematocrit 24.4 % (39.6-49.0); Lymphocytes % 20.6 % (15.3-44.8); MCV 98.1 fL (80-100); MPV 8.4 fL (7.6-11.3); Platelets 118 thou/uL (152-406); RBC Red Blood Cell Count 2.49 M/uL (4.33-5.43)
[2023-08-19 04:31] LABS: Potassium 3.4 mEq/L (3.5-5.1)
--- NOTE | 2023-08-19 07:57 | P.PN ---
Date of Service: 08/19/23 Chief Complaint: Right lower extremity cellulitis Subjective: Patient seen and examined at bedside. In no apparent distress. Breathing comfortably on room air. He reports improvement in fever and RLE erythema, overall feeling better today. No acute events reported overnight. Physical Examination Temp Pulse Resp BP Pulse Ox 97.5 F 73 16 137/95 H 97 08/19/23 04:00 08/19/23 04:00 08/19/23 04:00 08/19/23 04:00 08/19/23 04:00 General: Alert, Oriented x3, Mild distress HEENT: Atraumatic, Normocephalic Neck: Supple, JVD not distended Respiratory: Normal air movement. Diminished at bases. On room air. Cardiovascular: Regular rate and rhythm. BLE edema R>L. Gastrointestinal: Normal bowel sounds, Soft and benign Integumentary: RLE edema, erythema and warmth. Dressing is clean dry and intact. Neurological: Normal speech Laboratory Data - Reviewed Microbiology Data - Reviewed Imagings Data: - Reviewed Medications List: Reviewed Assessment and Plan Problem List Sepsis secondary to right lower extremity cellulitis Ypylejk-Vuygz-Cjppk Disorder (CMT) with Neuropathy Chronic Foot Wound right foot Hypertension Seizure Disorder Sepsis secondary to Right Lower Extremity Cellulitis Chronic Foot Wound of right foot - Patient has been hospitalized multiple times for RLE cellulitis due to infection of chronic foot ulcer. Most recently hospitalized on 07/21 during which he was on Cefepime and Vancomyin IV; he refused to have debridement at the time and did not want to continue IV antibiotics as outpatient. He was then discharged home on 07/26 with oral antibiotics Ciprofloxacin and Clindamycin. Patient was to have a follow up appoint with Dr. Suarez last week, however he missed the appointment due to not feeling well. - Wound cultures ordered, pending - Blood cultures 08/16: No growth to date - Afebrile 24 hours - Currently on Cefepime and Vancomycin (started 08/16) -MRI Right Lower Extremity 08/18: "IMPRESSION: Focus of subchondral T2 hyperintensity along the plantar aspect of the cuboid bone, corresponding to a small subchondral cyst on the recent CT. This is nonspecific, but may represent sequelae of chronic osteomyelitis. No other marrow signal abnormality to suggest acute osteomyelitis. Stable extent of plantar midfoot skin irregularity and subcutaneous signal abnormalities extending into the lateral aspect of the deep muscles of the foot, suggestive of cellulitis. No appreciable abnormal fluid collections within limits of noncontrast imaging. Similar findings at the plantar aspect of the forefoot at the level of the medial first digit sesamoid, may also represent sequelae of cellulitis." Recommendations - Continue Cefepime and Vancomycin for now Patient failed outpatient antibiotic therapy on Ciprofloxacin and Clindamycin. We recommend continuing with IV antibiotic therapy for at least 2 weeks. Recommend wound care consultation and also following up with wound care as outpatient - Seizure precautions - Monitor WBC and fever trends Questions answered and plan of care discussed with patient. Case discussed with Sherita Nye
[2023-08-19] MEDS: VANCOMYCIN 2 GM in NA CHLORIDE 0.9% 500 ML IVPB SCH ×2 (08:00→21:11)
[2023-08-19] MEDS: SILVER SULFADIAZINE 1% 50 GM TOP SCH ×2 (09:00→21:00)
--- NOTE | 2023-08-19 10:07 | P.PN ---
Date of Service: 08/19/23 Subjective: Improving, concerned about recurrent infection/discharge plans ROS: 10 point ROS as noted above, otherwise negative Physical exam GEN: Alert, oriented, NAD HEENT: Normal conjunctiva, sclera anicteric CV: Regular rate and rhythm, no edema Pulm: Nonlabored respirations on room air ABD: Soft, nontender, nondistended MSK: No joint tenderness Integumentary: Cellulitis right lower extremity extending from the distal thigh down on the right leg Neuro: Normal speech, normal affect Vitals reviewed Problem List Sepsis secondary to right lower extremity cellulitis Sdjmafo-Ljlbc-Ghbkh Disorder (CMT) with Neuropathy Chronic Foot Wound right foot Hypertension Seizure Disorder Sepsis secondary to Right Lower Extremity Cellulitis Chronic Foot Wound of right foot - Recurrent cellulitis RLE, previously refused debridement/IV antibiotics at discharge - Wound cultures ordered, pending - Blood cultures 08/16: No growth to date - Afebrile 24 hours - Currently on Cefepime and Vancomycin (started 08/16) -MRI Right Lower Extremity 08/18: "IMPRESSION: Focus of subchondral T2 hyperintensity along the plantar aspect of the cuboid bone, corresponding to a small subchondral cyst on the recent CT. This is nonspecific, but may represent sequelae of chronic osteomyelitis. No other marrow signal abnormality to suggest acute osteomyelitis. Stable extent of plantar midfoot skin irregularity and subcutaneous signal abnormalities extending into the lateral aspect of the deep muscles of the foot, suggestive of cellulitis. No appreciable abnormal fluid collections within limits of noncontrast imaging. Similar findings at the plantar aspect of the forefoot at the level of the medial first digit sesamoid, may also represent sequelae of cellulitis." -Continue IV vancomycin/cefepime Sstkdei-Eqjkc-Efybc Disorder (CMT) with Neuropathy Hypertension Seizure Disorder - Seizure precautions - Continue home medications VTE: Lovenox Code: full Dispo: 48-72 hours Time Spent Managing Pts Care (In Minutes): 35 <Vahe Dumas - Last Filed: 08/19/23 10:04> Patient seen and examined on rounds this morning. 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 Agree with plan as noted above with the following ad ditions/corrections: Erythema up to right thigh, +b/l edema, R>L reports some swelling in b/l hands as well. still on IVF, and hypoalbuminemia dc ivf continue antibiotics suspect ~2-3 days more of hospitalization LFTs were slightly elevated ~2 days ago, recheck may need gentle diuresis <Edilberto Weston - Last Filed: 08/19/23 13:12>
[2023-08-19] MEDS: METOPROLOL TAR 50 MG TAB PO SCH ×2 (10:08→21:13)
[2023-08-19] MEDS: CEFEPIME 1 GM in NA CHLORIDE 0.9% 100 ML IV SCH ×2 (10:08→22:46)
[2023-08-19] MEDS: levETIRAcetam 500 MG TAB PO SCH ×2 (10:08→21:13)
[2023-08-19] MEDS: ATORVASTATIN 20 MG TAB PO SCH (10:08)
[2023-08-19] MEDS: ENOXAPARIN 40 MG/0.4 ML SQ SCH (10:08)
[2023-08-19] MEDS: PRIMIDONE 250 MG TAB PO SCH ×3 (10:08→21:11)
[2023-08-19] MEDS: ASPIRIN EC 81 MG TAB PO SCH (10:08)
[2023-08-19] MEDS: atenoloL 50 MG TAB PO SCH ×2 (10:09→21:12)
[2023-08-19] MEDS: GABAPENTIN 300 MG CAP PO SCH ×3 (10:09→21:13)
[2023-08-19] MEDS ORDERED: FUROSEMIDE 40 MG/4 ML VIAL IV ONE (16:48)
--- NOTE | 2023-08-19 18:13 | P.PN ---
Subjective Date of Service: 08/19/23 Chief Complaint: Right lower extremity cellulitis Subjective: Improving (less cellulitis, less pain, less swelling, but remains prominent, no new complaints) Physical Examination - Vital Signs Temperature: 97.4 F Blood Pressure: 155/97 Pulse: 85 Respirations: 18 Pulse Ox (%): 98 - Physical Exam General: Alert, In no apparent distress, Cooperative Musculoskeletal: Other (cellulitis to RLE, improving, but remains prominent, no drainable collections, no necrosis, open plantar wound is granulating slowly, minimal fibrin buildup.) Assessment And Plan - Current Problems (Diagnosis) (1) Cellulitis of right lower extremity Current Visit: No Status: Acute Plan: - continue IV antibiotics - continue wound care with santyl, vashe damp to dry to plantar wound, apply silvadene to RLE cellultiis, wrap, elevate, cool packs - continue medical managmenet Physician Review: Patient Assessed, Agree with Above Assessment and Plan
--- NOTE | 2023-08-19 19:21 | CON ---
Date of Consultation: 08/17/2023 Brief History Of Present Illness: The patient is a 58-year-old man known to me from previous debride ment of his foot, who presents to the hospital with complaints of cellulitis once again. I saw him o n the second occasion on 07/22/2023 with recurrent cellulitis and an open wound of the right lower ex tremity. He states he had not followed up because of lack of insurance, but got insurance and as suc h came to the hospital to discuss ongoing wound care of his right lower extremity. He has been getti ng wound care from his at home. The right side of his foot had an open wound and treated for so me time. He was noncompliant with followup with myself on multiple occasions including after this la st visit on 07/22/2023. He did ultimately have a job [place] a different state, which he was getting c are by his on that occasion. He now presents back with recurrence after return from [facility] with recurrent cellulitis, tenderness, swelling, and concern for infection. He did have some syste [facility] symptoms of weakness, fatigue, lethargy and was admitted to the hospital for the above-stated iss ue. Past Medical History: Significant for hypertension, hyperlipidemia, diabetes, neuropathy. Past Surgical History: Debridement of his right foot. Allergies: TO HE BELIEVES BACTRIM SYSTEMICALLY, BUT NOT TOPICALLY. Home Medications: Include atorvastatin, Neurontin, Prilosec, clonazepam, Tenormin, Keppra, doxycycli ne, Cascade, clindamycin. Social History: He drinks alcohol recreationally. He does have a positive significant tobacco histo ry. Denies recreational drug use. Review of Systems: Ten-point review of systems other than HPI, he denies. Physical Examination: At the time of my examination: General: He is awake, alert, and oriented. Psychiatric: He is appropriate and conversive. HEENT: He is normocephalic. Sclerae anicteric. Mucous membranes moist. Oropharynx clear. Neck: Supple without JVD. Chest: Normal expansion and excursion. Cardiovascular: Regular rate and rhythm. Pulmonary: Clear to auscultation bilaterally. Abdomen: Soft. Extremities: On focused examination of the right lower extremity, he has cellulitis extending all th e way up to the level of the knee and to the level of the ankle area. He continues to have an open w ound on the plantar aspect of the foot, which is approximately 5 cm in size with granulation tissue t here. No obvious abscess. No drainage. The foot and entire right lower extremity swollen extending to the knee area. He has significant lymphedema bilateral extremities, but right greater than left. Vital Signs: At the time of my examination, blood pressure 123/71, pulse 90, respiratory rate 17, te mperature 99.2, SpO2 is 98% on room air. Laboratory Data: Revealed a white blood cell count of 7.8, hemoglobin is 9.4, hematocrit of 27.7, pl atelet count was 137, neutrophils were 85%. His sodium is 139, potassium 3.7, chloride 110, carbon d ioxide is 24, BUN is 11, creatinine 0.8, glucose is 93. His calcium is 7.3, AST is 99, ALT 149, rowena line phosphatase 123. He had some imaging, which included a venous ultrasound of the right lower ext remity, which showed no DVT in the right lower extremity, pathologically enlarged right lymph node wh ich is presumably reactive. Assessment And Plan: This is a 58-year-old man who presents with recurrent cellulitis of the right l ower extremity as well as an open wound on the plantar aspect of his foot. He was treated successful ly in the last occasion with initial treatment with Silvadene. Despite his statement of allergies to Bactrim, he had significant improvement with Silvadene applied topically on last occasion and as suc h, I recommend attempt at Silvadene treatment to the entire right lower extremity as well. Packing o f the wound with Santyl and Vashe pack damply to the area wet-to-dry daily with wrap, elevation of th e entire lower extremity, and a cool pack to be placed and serial exams. The wound has been marked w ith a marking pen to elicit the area of cellulitis. Continue IV antibiotics per primary medical doct or including vancomycin at this time. Continue serial exams. Continue medical management per primar y medical team. I have explained the importance of followup to the patient regarding ongoing wound c are, so we can prevent these readmissions and hopefully achieve a better functional outcome in the lo term. I have stressed the importance of medical management of his comorbid medical conditions to optimize his wound healing. In addition, proper wound care with close followup and proper shoe fitti ngs and orthotics. I have explained that if he has any abscesses, we will need to discuss surgical debridement of these areas, which included, but not limited to, bleeding, infection, damage to surrounding tissues, nerve injury, need for further operative procedures. The patient agrees to proceed as indicated. GRACIA/LEFTY Voice ID: [id number] Report ID: [id number]
[2023-08-20 00:05] VITALS: O2SAT 95
[2023-08-20] MEDS: IBUPROFEN 400 MG TAB PO PRN ×2 (00:16→20:53)
[2023-08-20] MEDS: ALPRAZOLAM 0.5 MG TABLET PO PRN ×2 (00:16→22:58)
[2023-08-20 03:35] LABS: Hematocrit 25.7 % (39.6-49.0); MPV 8.5 fL (7.6-11.3); Platelets 167 thou/uL (152-406); RBC Red Blood Cell Count 2.65 M/uL (4.33-5.43)
[2023-08-20 04:11] LABS: Albumin 2.5 g/dL (3.4-5.0); Bilirubin Total 0.5 mg/dL (0.2-1.0); Ferritin 834.1 ng/mL (26-388); Magnesium 1.1 mg/dL (1.6-2.4); Potassium 2.9 mEq/L (3.5-5.1); Protein, Total 6.7 g/dL (6.4-8.2)
[2023-08-20] MEDS: MORPHINE 2 MG/ML SYR IV PRN ×2 (05:08→12:06)
--- NOTE | 2023-08-20 08:27 | ECHO ---
HEIGHT: 5 ft 9 in WEIGHT: 260 lb 0 oz DATE OF STUDY: 08/18/[address]: Fabiano Rausch DO 2-DIMENSIONAL: YES M.MODE: YES DOPPLER: YES COLOR FLOW: YES TDS: PORTABLE: YES DEFINITY: BUBBLE STUDY: DIAGNOSIS: SHORTNESS OF BREATH CARDIAC HISTORY: CATHERIZATION: NO SURGERY: NO PROSTHETIC VALVE: NO PACEMAKER: NO MEASUREMENTS (cm) DIASTOLIC (NORMALS) SYSTOLIC (NORMALS) IVSd 1.2 (0.6-1.2) LA Diam 3.7 (1.9-4.0) LVEF 50% LVIDd 3.9 (3.5-5.7) LVIDs 3.1 (2.0-3.5) %FS 22% LVPWd 1.3 (0.6-1.2) Ao Diam 3.0 (2.0-3.7) 2 DIMENSIONAL ASSESSMENT: RIGHT ATRIUM: NORMAL LEFT ATRIUM: NORMAL RIGHT VENTRICLE: NORMAL LEFT VENTRICLE: NORMAL TRICUSPID VALVE: MILD TRICUSPID REGURGITATION MITRAL VALVE: NORMAL PULMONIC VALVE: NORMAL AORTIC VALVE: NORMAL PERICARDIAL EFFUSION: NONE AORTIC ROOT: NORMAL LEFT VENTRICULAR WALL MOTION: UNABLE TO EVALUATE DUE TO POOR WINDOWS DOPPLER/COLOR FLOW: SEE BELOW COMMENTS: 1. POOR WINDOWS 2. OVERALL LEFT VENTRICULAR EJECTION FRACTION APPEARS NORMAL 50-55%. RECOMMEND CONTRAST ECHOCARDIOGRAM TECHNOLOGIST: BAKARI EPSTEIN
[2023-08-20] MEDS ORDERED: FUROSEMIDE 20 MG/ 2ML VIAL IV SCH ×2 (09:00→12:34)
[2023-08-20] MEDS: METOPROLOL TAR 50 MG TAB PO SCH (09:00)
[2023-08-20] MEDS: SILVER SULFADIAZINE 1% 50 GM TOP SCH ×2 (09:00→20:54)
--- NOTE | 2023-08-20 10:52 | P.PN ---
Date of Service: 08/20/23 Subjective: Improving, some generalized edema reported, pain in RLE ROS: 10 point ROS as noted above, otherwise negative Physical exam GEN: Alert, oriented, NAD HEENT: Normal conjunctiva, sclera anicteric CV: Regular rate and rhythm, no edema Pulm: Nonlabored respirations on room air ABD: Soft, nontender, nondistended MSK: No joint tenderness Integumentary: Cellulitis right lower extremity extending from the distal thigh down on the right leg Neuro: Normal speech, normal affect Vitals reviewed Problem List Sepsis secondary to right lower extremity cellulitis Nxjjbbg-Ippqk-Yrfrl 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 This is nonspecific, but may represent sequelae of chronic osteomyelitis. No other marrow signal abnormality to suggest acute osteomyelitis. Stable extent of plantar midfoot skin irregularity and subcutaneous signal abnormalities extending into the lateral aspect of the deep muscles of the foot, suggestive of cellulitis. No appreciable abnormal fluid collections within limits of noncontrast imaging. Similar findings at the plantar aspect of the forefoot at the level of the medial first digit sesamoid, may also represent sequelae of cellulitis." -Continue IV vancomycin/cefepime -Had swelling, IVF stopped, given lasix with some improvement Hypokalemia Hypomagnesemia Likely secondary to lasix, replacement protocol in place. Yeeavvt-Vsvkf-Yvmwa Disorder (CMT) with Neuropathy Hypertension Seizure Disorder - Seizure precautions - Continue home medications VTE: Lovenox Code: full Dispo: 48-72 hours Time Spent Managing Pts Care (In Minutes): 35 <Vahe Dumas - Last Filed: 08/20/23 10:50> Patient seen and examined this morning. Reports slight increase in discomfort of R groin. Swelling and erythema of lower leg improving. Afebrile. Upset with nurse staffing earlier this morning. continue antibiotics. ID and General surgery following See photos below - taken 08/30 AM with patient's consent. <Edilberto Weston - Last Filed: 08/20/23 17:12>
--- NOTE | 2023-08-20 11:52 | PN ---
Subjective: Patient is lying in bed with erythematous changes to the right leg, wounds to the planta r area. Objective: Vital Signs: Temperature 97, pulse 64, respirations 16, blood pressure 149/91. Lungs: Basal crackles. Heart: S1, S2. Regular. Abdomen: Soft. Bowel sounds present. Extremities: Right leg with erythematous changes and increased warmth and thigh tenderness. Large w ounds noted at plantar area with Charcot foot deformity. Callus also noted at first metatarsal regio n. Assessment And Plan: Cellulitis of right lower extremity with wounds to the plantar area, most likel y the reason for his cellulitis. Continue IV antibiotic, Betadine to the wound site. Covering with foam and keeping leg elevated will benefit. Total course of antibiotic should be 2 weeks. Currently , on cefepime and vancomycin, can be switched to oral once patient is being discharged with doxycycli ne and Cipro. We will follow the patient as needed. MARIA M/LEFTY Voice ID: [id number] Report ID: [id number]
[2023-08-20] MEDS: atenoloL 50 MG TAB PO SCH ×2 (12:04→20:53)
[2023-08-20] MEDS: ASPIRIN EC 81 MG TAB PO SCH (12:04)
[2023-08-20] MEDS: ATORVASTATIN 20 MG TAB PO SCH (12:04)
[2023-08-20] MEDS: CEFEPIME 1 GM in NA CHLORIDE 0.9% 100 ML IV SCH ×2 (12:04→20:54)
[2023-08-20] MEDS: ENOXAPARIN 40 MG/0.4 ML SQ SCH (12:05)
[2023-08-20] MEDS: GABAPENTIN 300 MG CAP PO SCH ×3 (12:30→20:53)
[2023-08-20] MEDS: levETIRAcetam 500 MG TAB PO SCH ×2 (12:30→20:53)
[2023-08-20] MEDS: PRIMIDONE 250 MG TAB PO SCH ×3 (12:30→20:53)
[2023-08-20] MEDS: VANCOMYCIN 2 GM in NA CHLORIDE 0.9% 500 ML IVPB SCH (16:31)
[2023-08-20] MEDS ORDERED: POTASSIUM CL SA 10 MEQ TAB PO ONE ×2 (21:00)
[2023-08-20] MEDS ORDERED: CEFEPIME 1 GM/VIAL ONE (21:00)
[2023-08-20 21:52] LABS: Magnesium 1.4 mg/dL (1.6-2.4)
[2023-08-20] MEDS ORDERED: Magnesium Sulfate 2gm IVPB 2 G/50 ML BAG IV ONE (22:00)
[2023-08-20] MEDS: ACETAMINOPHEN 500 MG TAB PO PRN (22:58)
[2023-08-21 02:54] LABS: Absolute Lymphocytes (CBC) 1.1 K/uL (0.7-4.9); Hematocrit 26.6 % (39.6-49.0); Lymphocytes % 21.6 % (15.3-44.8); MPV 8.4 fL (7.6-11.3); Platelets 183 thou/uL (152-406); RBC Red Blood Cell Count 2.74 M/uL (4.33-5.43)
[2023-08-21 03:02] LABS: Albumin 2.5 g/dL (3.4-5.0); Bilirubin Total 0.4 mg/dL (0.2-1.0); Potassium 3.4 mEq/L (3.5-5.1); Protein, Total 6.6 g/dL (6.4-8.2)
[2023-08-21] MEDS: ACETAMINOPHEN 500 MG TAB PO PRN ×2 (05:50→20:16)
[2023-08-21] MEDS ORDERED: POTASSIUM CL SA 10 MEQ TAB PO ONE (06:00)
[2023-08-21] MEDS: GABAPENTIN 300 MG CAP PO SCH ×3 (08:56→20:17)
[2023-08-21] MEDS: levETIRAcetam 500 MG TAB PO SCH ×2 (08:56→20:16)
[2023-08-21] MEDS: atenoloL 50 MG TAB PO SCH ×2 (08:56→20:16)
[2023-08-21] MEDS: ENOXAPARIN 40 MG/0.4 ML SQ SCH (08:56)
[2023-08-21] MEDS: ATORVASTATIN 20 MG TAB PO SCH (08:57)
[2023-08-21] MEDS: ASPIRIN EC 81 MG TAB PO SCH (08:57)
[2023-08-21] MEDS: CEFEPIME 1 GM in NA CHLORIDE 0.9% 100 ML IV SCH ×2 (08:57→20:17)
[2023-08-21] MEDS: SILVER SULFADIAZINE 1% 50 GM TOP SCH ×2 (08:58→20:18)
[2023-08-21] MEDS: VANCOMYCIN 2 GM in NA CHLORIDE 0.9% 500 ML IVPB SCH (09:00)
[2023-08-21] MEDS: PRIMIDONE 250 MG TAB PO SCH ×3 (09:04→20:17)
--- NOTE | 2023-08-21 10:00 | P.PN ---
Date of Service: 08/21/23 Subjective: Improving, still significant erythema, cellulitis present Concerned about arrangements for outpatient treatment wanting to leave tomorrow ROS: 10 point ROS as noted above, otherwise negative Physical exam GEN: Alert, oriented, NAD HEENT: Normal conjunctiva, sclera anicteric CV: Regular rate and rhythm, no edema Pulm: Nonlabored respirations on room air ABD: Soft, nontender, nondistended MSK: No joint tenderness Integumentary: Cellulitis right lower extremity extending from the distal thigh down on the right leg Neuro: Normal speech, normal affect Vitals reviewed Problem List Sepsis secondary to right lower extremity cellulitis Kqjlybg-Mufgd-Xhjfa Disorder (CMT) with Neuropathy Chronic Foot Wound right foot Hypokalemia Hypomagnesemia Hypertension Seizure Disorder Sepsis secondary to Right Lower Extremity Cellulitis Chronic Foot Wound of right foot - Recurrent cellulitis RLE, previously refused debridement/IV antibiotics at discharge - Blood cultures 08/20: No growth to date - Afebrile 48 hours - Currently on Cefepime and Vancomycin (started 08/16) - ID reccomends 2 weeks total IV abx. Patient is not sure if he will be amendable to this - Discus with ID, case management regarding abx options -MRI Right Lower Extremity 08/18: "IMPRESSION: Focus of subchondral T2 hyperintensity along the plantar aspect of the cuboid bone, corresponding to a small subchondral cyst on the recent CT. This is nonspecific, but may represent sequelae of chronic osteomyelitis. No other marrow signal abnormality to suggest acute osteomyelitis. Stable extent of plantar midfoot skin irregularity and subcutaneous signal abnormalities extending into the lateral aspect of the deep muscles of the foot, suggestive of cellulitis. No appreciable abnormal fluid collections within limits of noncontrast imaging. Similar findings at the plantar aspect of the forefoot at the level of the medial first digit sesamoid, may also represent sequelae of cellulitis." -Continue IV vancomycin/cefepime -Had swelling, IVF stopped, given lasix with some improvement Hypokalemia Hypomagnesemia Likely secondary to lasix, replacement protocol in place. Czzwmpo-Ltayx-Ajmud Disorder (CMT) with Neuropathy Hypertension Seizure Disorder - Seizure precautions - Continue home medications VTE: Lovenox Code: full Dispo: 48-72 hours Time Spent Managing Pts Care (In Minutes): 35 <Vahe Dumas - Last Filed: 08/21/23 09:57> Patient seen and examined on rounds this morning improving leg less swollen, feels erythema improving no new/worsening symptoms wants to go home soon, tired of being in hospital agreeable to PICC and IV abx. Will confirm dosing with ID/pharmacy and order SS/CM get with home infusion companies and rico out for patient <Edilberto Weston - Last Filed: 08/21/23 20:27>
[2023-08-21 15:29] LABS: Magnesium 1.7 mg/dL (1.6-2.4); Potassium 3.4 mEq/L (3.5-5.1)
[2023-08-21] MEDS ORDERED: POTASSIUM 25 MEQ EFFERV TAB PO ONE (17:44)
[2023-08-21] MEDS: Mupirocin NASAL 2 APPL/1 GM TUBE NAS SCH (20:17)
[2023-08-21] MEDS: ALPRAZOLAM 0.5 MG TABLET PO PRN (23:56)
[2023-08-22 01:43] LABS: Absolute Lymphocytes (CBC) 1.5 K/uL (0.7-4.9); Hematocrit 26.8 % (39.6-49.0); Lymphocytes % 26.4 % (15.3-44.8); MCV 97.7 fL (80-100); MPV 8.2 fL (7.6-11.3); Platelets 201 thou/uL (152-406); RBC Red Blood Cell Count 2.74 M/uL (4.33-5.43)
[2023-08-22 01:53] LABS: Potassium 3.8 mEq/L (3.5-5.1)
[2023-08-22] MEDS: VANCOMYCIN 2 GM in NA CHLORIDE 0.9% 500 ML IVPB SCH ×2 (03:00→20:30)
[2023-08-22] MEDS ORDERED: MAGNESIUM SULFATE 1 gm IVPB 1 GM/100 ML BAG IV ONE (06:00)
[2023-08-22] MEDS: SILVER SULFADIAZINE 1% 50 GM TOP SCH ×2 (09:00→20:29)
[2023-08-22] MEDS: Mupirocin NASAL 2 APPL/1 GM TUBE NAS SCH ×2 (09:00→21:00)
[2023-08-22] MEDS ORDERED: POTASSIUM CL SA 10 MEQ TAB PO ONE (09:00)
--- NOTE | 2023-08-22 09:28 | P.PN ---
Date of Service: 08/22/23 Subjective: Improving, still significant erythema, cellulitis present Concerned about arrangements for outpatient treatment Arranging for PICC/outpatient abx ROS: 10 point ROS as noted above, otherwise negative Physical exam GEN: Alert, oriented, NAD HEENT: Normal conjunctiva, sclera anicteric CV: Regular rate and rhythm, no edema Pulm: Nonlabored respirations on room air ABD: Soft, nontender, nondistended MSK: No joint tenderness Integumentary: Cellulitis right lower extremity extending from the distal thigh down on the right leg Neuro: Normal speech, normal affect Vitals reviewed Problem List Sepsis secondary to right lower extremity cellulitis Ayqqape-Qvxjp-Qctzu Disorder (CMT) with Neuropathy Chronic Foot Wound right foot Hypokalemia Hypomagnesemia Hypertension Seizure Disorder Sepsis secondary to Right Lower Extremity Cellulitis Chronic Foot Wound of right foot - Recurrent cellulitis RLE, previously refused debridement/IV antibiotics at discharge - Blood cultures 08/20: No growth to date - Afebrile>48 hours - Currently on Cefepime and Vancomycin (started 08/16), will need two weeks total ending after 08/29 dose 2gm rocephin daily and 2.5gm vanc daily - PICC ordered - Discus with case management regarding abx options -MRI Right Lower Extremity 08/18: "IMPRESSION: Focus of subchondral T2 hyperintensity along the plantar aspect of the cuboid bone, corresponding to a small subchondral cyst on the recent CT. This is nonspecific, but may represent sequelae of chronic osteomyelitis. No other marrow signal abnormality to suggest acute osteomyelitis. Stable extent of plantar midfoot skin irregularity and subcutaneous signal abnormalities extending into the lateral aspect of the deep muscles of the foot, suggestive of cellulitis. No appreciable abnormal fluid collections within limits of noncontrast imaging. Similar findings at the plantar aspect of the forefoot at the level of the medial first digit sesamoid, may also represent sequelae of cellulitis." -Had swelling, IVF stopped, given lasix with some improvement Hypokalemia Hypomagnesemia Likely secondary to lasix, replacement protocol in place. Kkpbktp-Cgfov-Stumt Disorder (CMT) with Neuropathy Hypertension Seizure Disorder - Seizure precautions - Continue home medications VTE: Lovenox Code: full Dispo: 48-72 hours Time Spent Managing Pts Care (In Minutes): 35 <Vahe Dumas - Last Filed: 08/22/23 09:26> Patient seen and examined on rounds today. Doing well. Feels ready to go home pending PICC and antibiotic approval/set up no worsening continues to improve will need 2 weeks total IV antibiotics, 1 week remains end: 08/29 feels comfortable administering iv antibiotics via PICC, has done this for several weeks in past <Edilberto Weston - Last Filed: 08/22/23 17:53>
[2023-08-22] MEDS: levETIRAcetam 500 MG TAB PO SCH ×2 (10:21→20:29)
[2023-08-22] MEDS: ASPIRIN EC 81 MG TAB PO SCH (10:21)
[2023-08-22] MEDS: ENOXAPARIN 40 MG/0.4 ML SQ SCH (10:22)
[2023-08-22] MEDS: CEFEPIME 1 GM in NA CHLORIDE 0.9% 100 ML IV SCH ×2 (10:22→20:29)
[2023-08-22] MEDS: atenoloL 50 MG TAB PO SCH ×2 (10:22→20:30)
[2023-08-22] MEDS: PRIMIDONE 250 MG TAB PO SCH ×3 (10:22→20:29)
[2023-08-22] MEDS: ATORVASTATIN 20 MG TAB PO SCH (10:22)
[2023-08-22] MEDS: GABAPENTIN 300 MG CAP PO SCH ×3 (10:22→20:29)
--- NOTE | 2023-08-22 14:12 | P.PN ---
Subjective Date of Service: 08/22/23 Chief Complaint: Right lower extremity cellulitis Subjective: Improving (Cellulitis much improved, no new complaints) Physical Examination - Vital Signs Temperature: 98.2 F Blood Pressure: 151/89 Pulse: 71 Respirations: 18 Pulse Ox (%): 99 - Physical Exam General: Alert, In no apparent distress, Cooperative Integumentary: Other (RIGHT Leg cellulitis much improved, less swelling, but remains edematous, plantar wound - no infection, minimal fibrin, no drainage, no collections, no necrosis) Assessment And Plan - Current Problems (Diagnosis) (1) Cellulitis of right lower extremity Current Visit: No Status: Acute Plan: - continue IV antibiotics - continue wound care with santyl, vashe damp to dry to plantar wound, wrap, elevate, cool packs - continue medical managment - await PICC line and antibiotics logistics Physician Review: Patient Assessed, Agree with Above Assessment and Plan
[2023-08-22] MEDS ORDERED: ALPRAZOLAM 0.5 MG TABLET PO PRN (20:27)
[2023-08-23] MEDS: ACETAMINOPHEN 500 MG TAB PO PRN (03:41)
[2023-08-23 03:47] LABS: Hematocrit 26.8 % (39.6-49.0); MCV 96.7 fL (80-100); MPV 8.4 fL (7.6-11.3); Platelets 234 thou/uL (152-406); RBC Red Blood Cell Count 2.77 M/uL (4.33-5.43)
[2023-08-23 04:10] LABS: Magnesium 2.2 mg/dL (1.6-2.4); Potassium 3.8 mEq/L (3.5-5.1)
[2023-08-23 07:25] VITALS: TEMP 97.8
[2023-08-23 08:29] VITALS: BP 154/90
[2023-08-23] MEDS: ENOXAPARIN 40 MG/0.4 ML SQ SCH (08:32)
[2023-08-23] MEDS: CEFEPIME 1 GM in NA CHLORIDE 0.9% 100 ML IV SCH (08:32)
[2023-08-23] MEDS: PRIMIDONE 250 MG TAB PO SCH (08:33)
[2023-08-23] MEDS: Mupirocin NASAL 2 APPL/1 GM TUBE NAS SCH (08:33)
[2023-08-23] MEDS: ASPIRIN EC 81 MG TAB PO SCH (08:33)
[2023-08-23] MEDS: atenoloL 50 MG TAB PO SCH (08:33)
[2023-08-23] MEDS: ATORVASTATIN 20 MG TAB PO SCH (08:33)
[2023-08-23] MEDS: levETIRAcetam 500 MG TAB PO SCH (08:33)
[2023-08-23] MEDS: GABAPENTIN 300 MG CAP PO SCH (08:33)
[2023-08-23] MEDS: SILVER SULFADIAZINE 1% 50 GM TOP SCH (08:34)
--- NOTE | 2023-08-23 14:03 | P.DS ---
Admission Date: 08/16/23 Discharge Date: 08/23/23 Disposition: ROUTINE DISCHARGE Discharge Condition: GOOD Reason for Admission: Right lower extremity cellulitis Consultations: General surgery Infectious disease Brief History of Present Illness: 58 yrs old Male with past medical history of hypertension, seizure disorder, CMT, neuropathy, who was recently been admitted to the hospital with right lower extremity cellulitis and was completed antibiotics with improvement of redness , has been doing wound care at home with wound packing , brought to ER with shortness of breath and fever and chills and redness and swelling of right lower extremity. Denies any chest pain. The symptoms progressed over the last 24 hours and has been rapidly been worsening. No nausea vomiting or diarrhea. No sick contacts. Patient was assessed in the ER and was found to have sepsis with right lower extremity cellulitis and hypoxic respiratory failure and accelerated hypertension and was admitted for further management. Hospital Course: Problem List Sepsis secondary to right lower extremity cellulitis Kqtztmi-Yfkln-Zdwco Disorder (CMT) with Neuropathy Chronic Foot Wound right foot Hypokalemia Hypomagnesemia Hypertension Seizure Disorder Daily dressing changes - clean LLE with Vashe and apply silvadene all over. Open wound pack with vashe soaked gauze, Kerlix, Bonilla wrap, elevate, and apply a cool pack. Continue Rocephin 2 g daily and vancomycin 2.5 g daily for another 6 days ending on 08/29, after the dose of vancomycin on Friday the is recommended to have a vancomycin level drawn. Patient was admitted to the hospital with concern for infection of the right lower extremity as well as a chronic wound of the foot. Initially white blood cell count was 10.5 trended down and has remained around 5 the last few days. During admission patient was given vancomycin, cefepime IV. He was seen by infectious disease who recommends a total of 2 weeks of IV antibiotics which will be due to be completed on 08/29/2023. Arrangements were made for patient receive outpatient IV antibiotics, midline was placed today. Cleared for discharge to follow-up with general surgery in 1 week as well as PCP in the next 3 days to have vancomycin level drawn. Care traction provided with patient, family comfortable managing wound as they have been for some time now. Patient also comfortable managing midline with IV antibiotics. Erythema/cellulitis has been improving over the past few days. Blood cultures with no growth. Vital Signs/Physical Exam: Temp Pulse Resp BP Pulse Ox 97.8 F 62 14 154/90 H 99 08/23/23 08:00 08/23/23 08:00 08/23/23 08:00 08/23/23 08:00 08/23/23 08:00 General: Alert, In no apparent distress, Oriented x3 HEENT: Atraumatic, PERRLA Neck: Supple, JVD not distended Respiratory: Clear to auscultation bilaterally, Normal air movement Cardiovascular: Regular rate/rhythm, Normal S1 S2 Gastrointestinal: Non-distended Musculoskeletal: No tenderness Integumentary: Erythema (RLE) Neurological: Normal speech, Normal affect Laboratory Data at Discharge: WBC 5.30 thou/uL (4.3-10.9) 08/23/23 03:25 Hgb 9.2 g/dL (13.6-17.9) L 08/23/23 03:25 Hct 26.8 % (39.6-49.0) L 08/23/23 03:25 Plt Count 234 thou/uL (152-406) 08/23/23 03:25 PT 11.4 SECONDS (9.5-12.5) 08/16/23 03:45 INR 1.04 08/16/23 03:45 APTT 25.3 SECONDS (24.3-36.9) 08/16/23 03:45 Sodium 138 mEq/L (136-145) 08/23/23 03:25 Potassium 3.8 mEq/L (3.5-5.1) 08/23/23 03:25 BUN 12 mg/dL (7-18) 08/23/23 03:25 Creatinine 0.64 mg/dL (0.70-1.30) L 08/23/23 03:25 Glucose 93 mg/dL (74-106) 08/23/23 03:25 Magnesium 2.2 mg/dL (1.6-2.4) 08/23/23 03:25 Total Bilirubin 0.4 mg/dL (0.2-1.0) 08/21/23 02:13 AST 35 U/L (15-37) 08/21/23 02:13 ALT 63 U/L (16-61) H 08/21/23 02:13 Alkaline Phosphatase 160 U/L (45-117) H 08/21/23 02:13 Home Medications: Atorvastatin Calcium 20 mg PO DAILY 05/15/22 Gabapentin [Neurontin] 300 mg PO SEECOM 05/15/22 Omeprazole [Prilosec] 40 mg PO DAILY 05/15/22 Primidone 250 mg PO TID 05/15/22 Atenolol [Tenormin] 50 mg PO BID 12/11/22 ALPRAZolam [Xanax*] 0.5 mg PO TID PRN 07/21/23 Aspirin [Aspirin EC 81 MG] 81 mg PO DAILY 07/21/23 levETIRAcetam [Keppra] 1 tab PO BID 07/22/23 Losartan Potassium 25 mg PO BID 08/16/23 Physician Discharge Instructions: Daily dressing changes - clean LLE with Vashe and apply silvadene all over. Open wound pack with vashe soaked gauze, Kerlix, Bonilla wrap, elevate, and apply a cool pack. Continue Rocephin 2 g daily and vancomycin 2.5 g daily for another 6 days ending on 08/29, after the dose of vancomycin on Friday the is recommended to have a vancomycin level drawn. Patient was admitted to the hospital with concern for infection of the right lower extremity as well as a chronic wound of the foot. Initially white blood cell count was 10.5 trended down and has remained around 5 the last few days. During admission patient was given vancomycin, cefepime IV. He was seen by infectious disease who recommends a total of 2 weeks of IV antibiotics which will be due to be completed on 08/29/2023. Arrangements were made for patient receive outpatient IV antibiotics, midline was placed today. Cleared for discharge to follow-up with general surgery in 1 week as well as PCP in the next 3 days to have vancomycin level drawn. Care traction provided with patient, family comfortable managing wound as they have been for some time now. Patient also comfortable managing midline with IV antibiotics. Erythema/cellulitis has been improving over the past few days. Blood cultures with no growth. Diet: AHA Activity: Ad sloane Followup: Momo Suarez MD [ACTIVE - CAN ADMIT] - 1 Week Marshall Peguero MD [ACTIVE - CAN ADMIT] - 2-3 Days Time spent managing pt's care (in minutes): 35
--- NOTE | 2023-08-23 14:42 | EKG ---
Test Date: 2023-08-16 Test Time: 03:49:21 Primary Care Pediatrician: Bernard Wayne MEASUREMENT RESULTS: Intervals: Rate: 114 RI: 86 QRSD: 78 QT: 466 QTc: 642 Leonard: P: 57 RI: 86 QRS: 59 T: 65 INTERPRETIVE STATEMENTS: Sinus tachycardia with short RI T wave abnormality, consider anterior ischemia Prolonged QT Abnormal ECG Compared to ECG 07/21/2023 14:03:26 Short RI interval now present Possible ischemia now present Prolonged QT interval now present Sinus rhythm no longer present T-wave abnormality still present Electronically Signed On 08-23-23 14:20:46 RADIOGRAPHER ANGIOGRAM by Edinson Diaz
== END 2023-08-23 12:30 | disposition home or self-care (01) | DRG 871 ==
LOC: ER 03:36 → 2ND 04:54
PROVIDERS: ADMIT Family Medicine; ATTEND Hospitalist
PROC: 02HV33Z Insertion of Infusion Device into Superior Vena Cava, Percutaneous Approach (ICD-10-PCS; principal; 2023-08-23)
DX: A41.9 Sepsis, unspecified organism (principal); J96.01 Acute respiratory failure with hypoxia; R65.21 Severe sepsis with septic shock; L03.115 Cellulitis of right lower limb; E87.20 Acidosis, unspecified; I10 Essential (primary) hypertension; E78.5 Hyperlipidemia, unspecified; E87.6 Hypokalemia; G60.0 Hereditary motor and sensory neuropathy; K21.9 Gastro-esophageal reflux disease without esophagitis; E66.01 Morbid (severe) obesity due to excess calories; E88.09 Other disorders of plasma-protein metabolism, not elsewhere classified; G40.909 Epilepsy, unspecified, not intractable, without status epilepticus; L97.519 Non-pressure chronic ulcer of other part of right foot with unspecified severity; Z88.2 Allergy status to sulfonamides; Z79.82 Long term (current) use of aspirin; Z68.38 Body mass index [BMI] 38.0-38.9, adult; Z79.899 Other long term (current) drug therapy; Z91.199 Patient's noncompliance with other medical treatment and regimen due to unspecified reason
CPT/HCPCS: 36415; 36600; 71045; 71275; 80048; 80053; 80202; 82728; 82805; 82947; 83540; 83605; 83735; 84132; 84466; 85025; 85027; 85610; 85730; 87040; 93005; 93306; 93926; 93971; 96365; 96367; 99285; J0360; J0692; J1650; J1940; J2270; J2405; J3475; J7030; J7040; J7050; Q9967